=== PATIENT | male | born 1930 | race Caucasian/White ===

== ENCOUNTER → 2018-06-22 | Outpatient (CLI) | payer OTHER ==
--- NOTE | 2018-06-22 08:45 | US ---
EXAMINATION TYPE: US abdomen complete DATE OF EXAM: 06/22/2018 COMPARISON: NONE CLINICAL HISTORY: History of AAA repair I71.4. EXAM MEASUREMENTS: Liver Length: 16.8 cm Gallbladder Wall: 0.3 cm CBD: 0.5 cm Spleen: 13.4 cm Right Kidney: 11.5 x 5.1 x 5.1 cm Left Kidney: 11.6 x 6.1 x 8.2 cm Pancreas: not visualized due to midline bowel gas Liver: wnl Gallbladder: no stones seen, distended at 11.1 cm Evidence for sonographic Riggins's sign: No CBD: wnl Spleen: granulomas noted Right Kidney: No hydronephrosis or masses seen Left Kidney: appears as hydro or parapelvic cyst. Upper IVC: wnl Abd Aorta: distal AAA measures 5.5 x 4.9 cm with history of repair. The repaired portion measures 1. 7 x 1.3 cm with flow. IMPRESSION: 1. Repaired abdominal aortic aneurysm. This comes with be better evaluated with CTA abdomen and pelvi s. 2. Large left renal hydronephrosis. This could be further evaluated with CT abdomen. Differential jacy gnosis could include peripelvic cyst.
== END | disposition home or self-care (01) ==
LOC: RADUSWWP 07:17
DX: I71.4 Abdominal aortic aneurysm, without rupture (principal); N13.30 Unspecified hydronephrosis
CPT/HCPCS: 76700

== ENCOUNTER → 2019-04-22 | Outpatient (CLI) | payer OTHER ==
--- NOTE | 2019-04-22 17:09 | CT ---
EXAMINATION TYPE: CT abdomen wo con DATE OF EXAM: 04/22/2019 COMPARISON: None available at this location. Ultrasound abdomen 06/22/2028 is reviewed. INDICATION: Renal failure, AAA DLP: 626 mGycm, Automated exposure control for dose reduction was used. CONTRAST: 0 mL of Isovue 300. Study performed without Oral Contrast TECHNIQUE: Axial images were obtained from above the diaphragm to the pubic rami in the axial plane a t 5 mm thick sections. Reconstructed images are reviewed on the computer in the coronal plane. FINDINGS: Limited CT sections are obtained the lung bases. Small right pleural effusion is present. Very minim al left pleural effusion may be present.. CT ABDOMEN: Liver/Spleen: There are extensive calcified granuloma within the liver and the spleen. Pancreas: Normal Adrenal glands: The adrenal glands are normal. Gallbladder: Gallbladder wall calcification may be present. No gallstones were noted on the ultrasoun d. Kidneys: No masses are evident. There appears to be a large left hydronephrosis. Differential diagnos is would include a peripelvic cyst. This measures 10.6 x 7.9 cm. No etiology for an obstructed renal pelvis is evident however. The right kidney appears normal. Aorta: Vascular calcification is within the aorta. There is a abdominal aortic aneurysm with repair. Iliac stents are evident coming from the abdominal aortic aneurysm. Study is without contrast and en dovascular leak cannot be evaluated. Inferior vena cava: Normal. Loops of bowel within the abdomen and pelvis are normal. There are loops of bowel which are incom pletely distended or lack oral contrast limiting their evaluation. Appendix: Normal as visualized. IMPRESSIONS: 1. Abdominal aortic aneurysm with prior stent repair. Study is without intravenous contrast and endo vascular leak cannot be evaluated. 2. Large cyst on the left kidney can be related to a peripelvic cyst or hydronephrosis. Peripelvic cy st appears to be favored as there is no suspicious etiology for an obstruction at the renal pelvis. 3 . There may be some gallbladder wall calcification present. 4. Small right pleural effusion with possible minimal left pleural effusion.
== END | disposition home or self-care (01) ==
LOC: RADCTMAIN 11:25
DX: N28.1 Cyst of kidney, acquired (principal); N19 Unspecified kidney failure
CPT/HCPCS: 74150

== ENCOUNTER 2019-11-09 13:43 | Inpatient (IN) | payer OTHER, MEDICARE ==
[2019-11-09] MEDS ORDERED: MORPHINE SULFATE 4 MG/ML SYRINGE IV STA (14:23)
[2019-11-09] MEDS ORDERED: ONDANSETRON 4 MG/2 ML VIAL IVP STA (14:23)
[2019-11-09 14:38] LABS: Potassium 5.5 mmol/L (3.5-5.1); Total Bilirubin 0.7 mg/dL (0.2-1.3); Total Protein 7.8 g/dL (6.3-8.2)
[2019-11-09 14:39] LABS: Basophils # (A) 0.1 k/uL (0-0.2); Basophils % (A) 1 %; Eosinophils # (A) 0.2 k/uL (0-0.7); Eosinophils % (A) 2 %; HCT 32.9 % (39.0-53.0); HGB 10.2 gm/dL (13.0-17.5); Hypochromasia Slight; Lymphocytes # (A) 1.2 k/uL (1.0-4.8); Lymphocytes % (A) 13 %; MCH 30.3 pg (25.0-35.0); MCV 97.8 fL (80.0-100.0); Mean Platelet Volume 9.2; Monocytes # (A) 0.4 k/uL (0-1.0); Monocytes % (A) 4 %; Neutrophils # (A) 6.9 k/uL (1.3-7.7); Neutrophils % (A) 78 %; Platelet Count 114 k/uL (150-450); RBC 3.36 m/uL (4.30-5.90); RDW 15.3 % (11.5-15.5); WBC 8.8 k/uL (3.8-10.6)
[2019-11-09 14:47] LABS: Magnesium 2.6 mg/dL (1.6-2.3)
[2019-11-09 14:48] LABS: Partial Thromboplastin Time 22.4 sec (22.0-30.0); Prothrombin Time 10.4 sec (9.0-12.0)
--- NOTE | 2019-11-09 14:52 | ED ---
General Adult HPI - General Chief complaint: Chest Pain Stated complaint: sob Time Seen by Provider: 11/09/19 14:03 Source: patient Mode of arrival: ambulatory Limitations: no limitations - History of Present Illness Initial comments: Patient is an 89-year-old male, with history of AICD, AAA repair, presenting to emergency Department with complaints of abdominal and chest pain 2 days. Patient states 2 days ago he started noticing mild abdominal discomfort in the mid abdomen region. Patient states he was having issues with constipation and thought it could be that. His pain has been increasing and is now traveling upwards into his chest. Patient describes his pain as sharp and consistent as well as burning. Patient states he has a history of AAA repair a few use ago. Patient also admits to shortness of breath. He denies recent fever or cough. He denies any vomiting or diarrhea. He did have a bowel movement this morning. There are no other complaints. Upon arrival to the ER, blood pressure is 180/79, pulse is 68, respiratory 20, and 100% on room air. - Related Data Home Medications Medication Instructions Recorded Confirmed Albuterol Sulfate [Proair Hfa] 1 - 2 puff INHALATION RT-QID 11/09/19 11/09/19 Allopurinol [Zyloprim] 100 mg PO DAILY 11/09/19 11/09/19 Aspirin EC [Ecotrin Low Dose] 81 mg PO DAILY 11/09/19 11/09/19 Carvedilol [Coreg] 6.25 mg PO BID 11/09/19 11/09/19 Dorzolamide-Timol 2.23%/0.68% 1 drop BOTH EYES BID 11/09/19 11/09/19 [Cosopt] Furosemide [Lasix] 20 mg PO BID 11/09/19 11/09/19 Levothyroxine Sodium [Synthroid] 150 mcg PO DAILY 11/09/19 11/09/19 Lisinopril [Zestril] 5 mg PO DAILY 11/09/19 11/09/19 Multivitamins, Thera [Multivitamin 1 tab PO DAILY 11/09/19 11/09/19 (formulary)] Nitroglycerin Sl Tabs [Nitrostat] 0.4 mg SUBLINGUAL Q5M PRN 11/09/19 11/09/19 Allergies Allergy/AdvReac Type Severity Reaction Status Date / Time No Known Allergies Allergy Verified 11/09/19 15:10 Review of Systems ROS Statement: Those systems with pertinent positive or pertinent negative responses have been documented in the HPI. ROS Other: All systems not noted in ROS Statement are negative. Past Medical History Past Medical History: Coronary Artery Disease (CAD), Chest Pain / Angina, Hyperlipidemia, Hypertension, Myocardial Infarction ([place]) History of Any Multi-Drug Resistant Organisms: None Reported Past Surgical History: AICD, Heart Catheterization With Stent Additional Past Surgical History / Comment(s): aaa repair Past Psychological History: No Psychological Hx Reported Smoking Status: Former smoker Past Alcohol Use History: None Reported Past Drug Use History: None Reported, Unable to Obtain General Exam - General Exam Comments Initial Comments: GENERAL: Patient appears uncomfortable, in no acute distress.. HEAD: Atraumatic, normocephalic. EYES: Pupils equal round and reactive to light, extraocular movements intact, sclera anicteric, conjunctiva are normal. ENT: TMs normal, nares patent, oropharynx clear without exudates. Moist mucous membranes. NECK: Normal range of motion, supple without lymphadenopathy or JVD. LUNGS: Breath sounds clear to auscultation bilaterally and equal. No wheezes rales or rhonchi. HEART: Regular rate and rhythm without murmurs, rubs or gallops. ABDOMEN: Tender to palpation of the epigastric and mid abdominal region. No pain in the lower abdomen. Bowel sounds are normal. No pulsatile mass. : Deferred EXTREMITIES: Normal range of motion, no pitting or edema. No clubbing or cyanosis. NEUROLOGICAL: Cranial nerves II through XII grossly intact. Normal speech, normal gait. PSYCH: Normal mood, normal affect. SKIN: Warm, Dry, normal turgor, no rashes or lesions noted. Limitations: no limitations Course Vital Signs 11/09/19 11/09/19 11/09/19 13:47 14:42 15:06 Temperature 97.4 F L Pulse Rate 68 54 L 67 Respiratory 20 16 18 Rate Blood Pressure 180/79 165/78 161/92 O2 Sat by Pulse 100 98 99 Oximetry 11/09/19 17:07 Temperature Pulse Rate 61 Respiratory 18 Rate Blood Pressure 172/81 O2 Sat by Pulse 99 Oximetry EKG Findings - EKG Comments: EKG Findings:: Ventricular rate 57, QRS duration to 36, QTC 586. Ventricular paced rhythm. Medical Decision Making - Medical Decision Making Patient is an 89-year-old male presenting with chest pain and abdominal pain 2 days. States he has history of AAA, repaired with a stent. Patient's initial vitals blood pressure is 180/79, rest of vitals were normal. On exam patient has tenderness epigastric right and right upper quadrant. No other acute findings. EKG was negative for ischemic activity. Labwork reveals no leukocytosis. Slight hyperkalemia, BUN and creatinine elevated at 38, 2.12. Lactic acid is normal at 1.0. Transaminitis. Troponin was normal. Urine is normal. CTA of the thoracic abdominal region shows a stable stent graft of aorta. No CT evidence for in the week. Lungs reveal small effusions, correlate for possible mild CHF, possible underlying pneumonia. Hydropic gallbladder with cholelithiasis and mild wall thickening, correlate for possible acute cholecystitis. Bladder wall thickening. Chronic severe left-sided hydronephrosis, relatively unchanged 2018. Patient will be admitted for chest pain rule out as well as consult with surgery. Patient is agreeable with this plan and care. Case discussed with Dr. Marquez. Patient was accepted by Dr. Marinelli. - Lab Data Result diagrams: 11/09/19 14:10 11/09/19 14:10 Lab Results 11/09/19 11/09/19 11/09/19 Range/Units 14:10 14:10 14:10 WBC 8.8 (3.8-10.6) k/uL RBC 3.36 L (4.30-5.90) m/uL Hgb 10.2 L (13.0-17.5) gm/dL Hct 32.9 L (39.0-53.0) % MCV 97.8 (80.0-100.0) fL MCH 30.3 (25.0-35.0) pg MCHC 31.0 (31.0-37.0) g/dL RDW 15.3 (11.5-15.5) % Plt Count 114 L (150-450) k/uL Neutrophils % 78 % Lymphocytes % 13 % Monocytes % 4 % Eosinophils % 2 % Basophils % 1 % Neutrophils # 6.9 (1.3-7.7) k/uL Lymphocytes # 1.2 (1.0-4.8) k/uL Monocytes # 0.4 (0-1.0) k/uL Eosinophils # 0.2 (0-0.7) k/uL Basophils # 0.1 (0-0.2) k/uL Hypochromasia Slight PT 10.4 (9.0-12.0) sec INR 1.0 (<1.2) APTT 22.4 (22.0-30.0) sec Sodium 136 L (137-145) mmol/L Potassium 5.5 H (3.5-5.1) mmol/L Chloride 111 H (98-107) mmol/L Carbon Dioxide 17 L (22-30) mmol/L Anion Gap 8 mmol/L BUN 38 H (9-20) mg/dL Creatinine 2.12 H (0.66-1.25) mg/dL Est GFR (CKD-EPI)AfAm 31 (>60 ml/min/1.73 sqM) Est GFR (CKD-EPI)NonAf 27 (>60 ml/min/1.73 sqM) Glucose 149 H (74-99) mg/dL Plasma Lactic Acid Bhaskar (0.7-2.0) mmol/L Calcium 9.0 (8.4-10.2) mg/dL Magnesium (1.6-2.3) mg/dL Total Bilirubin 0.7 (0.2-1.3) mg/dL AST 108 H (17-59) U/L ALT 79 H (4-49) U/L Alkaline Phosphatase 180 H (38-126) U/L Troponin I (0.000-0.034) ng/mL Total Protein 7.8 (6.3-8.2) g/dL Albumin 4.0 (3.5-5.0) g/dL Lipase (23-300) U/L Urine Color Urine Appearance (Clear) Urine pH (5.0-8.0) Ur Specific [place] (1.001-1.035) Urine Protein (Negative) Urine Glucose (UA) (Negative) Urine Ketones (Negative) Urine Blood (Negative) Urine Nitrite (Negative) Urine Bilirubin (Negative) Urine Urobilinogen (<2.0) mg/dL Ur Leukocyte Esterase (Negative) Urine RBC (0-5) /hpf Urine WBC (0-5) /hpf Hyaline Casts (0-2) /lpf 04/11/20 04/11/20 04/11/20 Range/Units 14:10 14:10 15:35 WBC (3.8-10.6) k/uL RBC (4.30-5.90) m/uL Hgb (13.0-17.5) gm/dL Hct (39.0-53.0) % MCV (80.0-100.0) fL MCH (25.0-35.0) pg MCHC (31.0-37.0) g/dL RDW (11.5-15.5) % Plt Count (150-450) k/uL Neutrophils % % Lymphocytes % % Monocytes % % Eosinophils % % Basophils % % Neutrophils # (1.3-7.7) k/uL Lymphocytes # (1.0-4.8) k/uL Monocytes # (0-1.0) k/uL Eosinophils # (0-0.7) k/uL Basophils # (0-0.2) k/uL Hypochromasia PT (9.0-12.0) sec INR (<1.2) APTT (22.0-30.0) sec Sodium (137-145) mmol/L Potassium (3.5-5.1) mmol/L Chloride (98-107) mmol/L Carbon Dioxide (22-30) mmol/L Anion Gap mmol/L BUN (9-20) mg/dL Creatinine (0.66-1.25) mg/dL Est GFR (CKD-EPI)AfAm (>60 ml/min/1.73 sqM) Est GFR (CKD-EPI)NonAf (>60 ml/min/1.73 sqM) Glucose (74-99) mg/dL Plasma Lactic Acid Bhaskar 1.0 (0.7-2.0) mmol/L Calcium (8.4-10.2) mg/dL Magnesium 2.6 H (1.6-2.3) mg/dL Total Bilirubin (0.2-1.3) mg/dL AST (17-59) U/L ALT (4-49) U/L Alkaline Phosphatase (38-126) U/L Troponin I <0.012 (0.000-0.034) ng/mL Total Protein (6.3-8.2) g/dL Albumin (3.5-5.0) g/dL Lipase 234 (23-300) U/L Urine Color Urine Appearance (Clear) Urine pH (5.0-8.0) Ur Specific [place] (1.001-1.035) Urine Protein (Negative) Urine Glucose (UA) (Negative) Urine Ketones (Negative) Urine Blood (Negative) Urine Nitrite (Negative) Urine Bilirubin (Negative) Urine Urobilinogen (<2.0) mg/dL Ur Leukocyte Esterase (Negative) Urine RBC (0-5) /hpf Urine WBC (0-5) /hpf Hyaline Casts (0-2) /lpf 11/09/19 Range/Units 15:42 WBC (3.8-10.6) k/uL RBC (4.30-5.90) m/uL Hgb (13.0-17.5) gm/dL Hct (39.0-53.0) % MCV (80.0-100.0) fL MCH (25.0-35.0) pg MCHC (31.0-37.0) g/dL RDW (11.5-15.5) % Plt Count (150-450) k/uL Neutrophils % % Lymphocytes % % Monocytes % % Eosinophils % % Basophils % % Neutrophils # (1.3-7.7) k/uL Lymphocytes # (1.0-4.8) k/uL Monocytes # (0-1.0) k/uL Eosinophils # (0-0.7) k/uL Basophils # (0-0.2) k/uL Hypochromasia PT (9.0-12.0) sec INR (<1.2) APTT (22.0-30.0) sec Sodium (137-145) mmol/L Potassium (3.5-5.1) mmol/L Chloride (98-107) mmol/L Carbon Dioxide (22-30) mmol/L Anion Gap mmol/L BUN (9-20) mg/dL Creatinine (0.66-1.25) mg/dL Est GFR (CKD-EPI)AfAm (>60 ml/min/1.73 sqM) Est GFR (CKD-EPI)NonAf (>60 ml/min/1.73 sqM) Glucose (74-99) mg/dL Plasma Lactic Acid Bhaskar (0.7-2.0) mmol/L Calcium (8.4-10.2) mg/dL Magnesium (1.6-2.3) mg/dL Total Bilirubin (0.2-1.3) mg/dL AST (17-59) U/L ALT (4-49) U/L Alkaline Phosphatase (38-126) U/L Troponin I (0.000-0.034) ng/mL Total Protein (6.3-8.2) g/dL Albumin (3.5-5.0) g/dL Lipase (23-300) U/L Urine Color Light Yellow Urine Appearance Clear (Clear) Urine pH 6.5 (5.0-8.0) Ur Specific [place] 1.037 H (1.001-1.035) Urine Protein 1+ H (Negative) Urine Glucose (UA) Negative (Negative) Urine Ketones Negative (Negative) Urine Blood Negative (Negative) Urine Nitrite Negative (Negative) Urine Bilirubin Negative (Negative) Urine Urobilinogen <2.0 (<2.0) mg/dL Ur Leukocyte Esterase Negative (Negative) Urine RBC <1 (0-5) /hpf Urine WBC 1 (0-5) /hpf Hyaline Casts 1 (0-2) /lpf Disposition Clinical Impression: Chest pain, Abdominal pain, [id number] kidney injury, Hyperkalemia, Transaminitis Disposition: ADMITTED IP TO THIS [facility] Condition: Good Is patient prescribed a controlled substance at d/c from ED?: No Referrals: Dalton Dos Santos DO [Primary Care Provider] - 1-2 days Decision Date: 11/09/19 Decision Time: 16:42
[2019-11-09] MEDS ORDERED: SODIUM CHLORIDE 0.9% 500 ML 500 ML IV ONE (15:04)
--- NOTE | 2019-11-09 15:35 | CT ---
EXAMINATION TYPE: CT angio thor/abd pel aorta DATE OF EXAM: 11/09/2019 COMPARISON: CT abdomen 04/22/2019 HISTORY: 89-year-old male mid abdominal and back pain. Hx of AAA. TECHNIQUE: Contiguous axial scanning of the chest, abdomen, and pelvis performed without and with IV Contrast, patient injected with 100ml mL of Isovue 370. Coronal/sagittal MIP reconstructions performe d. Delayed images through the stent graft. 3-D reconstructions generated on a dedicated PET workstati on. CT DLP: 4819 mGycm Automated exposure control for dose reduction was used. FINDINGS: CHEST: LEFT anterior chest wall AICD generator with right atrial and right ventricular leads. Heart borderline enlarged without pericardial effusion. Extensive three-vessel coronary artery calcif ications are present. Large caliber to the main right and the pulmonary arteries at 3.0 and 2.7 cm, respectively, suggestin g underlying pulmonary arterial hypertension. Some calcified subcarinal right hilar lymph nodes compatible with prior granulomatous disease. No tho racic lymphadenopathy by CT size criteria. Subpleural reticulations noted bilaterally, especially in the upper and midlungs. There seems to be f luid tracking along the right major fissure along with small bilateral pleural effusions. Mild to mod erate diffuse bronchial wall thickening. Patchy peripheral right basilar opacity along with calcified granulomas at the right base. VASCULATURE: Ectatic aortic root at 3.8 cm. Ascending aorta ectatic and 3.8 cm. Moderate atherosclerotic arch calcifications with bovine configuration to the aortic arch. Upper descending thoracic aorta measures 2.9 cm. Scattered mild Actos carotid calcifications descending thoracic aorta. Lower descending thoracic aorta measures 2.4 cm. No evidence for acute intracranial hematoma or aortic dissection. Aortobiiliac endovascular stent graft is demonstrated. The stent graft begins at the level of the SMA . The aneurysmal infrarenal creek sac expands 10.0 cm to the bifurcation with a caliber up to 5.7 cm a nd shows some scattered calcifications within. No change in appearance of the creek sac after contra st administration or on delayed images to suggest endoleak. The stented left common iliac artery is aneurysmal at 2.2 cm. Stented right common iliac arteries aneurysmal at 2.1 cm. Focal moderate atherosclerotic plaque and narrowing within the proximal left external iliac artery as well as scattered mild atherosclerotic calcifications throughout both iliac arteries. ABDOMEN: Possible cirrhotic morphology of the liver. Multiple calcified granulomas within the liver. Gallbladder hydropic and 4.5 cm with suggestion of wall thickening and tiny dependent gallstones. Bile duct mildly dilated at 1 cm, probably due to patient's age. Portal venous system is patent. Adrenal glands and right kidney show no gross. Pancreas is mildly atrophic. A couple 9 mm cystic lesi ons from the carrier pancreatic neck and body, axial images 23 and 26. Spleen mildly enlarged at 14.3 cm multiple calcified granulomas. There seems to be severe left-sided hydronephrosis but with normal caliber to the ureter, possibly UP J obstruction. Normal appendix. No significant stool burden. Left-sided colonic diverticulosis, greatest in the sigm oid colon which is redundant. Possible pericolonic fat stranding along the proximal sigmoid, axial im age 89. No significant wall thickening here. No dilated small bowel, free fluid, or free air. No mesenteric or retroperitoneal lymphadenopathy. PELVIS: Circumferential bladder wall thickening. Mild perivesicular fat stranding. Prostate gland is enlarged and 5.0 cm wide. Multiple pelvic phleboliths. No abnormal fluid collection in the pelvis or pelvic l ymphadenopathy. BONES: Degenerative changes of the hips. Advanced degenerative disc disease lower lumbar spine and also with in the mid thoracic spine. Hypertrophic facet arthropathy mid to lower lumbar spine no osseous destru ctive process. IMPRESSION: VASCULATURE: 1. AORTOBIILIAC ENDOVASCULAR STENT GRAFT. THE ANEURYSMAL INFRARENAL RENO-SPARKS SAC SPANS 10 CM TO THE BIF URCATION AND IS RELATIVELY SIMILAR IN CALIBER AT 5.7 CM VERSUS 04/22/2019. No CT evidence for endoleak . 2. Similar mildly aneurysmal stented right and left common iliac arteries measuring up to 2.2 cm. 3. Ectatic aortic root and ascending aorta at 3.8 cm. No evidence for aortic dissection. BODY: 1. CAD, pulmonary arterial hypertension, small effusions, interstitial thickening; correlate for poss ible mild CHF and fluid overload state. 2. Additional patchy peripheral right basilar opacity. Clinically correlate to exclude underlying pne umonia. 3. Hydropic gallbladder with cholelithiasis and mild wall thickening. Correlate for any right upper q uadrant pain that would suggest acute cholecystitis. HIDA scan if indicated. 4. Left-sided clonic diverticulosis. There is mild fat stranding along the proximal sigmoid that coul d relate to some edema in the setting of mild anasarca or mild inflammation in the setting of mild ac robinson diverticulitis. Clinically correlate. 5. Bladder wall thickening and mild vesicular fat stranding. Correlate to exclude cystitis. 6. Chronic severe left-sided hydronephrosis (similar to 04/22/2019), possible UPJ obstruction given no rmal caliber to the left ureter. 7. Possible underlying cirrhosis. Prior granulomatous disease.
[2019-11-09 16:17] LABS: Appearance,Urine Clear (Clear); Bilirubin,Urine Negative (Negative); Blood,Urine Negative (Negative); Color,Urine Light Yellow; Glucose,Urine (UA) Negative (Negative); Hyaline Casts,Urine 1 /lpf (0-2); Ketones,Urine Negative (Negative); Leukocyte Esterase,Urine Negative (Negative); Nitrite,Urine Negative (Negative); PH, Urine 6.5 (5.0-8.0); Protein,Urine 1+ (Negative); RBC,Urine <1 /hpf (0-5); Specific Gravity,Urine 1.037 (1.001-1.035); Urobilinogen,Urine <2.0 mg/dL (<2.0); WBC,Urine 1 /hpf (0-5)
[2019-11-09] MEDS ORDERED: NITROGLYCERIN SL TABS 0.4 MG TAB SUBLINGUAL PRN (16:45)
[2019-11-09] MEDS ORDERED: SODIUM CHLORIDE 0.9% 1,000 ML IV STA (16:51)
[2019-11-09] MEDS ORDERED: CARVEDILOL 6.25 MG TAB PO STA (17:20)
[2019-11-09] MEDS ORDERED: ACETAMINOPHEN TAB 500 MG TAB PO PRN (17:22)
[2019-11-09] MEDS ORDERED: ALPRAZolam 0.25 MG TAB PO PRN (17:22)
--- NOTE | 2019-11-09 17:40 | XR ---
EXAMINATION TYPE: XR chest 1V portable DATE OF EXAM: 11/09/2019 COMPARISON: 03/13/2020 HISTORY: Pain TECHNIQUE: Single frontal view of the chest is obtained. FINDINGS: There is a large area of consolidation right upper lobe. Right lower lobe consolidation sm all effusion with cardiomegaly and cardiac device. Underlying COPD suspected. No pneumothorax. IMPRESSION: 1. Right upper and lower lobe consolidation with small effusion correlate for asymmetric pulmonary ed esmer and CHF versus developing pneumonia.
[2019-11-09] MEDS: CARVEDILOL 6.25 MG TAB PO SCH (18:01)
[2019-11-09] MEDS: MORPHINE SULFATE 4 MG/ML SYRINGE IVP PRN (18:18)
--- NOTE | 2019-11-09 20:05 | HP ---
HISTORY AND PHYSICAL DATE OF SERVICE: 11/09/2019 CHIEF COMPLAINT: Abdominal chest pain HISTORY OF PRESENT ILLNESS: This 89-year-old gentleman with a past medical history of multiple medical problems including history of CAD, history of hypertension, hyperlipidemia, myocardial infarction, AICD, history of CAD/stent being followed by Dr. Dos Santos in the outpatient setting was not feeling well over the past several days. Patient had some anorexia, abdominal discomfort in the umbilical area, radiating to the epigastric area and chest also. The patient had some constipation previously. The patient is also feeling weak and because of multiple complaints, the patient came to [facility] and was admitted for further evaluation and treatment. The patient lives by himself doing his own grocery shopping, but apparently the patient is extremely weak at this time. The patient was dehydrated on admission with creatinine 2.12 indicating acute renal failure. Sodium 130, potassium 5.5. Covid testing is being performed at this time. Otherwise, there is no history of fever, rigors. No headache, loss of consciousness, chest pain at this time. Occasional cough is reported. PAST MEDICAL HISTORY: History of CAD, history of stent, history of chest pain, angina, hypertension, hyperlipidemia, history of AICD. MEDICATIONS: Prior to admission home medications are: 1. Nitrostat 0.4 sublingual p.r.n. 2. Multivitamins one p.o. daily. 3. Zestril 5 mg. 4. Synthroid 150 mcg. 5. Lasix 20 mg p.o. daily. 6. Timolol eye drops b.i.d. 7. Coreg 6.25 mg b.i.d. 8. Ecotrin 81 mg daily. 9. Zyloprim 100 mg p.o. daily. 10.Pro-Air HFA 1-2 puffs q.i.d. ALLERGIES: None. FAMILY HISTORY: No history of heart disease or strokes in family. SOCIAL HISTORY: Previous history of smoking. No history of current smoking or alcohol intake. REVIEW OF SYSTEMS: ENT: No diminished vision. No diminished hearing. CARDIOVASCULAR as mentioned earlier. RESPIRATORY: As mentioned earlier. GI: As mentioned earlier. no dysuria. Nervous System: No numbness or weakness. Allergy/Immunology: No asthma or hayfever. Musculoskeletal: As mentioned earlier. HEMATOLOGY/ONCOLOGY: No history of anemia. ENDOCRINE: Hypothyroidism. Constitutional: As mentioned earlier. DERMATOLOGY: Negative. RHEUMATOLOGY negative. PSYCHIATRY as mentioned earlier. PHYSICAL EXAM: Patient is alert, oriented x3. The pulse is 61. Blood pressure 172/81, respiration 18, temperature 97.4, pulse ox 98% on room air. HEENT: Conjunctivae normal. Oral mucosa moist. NECK is no jugular venous distention. No carotid bruit. No lymph node enlargement. CARDIOVASCULAR: S1, S2 muffled. No S3, no S4. RESPIRATORY: Breath sounds diminished in the bases. A few scattered rhonchi and crackles. ABDOMEN: Soft. Obese. Mild diffuse discomfort on palpation. No guarding. No rigidity. No mass palpable. LEGS: No edema. No swelling. NERVOUS SYSTEM: Higher function as mentioned earlier. Moves all four limbs. No focal motor or sensory deficits. SKIN: No ulcer, rash or bleeding. JOINTS: No active deforming arthropathy. LABS: WBC 8.2, hemoglobin 10.2, platelets 114, and sodium 130. Potassium 5.5. Creatinine is 2.12. AST/ALT noted. ASSESSMENT: 1. Abdominal and chest pain for evaluation. 2. Acute renal failure with prerenal acute renal failure, dehydration for evaluation. 3. Hyponatremia. 4. Hyperkalemia. 5. Mild metabolic acidosis. 6. Increased AST/ALT. Rule out hepatitis. 7. Rule out Covid-19. 8. Anemia, normocytic anemia of chronic disease. 9. Thrombocytopenia. 10.Chest pain, rule out unstable angina. 11.History of stent. 12.Hypertension. 13.Hyperlipidemia. 14.History AICD. 15.History of abdominal aortic aneurysm repair. 16.Remote history of nicotine dependence. 17.Obesity with body mass of 31.2. RECOMMENDATIONS AND DISCUSSION: This 89-year-old gentleman who presented with multiple complex medical issues, we will monitor the patient closely. Continue the current medications, management and symptomatic treatment. We will rule out myocardial infarction. We will perform Covid- 19 testing. We will provide symptomatic treatment. Avoid nephrotoxic medications. IV fluids. Cardiology consultation. Monitor labs. Guarded prognosis because of multiple complex medical issues. A copy of this dictation being forwarded to Dr. Dos Santos who is the primary physician. We will also perform an EKG as well. Further recommendations to follow. MMODL / IJN: [id number] / [facility]
[2019-11-09] MEDS: ALBUTEROL NEBULIZED 2.5 MG/3 ML INHALATION SCH (20:12)
[2019-11-09] MEDS: HEPARIN SODIUM,PORCINE 5,000 UNIT/ML 1 ML VIAL SQ SCH (20:56)
[2019-11-09] MEDS: PANTOPRAZOLE 40 MG/10 ML VIAL IVP SCH ×2 (20:56→21:13)
[2019-11-09] MEDS: DORZOLAMIDE-TIMOLOL 2.23%/0.68 10ML BTL BOTH EYES SCH (20:56)
[2019-11-09] MEDS: SODIUM CHLORIDE 0.9% 1,000 ML IV SCH (20:56)
[2019-11-10 02:54] LABS: Basophils % (A) 0 %; Eosinophils % (A) 0 %; HCT 32.3 % (39.0-53.0); HGB 9.7 gm/dL (13.0-17.5); Hypochromasia Marked; Lymphocytes % (A) 7 %; MCHC 30.1 g/dL (31.0-37.0); MCV 99.4 fL (80.0-100.0); Macrocytosis Slight; Mean Platelet Volume 9.2; Monocytes # (A) 0.7 k/uL (0-1.0); Monocytes % (A) 5 %; Neutrophils # (A) 12.9 k/uL (1.3-7.7); Neutrophils % (A) 88 %; Platelet Count 126 k/uL (150-450); RBC 3.24 m/uL (4.30-5.90); RDW 15.5 % (11.5-15.5); WBC 14.7 k/uL (3.8-10.6)
[2019-11-10 02:59] LABS: Albumin 3.6 g/dL (3.5-5.0); Calcium 8.7 mg/dL (8.4-10.2); Potassium 5.3 mmol/L (3.5-5.1); Total Bilirubin 0.6 mg/dL (0.2-1.3)
[2019-11-10] MEDS: HYDROcodone/APAP 5-325MG 1 EACH TAB PO PRN ×3 (03:30→21:41)
[2019-11-10] MEDS: ALBUTEROL NEBULIZED 2.5 MG/3 ML INHALATION SCH ×4 (07:42→19:52)
[2019-11-10] MEDS: LEVOTHYROXINE 75 MCG TAB PO SCH (08:59)
[2019-11-10] MEDS: ALLOPURINOL 100 MG TAB PO SCH (09:00)
[2019-11-10] MEDS: DORZOLAMIDE-TIMOLOL 2.23%/0.68 10ML BTL BOTH EYES SCH ×2 (09:00→21:42)
[2019-11-10] MEDS: HEPARIN SODIUM,PORCINE 5,000 UNIT/ML 1 ML VIAL SQ SCH ×2 (09:00→21:54)
[2019-11-10] MEDS: CARVEDILOL 6.25 MG TAB PO SCH ×2 (09:00→17:47)
[2019-11-10] MEDS: ASPIRIN 81 MG PO SCH (09:00)
[2019-11-10] MEDS: MULTIVITAMINS, THERA 1 EACH TAB PO SCH (09:01)
[2019-11-10] MEDS: PANTOPRAZOLE 40 MG/10 ML VIAL IVP SCH ×2 (09:01→21:54)
[2019-11-10] MEDS: SODIUM CHLORIDE 0.9% 1,000 ML IV SCH ×2 (09:12→21:43)
[2019-11-10 09:18] VITALS: BMI 25.4
[2019-11-10] MEDS: MORPHINE SULFATE 4 MG/ML SYRINGE IVP PRN (09:28)
--- NOTE | 2019-11-10 09:44 | US ---
EXAMINATION TYPE: US abdomen limited DATE OF EXAM: 11/10/2019 COMPARISON: Previous study dated 06/21/2018. CLINICAL HISTORY: Possible cholecystitis. EXAM MEASUREMENTS: Liver Length: 17.3 cm Gallbladder Wall: 0.8 cm CBD: 0.3 cm Right Kidney: 11.2 x 4.1 x 4.8 cm Extensive overlying bowel gas. Technically difficult and somewhat limited study. Pancreas: Obscured by bowel gas Liver: scattered hyperechoic foci, limited visualization, measures upper limits of normal in size Gallbladder: thick edematous wall, ff adjacent to Evidence for sonographic Riggins's sign: patient is tender here CBD: wnl Right Kidney: No hydronephrosis or masses seen, inferior pole obscured The pancreas is poorly visualized. The liver is upper limits of normal in size. There are scattered echogenic foci within the liver whic h May reflect old granulomatous disease. The wall of the gallbladder is thickened measuring 8 mm. There is some pericholecystic fluid. No defi nite calculi are seen. There is a positive sonographic Riggins's sign. The common hepatic duct measure s 3 mm. Limited views of the right kidney are unremarkable. IMPRESSION: 1. FINDINGS SUGGESTIVE OF ACALCULOUS CHOLECYSTITIS. 2. 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
--- NOTE | 2019-11-10 11:09 | P.GSCN ---
History of Present Illness Consult date: 11/10/19 Reason for Consult: Abdominal pain History of present illness: 89-year-old male presents to the ER yesterday complaining of epigastric abdomina l pain. More to the right upper quadrant. Also described having chest pain. Initially thought it may be related to constipation. He did feel impacted. Mild shortness of breath. Mild cough. No nausea or vomiting. No diarrhea. Appetite slightly diminished. Patient had a CT chest performed which revealed gallstones with a distended gallbladder and mild inflammatory changes. Ultrasound then showed no visible stones with a thickened wall and pericholecystic fluid with gallbladder tenderness. Patient's liver enzymes slightly elevated, improved this morning. Coronavirus test was negative thus far. Patient has a DO NOT RESUSCITATE order in place. 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 Last Myocardial Infarction Date:: 2009 History of Any Multi-Drug Resistant Organisms: None Reported Past Surgical History: AICD, Heart Catheterization With Stent Additional Past Surgical History / Comment(s): aaa repair Past Anesthesia/Blood Transfusion Reactions: No Reported Reaction Date of Last Stent Placement:: AROUND 2009 Type of Cardiac Device: AICD Device Placement Date:: AUG 2019 Past Psychological History: No Psychological Hx Reported Smoking Status: Former smoker Past Alcohol Use History: None Reported Past Drug Use History: None Reported, Unable to Obtain - Past Family History Father Family Medical History: Myocardial Infarction ([place]) Medications and Allergies Home Medications Medication Instructions Recorded Confirmed Type Albuterol Sulfate [Proair Hfa] 1 - 2 puff INHALATION RT-QID 11/09/19 11/09/19 History Allopurinol [Zyloprim] 100 mg PO DAILY 11/09/19 11/09/19 History Aspirin EC [Ecotrin Low Dose] 81 mg PO DAILY 11/09/19 11/09/19 History Carvedilol [Coreg] 6.25 mg PO BID 11/09/19 11/09/19 History Dorzolamide-Timol 2.23%/0.68% 1 drop BOTH EYES BID 11/09/19 11/09/19 History [Cosopt] Furosemide [Lasix] 20 mg PO BID 11/09/19 11/09/19 History Levothyroxine Sodium [Synthroid] 150 mcg PO DAILY 11/09/19 11/09/19 History Lisinopril [Zestril] 5 mg PO DAILY 11/09/19 11/09/19 History Multivitamins, Thera [Multivitamin 1 tab PO DAILY 11/09/19 11/09/19 History (formulary)] Nitroglycerin Sl Tabs [Nitrostat] 0.4 mg SUBLINGUAL Q5M PRN 11/09/19 11/09/19 History Allergies Allergy/AdvReac Type Severity Reaction Status Date / Time glipizide AdvReac DROP SUGAR Verified 11/09/19 18:57 TOO LOW Surgical - Exam Vital Signs Temp Pulse Resp BP Pulse Ox 97.4 F L 68 20 180/79 100 11/09/19 13:47 11/09/19 13:47 11/09/19 13:47 11/09/19 13:47 11/09/19 13:47 Physical exam: General: Well-developed, well-nourished elderly male in no distress, appears younger than stated age HEENT: Normocephalic, sclerae nonicteric Abdomen: Mild right upper quadrant tenderness without palpable mass, nondistended Extremities: No edema Neuro: Alert and oriented Results - Labs 11/10/19 02:20 11/10/19 02:20 Abnormal Lab Results - Last 24 Hours (Table) 11/09/19 11/09/19 11/09/19 Range/Units 14:10 14:10 14:10 WBC (3.8-10.6) k/uL RBC 3.36 L (4.30-5.90) m/uL Hgb 10.2 L (13.0-17.5) gm/dL Hct 32.9 L (39.0-53.0) % MCHC (31.0-37.0) g/dL Plt Count 114 L (150-450) k/uL Neutrophils # (1.3-7.7) k/uL Sodium 136 L (137-145) mmol/L Potassium 5.5 H (3.5-5.1) mmol/L Chloride 111 H (98-107) mmol/L Carbon Dioxide 17 L (22-30) mmol/L BUN 38 H (9-20) mg/dL Creatinine 2.12 H (0.66-1.25) mg/dL Glucose 149 H (74-99) mg/dL Magnesium 2.6 H (1.6-2.3) mg/dL AST 108 H (17-59) U/L ALT 79 H (4-49) U/L Alkaline Phosphatase 180 H (38-126) U/L Ur Specific [place] (1.001-1.035) Urine Protein (Negative) 11/09/19 11/10/19 11/10/19 Range/Units 15:42 02:20 02:20 WBC 14.7 H (3.8-10.6) k/uL RBC 3.24 L (4.30-5.90) m/uL Hgb 9.7 L (13.0-17.5) gm/dL Hct 32.3 L (39.0-53.0) % MCHC 30.1 L (31.0-37.0) g/dL Plt Count 126 L (150-450) k/uL Neutrophils # 12.9 H (1.3-7.7) k/uL Sodium (137-145) mmol/L Potassium 5.3 H (3.5-5.1) mmol/L Chloride 112 H (98-107) mmol/L Carbon Dioxide 15 L (22-30) mmol/L BUN 36 H (9-20) mg/dL Creatinine 2.14 H (0.66-1.25) mg/dL Glucose 132 H (74-99) mg/dL Magnesium (1.6-2.3) mg/dL AST 64 H (17-59) U/L ALT 61 H (4-49) U/L Alkaline Phosphatase 139 H (38-126) U/L Ur Specific [place] 1.037 H (1.001-1.035) Urine Protein 1+ H (Negative) Diabetes panel 11/09/19 11/10/19 Range/Units 14:10 02:20 Sodium 136 L 137 (137-145) mmol/L Potassium 5.5 H 5.3 H (3.5-5.1) mmol/L Chloride 111 H 112 H (98-107) mmol/L Carbon Dioxide 17 L 15 L (22-30) mmol/L BUN 38 H 36 H (9-20) mg/dL Creatinine 2.12 H 2.14 H (0.66-1.25) mg/dL Glucose 149 H 132 H (74-99) mg/dL Calcium 9.0 8.7 (8.4-10.2) mg/dL AST 108 H 64 H (17-59) U/L ALT 79 H 61 H (4-49) U/L Alkaline Phosphatase 180 H 139 H (38-126) U/L Total Protein 7.8 7.0 (6.3-8.2) g/dL Albumin 4.0 3.6 (3.5-5.0) g/dL Calcium panel 11/09/19 11/10/19 Range/Units 14:10 02:20 Calcium 9.0 8.7 (8.4-10.2) mg/dL Albumin 4.0 3.6 (3.5-5.0) g/dL Pituitary panel 11/09/19 11/10/19 Range/Units 14:10 02:20 Sodium 136 L 137 (137-145) mmol/L Potassium 5.5 H 5.3 H (3.5-5.1) mmol/L Chloride 111 H 112 H (98-107) mmol/L Carbon Dioxide 17 L 15 L (22-30) mmol/L BUN 38 H 36 H (9-20) mg/dL Creatinine 2.12 H 2.14 H (0.66-1.25) mg/dL Glucose 149 H 132 H (74-99) mg/dL Calcium 9.0 8.7 (8.4-10.2) mg/dL Adrenal panel 11/09/19 11/10/19 Range/Units 14:10 02:20 Sodium 136 L 137 (137-145) mmol/L Potassium 5.5 H 5.3 H (3.5-5.1) mmol/L Chloride 111 H 112 H (98-107) mmol/L Carbon Dioxide 17 L 15 L (22-30) mmol/L BUN 38 H 36 H (9-20) mg/dL Creatinine 2.12 H 2.14 H (0.66-1.25) mg/dL Glucose 149 H 132 H (74-99) mg/dL Calcium 9.0 8.7 (8.4-10.2) mg/dL Total Bilirubin 0.7 0.6 (0.2-1.3) mg/dL AST 108 H 64 H (17-59) U/L ALT 79 H 61 H (4-49) U/L Alkaline Phosphatase 180 H 139 H (38-126) U/L Total Protein 7.8 7.0 (6.3-8.2) g/dL Albumin 4.0 3.6 (3.5-5.0) g/dL Assessment and Plan (1) Acute cholecystitis due to biliary calculus Narrative/Plan: 89-year-old male with acute cholecystitis. Surgical options reviewed with the patient. He states he is not interested in surgery at this time given his advanced age and his DO NOT RESUSCITATE directives. He would like to see if antibiotics and a nonsurgical approach can lead to resolution of his symptoms. Continue broad-spectrum antibiotics at this time. Repeat labs tomorrow. We'll follow closely with you. Current Visit: Yes Status: Acute Code(s): K80.00 - CALCULUS OF GALLBLADDER W ACUTE CHOLECYST W/O OBSTRUCTION SNOMED Code(s): 27416777737523
--- NOTE | 2019-11-10 11:32 | CONS ---
CONSULTATION CHIEF COMPLAINT: Chest pain. HISTORY OF PRESENT ILLNESS: Eduard is an 89-year-old gentleman with history of cardiomyopathy, coronary artery disease status post prior multivessel angioplasty, hypothyroidism, and AICD who presented to the hospital primarily complaining of abdominal discomfort that also radiated to his chest area. He has been treated with intravenous heparin, has evidence of renal insufficiency, and is currently being worked up for possible cholecystitis. At the time of my evaluation, he is chest pain free and hemodynamically stable. His cardiac enzymes have been negative. EKG shows paced rhythm. I told the patient that his chest discomfort does not seem cardiac in origin and that we are not going to perform any invasive procedures at this time. The patient will need a stress test down the road once COVID concerns have resolved unless one has recently been done. He follows with my associate Dr. Argueta in [facility] and has connection with the [place]. PAST MEDICAL HISTORY: Significant for coronary artery disease status post angioplasty, cardiomyopathy, AICD, hypothyroidism, and congestive heart failure. CURRENT MEDICATIONS: Zestril 5 daily, Synthroid, Lasix 20 b.i.d., Cosopt, Coreg, aspirin, Zyloprim, ProAir. ALLERGIES: The patient is allergic to GLIPIZIDE. FAMILY HISTORY: Negative for premature coronary artery disease. SOCIAL HISTORY: Negative for current smoking, EtOH abuse or drug abuse. REVIEW OF SYSTEMS: HEENT: Unremarkable. CARDIAC: As described above. RESPIRATORY: As described above. GI: As described above. GENITOURINARY: Negative. ALLERGY/IMMUNOLOGY: Negative. SKIN: Negative. MUSCULOSKELETAL: Negative. ENDOCRINE: Negative. DERM: Negative. CONSTITUTIONAL: Negative. ONCOLOGICAL: Negative. ROTATING FIELD ASSEMBLER: Negative. PHYSICAL EXAMINATION: On exam, comfortable at rest, afebrile. Heart rate is 68 beats per minute, blood pressure is 138/62, respiratory rate is 18, O2 saturation is 98% on room air. There is no jugular venous distention. Chest exam reveals good air entry bilaterally. I do not hear any crackles or rhonchi. Heart exam reveals first and second heart sounds, an ejection systolic murmur in the aortic area. Abdomen is soft. Exam of the extremities reveals mild edema. Peripheral pulses are palpable. LABORATORY DATA: Labs showed that the white cell count is elevated today, hemoglobin is 9.7, potassium is 5.3, creatinine is up at 2, BUN is 36. ASSESSMENT: 1. Precordial chest pain, sharp, atypical, probably noncardiac. 2. Ischemic cardiomyopathy status post AICD. 3. Abdominal pain. 4. Renal insufficiency. PLAN: I will continue the patient on aspirin and Coreg, subcu heparin, obtain a 2D echo to document his LV function. From a cardiac standpoint, he can be discharged home once the abdominal issues have been addressed. We do not have to keep him here for an echo. If he is discharged home, please arrange follow up with Cardiology over the next two weeks. MMODL / IJN: [id number] /
[2019-11-10] MEDS: PIPERACILLIN-TAZOBACTAM 3.375 GM in SODIUM CHLORIDE 0.9% 100 ML IVPB SCH (15:44)
--- NOTE | 2019-11-10 18:23 | PN ---
PROGRESS NOTE DATE OF SERVICE: 11/10/2019 This 89-year-old gentleman admitted with abdominal and chest pain is being closely monitored at this time. The patient also has acute renal failure. The patient's abdominal ultrasound also showed evidence of possible acalculous cholecystitis and old granulomatous disease in the liver was also noted. Covid-19 was negative at this time. The patient also had multiple other medical issues including hypokalemia, renal failure. Cardiology is also following the patient closely. The Covid-19 is negative. Patient being closely monitored. PAST MEDICAL HISTORY: Reviewed. REVIEW OF SYSTEMS: CARDIOVASCULAR system: As mentioned earlier. RESPIRATORY: As mentioned earlier. GI no nausea or vomiting. no dysuria. NERVOUS SYSTEM: No numbness or weakness. CURRENT MEDICATIONS: Reviewed and include: 1. Tylenol 500 mg q.6h p.r.n. 2. [place] 5 mg q.6h p.r.n. 3. Zyloprim 100 mg p.r.n. 4. Xanax 0.5 t.i.d. 5. Aspirin 81 mg. 6. Coreg 6.25 mg b.i.d. 7. Rocephin 1 g daily. 8. Cosopt. 9. Heparin 5000 subcu b.i.d. 10.Synthroid 150 mcg daily. 11.Morphine sulfate. 12.Multivitamins. 13.Nitrostat. 14.Protonix. PHYSICAL EXAM: Patient is alert, oriented x3. Pulse is 54, blood pressure 130/80, respiration 18, temperature 98.4, pulse ox 94% on room air. HEENT: Conjunctivae normal. NECK: No JVD. No carotid bruit. CARDIOVASCULAR: S1, S2 muffled. RESPIRATIONS: Breath sounds diminished in the bases. A few scattered rhonchi and crackles. ABDOMEN: Soft, obese, mild diffuse tenderness in the right upper quadrant present. No guarding. No rigidity. No mass. Bowel sounds present. LEGS are no edema. No swelling. CENTRAL NERVOUS SYSTEM: No focal deficits. LAB STUDIES: WBC 14.2, hemoglobin 9.7. LFTs are noted. ASSESSMENT: 1. Abdominal pain with possible acute cholecystitis, acalculous. 2. Chest pain, rule out coronary artery disease. 3. Acute renal failure with prerenal acute renal failure, and dehydration. 4. Hyponatremia. 5. Hyperkalemia. 6. Mild metabolic acidosis. 7. Increased AST, ALT, possibly hepatitis. 8. Covid-19 test came back negative. 9. Anemia, normocytic anemia of chronic disease. 10.Thrombocytopenia. 11.Chest pain. 12.History of coronary artery disease/stent. 13.Hypertension. 14.Hyperlipidemia. 15.History of AICD. 16.History of abdominal aortic aneurysm repair. 17.Remote history of nicotine dependence. 18.Obesity with body mass index 31.2. 19.NO CODE, NO CPR, NO VENT. RECOMMENDATIONS AND DISCUSSION: In this 89-year-old gentleman who presented with multiple complex medical issues had features of acute calculous cholecystitis. Dr. Orr is following the patient closely for possible surgery, but considering the patient has multiple comorbidities, broad- spectrum IV antibiotics will be initiated and we will continue to monitor. We will also follow closely with Cardiology and multiple other consultants. Covid-19 negative. Overall prognosis extremely guarded because of the multiple complex medical issues and discussed with the patient who understands and agrees. Further recommendations to follow. MMODL / IJN: [id number] /
[2019-11-11] MEDS: PIPERACILLIN-TAZOBACTAM 3.375 GM in SODIUM CHLORIDE 0.9% 100 ML IVPB SCH ×4 (00:25→23:42)
[2019-11-11] MEDS: LEVOTHYROXINE 75 MCG TAB PO SCH (06:13)
[2019-11-11] MEDS: CARVEDILOL 6.25 MG TAB PO SCH ×2 (06:13→17:06)
[2019-11-11 07:02] LABS: Albumin 2.9 g/dL (3.5-5.0); Calcium 7.9 mg/dL (8.4-10.2); Potassium 5.2 mmol/L (3.5-5.1); Total Bilirubin 0.4 mg/dL (0.2-1.3)
[2019-11-11] MEDS: ALBUTEROL HFA INHALER INHALATION SCH ×4 (07:42→18:45)
[2019-11-11 07:44] LABS: Basophils % (A) 0 %; Eosinophils # (A) 0.1 k/uL (0-0.7); Eosinophils % (A) 1 %; HCT 28.2 % (39.0-53.0); HGB 8.4 gm/dL (13.0-17.5); Hypochromasia Marked; Lymphocytes # (A) 1.3 k/uL (1.0-4.8); Lymphocytes % (A) 13 %; MCHC 29.9 g/dL (31.0-37.0); MCV 100.4 fL (80.0-100.0); Macrocytosis Slight; Mean Platelet Volume 10.7; Monocytes # (A) 0.4 k/uL (0-1.0); Monocytes % (A) 4 %; Neutrophils # (A) 7.4 k/uL (1.3-7.7); Neutrophils % (A) 79 %; RBC 2.81 m/uL (4.30-5.90); RDW 15.7 % (11.5-15.5); WBC 9.4 k/uL (3.8-10.6)
[2019-11-11] MEDS: HYDROcodone/APAP 5-325MG 1 EACH TAB PO PRN ×2 (07:47→20:58)
[2019-11-11 08:44] LABS: Poikilocytosis (M) Present
[2019-11-11 08:46] LABS: Platelet Count 78 k/uL (150-450)
[2019-11-11] MEDS: ALLOPURINOL 100 MG TAB PO SCH (09:19)
[2019-11-11] MEDS: DORZOLAMIDE-TIMOLOL 2.23%/0.68 10ML BTL BOTH EYES SCH (09:20)
[2019-11-11] MEDS: MULTIVITAMINS, THERA 1 EACH TAB PO SCH (09:20)
[2019-11-11] MEDS: PANTOPRAZOLE 40 MG/10 ML VIAL IVP SCH ×2 (09:20→20:59)
[2019-11-11] MEDS: ASPIRIN 81 MG PO SCH (09:20)
[2019-11-11] MEDS: HEPARIN SODIUM,PORCINE 5,000 UNIT/ML 1 ML VIAL SQ SCH ×2 (09:20→21:00)
--- NOTE | 2019-11-11 09:46 | P.PN ---
Subjective Progress Note Date: 11/11/19 Principal diagnosis: Acute cholecystitis Patient feels better today. Received 1 dose of [place] this morning for pain that he noticed was returning. Labs improved. Patient would like to go home today. Objective - Vital Signs Vital signs: Vital Signs Temp 98.0 F 11/11/19 07:58 Pulse 67 11/11/19 07:58 Resp 18 11/11/19 07:58 BP 121/58 11/11/19 07:58 Pulse Ox 99 11/11/19 07:58 Intake & Output 11/10/19 11/11/19 11/11/19 18:59 06:59 18:59 Intake Total 615 550 240 Output Total 150 Balance 615 400 240 Weight 85 kg 74.5 kg Intake: Intake, IV Titration 375 550 Amount Piperacillin-Tazobactam 3 100 .375 gm In Sodium Chloride 0.9% 100 ml @ 25 mls/hr IVPB Q8HR [facility] Rx# :[id number] Sodium Chloride 0.9% 1, 375 450 000 ml @ 75 mls/hr IV . [id number] [facility] Rx#:[id number] Oral 240 240 Output: Urine 150 Other: Voiding Method Urinal # Voids 2 - Exam Abdomen: Soft, nondistended, minimal right upper quadrant tenderness - Labs CBC & Chem 7: 11/11/19 06:30 11/11/19 06:30 Labs: Abnormal Lab Results - Last 24 Hours (Table) 11/11/19 11/11/19 Range/Units 06:30 06:30 RBC 2.81 L (4.30-5.90) m/uL Hgb 8.4 L (13.0-17.5) gm/dL Hct 28.2 L (39.0-53.0) % MCV 100.4 H (80.0-100.0) fL MCHC 29.9 L (31.0-37.0) g/dL RDW 15.7 H (11.5-15.5) % Plt Count 78 L (150-450) k/uL Sodium 134 L (137-145) mmol/L Potassium 5.2 H (3.5-5.1) mmol/L Chloride 112 H (98-107) mmol/L Carbon Dioxide 14 L (22-30) mmol/L BUN 45 H (9-20) mg/dL Creatinine 2.77 H (0.66-1.25) mg/dL Glucose 107 H (74-99) mg/dL Calcium 7.9 L (8.4-10.2) mg/dL Total Protein 6.0 L (6.3-8.2) g/dL Albumin 2.9 L (3.5-5.0) g/dL Assessment and Plan (1) Acute cholecystitis due to biliary calculus Narrative/Plan: Continue antibiotics. Continue low fat diet. Possible discharge per primary service. If pain recurs patient to return to the hospital. Current Visit: Yes Status: Acute Code(s): K80.00 - CALCULUS OF GALLBLADDER W ACUTE CHOLECYST W/O OBSTRUCTION SNOMED Code(s): 00008794092372
--- NOTE | 2019-11-11 13:13 | PN ---
PROGRESS NOTE Mr. García is a gentleman with cardiomyopathy, previous multivessel PCI and ICD, came in with complaining of abdominal discomfort, also had sharp chest pain. His troponins are normal. He is resting comfortably. His clinical presentation does not suggest acute myocardial injury. Troponin levels are normal. He is doing well overall with no chest discomfort. I am recommending that we will continue his current medical regimen. No other intervention is necessary. However, I am concerned that his creatinine has gone up to 2.7. He is not on any aggressive diuretics at this time. I would recommend that we increase oral hydration. Continue normal saline at 75 mL/hour and would not do any other intervention cardiac barrera. Obtain a BMP tomorrow morning. His vitals are stable. There is JVD of 1 cm no carotid bruit. S1, S2 heard normally. There is a short systolic murmur. Lungs reveal diminished air entry. Abdomen and lower extremity exam otherwise is unchanged. MMODL / IJN: [id number] /
--- NOTE | 2019-11-11 16:43 | PN ---
PROGRESS NOTE DATE OF SERVICE: 11/11/2019 This 89-year-old gentleman who was admitted with abdominal pain had features of possible acute cholecystitis. Dr. Orr is following the patient from the surgical point of view. The patient was started on IV antibiotics. Surgery is being tentatively postponed at this time because of the patient's age and preference and multiple underlying comorbidities. COVID-19 test was negative. Ultrasound showed possibly acalculous cholecystitis. 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 No definite calculi were seen. Past medical history reviewed. REVIEW OF SYSTEMS: CARDIOVASCULAR SYSTEM: As mentioned earlier. RESPIRATORY SYSTEM: As mentioned earlier. GI: As mentioned earlier. : No dysuria or retention. NERVOUS SYSTEM: No numbness, weakness. CURRENT MEDICATIONS: 1. Tylenol p.r.n. 2. [place] 5 mg q.6 p.r.n. 3. Ventolin 2 puffs q.i.d. p.r.n. 4. Zyloprim 100 mg p.o. daily. 5. Xanax 0.25 t.i.d. 6. Aspirin 81 mg p.o. daily. 7. Coreg 6.25 mg p.o. b.i.d. 8. Cosopt 1 drop both eyes b.i.d. 9. Heparin 5000 units subcutaneously b.i.d. 10.Synthroid 150 mcg p.o. daily. 11.Morphine sulfate. 12.Multivitamins. 13.Nitrostat. 14.Protonix. 15.Zosyn IV. Doses are reviewed. PHYSICAL EXAMINATION: Patient is alert and oriented x3. Pulse is 59, blood pressure 158/68, respiration 18, temperature 97.9, pulse ox 97% on room air. HEENT: Conjunctivae normal. NECK: No jugular venous distention. CARDIOVASCULAR SYSTEM: S1, S2 muffled. Scattered rhonchi and crackles. Expiratory wheezing also present. ABDOMEN: Soft. Obese. Mild diffuse discomfort on the right side of the abdomen present. LEGS: No edema. No swelling. NERVOUS SYSTEM: No focal deficit. LABS: WBC 9.4, hemoglobin 8.4, sodium 134, potassium 5.2. CO2 was 14. Creatinine is 2.77. Creatinine is slightly worsening at this time. ASSESSMENT: 1. Abdominal pain with possible acute cholecystitis, acalculous. 2. Chest pain; rule out coronary artery disease. 3. Acute renal failure; acute on chronic renal failure with prerenal failure, acute tubular necrosis with dehydration, present on admission. 4. Hyponatremia. 5. Hyperkalemia. 6. Metabolic acidosis, mild. 7. Increased AST, ALT, with possible hepatitis. 8. COVID-19 test came back negative. 9. Anemia, normocytic; anemia of chronic disease. 10.Thrombocytopenia. 11.Chest pain. 12.History of coronary artery disease, stent. 13.Hypertension. 14.Hyperlipidemia. 15.History of automated implantable cardioverter defibrillator. 16.History of abdominal aortic aneurysm repair. 17.Remote history of nicotine dependence. 18.Obesity with body mass index of 31.2. 19.NO CODE, NO CPR, NO VENT. RECOMMENDATIONS AND DISCUSSION: I recommend to continue current medications, continue with the monitoring, symptomatic treatment. Otherwise at this time Dr. Orr is following the patient closely. Continue with broad-spectrum IV antibiotics. Hold off the surgery at this time. Follow closely with Cardiology and multiple consultants. Prognosis guarded because of multiple complex medical issues. Further recommendations to follow. The patient is keen on returning home today. We will continue to monitor. MMODL / IJN: [id number] /
[2019-11-11] MEDS: SODIUM CHLORIDE 0.9% 1,000 ML IV SCH ×2 (23:43→23:47)
[2019-11-12] MEDS: DORZOLAMIDE-TIMOLOL 2.23%/0.68 10ML BTL BOTH EYES SCH ×3 (03:26→20:41)
[2019-11-12] MEDS: CARVEDILOL 6.25 MG TAB PO SCH ×2 (05:57→16:55)
[2019-11-12] MEDS: LEVOTHYROXINE 75 MCG TAB PO SCH (05:57)
[2019-11-12 06:25] LABS: Basophils % (A) 1 %; Eosinophils # (A) 0.2 k/uL (0-0.7); Eosinophils % (A) 3 %; HCT 27.3 % (39.0-53.0); HGB 8.5 gm/dL (13.0-17.5); Hypochromasia Moderate; Lymphocytes # (A) 1.4 k/uL (1.0-4.8); Lymphocytes % (A) 17 %; MCH 30.2 pg (25.0-35.0); MCHC 30.9 g/dL (31.0-37.0); MCV 97.6 fL (80.0-100.0); Mean Platelet Volume 10.1; Monocytes # (A) 0.5 k/uL (0-1.0); Monocytes % (A) 7 %; Neutrophils # (A) 5.6 k/uL (1.3-7.7); Neutrophils % (A) 70 %; RDW 15.6 % (11.5-15.5)
[2019-11-12 06:34] LABS: Platelet Count 83 k/uL (150-450)
[2019-11-12 06:40] LABS: Albumin 2.8 g/dL (3.5-5.0); Calcium 7.6 mg/dL (8.4-10.2); Potassium 5.5 mmol/L (3.5-5.1); Total Bilirubin 0.5 mg/dL (0.2-1.3)
[2019-11-12] MEDS: ALBUTEROL HFA INHALER INHALATION SCH ×4 (07:21→19:51)
--- NOTE | 2019-11-12 08:53 | P.NPCON ---
History of Present Illness - Reason for Consult acute renal failure - History of Present Illness Reason for consultation: Acute kidney injury History of present illness: Patient is a 89-year-old male seen in renal consultation for acute kidney injury. Patient's creatinine on admission was 2.12 and is up to 3.19 today. Patient presented to the hospital with chest pain and abdominal pain. He did undergo CAT scan of the aorta with IV contrast on 11/09/2019. He is noted to have chronic left-sided hydronephrosis. Endovascular aortobiiliac stent was noted in place. There was also concern for acute cholecystitis. He is being followed by surgery. He is currently maintained on antibiotics. No surgical interventions are planned at this time. Patient denies use of nonsteroidals. 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 He denies any personal or family history of kidney disease. No history of diabetes. He admits to good urine output. No hematuria or dysuria. No chest pain or shortness of breath at this time. Blood pressure is currently well controlled. Patient's coronavirus test was negative. Vital signs are stable. General: The patient appeared well nourished and normally developed. HEENT: Head exam is unremarkable. Neck is without jugular venous distension. LUNGS: Lungs are clear to auscultation and percussion. Breath sounds decreased. HEART: Rate and Rhythm are regular. First and second heart sounds normal. ABDOMEN: Non-tender and non-distended. Soft. EXTREMITITES: No clubbing, cyanosis, or edema. 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 Last Myocardial Infarction Date:: 2009 History of Any Multi-Drug Resistant Organisms: None Reported Past Surgical History: AICD, Heart Catheterization With Stent Additional Past Surgical History / Comment(s): aaa repair Past Anesthesia/Blood Transfusion Reactions: No Reported Reaction Date of Last Stent Placement:: AROUND 2009 Type of Cardiac Device: AICD Device Placement Date:: AUG 2019 Past Psychological History: No Psychological Hx Reported Smoking Status: Former smoker Past Alcohol Use History: None Reported Past Drug Use History: None Reported, Unable to Obtain - Past Family History Father Family Medical History: Myocardial Infarction ([place]) Medications and Allergies Home Medications Medication Instructions Recorded Confirmed Type Albuterol Sulfate [Proair Hfa] 1 - 2 puff INHALATION RT-QID 11/09/19 11/09/19 History Allopurinol [Zyloprim] 100 mg PO DAILY 11/09/19 11/09/19 History Aspirin EC [Ecotrin Low Dose] 81 mg PO DAILY 11/09/19 11/09/19 History Carvedilol [Coreg] 6.25 mg PO BID 11/09/19 11/09/19 History Dorzolamide-Timol 2.23%/0.68% 1 drop BOTH EYES BID 11/09/19 11/09/19 History [Cosopt] Furosemide [Lasix] 20 mg PO BID 11/09/19 11/09/19 History Levothyroxine Sodium [Synthroid] 150 mcg PO DAILY 11/09/19 11/09/19 History Lisinopril [Zestril] 5 mg PO DAILY 11/09/19 11/09/19 History Multivitamins, Thera [Multivitamin 1 tab PO DAILY 11/09/19 11/09/19 History (formulary)] Nitroglycerin Sl Tabs [Nitrostat] 0.4 mg SUBLINGUAL Q5M PRN 11/09/19 11/09/19 History Levofloxacin [Levaquin] 500 mg PO DAILY 7 Days #7 tab 11/11/19 Rx Allergies Allergy/AdvReac Type Severity Reaction Status Date / Time glipizide AdvReac DROP SUGAR Verified 11/09/19 18:57 TOO LOW Physical Exam Vitals: Vital Signs Temp Pulse Resp BP Pulse Ox 11/12/19 08:00 97.8 F 60 18 121/56 100 11/12/19 04:02 98.2 F 52 L 18 139/65 97 11/12/19 00:11 98.4 F 61 16 116/78 96 11/11/19 21:10 98.5 F 60 18 126/78 97 11/11/19 16:00 98.3 F 57 L 18 132/61 98 11/11/19 12:00 97.9 F 59 L 18 158/68 97 Intake and Output 11/11/19 11/12/19 11/12/19 22:59 06:59 14:59 Intake Total 240 1500 Output Total 150 600 Balance 90 900 Intake: Intake, IV Titration 1500 Amount Piperacillin-Tazobactam 3 200 .375 gm In Sodium Chloride 0.9% 100 ml @ 25 mls/hr IVPB Q8HR [facility] Rx# :[id number] Sodium Chloride 0.9% 1, 1300 000 ml @ 75 mls/hr IV . [id number] [facility] Rx#:[id number] Oral 240 Output: Urine 150 600 Other: Voiding Method Urinal Urinal Weight 74.9 kg Results - Lab Results Most recent lab results Calcium 7.6 mg/dL (8.4-10.2) L 11/12/19 05:27 Magnesium 2.6 mg/dL (1.6-2.3) H 11/09/19 14:10 11/12/19 05:27 11/12/19 05:27 Assessment and Plan Plan: Assessment: 1. Acute kidney injury secondary to contrast-induced acute kidney injury. Patient received IV contrast on November 08. Creatinine 3.19 today. Unknown baseline renal function. Rule out urinary retention. 2. Chronic left-sided hydronephrosis. 3. Hyperkalemia secondary to acute kidney injury and metabolic acidosis. 4. Metabolic acidosis secondary to acute kidney injury. 5. History of AAA status post aortobiiliac stent graft in place. 6. Acute cholecystitis. Evaluated by surgery. No surgical intervention is planned at this time. 7. History of CHF. Currently compensated. Ejection fraction unknown. Plan: Discontinue normal saline and start bicarb drip at 75 mL an hour. Hold diuretics. Check renal ultrasound. Check bladder scan to rule out urinary retention. Consider urology evaluation for the hydronephrosis. Continue to monitor renal function and urine output. Thank you for the consultation. I will continue to follow this patient with you during his hospital stay.
[2019-11-12] MEDS: PANTOPRAZOLE 40 MG/10 ML VIAL IVP SCH ×2 (09:17→20:46)
[2019-11-12] MEDS: ASPIRIN 81 MG PO SCH (09:18)
[2019-11-12] MEDS: PIPERACILLIN-TAZOBACTAM 3.375 GM in SODIUM CHLORIDE 0.9% 100 ML IVPB SCH ×2 (09:18→20:50)
[2019-11-12] MEDS: HEPARIN SODIUM,PORCINE 5,000 UNIT/ML 1 ML VIAL SQ SCH ×2 (09:18→20:50)
[2019-11-12] MEDS: ALLOPURINOL 100 MG TAB PO SCH (09:18)
[2019-11-12] MEDS ORDERED: ONDANSETRON 4 MG/2 ML VIAL IVP PRN (10:09)
--- NOTE | 2019-11-12 10:38 | P.PN ---
Subjective Progress Note Date: 11/12/19 This is an 89-year-old gentleman who follows with Dr. Argueta in the office. He has a known history of cardiac cardiomyopathy, coronary artery disease with prior multivessel stenting, hypothyroidism, prior AICD implantation, hypothyroidism. Primarily presented to the hospital on this occasion with symptoms of abdominal discomfort with some radiation into his chest area. He was seen initially by Dr. Cruz in consultation and felt that the patient's chest pain was atypical and not cardiac in nature. Patient also was noted to have acute kidney injury, with a creatinine on admission of 2.1, up to 3.1, patient did recently undergo a CAT scan of the aorta with IV contrast on November 08. He is known to have chronic left-sided hydronephrosis. Endovascular aortoiliac stent was noted to be in place. At the time of our examination this morning, he is currently chest pain-free and denying any abdominal discomfort. Blood pressure 120/50 with a heart rate in the 60s. White blood cell count 8.0, hemoglobin 8.5, platelet count 83. Sodium 134, potassium 5.5, BUN 48 and creatinine 3.1. We will request an echocardiogram with Doppler study be performed. Objective - Vital Signs Vital signs: Vital Signs Temp 97.8 F 11/12/19 08:00 Pulse 60 11/12/19 08:00 Resp 18 11/12/19 08:00 BP 121/56 11/12/19 08:00 Pulse Ox 100 11/12/19 08:00 Intake & Output 11/11/19 11/12/19 11/12/19 18:59 06:59 18:59 Intake Total 1420 1500 420 Output Total 750 Balance 1420 750 420 Weight 74.9 kg Intake: Intake, IV Titration 700 1500 Amount Piperacillin-Tazobactam 3 100 200 .375 gm In Sodium Chloride 0.9% 100 ml @ 25 mls/hr IVPB Q8HR [facility] Rx# :[id number] Sodium Chloride 0.9% 1, 600 1300 000 ml @ 75 mls/hr IV . [id number] [facility] Rx#:[id number] Oral 720 420 Output: Urine 750 Other: Voiding Method Urinal - Exam PHYSICAL EXAMINATION: GENERAL: 89-year-old gentleman in no acute distress at the time of my examination HEENT: Head is atraumatic, normocephalic. Pupils equal, round. Sclera anicteric. Conjunctiva are clear. Mucous membranes of the mouth are moist. Neck is supple. There is no elevated jugular venous pressure. No carotid bruit is heard. HEART EXAMINATION: Heart S1 S2 1 systolic ejection murmur is heard CHEST EXAMINATION: Lungs are clear to auscultation and precussion. No chest wall tenderness is noted on palpation or with deep breathing. ABDOMEN: Soft, nontender. Bowel sounds are heard. No organomegaly noted. EXTREMITIES: 2+ peripheral pulses with no evidence of peripheral edema and no calf tenderness noted. NEUROLOGIC patient is awake, alert and oriented 3 . . - Labs CBC & Chem 7: 11/12/19 05:27 11/12/19 05:27 Labs: Abnormal Lab Results - Last 24 Hours (Table) 11/12/19 11/12/19 Range/Units 05:27 05:27 RBC 2.80 L (4.30-5.90) m/uL Hgb 8.5 L (13.0-17.5) gm/dL Hct 27.3 L (39.0-53.0) % MCHC 30.9 L (31.0-37.0) g/dL RDW 15.6 H (11.5-15.5) % Plt Count 83 L (150-450) k/uL Sodium 134 L (137-145) mmol/L Potassium 5.5 H (3.5-5.1) mmol/L Chloride 110 H (98-107) mmol/L Carbon Dioxide 15 L (22-30) mmol/L BUN 48 H (9-20) mg/dL Creatinine 3.19 H (0.66-1.25) mg/dL Calcium 7.6 L (8.4-10.2) mg/dL Total Protein 6.0 L (6.3-8.2) g/dL Albumin 2.8 L (3.5-5.0) g/dL Assessment and Plan Plan: Assessment and plan #1 abdominal discomfort, possible cholecystitis, being followed by surgery. Conservative therapy at this time. #2 atypical chest discomfort, noncardiac in nature. 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 We will review his echocardiogram with Doppler study. DNP note has been reviewed, I agree with a documented findings and plan of care. Patient was seen and examined.
--- NOTE | 2019-11-12 11:08 | US ---
EXAMINATION TYPE: US kidneys/renal and bladder DATE OF EXAM: 11/12/2019 COMPARISON: CT 2019 CLINICAL HISTORY: larry. LARRY, exam done portable. EXAM MEASUREMENTS: Right Kidney: 11.0 x 4.9 x 5.0 cm Left Kidney: 11.7 x 5.9 x 5.8 cm Right Kidney: no hydronephrosis or masses seen Left Kidney: 7.8 x 7.1 x 6.5cm anechoic area medial kidney, hydronephrosis vs. possible cyst Bladder: not fully distended, wall thickened Bilateral Jets seen: no IMPRESSION: 1. Suspect severe left-sided hydronephrosis versus large parapelvic renal cyst similar and appearance to the CT scan 2019.
[2019-11-12] MEDS: DEXTROSE 5% IN WATER 1,000 ML with SODIUM BICARB (1 MEQ/ML) 150 ML IV SCH (11:35)
[2019-11-12] MEDS: MULTIVITAMINS, THERA 1 EACH TAB PO SCH (11:35)
[2019-11-12 11:48] LABS: Glucose,Whole Blood 116 mg/dL (75-99)
--- NOTE | 2019-11-12 11:57 | P.PN ---
<Ashlyn Roman - Last Filed: 11/12/19 11:54> Subjective Progress Note Date: 11/12/19 CHIEF COMPLAINT: Acute cholecystitis HISTORY OF PRESENT ILLNESS: Patient seen and examined at the bedside. Patient denies abdominal pain or discomfort. He is tolerating diet. He denies nausea or vomiting. He reports he is feeling well overall. WBC 8.0. Bilirubin 0.5. AST 24. ALT 26. PHYSICAL EXAM: VITAL SIGNS: Reviewed. GENERAL: Well-developed in no acute distress. HEENT: No sclera icterus. Extraocular movements grossly intact. Moist buccal mucosa. Head is atraumatic, normocephalic. ABDOMEN: Soft. Nondistended. Nontender. NEUROLOGIC: Alert and oriented. Cranial nerves II through XII grossly intact. ASSESSMENT: 1. Acute cholecystitis PLAN: -Continue IV antibiotics -Continue low-fat diet -Patient and Dr. Orr have decided on conservative management at this time. -Continue medical management per Dr. Marinelli Nurse practitioner note has been reviewed by physician. Signing provider agrees with the documented findings, assessment, and plan of care. Objective - Vital Signs Vital signs: Vital Signs Temp 97.5 F L 11/12/19 11:40 Pulse 59 L 11/12/19 11:40 Resp 18 11/12/19 11:40 BP 150/65 11/12/19 11:40 Pulse Ox 100 11/12/19 11:40 Intake & Output 11/11/19 11/12/19 11/12/19 18:59 06:59 18:59 Intake Total 1420 1500 420 Output Total 750 Balance 1420 750 420 Weight 74.9 kg Intake: Intake, IV Titration 700 1500 Amount Piperacillin-Tazobactam 3 100 200 .375 gm In Sodium Chloride 0.9% 100 ml @ 25 mls/hr IVPB Q8HR [facility] Rx# :[id number] Sodium Chloride 0.9% 1, 600 1300 000 ml @ 75 mls/hr IV . [id number] [facility] Rx#:[id number] Oral 720 420 Output: Urine 750 Other: Voiding Method Urinal - Labs CBC & Chem 7: 11/12/19 05:27 11/12/19 05:27 Labs: Abnormal Lab Results - Last 24 Hours (Table) 11/12/19 11/12/19 11/12/19 Range/Units 05:27 05:27 11:45 RBC 2.80 L (4.30-5.90) m/uL Hgb 8.5 L (13.0-17.5) gm/dL Hct 27.3 L (39.0-53.0) % MCHC 30.9 L (31.0-37.0) g/dL RDW 15.6 H (11.5-15.5) % Plt Count 83 L (150-450) k/uL Sodium 134 L (137-145) mmol/L Potassium 5.5 H (3.5-5.1) mmol/L Chloride 110 H (98-107) mmol/L Carbon Dioxide 15 L (22-30) mmol/L BUN 48 H (9-20) mg/dL Creatinine 3.19 H (0.66-1.25) mg/dL POC Glucose (mg/dL) 116 H (75-99) mg/dL Calcium 7.6 L (8.4-10.2) mg/dL Total Protein 6.0 L (6.3-8.2) g/dL Albumin 2.8 L (3.5-5.0) g/dL <Wilder Orr - Last Filed: 11/12/19 12:21> Subjective The patient doing well from a surgical standpoint. Denies abdominal pain. Labs noted. Continue antibiotics. Continue diet. Will follow. Objective - Vital Signs Vital signs: Vital Signs Temp 97.5 F L 11/12/19 11:40 Pulse 59 L 11/12/19 11:40 Resp 18 11/12/19 11:40 BP 150/65 11/12/19 11:40 Pulse Ox 100 11/12/19 11:40 Intake & Output 11/11/19 11/12/19 11/12/19 18:59 06:59 18:59 Intake Total 1420 1500 420 Output Total 750 Balance 1420 750 420 Weight 74.9 kg Intake: Intake, IV Titration 700 1500 Amount Piperacillin-Tazobactam 3 100 200 .375 gm In Sodium Chloride 0.9% 100 ml @ 25 mls/hr IVPB Q8HR [facility] Rx# :[id number] Sodium Chloride 0.9% 1, 600 1300 000 ml @ 75 mls/hr IV . [id number] [facility] Rx#:[id number] Oral 720 420 Output: Urine 750 Other: Voiding Method Urinal - Labs CBC & Chem 7: 11/12/19 05:27 11/12/19 05:27 Labs: Abnormal Lab Results - Last 24 Hours (Table) 11/12/19 11/12/19 11/12/19 Range/Units 05:27 05:27 11:45 RBC 2.80 L (4.30-5.90) m/uL Hgb 8.5 L (13.0-17.5) gm/dL Hct 27.3 L (39.0-53.0) % MCHC 30.9 L (31.0-37.0) g/dL RDW 15.6 H (11.5-15.5) % Plt Count 83 L (150-450) k/uL Sodium 134 L (137-145) mmol/L Potassium 5.5 H (3.5-5.1) mmol/L Chloride 110 H (98-107) mmol/L Carbon Dioxide 15 L (22-30) mmol/L BUN 48 H (9-20) mg/dL Creatinine 3.19 H (0.66-1.25) mg/dL POC Glucose (mg/dL) 116 H (75-99) mg/dL Calcium 7.6 L (8.4-10.2) mg/dL Total Protein 6.0 L (6.3-8.2) g/dL Albumin 2.8 L (3.5-5.0) g/dL Assessment and Plan (1) Acute cholecystitis due to biliary calculus Current Visit: Yes Status: Acute Code(s): K80.00 - CALCULUS OF GALLBLADDER W ACUTE CHOLECYST W/O OBSTRUCTION SNOMED Code(s): 93385955291485
--- NOTE | 2019-11-12 16:31 | P.GSCN ---
History of Present Illness Consult date: 11/12/19 Reason for Consult: Left hydronephrosis Requesting physician: Ernesto Mcnulty History of present illness: The patient is an 89-year-old white male admitted with chest and abdominal pain. He has a history of an AAA, and underwent a CT angiogram on 11/09/2019. His serum creatinine level has risen daily since that time and today was 3.19, 15.12 at the time of admission. He is presumed to have acute cholecystitis, which is being managed medically as he intends to avoid surgery. Ultrasound has showed evidence of marked left hydronephrosis, which was seen on a computed tomography scan in March 2019. 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 He has been aware of this condition for at least 1 year. 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 Last Myocardial Infarction Date:: 2009 History of Any Multi-Drug Resistant Organisms: None Reported Past Surgical History: AICD, Heart Catheterization With Stent Additional Past Surgical History / Comment(s): aaa repair Past Anesthesia/Blood Transfusion Reactions: No Reported Reaction Date of Last Stent Placement:: AROUND 2009 Type of Cardiac Device: AICD Device Placement Date:: AUG 2019 Past Psychological History: No Psychological Hx Reported Smoking Status: Former smoker Past Alcohol Use History: None Reported Past Drug Use History: None Reported, Unable to Obtain - Past Family History Father Family Medical History: Myocardial Infarction ([place]) Medications and Allergies Home Medications Medication Instructions Recorded Confirmed Type Albuterol Sulfate [Proair Hfa] 1 - 2 puff INHALATION RT-QID 11/09/19 11/09/19 History Allopurinol [Zyloprim] 100 mg PO DAILY 11/09/19 11/09/19 History Aspirin EC [Ecotrin Low Dose] 81 mg PO DAILY 11/09/19 11/09/19 History Carvedilol [Coreg] 6.25 mg PO BID 11/09/19 11/09/19 History Dorzolamide-Timol 2.23%/0.68% 1 drop BOTH EYES BID 11/09/19 11/09/19 History [Cosopt] Furosemide [Lasix] 20 mg PO BID 11/09/19 11/09/19 History Levothyroxine Sodium [Synthroid] 150 mcg PO DAILY 11/09/19 11/09/19 History Lisinopril [Zestril] 5 mg PO DAILY 11/09/19 11/09/19 History Multivitamins, Thera [Multivitamin 1 tab PO DAILY 11/09/19 11/09/19 History (formulary)] Nitroglycerin Sl Tabs [Nitrostat] 0.4 mg SUBLINGUAL Q5M PRN 11/09/19 11/09/19 History Levofloxacin [Levaquin] 500 mg PO DAILY 7 Days #7 tab 11/11/19 Rx Allergies Allergy/AdvReac Type Severity Reaction Status Date / Time glipizide AdvReac DROP SUGAR Verified 11/09/19 18:57 TOO LOW Surgical - Exam Vital Signs Temp Pulse Resp BP Pulse Ox 97.4 F L 68 20 180/79 100 11/09/19 13:47 11/09/19 13:47 11/09/19 13:47 11/09/19 13:47 11/09/19 13:47 - General well developed, well nourished, no distress - Respiratory normal respiratory effort - Abdomen Abdomen: soft, tender (Mild right upper quadrant tenderness), no guarding, no rigid, no rebound, no distended - Psychiatric oriented to time, oriented to person, oriented to place, speech is normal, memory intact Results - Labs 11/12/19 05:27 11/12/19 05:27 Abnormal Lab Results - Last 24 Hours (Table) 11/12/19 11/12/19 11/12/19 Range/Units 05:27 05:27 11:45 RBC 2.80 L (4.30-5.90) m/uL Hgb 8.5 L (13.0-17.5) gm/dL Hct 27.3 L (39.0-53.0) % MCHC 30.9 L (31.0-37.0) g/dL RDW 15.6 H (11.5-15.5) % Plt Count 83 L (150-450) k/uL Sodium 134 L (137-145) mmol/L Potassium 5.5 H (3.5-5.1) mmol/L Chloride 110 H (98-107) mmol/L Carbon Dioxide 15 L (22-30) mmol/L BUN 48 H (9-20) mg/dL Creatinine 3.19 H (0.66-1.25) mg/dL POC Glucose (mg/dL) 116 H (75-99) mg/dL Calcium 7.6 L (8.4-10.2) mg/dL Total Protein 6.0 L (6.3-8.2) g/dL Albumin 2.8 L (3.5-5.0) g/dL Diabetes panel 11/12/19 Range/Units 05:27 Sodium 134 L (137-145) mmol/L Potassium 5.5 H (3.5-5.1) mmol/L Chloride 110 H (98-107) mmol/L Carbon Dioxide 15 L (22-30) mmol/L BUN 48 H (9-20) mg/dL Creatinine 3.19 H (0.66-1.25) mg/dL Glucose 84 (74-99) mg/dL Calcium 7.6 L (8.4-10.2) mg/dL AST 24 (17-59) U/L ALT 26 (4-49) U/L Alkaline Phosphatase 96 (38-126) U/L Total Protein 6.0 L (6.3-8.2) g/dL Albumin 2.8 L (3.5-5.0) g/dL Calcium panel 11/12/19 Range/Units 05:27 Calcium 7.6 L (8.4-10.2) mg/dL Albumin 2.8 L (3.5-5.0) g/dL Pituitary panel 11/12/19 Range/Units 05:27 Sodium 134 L (137-145) mmol/L Potassium 5.5 H (3.5-5.1) mmol/L Chloride 110 H (98-107) mmol/L Carbon Dioxide 15 L (22-30) mmol/L BUN 48 H (9-20) mg/dL Creatinine 3.19 H (0.66-1.25) mg/dL Glucose 84 (74-99) mg/dL Calcium 7.6 L (8.4-10.2) mg/dL Adrenal panel 11/12/19 Range/Units 05:27 Sodium 134 L (137-145) mmol/L Potassium 5.5 H (3.5-5.1) mmol/L Chloride 110 H (98-107) mmol/L Carbon Dioxide 15 L (22-30) mmol/L BUN 48 H (9-20) mg/dL Creatinine 3.19 H (0.66-1.25) mg/dL Glucose 84 (74-99) mg/dL Calcium 7.6 L (8.4-10.2) mg/dL Total Bilirubin 0.5 (0.2-1.3) mg/dL AST 24 (17-59) U/L ALT 26 (4-49) U/L Alkaline Phosphatase 96 (38-126) U/L Total Protein 6.0 L (6.3-8.2) g/dL Albumin 2.8 L (3.5-5.0) g/dL - Imaging CT scan - abdomen: report reviewed, image reviewed US - kidney/bladder: report reviewed, image reviewed Assessment and Plan (1) Unspecified hydronephrosis Current Visit: Yes Status: Acute Code(s): N13.30 - UNSPECIFIED HYDRONEPHROSIS SNOMED Code(s): 59172525 Plan: 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 He is asymptomatic. The exacerbation of his chronic kidney disease is likely contrast-induced. I do not believe he would benefit from any further evaluation or treatment for the hydronephrosis, and he is in agreement with this. Please notify me if I can be of any further assistance.
--- NOTE | 2019-11-12 16:32 | PN ---
PROGRESS NOTE DATE OF SERVICE: 11/12/2019 This is an 89-year-old gentleman admitted with multiple complex abdominal pain and possible cholecystitis, acalculous is being closely monitored. Patient also had chest pain also. The patient is started on broad-spectrum IV antibiotics. Surgery is following the patient closely and recommending possible outpatient followup. Otherwise an abdominal ultrasound also showed showed suspect severe left-sided hydronephrosis versus large parapelvic renal cyst. Urology evaluation also recommend Nephrology. The creatinine is still elevated at 3.19 and the patient will be closely monitored. PAST MEDICAL HISTORY: Reviewed. REVIEW OF SYSTEMS: CARDIOVASCULAR: No angina. RESPIRATORY: As mentioned earlier. GI: As mentioned earlier. : No dysuria. NERVOUS SYSTEM: No numbness, weakness. CURRENT MEDICATIONS: Reviewed and include: 1. Tylenol p.r.n. 2. Catharpin 5 mg q.6 p.r.n. 3. Ventolin. 4. Zyloprim 100 mg. 5. Xanax 0.5 t.i.d. 6. Aspirin 81 mg. 7. Coreg 6.5 mg b.i.d. 8. Timolol 1 drop q.h.s. 9. Heparin subcu b.i.d. 10.Synthroid 150 mcg p.o. daily. 11.Multivitamin. 12.Nitrostat. 13.Protonix. 14.Zosyn IV. PHYSICAL EXAMINATION: Patient is alert, oriented x3. Pulse 59, blood pressure 150/60, respiration 18, temperature 97.2, pulse ox 100% on room air. HEENT: Conjunctivae normal. NECK: No jugular venous distension. CARDIOVASCULAR: S1, S2, muffled. RESPIRATORY: Breath sounds diminished at the bases, some scattered rhonchi, no crackles. ABDOMEN: Soft, mild diffuse discomfort. No guarding. No mass palpable. LEGS: No edema, no swelling. LABS: WBC 8.2, hemoglobin is 8.5, sodium 130, potassium 5, creatinine 3.19. ASSESSMENT: 1. Abdominal pain with possible acute cholecystitis, acalculous. 2. Chest pain, rule out coronary artery disease. 3. Acute renal failure, acute on chronic renal failure with prerenal and postrenal factors, possible acute tubular necrosis with dehydration, present on admission. 4. Hydronephrosis, rule out urinary obstruction. 5. Hyponatremia. 6. Hyperkalemia. 7. Metabolic acidosis, mild, present on admission. 8. Increased AST, ALT with possible hepatitis. 9. COVID-19 test came back negative. 10.Anemia, normocytic anemia of chronic disease. 11.Thrombocytopenia. 12.Chest pain. 13.History of coronary artery disease, stent. 14.Hypertension. 15.Hyperlipidemia. 16.History of AICD. 17.History of abdominal aortic aneurysm repair. 18.Remote history of nicotine dependence. 19.Obesity with body mass index of 31.8. 20.NO CODE, NO CPR, NO VENT. RECOMMENDATION: In this 89-year-old gentleman who presented with multiple complex medical issues, will monitor the patient closely. Continue with the current medication and symptomatic treatment. Otherwise, at this time I would recommend continue with broad-spectrum IV antibiotics and I would also recommend IV fluids. Urology consultation closely with Nephrology. Prognosis guarded because of multiple complex medical issues. Further recommendations to follow. MMODL / IJN: [id number] /
--- NOTE | 2019-11-12 17:21 | ECHOF ---
Referral Reason:assess lvf MEASUREMENTS -------- HEIGHT: 182.9 cm WEIGHT: 74.8 kg BP: 121/56 RVIDd: 3.3 cm (< 3.3) IVSd: 1.4 cm (0.6 - 1.1) LVIDd: 4.7 cm (3.9 - 5.3) LVPWd: 1.6 cm (0.6 - 1.1) IVSs: 2.2 cm LVIDs: 3.9 cm LVPWs: 1.7 cm LA Diam: 4.1 cm (2.7 - 3.8) LAESV Index (A-L): 35.77 ml/m Ao Diam: 4.2 cm (2.0 - 3.7) AV Cusp: 1.5 cm (1.5 - 2.6) MV EXCURSION: 15.965 mm (> 18.000) MV EF SLOPE: 22 mm/s (70 - 150) EPSS: 2.1 cm MV E Lito: 1.14 m/s MV DecT: 187 ms MV A Lito: 0.51 m/s MV E/A Ratio: 2.24 AV maxP.00 mmHg AV meanP.27 mmHg RAP: 15.00 mmHg RVSP: 66.12 mmHg FINDINGS -------- Pacerwire seen in RV and RA. This was a technically adequate study. The left ventricular size is normal. There is moderate concentric left ventricular hypertrophy. T here is severe global hypokinesis of LV . Overall left ventricular systolic function is severely im paired with, an EF between 25 - 30 %. The right ventricle is mildly enlarged. LA is moderately dilated 34-39 ml/m2 The right atrial size is normal. Interatrial and interventricular septum intact. There is moderate aortic valve sclerosis. There is mild aortic regurgitation. There is mild aorti c stenosis present. Peak/mean gradient across the Aortic Valve is 16.00mmHg / 9.27mmHg. Moderate mitral annular calcification present. Moderate mitral regurgitation is present. Moderate tricuspid regurgitation present. There is severe pulmonary hypertension. The right ventr icular systolic pressure, as measured by Doppler, is 66.12mmHg. Trace/mild (physiologic) pulmonic regurgitation. 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 The inferior vena cava is dilated with poor inspiratory collapse which is consistent with estimated r ight atrial pressure of 15 mmHg. There is no pericardial effusion. CONCLUSIONS -------- 1. Pacerwire seen in RV and RA. 2. There is moderate concentric left ventricular hypertrophy. 3. There is severe global hypokinesis of LV . 4. Overall left ventricular systolic function is severely impaired with, an EF between 25 - 30 %. 5. The right ventricle is mildly enlarged. 6. LA is moderately dilated 34-39 ml/m2 7. There is moderate aortic valve sclerosis. 8. There is mild aortic regurgitation. 9. There is mild aortic stenosis present. 10. Peak/mean gradient across the Aortic Valve is 16.00mmHg / 9.27mmHg. 11. Moderate mitral annular calcification present. 12. Moderate mitral regurgitation is present. 13. Moderate tricuspid regurgitation present. 14. There is severe pulmonary hypertension. 15. Trace/mild (physiologic) pulmonic regurgitation. 16. 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 17. The inferior vena cava is dilated with poor inspiratory collapse which is consistent with estimat ed right atrial pressure of 15 mmHg. BEAM DYER RECESSED VAT: Vikki Bradford RDCS
[2019-11-12] MEDS: SODIUM CHLORIDE 0.9% 1,000 ML IV SCH (18:44)
[2019-11-13] MEDS: DEXTROSE 5% IN WATER 1,000 ML with SODIUM BICARB (1 MEQ/ML) 150 ML IV SCH (00:34)
[2019-11-13] MEDS: HYDROcodone/APAP 5-325MG 1 EACH TAB PO PRN (04:09)
[2019-11-13 04:23] VITALS: RESP 18
[2019-11-13] MEDS: CARVEDILOL 6.25 MG TAB PO SCH (06:31)
[2019-11-13] MEDS: LEVOTHYROXINE 75 MCG TAB PO SCH (06:31)
[2019-11-13 07:12] LABS: Basophils # (A) 0.1 k/uL (0-0.2); Basophils % (A) 1 %; Eosinophils # (A) 0.2 k/uL (0-0.7); Eosinophils % (A) 4 %; HCT 26.9 % (39.0-53.0); HGB 8.1 gm/dL (13.0-17.5); Hypochromasia Slight; Lymphocytes # (A) 1.1 k/uL (1.0-4.8); Lymphocytes % (A) 19 %; MCH 29.5 pg (25.0-35.0); MCHC 30.2 g/dL (31.0-37.0); MCV 97.9 fL (80.0-100.0); Mean Platelet Volume 9.7; Monocytes # (A) 0.4 k/uL (0-1.0); Monocytes % (A) 7 %; Neutrophils # (A) 3.9 k/uL (1.3-7.7); Neutrophils % (A) 66 %; RBC 2.75 m/uL (4.30-5.90); RDW 15.7 % (11.5-15.5); WBC 5.8 k/uL (3.8-10.6)
[2019-11-13 07:24] LABS: Calcium 7.7 mg/dL (8.4-10.2); Magnesium 2.5 mg/dL (1.6-2.3); Potassium 5.2 mmol/L (3.5-5.1)
[2019-11-13 07:46] LABS: Platelet Count 94 k/uL (150-450)
[2019-11-13 07:59] VITALS: BP 139/63; PULSE 57; TEMP 97.6
[2019-11-13] MEDS: ALBUTEROL HFA INHALER INHALATION SCH ×2 (08:22→11:58)
[2019-11-13] MEDS: HEPARIN SODIUM,PORCINE 5,000 UNIT/ML 1 ML VIAL SQ SCH (09:08)
[2019-11-13] MEDS: ASPIRIN 81 MG PO SCH (09:08)
[2019-11-13] MEDS: ALLOPURINOL 100 MG TAB PO SCH (09:08)
[2019-11-13] MEDS: DORZOLAMIDE-TIMOLOL 2.23%/0.68 10ML BTL BOTH EYES SCH (09:08)
[2019-11-13] MEDS: MULTIVITAMINS, THERA 1 EACH TAB PO SCH (09:08)
[2019-11-13] MEDS: PANTOPRAZOLE 40 MG/10 ML VIAL IVP SCH (09:08)
[2019-11-13] MEDS: PIPERACILLIN-TAZOBACTAM 3.375 GM in SODIUM CHLORIDE 0.9% 100 ML IVPB SCH (09:09)
--- NOTE | 2019-11-13 09:17 | P.PN ---
<Ashlyn Roman - Last Filed: 11/13/19 09:15> Subjective Progress Note Date: 11/13/19 CHIEF COMPLAINT: Acute cholecystitis HISTORY OF PRESENT ILLNESS: Patient seen and examined at the bedside. Patient denies abdominal pain or discomfort. He is tolerating diet. He denies nausea or vomiting. He is anxious to be discharged home. WBC 5.8. Hemoglobin 8.1. LFTs within normal limits. Vital signs are stable. He is afebrile. PHYSICAL EXAM: VITAL SIGNS: Reviewed. GENERAL: Well-developed in no acute distress. HEENT: No sclera icterus. Extraocular movements grossly intact. Moist buccal mucosa. Head is atraumatic, normocephalic. ABDOMEN: Soft. Nondistended. Nontender. NEUROLOGIC: Alert and oriented. Cranial nerves II through XII grossly intact. ASSESSMENT: 1. Acute cholecystitis PLAN: -Continue IV antibiotics -Continue low-fat diet -No plans for surgical intervention. Continue conservative management. -Continue medical management per Dr. Marinelli Nurse practitioner note has been reviewed by physician. Signing provider agrees with the documented findings, assessment, and plan of care. Objective - Vital Signs Vital signs: Vital Signs Temp 97.6 F 11/13/19 07:55 Pulse 57 L 11/13/19 07:55 Resp 18 11/13/19 07:55 BP 139/63 11/13/19 07:55 Pulse Ox 97 11/13/19 07:55 Intake & Output 11/12/19 11/13/19 11/13/19 18:59 06:59 18:59 Intake Total 420 480 Output Total 100 180 Balance 320 -180 480 Weight 106.7 kg Intake: Oral 420 480 Output: Urine 100 180 Other: Voiding Method Urinal # Voids 1 - Labs CBC & Chem 7: 11/13/19 06:18 11/13/19 06:18 Labs: Abnormal Lab Results - Last 24 Hours (Table) 11/12/19 11/13/19 11/13/19 Range/Units 11:45 06:18 06:18 RBC 2.75 L (4.30-5.90) m/uL Hgb 8.1 L (13.0-17.5) gm/dL Hct 26.9 L (39.0-53.0) % MCHC 30.2 L (31.0-37.0) g/dL RDW 15.7 H (11.5-15.5) % Plt Count 94 L (150-450) k/uL Sodium 133 L (137-145) mmol/L Potassium 5.2 H (3.5-5.1) mmol/L Chloride 110 H (98-107) mmol/L Carbon Dioxide 16 L (22-30) mmol/L BUN 49 H (9-20) mg/dL Creatinine 3.12 H (0.66-1.25) mg/dL Glucose 116 H (74-99) mg/dL POC Glucose (mg/dL) 116 H (75-99) mg/dL Calcium 7.7 L (8.4-10.2) mg/dL Magnesium 2.5 H (1.6-2.3) mg/dL <Wilder Orr - Last Filed: 11/13/19 10:37> Subjective As above. Patient denies pain currently. Plan is for the patient be discharged today. Follow-up/return to hospital if pain recurs. Objective - Vital Signs Vital signs: Vital Signs Temp 97.6 F 11/13/19 07:55 Pulse 57 L 11/13/19 07:55 Resp 18 11/13/19 07:55 BP 139/63 11/13/19 07:55 Pulse Ox 97 11/13/19 07:55 Intake & Output 11/12/19 11/13/19 11/13/19 18:59 06:59 18:59 Intake Total 420 480 Output Total 100 180 Balance 320 -180 480 Weight 106.7 kg Intake: Oral 420 480 Output: Urine 100 180 Other: Voiding Method Urinal # Voids 1 - Labs CBC & Chem 7: 11/13/19 06:18 11/13/19 06:18 Labs: Abnormal Lab Results - Last 24 Hours (Table) 11/12/19 11/13/19 11/13/19 Range/Units 11:45 06:18 06:18 RBC 2.75 L (4.30-5.90) m/uL Hgb 8.1 L (13.0-17.5) gm/dL Hct 26.9 L (39.0-53.0) % MCHC 30.2 L (31.0-37.0) g/dL RDW 15.7 H (11.5-15.5) % Plt Count 94 L (150-450) k/uL Sodium 133 L (137-145) mmol/L Potassium 5.2 H (3.5-5.1) mmol/L Chloride 110 H (98-107) mmol/L Carbon Dioxide 16 L (22-30) mmol/L BUN 49 H (9-20) mg/dL Creatinine 3.12 H (0.66-1.25) mg/dL Glucose 116 H (74-99) mg/dL POC Glucose (mg/dL) 116 H (75-99) mg/dL Calcium 7.7 L (8.4-10.2) mg/dL Magnesium 2.5 H (1.6-2.3) mg/dL Assessment and Plan (1) Acute cholecystitis due to biliary calculus Current Visit: Yes Status: Acute Code(s): K80.00 - CALCULUS OF GALLBLADDER W ACUTE CHOLECYST W/O OBSTRUCTION SNOMED Code(s): 15694410556548
--- NOTE | 2019-11-13 11:15 | P.PN ---
Subjective Progress Note Date: 11/13/19 This is an 89-year-old gentleman who follows with Dr. Argueta in the office. He has a known history of cardiac cardiomyopathy, coronary artery disease with prior multivessel stenting, hypothyroidism, prior AICD implantation, hypothyroidism. Primarily presented to the hospital on this occasion with symptoms of abdominal discomfort with some radiation into his chest area. He was seen initially by Dr. Cruz in consultation and felt that the patient's chest pain was atypical and not cardiac in nature. Patient also was noted to have acute kidney injury, with a creatinine on admission of 2.1, up to 3.1, patient did recently undergo a CAT scan of the aorta with IV contrast on November 08. He is known to have chronic left-sided hydronephrosis. Endovascular aortoiliac stent was noted to be in place. At the time of our examination this morning, he is currently chest pain-free and denying any abdominal discomfort. Blood pressure 120/50 with a heart rate in the 60s. White blood cell count 8.0, hemoglobin 8.5, platelet count 83. Sodium 134, potassium 5.5, BUN 48 and creatinine 3.1. We will request an echocardiogram with Doppler study be performed. 11/13/2019 Patient seen and examined this morning, overall doing well. Echocardiogram with Doppler study revealed an ejection fraction of 25-30% with moderate TR and moderate MR. Creatinine remaining the same at 3.1. Objective - Vital Signs Vital signs: Vital Signs Temp 97.6 F 11/13/19 07:55 Pulse 57 L 11/13/19 07:55 Resp 18 11/13/19 07:55 BP 139/63 11/13/19 07:55 Pulse Ox 97 11/13/19 07:55 Intake & Output 11/12/19 11/13/19 11/13/19 18:59 06:59 18:59 Intake Total 420 480 Output Total 100 180 Balance 320 -180 480 Weight 106.7 kg Intake: Oral 420 480 Output: Urine 100 180 Other: Voiding Method Urinal # Voids 1 - Exam PHYSICAL EXAMINATION: GENERAL: 89-year-old gentleman in no acute distress at the time of my examination HEENT: Head is atraumatic, normocephalic. Pupils equal, round. Sclera anicteric. Conjunctiva are clear. Mucous membranes of the mouth are moist. Neck is supple. There is no elevated jugular venous pressure. No carotid bruit is heard. HEART EXAMINATION: Heart S1 S2 1 systolic ejection murmur is heard CHEST EXAMINATION: Lungs are clear to auscultation and precussion. No chest wall tenderness is noted on palpation or with deep breathing. ABDOMEN: Soft, nontender. Bowel sounds are heard. No organomegaly noted. EXTREMITIES: 2+ peripheral pulses with no evidence of peripheral edema and no calf tenderness noted. NEUROLOGIC patient is awake, alert and oriented 3 . . - Labs CBC & Chem 7: 11/13/19 06:18 11/13/19 06:18 Labs: Abnormal Lab Results - Last 24 Hours (Table) 11/12/19 11/13/19 11/13/19 Range/Units 11:45 06:18 06:18 RBC 2.75 L (4.30-5.90) m/uL Hgb 8.1 L (13.0-17.5) gm/dL Hct 26.9 L (39.0-53.0) % MCHC 30.2 L (31.0-37.0) g/dL RDW 15.7 H (11.5-15.5) % Plt Count 94 L (150-450) k/uL Sodium 133 L (137-145) mmol/L Potassium 5.2 H (3.5-5.1) mmol/L Chloride 110 H (98-107) mmol/L Carbon Dioxide 16 L (22-30) mmol/L BUN 49 H (9-20) mg/dL Creatinine 3.12 H (0.66-1.25) mg/dL Glucose 116 H (74-99) mg/dL POC Glucose (mg/dL) 116 H (75-99) mg/dL Calcium 7.7 L (8.4-10.2) mg/dL Magnesium 2.5 H (1.6-2.3) mg/dL Assessment and Plan Plan: Assessment and plan #1 abdominal discomfort, possible cholecystitis, being followed by surgery. Conservative therapy at this time. #2 atypical chest discomfort, noncardiac in nature. 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 We will follow along with you now on an as-needed basis only, please don't hesitate to call with any questions. DNP note has been reviewed, I agree with a documented findings and plan of care. Patient was seen and examined.
--- NOTE | 2019-11-13 11:16 | P.DS ---
Providers Date of admission: 11/11/19 08:38 Attending physician: Elizabeth Marinelli Consults: 11/09/19 16:45 Consult Physician Stat Consulting Provider: Wilder Orr Consult Reason/Comments: Cholecystitis Do you want consulting provider notified?: Yes 11/09/19 17:24 Consult Physician Routine Consulting Provider: Nicole Morgan Consult Reason/Comments: cad Do you want consulting provider notified?: Yes 11/11/19 15:16 Consult Physician Routine Consulting Provider: Shara Shine Consult Reason/Comments: arf Do you want consulting provider notified?: Yes 11/12/19 08:10 Consult Physician Stat Consulting Provider: Piotr Rider Consult Reason/Comments: cr elevated l side nephrosis Do you want consulting provider notified?: Yes Primary care physician: [facility] Hospital Course: patient is 89-year-old male came in with the cholecystitis acalculus cholecystitis patient declined any surgical intervention general surgery is recommending oral antibiotics. Patient had left-sided hydronephrosis because of which nneurology evaluated the patient and this appears to be congenital not it appears not to be contributing to his renal dysfunction. Patient was evaluated by shoe packer patient appears to have contrast nephropathy patient creatinine is still elevated but stable compared to yesterday nephrology cleared him discharged with recommendations of discontinuation of lisinopril and holding of Lasix for couple days and recommended sodium bicarbonate tablets. These patient is being discharged today PHYSICAL EXAMINATION: GENERAL: The patient is alert and oriented x3, not in any acute distress. Well developed, well nourished. HEENT: Pupils are round and equally reacting to light. EOMI. No scleral icterus. No conjunctival pallor. Normocephalic, atraumatic. No pharyngeal erythema. No thyromegaly. CARDIOVASCULAR: S1 and S2 present. No murmurs, rubs, or gallops. PULMONARY: Chest is clear to auscultation, no wheezing or crackles. ABDOMEN: Soft, nontender, nondistended, normoactive bowel sounds. No palpable organomegaly. MUSCULOSKELETAL: No joint swelling or deformity. EXTREMITIES: No cyanosis, clubbing, or pedal edema. NEUROLOGICAL: Gross neurological examination did not reveal any focal deficits. SKIN: No rashes. Note: Because of COVID 19 isolation, some of the history and physical exam findings or indirect and obtained from nursing staff, and other physician examinations to avoid unnecessary contact with the patient. the rest of the chronic medical problems auscultation course please refer to progress note from Dr. Marinelli from yesterday Patient Condition at Discharge: Good Plan - Discharge Summary New Discharge Prescriptions: New Levofloxacin [Levaquin] 500 mg PO DAILY 7 Days #7 tab Sodium Bicarbonate Tab 650 mg PO TID #90 tablet Continue Nitroglycerin Sl Tabs [Nitrostat] 0.4 mg SUBLINGUAL Q5M PRN PRN Reason: Chest Pain Multivitamins, Thera [Multivitamin (formulary)] 1 tab PO DAILY Levothyroxine Sodium [Synthroid] 150 mcg PO DAILY Dorzolamide-Timol 2.23%/0.68% [Cosopt] 1 drop BOTH EYES BID Carvedilol [Coreg] 6.25 mg PO BID Aspirin EC [Ecotrin Low Dose] 81 mg PO DAILY Allopurinol [Zyloprim] 100 mg PO DAILY Albuterol Sulfate [Proair Hfa] 1 - 2 puff INHALATION RT-QID Furosemide [Lasix] 20 mg PO BID #0 Discontinued Lisinopril [Zestril] 5 mg PO DAILY Discharge Medication List Albuterol Sulfate [Proair Hfa] 1 - 2 puff INHALATION RT-QID 11/09/19 [History] Allopurinol [Zyloprim] 100 mg PO DAILY 11/09/19 [History] Aspirin EC [Ecotrin Low Dose] 81 mg PO DAILY 11/09/19 [History] Carvedilol [Coreg] 6.25 mg PO BID 11/09/19 [History] Dorzolamide-Timol 2.23%/0.68% [Cosopt] 1 drop BOTH EYES BID 11/09/19 [History] Levothyroxine Sodium [Synthroid] 150 mcg PO DAILY 11/09/19 [History] Multivitamins, Thera [Multivitamin (formulary)] 1 tab PO DAILY 11/09/19 [History] Nitroglycerin Sl Tabs [Nitrostat] 0.4 mg SUBLINGUAL Q5M PRN 11/09/19 [History] Levofloxacin [Levaquin] 500 mg PO DAILY 7 Days #7 tab 11/11/19 [Rx] Furosemide [Lasix] 20 mg PO BID #0 11/13/19 [Rx] Sodium Bicarbonate Tab 650 mg PO TID #90 tablet 11/13/19 [Rx] Follow up Appointment(s)/Referral(s): Wilder Orr MD [Medical Doctor] - 11/27/19 11:00 am Danielito Argueta MD [STAFF PHYSICIAN] - 2 Weeks Dalton Dos Santos DO [Primary Care Provider] - 1-2 days Ambulatory/Diagnostic Orders: Basic Metabolic Panel [LAB.AMB] Time Frame: 3 Days, Location: None Selected Discharge Disposition: HOME SELF-CARE
[2019-11-13] MEDS ORDERED: SODIUM BICARB 8.4% 50 ML SYR (1 MEQ/ML) IV STA (11:26)
--- NOTE | 2019-11-13 11:28 | P.PN ---
Subjective Patient is seen in follow-up for acute kidney injury. Renal function is stable. He has been voiding. No evidence of urinary retention. No edema. No vomiting or diarrhea. Vital signs are stable. General: The patient appeared well nourished and normally developed. HEENT: Head exam is unremarkable. Neck is without jugular venous distension. LUNGS: Lungs are clear to auscultation and percussion. Breath sounds decreased. HEART: Rate and Rhythm are regular. ABDOMEN: Abdominal exam reveals normal bowel sounds. Non-tender and non- distended. EXTREMITITES: No clubbing, cyanosis, or edema. Objective - Vital Signs Vital signs: Vital Signs Temp 97.6 F 11/13/19 07:55 Pulse 57 L 11/13/19 07:55 Resp 18 11/13/19 07:55 BP 139/63 11/13/19 07:55 Pulse Ox 97 11/13/19 07:55 Intake & Output 11/12/19 11/13/19 11/13/19 18:59 06:59 18:59 Intake Total 420 480 Output Total 100 180 Balance 320 -180 480 Weight 106.7 kg Intake: Oral 420 480 Output: Urine 100 180 Other: Voiding Method Urinal # Voids 1 - Labs CBC & Chem 7: 11/13/19 06:18 11/13/19 06:18 Labs: Abnormal Lab Results - Last 24 Hours (Table) 11/12/19 11/13/19 11/13/19 Range/Units 11:45 06:18 06:18 RBC 2.75 L (4.30-5.90) m/uL Hgb 8.1 L (13.0-17.5) gm/dL Hct 26.9 L (39.0-53.0) % MCHC 30.2 L (31.0-37.0) g/dL RDW 15.7 H (11.5-15.5) % Plt Count 94 L (150-450) k/uL Sodium 133 L (137-145) mmol/L Potassium 5.2 H (3.5-5.1) mmol/L Chloride 110 H (98-107) mmol/L Carbon Dioxide 16 L (22-30) mmol/L BUN 49 H (9-20) mg/dL Creatinine 3.12 H (0.66-1.25) mg/dL Glucose 116 H (74-99) mg/dL POC Glucose (mg/dL) 116 H (75-99) mg/dL Calcium 7.7 L (8.4-10.2) mg/dL Magnesium 2.5 H (1.6-2.3) mg/dL Assessment and Plan Plan: Assessment: 1. Acute kidney injury secondary to contrast-induced acute kidney injury. Patient received IV contrast on November 08. Creatinine peaked at 3.19 on November 11 and is fairly stable at 3.12 today. Unknown baseline renal function. No evidence of urinary retention. 2. Chronic left-sided hydronephrosis. Evaluated by urology. No interventions planned at this time. 3. Hyperkalemia secondary to acute kidney injury and metabolic acidosis. Better. 4. Metabolic acidosis secondary to acute kidney injury. 5. History of AAA status post aortobiiliac stent graft in place. 6. Acute cholecystitis. Evaluated by surgery. No surgical intervention is planned at this time. 7. Chronic systolic CHF with ejection fraction of 25-30% with moderate mitral and tricuspid regurgitation and severe pulmonary hypertension. Plan: Hep-Lock IV fluids. Add oral sodium bicarbonate. Hold lisinopril. Add amlodipine. Potential discharge today. Repeat BMP and magnesium level 2-3 days postdischarge. Follow up outpatient in 1-2 weeks. I advised to monitor his weight and for swelling closely at home. To resume Lasix in 2-3 days.
--- NOTE | 2019-11-13 12:56 | PN ---
PROGRESS NOTE Mr. García has ischemic cardiomyopathy, previous PCI, ejection fraction of about 25%- 30% range. He had an aortogram with contrast, developed acute kidney injury, but the creatinine is more stable now. He is not having any chest pain or shortness of breath. Troponins are negative. Vitals are stable, no JVD. S1, S2 heard normally. Lungs are clear. Abdomen and lower extremity exam unchanged. Cardiac-barrera no intervention. Patient can be discharged whenever it is okay with Nephrology. I will continue to see him as needed. MMODL / IJN: [id number] /
[2019-11-13] MEDS ORDERED: PANTOPRAZOLE 40 MG TABLET PO SCH (17:30)
[2019-11-13] MEDS ORDERED: SODIUM BICARBONATE TAB 650 MG TAB PO SCH (21:00)
[2019-11-14] MEDS ORDERED: amLODIPine 2.5 MG TAB PO SCH (09:00)
--- NOTE | 2019-11-14 14:24 | CDI ---
Documentation Clarification Form Date: 11/14/19 From: Nathalie Gerber Phone: If you have a question about this query, please contact Monie Hsieh, [employer] Supervisor at [phone] between 8am and 5pm. Admit Date: 11/11/19 Discharge Date: 11/13/19 Patient Name: SARTHAK GILBERT Visit Number: [id number] ATTENTION: The Clinical Documentation Specialists (CDI) and [facility] Coding Staff appreciate your assistance in clarifying documentation. Please respond to the clarification below the line at the bottom and electronically sign. The CDI & [facility] Coding staff will review the response and follow-up if needed. Please note: Queries are made part of the Legal Health Record. If you have any questions, please contact the author of this message via ITS. Dear Dr. Piotr Rider, CKD is documented in your consult. 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 The exacerbation of his chronic kidney disease is likely contrast-induced. 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
== END 2019-11-13 13:42 | disposition home or self-care (01) | DRG 444 ==
LOC: EC 13:43 → 3SCARD 16:58 → OBSVTOIN 11-11 08:38
PROVIDERS: ADMIT Hospitalist; ATTEND Hospitalist
DX: K80.00 Calculus of gallbladder with acute cholecystitis without obstruction (principal); N17.0 Acute kidney failure with tubular necrosis; E87.2 Acidosis; I13.0 Hypertensive heart and chronic kidney disease with heart failure and stage 1 through stage 4 chronic kidney disease, or unspecified chronic kidney disease; K82.1 Hydrops of gallbladder; E87.1 Hypo-osmolality and hyponatremia; N13.1 Hydronephrosis with ureteral stricture, not elsewhere classified; I50.22 Chronic systolic (congestive) heart failure; N18.4 Chronic kidney disease, stage 4 (severe); D69.6 Thrombocytopenia, unspecified; I27.20 Pulmonary hypertension, unspecified; D63.1 Anemia in chronic kidney disease; D71 Functional disorders of polymorphonuclear neutrophils; Z20.828 Contact with and (suspected) exposure to other viral communicable diseases; Z66 Do not resuscitate; I08.1 Rheumatic disorders of both mitral and tricuspid valves; I25.5 Ischemic cardiomyopathy; I25.10 Atherosclerotic heart disease of native coronary artery without angina pectoris; E78.5 Hyperlipidemia, unspecified; I25.2 Old myocardial infarction; E87.5 Hyperkalemia; E86.0 Dehydration; E03.9 Hypothyroidism, unspecified; M10.9 Gout, unspecified; N14.1 Nephropathy induced by other drugs, medicaments and biological substances; T50.8X5A Adverse effect of diagnostic agents, initial encounter; K59.00 Constipation, unspecified; E66.9 Obesity, unspecified; Z68.31 Body mass index [BMI] 31.0-31.9, adult; Z79.890 Hormone replacement therapy; Z79.82 Long term (current) use of aspirin; Z79.899 Other long term (current) drug therapy; Z71.3 Dietary counseling and surveillance; Z95.810 Presence of automatic (implantable) cardiac defibrillator; Z86.79 Personal history of other diseases of the circulatory system; Z95.5 Presence of coronary angioplasty implant and graft; Z87.891 Personal history of nicotine dependence; Z95.828 Presence of other vascular implants and grafts; Z98.890 Other specified postprocedural states; Y92.230 Patient room in hospital as the place of occurrence of the external cause; Z82.49 Family history of ischemic heart disease and other diseases of the circulatory system
CPT/HCPCS: 36415; 71045; 71275; 74174; 76705; 76770; 80048; 80053; 81001; 83605; 83690; 83735; 83880; 84484; 85025; 85610; 85730; 87635; 93005; 93306; 94640; 94760; 96361; 96374; 96375; 96376; 99285

== ENCOUNTER 2019-11-24 10:34 | Inpatient (IN) | payer OTHER, MEDICARE ==
[2019-11-24] MEDS ORDERED: SODIUM CHLORIDE 0.9% 500 ML 500 ML IV STA (10:40)
--- NOTE | 2019-11-24 10:55 | ED ---
General Adult HPI - General Chief complaint: Shortness of Breath Stated complaint: SOB Time Seen by Provider: 11/24/19 10:39 Source: patient, EMS, RN notes reviewed, old records reviewed Mode of arrival: EMS Limitations: no limitations - History of Present Illness Initial comments: 89-year-old male presents for reevaluation of right-sided abdominal pain, nausea vomiting and diarrhea. He does report fevers at home. He was seen over the past week in the hospital diagnosed with acalculous cholecystitis he was started on antibiotics and discharged home. He's had persistent symptoms putting generalized weakness, nausea vomiting as well as diarrhea and low-grade fevers. He does report some mild cough and dyspnea. He's been taking his oral antibio tics as prescribed. He denies central radiating chest pain. Denies lower abdominal pain. - Related Data Home Medications Medication Instructions Recorded Confirmed Albuterol Sulfate [Proair Hfa] 1 - 2 puff INHALATION RT-QID 11/09/19 11/09/19 Allopurinol [Zyloprim] 100 mg PO DAILY 11/09/19 11/09/19 Aspirin EC [Ecotrin Low Dose] 81 mg PO DAILY 11/09/19 11/09/19 Carvedilol [Coreg] 6.25 mg PO BID 11/09/19 11/09/19 Dorzolamide-Timol 2.23%/0.68% 1 drop BOTH EYES BID 11/09/19 11/09/19 [Cosopt] Levothyroxine Sodium [Synthroid] 150 mcg PO DAILY 11/09/19 11/09/19 Multivitamins, Thera [Multivitamin 1 tab PO DAILY 11/09/19 11/09/19 (formulary)] Nitroglycerin Sl Tabs [Nitrostat] 0.4 mg SUBLINGUAL Q5M PRN 11/09/19 11/09/19 Previous Rx's Medication Instructions Recorded Levofloxacin [Levaquin] 500 mg PO DAILY 7 Days #7 tab 11/11/19 Furosemide [Lasix] 20 mg PO BID #0 11/13/19 Sodium Bicarbonate Tab 650 mg PO TID #90 tablet 11/13/19 amLODIPine BESYLATE [Norvasc] 2.5 mg PO DAILY 30 Days #30 tab 11/13/19 Allergies Allergy/AdvReac Type Severity Reaction Status Date / Time glipizide AdvReac DROP SUGAR Verified 11/09/19 18:57 TOO LOW Review of Systems ROS Statement: Those systems with pertinent positive or pertinent negative responses have been documented in the HPI. ROS Other: All systems not noted in ROS Statement are negative. 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 Last Myocardial Infarction Date:: 2009 History of Any Multi-Drug Resistant Organisms: None Reported Past Surgical History: AICD, Heart Catheterization With Stent Additional Past Surgical History / Comment(s): aaa repair Past Anesthesia/Blood Transfusion Reactions: No Reported Reaction Date of Last Stent Placement:: AROUND 2009 Type of Cardiac Device: AICD Device Placement Date:: AUG 2019 Past Psychological History: No Psychological Hx Reported Smoking Status: Former smoker Past Alcohol Use History: None Reported Past Drug Use History: None Reported, Unable to Obtain - Past Family History Father Family Medical History: Myocardial Infarction (ME) General Exam Limitations: no limitations General appearance: alert, in no apparent distress Head exam: Present: atraumatic, normocephalic Eye exam: Present: normal appearance, PERRL. Absent: scleral icterus ENT exam: Present: mucous membranes dry Respiratory exam: Present: normal lung sounds bilaterally. Absent: respiratory distress, wheezes Cardiovascular Exam: Present: regular rate, irregular rhythm GI/Abdominal exam: Present: soft, tenderness (Mild right upper quadrant tenderness and right flank tenderness). Absent: distended, guarding, rebound Extremities exam: Present: normal inspection, normal capillary refill Neurological exam: Present: alert, oriented X3, CN II-XII intact. Absent: motor sensory deficit Psychiatric exam: Present: normal affect, normal mood Skin exam: Present: warm, dry, intact. Absent: cyanosis, diaphoretic Course Vital Signs 11/24/19 11/24/19 11/24/19 10:37 12:18 12:31 Temperature 98.9 F Pulse Rate 69 65 Respiratory 16 16 24 Rate Blood Pressure 114/89 112/47 O2 Sat by Pulse 97 100 Oximetry EKG Findings - EKG Comments: EKG Findings:: EKG: Atrial fibrillation, slightly widened QRS at 134, nonspecific intraventricular block, rate of 76, QTC is 479, there is ST segment depression and T-wave inversion in the lateral precordial leads similar to prev ious EKG November 10 Medical Decision Making - Medical Decision Making 89-year-old male presenting with dyspnea, fatigue. Patient was treated for ac alculous cholecystitis with antibiotics. He's failed to improve at home. He does report both melanotic stool and bright red rectal bleeding. He has normal white blood cell count 9.6, hemoglobin is 5.7 with recent of 8.1. Creatinine at baseline 2.9. He is acidotic with a lactic acid 2.5 and a CO2 of 15 this appears chronic for this patient. Chest x-ray showing improved infiltrate. Ultrasound is repeated which shows persistent acalculous cholecystitis. He is given a dose of both protonic's for GI bleed and Zosyn for cholecystitis in the emergency department. He is transfused 2 units of packed RBCs. He will be admitted to internal medicine. Case is discussed with Dr. Deleon who will admit. - Lab Data Result diagrams: 11/24/19 10:48 11/24/19 10:48 Lab Results 11/24/19 11/24/19 11/24/19 Range/Units 10:48 10:48 10:48 WBC 9.6 (3.8-10.6) k/uL RBC 1.89 L (4.30-5.90) m/uL Hgb 5.7 L* D (13.0-17.5) gm/dL Hct 18.4 L* (39.0-53.0) % MCV 97.3 (80.0-100.0) fL MCH 30.3 (25.0-35.0) pg MCHC 31.1 (31.0-37.0) g/dL RDW 16.3 H (11.5-15.5) % Plt Count 129 L (150-450) k/uL Neutrophils % 75 % Lymphocytes % 17 % Monocytes % 5 % Eosinophils % 1 % Basophils % 1 % Neutrophils # 7.3 (1.3-7.7) k/uL Lymphocytes # 1.7 (1.0-4.8) k/uL Monocytes # 0.5 (0-1.0) k/uL Eosinophils # 0.1 (0-0.7) k/uL Basophils # 0.1 (0-0.2) k/uL Hypochromasia Marked Anisocytosis Slight Macrocytosis Slight PT 11.6 (9.0-12.0) sec INR 1.1 (<1.2) APTT 22.0 (22.0-30.0) sec Sodium 140 (137-145) mmol/L Potassium 5.0 (3.5-5.1) mmol/L Chloride 113 H (98-107) mmol/L Carbon Dioxide 15 L (22-30) mmol/L Anion Gap 12 mmol/L BUN 64 H (9-20) mg/dL Creatinine 2.90 H (0.66-1.25) mg/dL Est GFR (CKD-EPI)AfAm 22 (>60 ml/min/1.73 sqM) Est GFR (CKD-EPI)NonAf 19 (>60 ml/min/1.73 sqM) Glucose 137 H (74-99) mg/dL Plasma Lactic Acid Bhaskar (0.7-2.0) mmol/L Calcium 8.6 (8.4-10.2) mg/dL Magnesium 2.6 H (1.6-2.3) mg/dL Total Bilirubin 0.4 (0.2-1.3) mg/dL AST 26 (17-59) U/L ALT 13 (4-49) U/L Alkaline Phosphatase 83 (38-126) U/L Total Protein 6.5 (6.3-8.2) g/dL Albumin 3.4 L (3.5-5.0) g/dL Urine Color Urine Appearance (Clear) Urine pH (5.0-8.0) Ur Specific [place] (1.001-1.035) Urine Protein (Negative) Urine Glucose (UA) (Negative) Urine Ketones (Negative) Urine Blood (Negative) Urine Nitrite (Negative) Urine Bilirubin (Negative) Urine Urobilinogen (<2.0) mg/dL Ur Leukocyte Esterase (Negative) Coronavirus (PCR) (Not Detectd) Blood Type Recheck Bld Type Recheck Status Spec Expiration Date 11/24/19 11/24/19 11/24/19 Range/Units 10:48 10:48 11:55 WBC (3.8-10.6) k/uL RBC (4.30-5.90) m/uL Hgb (13.0-17.5) gm/dL Hct (39.0-53.0) % MCV (80.0-100.0) fL MCH (25.0-35.0) pg MCHC (31.0-37.0) g/dL RDW (11.5-15.5) % Plt Count (150-450) k/uL Neutrophils % % Lymphocytes % % Monocytes % % Eosinophils % % Basophils % % Neutrophils # (1.3-7.7) k/uL Lymphocytes # (1.0-4.8) k/uL Monocytes # (0-1.0) k/uL Eosinophils # (0-0.7) k/uL Basophils # (0-0.2) k/uL Hypochromasia Anisocytosis Macrocytosis PT (9.0-12.0) sec INR (<1.2) APTT (22.0-30.0) sec Sodium (137-145) mmol/L Potassium (3.5-5.1) mmol/L Chloride (98-107) mmol/L Carbon Dioxide (22-30) mmol/L Anion Gap mmol/L BUN (9-20) mg/dL Creatinine (0.66-1.25) mg/dL Est GFR (CKD-EPI)AfAm (>60 ml/min/1.73 sqM) Est GFR (CKD-EPI)NonAf (>60 ml/min/1.73 sqM) Glucose (74-99) mg/dL Plasma Lactic Acid Bhaskar 2.5 H* (0.7-2.0) mmol/L Calcium (8.4-10.2) mg/dL Magnesium (1.6-2.3) mg/dL Total Bilirubin (0.2-1.3) mg/dL AST (17-59) U/L ALT (4-49) U/L Alkaline Phosphatase (38-126) U/L Total Protein (6.3-8.2) g/dL Albumin (3.5-5.0) g/dL Urine Color Urine Appearance (Clear) Urine pH (5.0-8.0) Ur Specific [place] (1.001-1.035) Urine Protein (Negative) Urine Glucose (UA) (Negative) Urine Ketones (Negative) Urine Blood (Negative) Urine Nitrite (Negative) Urine Bilirubin (Negative) Urine Urobilinogen (<2.0) mg/dL Ur Leukocyte Esterase (Negative) Coronavirus (PCR) Not Detected (Not Detectd) Blood Type Recheck No Previous Record Bld Type Recheck Status CABO Indicated Spec Expiration Date 11/27/2019234711/24/19 Range/Units 12:50 WBC (3.8-10.6) k/uL RBC (4.30-5.90) m/uL Hgb (13.0-17.5) gm/dL Hct (39.0-53.0) % MCV (80.0-100.0) fL MCH (25.0-35.0) pg MCHC (31.0-37.0) g/dL RDW (11.5-15.5) % Plt Count (150-450) k/uL Neutrophils % % Lymphocytes % % Monocytes % % Eosinophils % % Basophils % % Neutrophils # (1.3-7.7) k/uL Lymphocytes # (1.0-4.8) k/uL Monocytes # (0-1.0) k/uL Eosinophils # (0-0.7) k/uL Basophils # (0-0.2) k/uL Hypochromasia Anisocytosis Macrocytosis PT (9.0-12.0) sec INR (<1.2) APTT (22.0-30.0) sec Sodium (137-145) mmol/L Potassium (3.5-5.1) mmol/L Chloride (98-107) mmol/L Carbon Dioxide (22-30) mmol/L Anion Gap mmol/L BUN (9-20) mg/dL Creatinine (0.66-1.25) mg/dL Est GFR (CKD-EPI)AfAm (>60 ml/min/1.73 sqM) Est GFR (CKD-EPI)NonAf (>60 ml/min/1.73 sqM) Glucose (74-99) mg/dL Plasma Lactic Acid Bhaskar (0.7-2.0) mmol/L Calcium (8.4-10.2) mg/dL Magnesium (1.6-2.3) mg/dL Total Bilirubin (0.2-1.3) mg/dL AST (17-59) U/L ALT (4-49) U/L Alkaline Phosphatase (38-126) U/L Total Protein (6.3-8.2) g/dL Albumin (3.5-5.0) g/dL Urine Color Light Yellow Urine Appearance Clear (Clear) Urine pH 5.5 (5.0-8.0) Ur Specific [place] 1.011 (1.001-1.035) Urine Protein Negative (Negative) Urine Glucose (UA) Negative (Negative) Urine Ketones Negative (Negative) Urine Blood Negative (Negative) Urine Nitrite Negative (Negative) Urine Bilirubin Negative (Negative) Urine Urobilinogen <2.0 (<2.0) mg/dL Ur Leukocyte Esterase Negative (Negative) Coronavirus (PCR) (Not Detectd) Blood Type Recheck Bld Type Recheck Status Spec Expiration Date Critical Care Time Critical Care Time: Yes Disposition Clinical Impression: Symptomatic anemia, GI bleed, Acalculous cholecystitis Disposition: ADMITTED IP TO THIS [facility] Condition: Stable Is patient prescribed a controlled substance at d/c from ED?: No Referrals: [facility],Clinic [Primary Care Provider] - 1-2 days Decision to Admit Reason: Admit from EC Decision Date: 11/24/19 Decision Time: 13:14
[2019-11-24 11:02] LABS: Anisocytosis Slight; Basophils # (A) 0.1 k/uL (0-0.2); Basophils % (A) 1 %; Eosinophils # (A) 0.1 k/uL (0-0.7); Eosinophils % (A) 1 %; Hypochromasia Marked; Lymphocytes # (A) 1.7 k/uL (1.0-4.8); Lymphocytes % (A) 17 %; MCH 30.3 pg (25.0-35.0); MCHC 31.1 g/dL (31.0-37.0); MCV 97.3 fL (80.0-100.0); Macrocytosis Slight; Mean Platelet Volume 9.2; Monocytes # (A) 0.5 k/uL (0-1.0); Monocytes % (A) 5 %; Neutrophils # (A) 7.3 k/uL (1.3-7.7); Neutrophils % (A) 75 %; Platelet Count 129 k/uL (150-450); RBC 1.89 m/uL (4.30-5.90); RDW 16.3 % (11.5-15.5); WBC 9.6 k/uL (3.8-10.6)
[2019-11-24 11:12] LABS: Albumin 3.4 g/dL (3.5-5.0); Calcium 8.6 mg/dL (8.4-10.2); Magnesium 2.6 mg/dL (1.6-2.3); Total Bilirubin 0.4 mg/dL (0.2-1.3); Total Protein 6.5 g/dL (6.3-8.2)
[2019-11-24 11:26] LABS: HCT 18.4 % (39.0-53.0); HGB 5.7 gm/dL (13.0-17.5)
--- NOTE | 2019-11-24 11:27 | XR ---
EXAMINATION TYPE: XR chest 1V portable DATE OF EXAM: 11/24/2019 HISTORY: fever. REFERENCE: Previous study dated 11/09/2019. FINDINGS: There is a bipolar pacemaker place on the left. The heart is enlarged. There is improved aeration of the right lung with resolving pneumonia. There i s some blunting of the right CP angle and I could not exclude a small right effusion. IMPRESSION: IMPROVING RIGHT-SIDED INFILTRATE.
[2019-11-24 11:29] LABS: INR 1.1 (<1.2); Prothrombin Time 11.6 sec (9.0-12.0)
[2019-11-24] MEDS ORDERED: PIPERACILLIN-TAZOBACTAM 3.375 GM in SODIUM CHLORIDE 0.9% 100 ML IVPB STA (12:02)
[2019-11-24] MEDS ORDERED: PANTOPRAZOLE 40 MG/10 ML VIAL IVP STA (12:02)
--- NOTE | 2019-11-24 12:54 | US ---
EXAMINATION TYPE: US gallbladder DATE OF EXAM: 11/24/2019 COMPARISON: US CLINICAL HISTORY: Cholecystitis. EXAM MEASUREMENTS: Liver Length: 14.8 cm Gallbladder Wall: 0.6 cm CBD: 0.9 cm Right Kidney: 9.6 x 4.8 x 4.5 cm Technically difficult study, extensive overlying bowel contact, limiting exam. Pancreas: Obscured by bowel gas Liver: scattered echogenic foci Gallbladder: wall somewhat thickened, possible sludge, no evidence of pericholecystic fluid on today 's ultrasound Evidence for sonographic Riggins's sign: no CBD: dilated Right Kidney: wnl, limited visualization The pancreas is poorly visualized. The liver is normal in size. There are scattered echogenic foci within the liver which May represent calcifications from old granulomatous disease. The gallbladder is clear of gallstones. Gallbladder wall is thickened measuring 6 mm. The distal comm on hepatic duct is upper limits of normal for age. There is no sonographic Riggins's sign. Limited views of the right kidney are unremarkable. IMPRESSION: 1. LIMITED EXAMINATION. 2. 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
[2019-11-24 13:07] LABS: Appearance,Urine Clear (Clear); Bilirubin,Urine Negative (Negative); Blood,Urine Negative (Negative); Color,Urine Light Yellow; Glucose,Urine (UA) Negative (Negative); Ketones,Urine Negative (Negative); Leukocyte Esterase,Urine Negative (Negative); Nitrite,Urine Negative (Negative); PH, Urine 5.5 (5.0-8.0); Protein,Urine Negative (Negative); Specific Gravity,Urine 1.011 (1.001-1.035); Urobilinogen,Urine <2.0 mg/dL (<2.0)
[2019-11-24] MEDS ORDERED: NALOXONE 0.4 MG/ML 1 ML VIAL IV PRN (13:11)
[2019-11-24] MEDS: SODIUM CHLORIDE 0.9% 1,000 ML IV SCH (13:15)
[2019-11-24] MEDS ORDERED: NITROGLYCERIN SL TABS 0.4 MG TAB SUBLINGUAL PRN (14:58)
[2019-11-24] MEDS: SODIUM BICARBONATE TAB 650 MG TAB PO SCH ×2 (17:00→22:13)
[2019-11-24] MEDS: CARVEDILOL 6.25 MG TAB PO SCH (17:00)
[2019-11-24] MEDS: ALBUTEROL NEBULIZED 2.5 MG/3 ML INHALATION SCH ×2 (17:10→19:41)
[2019-11-24] MEDS ORDERED: HYDROcodone/APAP 5-325MG 1 EACH TAB PO STA (18:19)
[2019-11-24] MEDS: LIDOCAINE 5% PATCH TOPICAL SCH (20:27)
[2019-11-24] MEDS: DORZOLAMIDE-TIMOLOL 2.23%/0.68 10ML BTL BOTH EYES SCH (22:13)
[2019-11-24] MEDS: FUROSEMIDE 20 MG TAB PO SCH (22:13)
[2019-11-24] MEDS: ACETAMINOPHEN TAB 325 MG TAB PO PRN (22:13)
--- NOTE | 2019-11-25 00:41 | P.HPIM ---
History of Present Illness H&P Date: 11/24/19 Chief Complaint: Generalized weakness Patient is a 89-year-old male with a known history of cardiac cardiomyopathy, coronary artery disease with prior multivessel stenting, AAA repair, hypothyroidism, prior AICD implantation 9 years ago with recent replacement in August 2019, hypothyroidism, hypertension and previous history of smoking came to ER with complaints of generalized weakness and lethargic. Patient states that he has been more weak recently and unable to ambulate. Patient is still having right-sided abdominal pain but much improved. Does have nausea and episodes of diarrhea and vomiting. Patient says that she does have bright red blood per rectum due to hemorrhoids and also dark-colored stools. He does report low-grade fever at home. Currently afebrile in the hospital. Mild cough and shortness of breath. Patient was recently admitted to the hospital due to abdominal pain and was found to have a calculus cholecystitis. Patient was seen by general surgery and recommended conservative approach in view of comorbid conditions and advanced years. Patient was discharged home with antibiotic course. Patient was also found have contrast-induced acute kidney injury with creatinine level improved to 3.1 hemorrhoids discharge. Patient was also seen by cardiology due to atypical chest pain. Cardiology thought unlikely cardiac in nature. 2-D echocardiogram for ejection fraction 25-30%. Patient was also found have left-sided hydronephrosis, which seems to be chronic and was seen by urology. On admission patient was found have a hemoglobin level 5.1 and platelet count 126. No leukocytosis. BUN 64 and creatinine 2.9 Bicarb 15, lactic acid 2.5 on admission. Chest x-ray showed improving right sided infiltrate. EKG showed atrial fibrillation. 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 Review of Systems Constitutional: Does have subjective fevers. No chills . Generalized weakness.. Abdomen: Does have nausea vomiting and diarrhea and abdominal pain.. Cardiovascular: Patient denies any chest pain or short of breath no palpit ations. Respiratory: Cough without sputum production. Positive for shortness of breath Neurologic: Patient denied any numbness or tingling headache. Musculoskeletal: Patient denies any complaints of joint swelling or deformity. Skin: Negative Psychiatric: Negative Endocrine: No heat or cold intolerance. No recent weight gain. Genitourinary: No dysuria or hematuria. 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 Last Myocardial Infarction Date:: 2009 History of Any Multi-Drug Resistant Organisms: None Reported Past Surgical History: AICD, Heart Catheterization With Stent Additional Past Surgical History / Comment(s): aaa repair Past Anesthesia/Blood Transfusion Reactions: No Reported Reaction Date of Last Stent Placement:: AROUND 2009 Type of Cardiac Device: AICD Device Placement Date:: AUG 2019 Past Psychological History: No Psychological Hx Reported Smoking Status: Former smoker Past Alcohol Use History: None Reported Past Drug Use History: None Reported, Unable to Obtain - Past Family History Father Family Medical History: Myocardial Infarction (ID) Medications and Allergies Home Medications Medication Instructions Recorded Confirmed Type Albuterol Sulfate [Proair Hfa] 2 puff INHALATION RT-QID 11/09/19 11/24/19 History Allopurinol [Zyloprim] 100 mg PO DAILY 11/09/19 11/24/19 History Aspirin EC [Ecotrin Low Dose] 81 mg PO DAILY 11/09/19 11/24/19 History Carvedilol [Coreg] 6.25 mg PO BID 11/09/19 11/24/19 History Dorzolamide-Timol 2.23%/0.68% 1 drop BOTH EYES BID 11/09/19 11/24/19 History [Cosopt] Levothyroxine Sodium [Synthroid] 150 mcg PO DAILY 11/09/19 11/24/19 History Multivitamins, Thera [Multivitamin 1 tab PO DAILY 11/09/19 11/24/19 History (formulary)] Nitroglycerin Sl Tabs [Nitrostat] 0.4 mg SUBLINGUAL Q5M PRN 11/09/19 11/24/19 History Furosemide [Lasix] 20 mg PO BID #0 11/13/19 11/24/19 Rx Sodium Bicarbonate Tab 650 mg PO TID #90 tablet 11/13/19 11/24/19 Rx amLODIPine BESYLATE [Norvasc] 2.5 mg PO DAILY 30 Days #30 tab 11/13/19 11/24/19 Rx Allergies Allergy/AdvReac Type Severity Reaction Status Date / Time glipizide AdvReac DROP SUGAR Verified 11/24/19 13:32 TOO LOW Physical Exam Vitals: Vital Signs Temp Pulse Pulse Resp BP BP Pulse Ox 11/24/19 17:55 98 F 76 18 118/63 11/24/19 17:25 97.9 F 71 18 127/63 98 11/24/19 17:15 98 F 66 132/70 98 11/24/19 16:00 18 11/24/19 15:45 98.1 F 72 120/66 99 11/24/19 14:33 97.4 F L 88 18 121/57 99 11/24/19 14:22 98 F 68 18 124/76 11/24/19 13:52 98.1 F 69 16 106/58 99 11/24/19 13:42 98.0 F 73 16 115/64 100 11/24/19 13:29 72 16 102/78 99 11/24/19 12:31 24 11/24/19 12:18 65 16 112/47 100 11/24/19 10:37 98.9 F 69 16 114/89 97 Intake and Output 11/24/19 11/24/19 11/24/19 06:59 14:59 22:59 Intake Total 0 1100 Balance 0 1100 Intake: Oral 480 Blood Product 0 620 Rc As-1 Unit 0 310 [id number] Rc As-1 Unit 310 [id number] Other: # Voids 2 # Bowel Movements 2 Weight 101.8 kg PHYSICAL EXAMINATION: Patient is lying in the bed comfortably, mild distress, awake alert and oriented. Lethargic. HEENT: Normocephalic. Neck is supple. Pupils reactive. Nostrils clear. Oral cavity is moist. Ears reveal no drainage. Neck reveals no JVD, carotid bruits, or thyromegaly. CHEST EXAMINATION: Trachea is central. Symmetrical expansion. Bibasilar diminished air entry. No wheezing. Lung bahena clear to auscultation and percussion. CARDIAC: Normal S1, S2 with no gallops. No murmurs ABDOMEN: Soft. Nontender. Bowel sounds normal. No organomegaly. No abdominal bruits. Extremities: reveal no edema. No clubbing or cyanosis Neurologically awake, alert, oriented x3 with well-coordinated movements. No focal deficits noted Skin: No rash or skin lesions. Psychiatric: Coperative. Nonsuicidal Musculoskeletal: No joint swelling or deformity. Normal range of motion. Results CBC & Chem 7: 11/24/19 10:48 11/24/19 10:48 Labs: Abnormal Lab Results - Last 24 Hours (Table) 11/24/19 11/24/19 11/24/19 Range/Units 10:48 10:48 10:48 RBC 1.89 L (4.30-5.90) m/uL Hgb 5.7 L* D (13.0-17.5) gm/dL Hct 18.4 L* (39.0-53.0) % RDW 16.3 H (11.5-15.5) % Plt Count 129 L (150-450) k/uL Chloride 113 H (98-107) mmol/L Carbon Dioxide 15 L (22-30) mmol/L BUN 64 H (9-20) mg/dL Creatinine 2.90 H (0.66-1.25) mg/dL Glucose 137 H (74-99) mg/dL Plasma Lactic Acid Bhaskar 2.5 H* (0.7-2.0) mmol/L Magnesium 2.6 H (1.6-2.3) mg/dL Albumin 3.4 L (3.5-5.0) g/dL Crossmatch 11/24/19 Range/Units 11:55 RBC (4.30-5.90) m/uL Hgb (13.0-17.5) gm/dL Hct (39.0-53.0) % RDW (11.5-15.5) % Plt Count (150-450) k/uL Chloride (98-107) mmol/L Carbon Dioxide (22-30) mmol/L BUN (9-20) mg/dL Creatinine (0.66-1.25) mg/dL Glucose (74-99) mg/dL Plasma Lactic Acid Bhaskar (0.7-2.0) mmol/L Magnesium (1.6-2.3) mg/dL Albumin (3.5-5.0) g/dL Crossmatch See Detail Thrombosis Risk Factor Assmnt - DVT/VTE Prophylaxis DVT/VTE Prophylaxis: Mechanical Prophylaxis ordered - Choose All That Apply Each Risk Factor Represents 3 Points: Age 75 years or older Thrombosis Risk Factor Assessment Total Risk Factor Score: 3 Thrombosis Risk Factor Assessment Level: Moderate Risk Assessment and Plan Assessment: Acute blood loss anemia secondary to GI bleed with melanotic stools as well as bright red blood per rectum. Symptomatic anemia Recent admission with acalculous cholecystitis. Conservative therapy was recommended. Seen by surgery. Chronic left-sided hydronephrosis. Evaluated by urology. No intervention recommended. Acute on chronic kidney disease stage III. Due to IV contrast on November 08. Creatinine peaked at 3.19. Currently at 2.9 Metabolic acidosis secondary to acute kidney injury and lactic acidosis Lactic acidosis, improved now History of AAA status post aortoiliac stent graft in place. Ischemic cardiomyopathy with history of AICD placement Chronic CHF with ejection fraction 20-30% with a moderate mitral and tricuspid regurgitation and severe pulmonary hypertension. Coronary artery disease and history of multiple stent placements Hypertension Hyperlipidemia Hypothyroidism DVT prophylaxis with SCDs. Plan: Patient is being transfused with 2 units of PRBC and monitor H&H closely. No active rectal bleeding at this time. Gastroenterology was consulted. Patient will be continued on IV Protonix. Ultrasound of the abdomen showed chronic acalculous cholecystitis. Patient denied any active symptoms of right upper quadrant pain. Completed antibiotic course recently. Monitor renal function closely. Lactic acidosis improved with hydration. Continue with home blood pressure medications including Coreg and Norvasc and Lasix as needed. Lisinopril is on hold due to acute kidney injury. Continue with cardiac medications. Further recommendations based on the clinical course. Prognosis is guarded with multiple medical problems and comorbid conditions along with advanced age. Time with Patient: Greater than 30
[2019-11-25 06:26] LABS: Anisocytosis Slight; Basophils # (A) 0.1 k/uL (0-0.2); Basophils % (A) 1 %; Eosinophils # (A) 0.2 k/uL (0-0.7); Eosinophils % (A) 2 %; HCT 21.1 % (39.0-53.0); Hypochromasia Marked; Lymphocytes # (A) 1.5 k/uL (1.0-4.8); Lymphocytes % (A) 22 %; MCHC 31.6 g/dL (31.0-37.0); MCV 95.1 fL (80.0-100.0); Mean Platelet Volume 9.3; Monocytes # (A) 0.5 k/uL (0-1.0); Monocytes % (A) 7 %; Neutrophils # (A) 4.5 k/uL (1.3-7.7); Neutrophils % (A) 66 %; Platelet Count 103 k/uL (150-450); Poikilocytosis Slight; RBC 2.22 m/uL (4.30-5.90); RDW 17.1 % (11.5-15.5); WBC 6.8 k/uL (3.8-10.6)
[2019-11-25] MEDS: CARVEDILOL 6.25 MG TAB PO SCH ×2 (06:31→17:48)
[2019-11-25] MEDS: LEVOTHYROXINE 75 MCG TAB PO SCH (06:31)
[2019-11-25 06:34] LABS: HGB 6.7 gm/dL (13.0-17.5)
[2019-11-25 06:38] LABS: Albumin 2.7 g/dL (3.5-5.0); Calcium 8.1 mg/dL (8.4-10.2); Potassium 4.3 mmol/L (3.5-5.1); Total Bilirubin 0.6 mg/dL (0.2-1.3); Total Protein 5.5 g/dL (6.3-8.2)
[2019-11-25] MEDS: ALBUTEROL NEBULIZED 2.5 MG/3 ML INHALATION SCH ×4 (07:01→19:50)
[2019-11-25] MEDS ORDERED: amLODIPine 2.5 MG TAB PO SCH (09:00)
[2019-11-25] MEDS: FUROSEMIDE 20 MG TAB PO SCH ×2 (09:15→22:09)
[2019-11-25] MEDS: ALLOPURINOL 100 MG TAB PO SCH (09:15)
[2019-11-25] MEDS: PANTOPRAZOLE 40 MG/10 ML VIAL IVP SCH (09:15)
[2019-11-25] MEDS: SODIUM BICARBONATE TAB 650 MG TAB PO SCH ×3 (09:15→22:09)
[2019-11-25] MEDS: MULTIVITAMINS, THERA 1 EACH TAB PO SCH (09:15)
[2019-11-25] MEDS: LIDOCAINE 5% PATCH TOPICAL SCH (09:16)
[2019-11-25] MEDS: DORZOLAMIDE-TIMOLOL 2.23%/0.68 10ML BTL BOTH EYES SCH ×2 (09:16→22:08)
[2019-11-25] MEDS: ACETAMINOPHEN TAB 325 MG TAB PO PRN (09:19)
--- NOTE | 2019-11-25 11:24 | P.CRDCN ---
<Saskia Santana - Last Filed: 11/25/19 10:20> History of Present Illness History of present illness: This is Saskia Santana PA-C dictating a consult on this patient The patient was interviewed and examined by Dr. Huerta HPI Patient is an 89-year-old male with a history significant for atrial fibrillation, CAD status post stenting, ischemic cardiomyopathy status post ICD, AAA s/p repair, hypertension, hypothyroidism, and GI bleeding who presented with complaints of weakness. He follows in the office with Dr. Argueta. He was recently discharged on antibiotics after being treated for acalculus cholec ystitis. He states that for the last 3-4 days he has been having black stool and bloody diarrhea. He has also had nausea and vomiting and low-grade fevers. He has progressively felt more weak and dizzy. No syncope. Denies any chest pain or shortness of breath. Denies being on any blood thinners. On arrival to the emergency department, EKG shows rate-controlled atrial fibrillation, left bundle branch block, ST depressions laterally and inferiorly. Labs revealed hemoglobin 5.7. He was transfused 2 units of packed RBCs. repeat abdominal ultrasound again demonstrated acalculous cholecystitis. He was admitted for futher workup and treatment. Hemoglobin today is 6.7. He currently denies any abdominal pain, chest pain, or shortness of breath. States he still feels weak. ROS: positive for fevers. no cough, phlegm or expectoration, Positive for nausea and vomiting and diarrhea no hematuria, dysuria, Positive for low back pain no strokes or seizures, no skin lesions. EXAMINATION: patient is afebrile, pulse in the 60s, respirations 18, blood pressure 112/66, oxygen saturation 99% on room air Patient was examined by Dr. Huerta On exam his heart is irregular, normal S1 and S2, no audible murmurs lungs clear to auscultation bilaterally, no wheezing rhonchi or crackles Abdomen soft and nontender to palpation No elevated JVD No lower extremity edema REVIEW OF LABS, ECG & MEDICAL DATA WBC 6.8, hemoglobin 6.7, platelets 103, potassium 4.3, BUN 66, creatinine 2.85 Recent echocardiogram shows EF 25-30% IMPRESSION / ASSESSMENT: anemia secondary to acute GI bleeding status post transfusion, hemoglobin improved but remains low at 6.7 History of atrial fibrillation, rate controlled, not on anticoagulation secondary to GI bleeding and above Ischemic cardiomyopathy status post ICD Chronic systolic CHF, EF 25-30% A calculus cholecystitis CAD status post stenting AAA status post repair hypertension, controlled CKD PLAN: Continue current cardiac medication regimen including antihypertensive medications and cardiomyopathy medications Treatment of anemia and multiple medical problems per primary care team and GI Past Medical History Past Medical History: Coronary Artery Disease (CAD), Chest Pain / Angina, Heart Failure, Hyperlipidemia, Hypertension, Myocardial Infarction ([place]) Additional Past Medical History / Comment(s): GOUT, 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 Last Myocardial Infarction Date:: 2009 History of Any Multi-Drug Resistant Organisms: None Reported Past Surgical History: AICD, Heart Catheterization With Stent Additional Past Surgical History / Comment(s): aaa repair Past Anesthesia/Blood Transfusion Reactions: No Reported Reaction Date of Last Stent Placement:: AROUND 2009 Type of Cardiac Device: AICD Device Placement Date:: AUG 2019 Past Psychological History: No Psychological Hx Reported Smoking Status: Former smoker Past Alcohol Use History: None Reported Past Drug Use History: None Reported, Unable to Obtain - Past Family History Father Family Medical History: Myocardial Infarction ([place]) Medications and Allergies Home Medications Medication Instructions Recorded Confirmed Type Albuterol Sulfate [Proair Hfa] 2 puff INHALATION RT-QID 11/09/19 11/24/19 History Allopurinol [Zyloprim] 100 mg PO DAILY 11/09/19 11/24/19 History Aspirin EC [Ecotrin Low Dose] 81 mg PO DAILY 11/09/19 11/24/19 History Carvedilol [Coreg] 6.25 mg PO BID 11/09/19 11/24/19 History Dorzolamide-Timol 2.23%/0.68% 1 drop BOTH EYES BID 11/09/19 11/24/19 History [Cosopt] Levothyroxine Sodium [Synthroid] 150 mcg PO DAILY 11/09/19 11/24/19 History Multivitamins, Thera [Multivitamin 1 tab PO DAILY 11/09/19 11/24/19 History (formulary)] Nitroglycerin Sl Tabs [Nitrostat] 0.4 mg SUBLINGUAL Q5M PRN 11/09/19 11/24/19 History Furosemide [Lasix] 20 mg PO BID #0 11/13/19 11/24/19 Rx Sodium Bicarbonate Tab 650 mg PO TID #90 tablet 11/13/19 11/24/19 Rx amLODIPine BESYLATE [Norvasc] 2.5 mg PO DAILY 30 Days #30 tab 11/13/19 11/24/19 Rx Allergies Allergy/AdvReac Type Severity Reaction Status Date / Time glipizide AdvReac DROP SUGAR Verified 11/24/19 13:32 TOO LOW Physical Exam Vitals: Vital Signs Temp Pulse Pulse Resp BP BP Pulse Ox 11/25/19 07:10 68 11/25/19 07:01 68 11/25/19 04:00 97.6 F 67 18 112/66 99 11/25/19 00:00 97.6 F 52 L 18 128/60 96 11/24/19 20:06 97.4 F L 67 18 134/60 11/24/19 20:00 97.4 F L 67 18 134/60 98 11/24/19 17:55 98 F 76 18 118/63 11/24/19 17:25 97.9 F 71 18 127/63 98 11/24/19 17:15 98 F 66 132/70 98 11/24/19 16:00 18 11/24/19 15:45 98.1 F 72 120/66 99 11/24/19 14:33 97.4 F L 88 18 121/57 99 11/24/19 14:22 98 F 68 18 124/76 11/24/19 13:52 98.1 F 69 16 106/58 99 11/24/19 13:42 98.0 F 73 16 115/64 100 11/24/19 13:29 72 16 102/78 99 11/24/19 12:31 24 11/24/19 12:18 65 16 112/47 100 11/24/19 10:37 98.9 F 69 16 114/89 97 Intake and Output 11/24/19 11/25/19 11/25/19 22:59 06:59 14:59 Intake Total 1100 600 Output Total 280 200 Balance 1100 -280 400 Intake: Oral 480 600 Blood Product 620 Rc As-1 Unit 310 [id number] Rc As-1 Unit 310 [id number] Output: Urine 280 200 Other: Voiding Method Toilet # Voids 2 1 1 # Bowel Movements 2 Weight 100.9 kg Results 11/25/19 05:55 11/25/19 05:55 Cardiac Enzymes 11/24/19 11/25/19 Range/Units 10:48 05:55 AST 26 28 (17-59) U/L Coagulation 11/24/19 Range/Units 10:48 PT 11.6 (9.0-12.0) sec APTT 22.0 (22.0-30.0) sec CBC 11/24/19 11/25/19 Range/Units 10:48 05:55 WBC 9.6 6.8 (3.8-10.6) k/uL RBC 1.89 L 2.22 L (4.30-5.90) m/uL Hgb 5.7 L* D 6.7 L* (13.0-17.5) gm/dL Hct 18.4 L* 21.1 L (39.0-53.0) % Plt Count 129 L 103 L (150-450) k/uL Comprehensive Metabolic Panel 11/24/19 11/25/19 Range/Units 10:48 05:55 Sodium 140 138 (137-145) mmol/L Potassium 5.0 4.3 (3.5-5.1) mmol/L Chloride 113 H 114 H (98-107) mmol/L Carbon Dioxide 15 L 16 L (22-30) mmol/L BUN 64 H 66 H (9-20) mg/dL Creatinine 2.90 H 2.85 H (0.66-1.25) mg/dL Glucose 137 H 103 H (74-99) mg/dL Calcium 8.6 8.1 L (8.4-10.2) mg/dL AST 26 28 (17-59) U/L ALT 13 11 (4-49) U/L Alkaline Phosphatase 83 61 (38-126) U/L Total Protein 6.5 5.5 L (6.3-8.2) g/dL Albumin 3.4 L 2.7 L (3.5-5.0) g/dL Current Medications Generic Name Dose Route Start Last Admin Trade Name Freq PRN Reason Stop Dose Admin Acetaminophen 650 mg 11/24/19 13:11 11/25/19 09:19 Tylenol Tab PO 650 mg Q6HR PRN Administration Mild Pain or Fever > 100.5 Albuterol Sulfate 2.5 mg 11/24/19 16:00 04/27/20 07:01 Ventolin Nebulized INHALATION 2.5 mg RT-QID [facility] Administration Allopurinol 100 mg 11/25/19 09:00 11/25/19 09:15 Zyloprim PO 100 mg DAILY [facility]AD Administration Amlodipine Besylate 2.5 mg 11/25/19 09:00 11/25/19 09:15 Norvasc PO 2.5 mg DAILY [facility] Administration Carvedilol 6.25 mg 11/24/19 17:30 11/25/19 06:31 Coreg PO 6.25 mg BID-W/MEALS SOLEDAD Administration Dorzolamide/Timolol 1 drops 11/24/19 21:00 11/25/19 09:16 Cosopt BOTH EYES 1 drops BID SOL[facility]AD Administration Furosemide 20 mg 11/24/19 21:00 11/25/19 09:15 Lasix PO 20 mg BID SOL[facility]AD Administration Sodium Chloride 1,000 mls @ 20 mls/hr 11/24/19 13:15 11/24/19 13:15 Saline 0.9% IV Not Given .[facility]H [facility] Levothyroxine Sodium 150 mcg 11/25/19 06:30 11/25/19 06:31 Synthroid PO 150 mcg DAILY@0630 SOL[facility]AD Administration Lidocaine 1 patch 11/24/19 18:30 11/25/19 09:16 Lidoderm TOPICAL 1 patch DAILY SOL[facility]AD Administration Multivitamins 1 each 11/25/19 09:00 11/25/19 09:15 Theragran PO 1 each DAILY [facility] Administration Naloxone HCl 0.2 mg 11/24/19 13:11 Narcan IV Q2M PRN Opioid Reversal Nitroglycerin 0.4 mg 11/24/19 14:58 Nitrostat SUBLINGUAL Q5M PRN Chest Pain Pantoprazole Sodium 40 mg 11/25/19 09:00 11/25/19 09:15 Protonix IVP 40 mg DAILY SOL[facility]AD Administration Sodium Bicarbonate 650 mg 11/24/19 16:00 11/25/19 09:15 Sodium Bicarbonate Tab PO 650 mg TID SOLEDAD Administration Intake and Output 11/24/19 11/25/19 11/25/19 22:59 06:59 14:59 Intake Total 1100 600 Output Total 280 200 Balance 1100 -280 400 Intake: Oral 480 600 Blood Product 620 Rc As-1 Unit 310 [id number] Rc As-1 Unit 310 [id number] Output: Urine 280 200 Other: Voiding Method Toilet # Voids 2 1 1 # Bowel Movements 2 Weight 100.9 kg 11/25/19 05:55 11/25/19 05:55 <Dallin Huerta - Last Filed: 11/25/19 11:24> Physical Exam Vitals: Vital Signs Temp Pulse Pulse Resp BP BP Pulse Ox 11/25/19 11:12 68 11/25/19 11:03 68 11/25/19 07:10 68 11/25/19 07:01 68 11/25/19 04:00 97.6 F 67 18 112/66 99 11/25/19 00:00 97.6 F 52 L 18 128/60 96 11/24/19 20:06 97.4 F L 67 18 134/60 11/24/19 20:00 97.4 F L 67 18 134/60 98 11/24/19 17:55 98 F 76 18 118/63 11/24/19 17:25 97.9 F 71 18 127/63 98 11/24/19 17:15 98 F 66 132/70 98 11/24/19 16:00 18 11/24/19 15:45 98.1 F 72 120/66 99 11/24/19 14:33 97.4 F L 88 18 121/57 99 11/24/19 14:22 98 F 68 18 124/76 11/24/19 13:52 98.1 F 69 16 106/58 99 11/24/19 13:42 98.0 F 73 16 115/64 100 11/24/19 13:29 72 16 102/78 99 11/24/19 12:31 24 11/24/19 12:18 65 16 112/47 100 Intake and Output 11/24/19 11/25/19 11/25/19 22:59 06:59 14:59 Intake Total 1100 600 Output Total 280 200 Balance 1100 -280 400 Intake: Oral 480 600 Blood Product 620 Rc As-1 Unit 310 [id number] Rc As-1 Unit 310 [id number] Output: Urine 280 200 Other: Voiding Method Toilet # Voids 2 1 1 # Bowel Movements 2 Weight 100.9 kg Results 11/25/19 05:55 11/25/19 05:55 Cardiac Enzymes 11/25/19 Range/Units 05:55 AST 28 (17-59) U/L Coagulation 04/26/20 Range/Units 10:48 PT 11.6 (9.0-12.0) sec APTT 22.0 (22.0-30.0) sec CBC 11/24/19 11/25/19 Range/Units 10:48 05:55 WBC 9.6 6.8 (3.8-10.6) k/uL RBC 1.89 L 2.22 L (4.30-5.90) m/uL Hgb 5.7 L* D 6.7 L* (13.0-17.5) gm/dL Hct 18.4 L* 21.1 L (39.0-53.0) % Plt Count 129 L 103 L (150-450) k/uL Comprehensive Metabolic Panel 11/25/19 Range/Units 05:55 Sodium 138 (137-145) mmol/L Potassium 4.3 (3.5-5.1) mmol/L Chloride 114 H (98-107) mmol/L Carbon Dioxide 16 L (22-30) mmol/L BUN 66 H (9-20) mg/dL Creatinine 2.85 H (0.66-1.25) mg/dL Glucose 103 H (74-99) mg/dL Calcium 8.1 L (8.4-10.2) mg/dL AST 28 (17-59) U/L ALT 11 (4-49) U/L Alkaline Phosphatase 61 (38-126) U/L Total Protein 5.5 L (6.3-8.2) g/dL Albumin 2.7 L (3.5-5.0) g/dL Current Medications Generic Name Dose Route Start Last Admin Trade Name Freq PRN Reason Stop Dose Admin Acetaminophen 650 mg 11/24/19 13:11 11/25/19 09:19 Tylenol Tab PO 650 mg Q6HR PRN Administration Mild Pain or Fever > 100.5 Acetaminophen/Codeine Phosphate 1 each 11/25/19 11:20 Tylenol #3 PO Q8HR PRN Pain Albuterol Sulfate 2.5 mg 11/24/19 16:00 11/25/19 11:03 Ventolin Nebulized INHALATION 2.5 mg RT-QID SOLEDAD Administration Allopurinol 100 mg 11/25/19 09:00 11/25/19 09:15 Zyloprim PO 100 mg DAILY [facility] Administration Carvedilol 6.25 mg 11/24/19 17:30 11/25/19 06:31 Coreg PO 6.25 mg BID-W/MEALS SOLEDAD Administration Dorzolamide/Timolol 1 drops 11/24/19 21:00 11/25/19 09:16 Cosopt BOTH EYES 1 drops BID SOLEDAD Administration Furosemide 20 mg 11/24/19 21:00 11/25/19 09:15 Lasix PO 20 mg BID SOLEDAD Administration Sodium Chloride 1,000 mls @ 20 mls/hr 11/24/19 13:15 11/24/19 13:15 Saline 0.9% IV Not Given .Q24H [facility] Levothyroxine Sodium 150 mcg 11/25/19 06:30 11/25/19 06:31 Synthroid PO 150 mcg DAILY@0630 [facility] Administration Lidocaine 1 patch 11/24/19 18:30 11/25/19 09:16 Lidoderm TOPICAL 1 patch DAILY SOL[facility]AD Administration Multivitamins 1 each 11/25/19 09:00 11/25/19 09:15 Theragran PO 1 each DAILY [facility] Administration Naloxone HCl 0.2 mg 11/24/19 13:11 Narcan IV Q2M PRN Opioid Reversal Nitroglycerin 0.4 mg 11/24/19 14:58 Nitrostat SUBLINGUAL Q5M PRN Chest Pain Pantoprazole Sodium 40 mg 11/25/19 09:00 11/25/19 09:15 Protonix IVP 40 mg DAILY SOLEDAD Administration Sodium Bicarbonate 650 mg 11/24/19 16:00 11/25/19 09:15 Sodium Bicarbonate Tab PO 650 mg TID SOLEDAD Administration Intake and Output 11/24/19 11/25/19 11/25/19 22:59 06:59 14:59 Intake Total 1100 600 Output Total 280 200 Balance 1100 -280 400 Intake: Oral 480 600 Blood Product 620 Rc As-1 Unit 310 [id number] Rc As-1 Unit 310 [id number] Output: Urine 280 200 Other: Voiding Method Toilet # Voids 2 1 1 # Bowel Movements 2 Weight 100.9 kg 11/25/19 05:55 11/25/19 05:55
[2019-11-25] MEDS ORDERED: LACTATED RINGERS 1,000 ML IV SCH (11:40)
[2019-11-25] MEDS ORDERED: LIDOCAINE 1% (10MG/ML) FOR IV START INTRADERMA PRN (11:40)
[2019-11-25] MEDS ORDERED: POLYETHYLENE GLYCOL 3350 17 GM POWD.PACK PO PRN (11:40)
[2019-11-25] MEDS: Acetaminophen-Codeine 300-30mg TAB PO PRN (12:18)
[2019-11-25] MEDS: SODIUM CHLORIDE 0.9% 1,000 ML IV SCH (12:18)
--- NOTE | 2019-11-25 16:03 | P.PN ---
Subjective Progress Note Date: 11/25/19 Principal diagnosis: Patient is a 89-year-old male with a known history of cardiac cardiomyopathy, coronary artery disease with prior multivessel stenting, AAA repair, hypothyroidism, prior AICD implantation 9 years ago with recent replacement in August 2019, hypothyroidism, hypertension and previous history of smoking came to ER with complaints of generalized weakness and lethargic. Patient states that he has been more weak recently and unable to ambulate. Patient is still having right-sided abdominal pain but much improved. Does have nausea and episodes of diarrhea and vomiting. Patient says that she does have bright red blood per rectum due to hemorrhoids and also dark-colored stools. He does report low-grade fever at home. Currently afebrile in the hospital. Mild cough and shortness of breath. Patient was recently admitted to the hospital due to abdominal pain and was found to have a calculus cholecystitis. Patient was seen by general surgery and recommended conservative approach in view of comorbid conditions and advanced years. Patient was discharged home with antibiotic course. Patient was also found have contrast-induced acute kidney injury with creatinine level improved to 3.1 hemorrhoids discharge. Patient was also seen by cardiology due to atypical chest pain. Cardiology thought unlikely cardiac in nature. 2-D echocardiogram for ejection fraction 25-30%. Patient was also found have left-sided hydronephrosis, which seems to be chronic and was seen by urology. On admission patient was found have a hemoglobin level 5.1 and platelet count 126. No leukocytosis. BUN 64 and creatinine 2.9 Bicarb 15, lactic acid 2.5 on admission. Chest x-ray showed improving right sided infiltrate. EKG showed atrial fibrillation. 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 11/25/2019 Patient is seen and evaluated in follow-up today sitting up in the chair and continues to have some lower right back pain and shortness of breath with increased generalized weakness. Repeat hemoglobin today is 6.7 and awaiting to receive another unit of PRBCs. Patient received 2 units yesterday. Patient states his weakness has slightly improved after receiving units yesterday although continues to be very lethargic and dyspneic at times. Patient is currently on 2-3 L via nasal cannula. Patient scheduled to undergo upper endoscopy with GI tomorrow for evaluation. Currently no reports of chest pain or palpitations. Patient is afebrile. No reports of nausea or vomiting and patient is tolerating clear liquid diet. Patient will be nothing by mouth tonight. Objective - Vital Signs Vital signs: Vital Signs Temp 97.3 F L 11/25/19 12:54 Pulse 56 L 11/25/19 15:53 Resp 18 11/25/19 04:00 BP 140/60 11/25/19 12:54 Pulse Ox 99 11/25/19 12:54 Intake & Output 11/24/19 11/25/19 11/25/19 18:59 06:59 18:59 Intake Total 790 310 880 Output Total 280 400 Balance 790 30 480 Weight 101.8 kg 100.9 kg Intake: Intake, IV Titration 100 Amount Sodium Chloride 0.9% 1, 100 000 ml @ 20 mls/hr IV . Q24H [facility] Rx#:[id number] Oral 480 780 Blood Product 310 310 0 Rc As-1 Unit 0 [id number] Rc As-1 Unit 310 [id number] Rc As-1 Unit 0 310 [id number] Output: Urine 280 400 Other: Voiding Method Toilet # Voids 2 1 1 # Bowel Movements 2 - Exam Patient is sitting up in the chair , mild distress, awake alert and oriented. Lethargic. HEENT: Normocephalic. Neck is supple. Pupils reactive. Nostrils clear. Oral cavity is moist. Ears reveal no drainage. Neck reveals no JVD, carotid bruits, or thyromegaly. CHEST EXAMINATION: Trachea is central. Symmetrical expansion. Bibasilar diminished air entry. No wheezing. Lung bahena clear to auscultation and percussion. CARDIAC: Normal S1, S2 with no gallops. No murmurs ABDOMEN: Soft. Nontender. Bowel sounds normal. No organomegaly. No abdominal bruits. Extremities: reveal no edema. No clubbing or cyanosis Neurologically awake, alert, oriented x3 with well-coordinated movements. No focal deficits noted Skin: No rash or skin lesions. Psychiatric: Cooperative. Non-suicidal Musculoskeletal: No joint swelling or deformity. Normal range of motion. - Labs CBC & Chem 7: 11/25/19 05:55 11/25/19 05:55 Labs: Abnormal Lab Results - Last 24 Hours (Table) 11/24/19 11/25/19 11/25/19 Range/Units 11:55 05:55 05:55 RBC 2.22 L (4.30-5.90) m/uL Hgb 6.7 L* (13.0-17.5) gm/dL Hct 21.1 L (39.0-53.0) % RDW 17.1 H (11.5-15.5) % Plt Count 103 L (150-450) k/uL Chloride 114 H (98-107) mmol/L Carbon Dioxide 16 L (22-30) mmol/L BUN 66 H (9-20) mg/dL Creatinine 2.85 H (0.66-1.25) mg/dL Glucose 103 H (74-99) mg/dL Calcium 8.1 L (8.4-10.2) mg/dL Total Protein 5.5 L (6.3-8.2) g/dL Albumin 2.7 L (3.5-5.0) g/dL Crossmatch See Detail Microbiology - Last 24 Hours (Table) 11/24/19 10:54 Blood Culture - Preliminary Blood No Growth after 24 hours Assessment and Plan Assessment: Acute blood loss anemia secondary to GI bleed with melanotic stools as well as bright red blood per rectum. No active bleeding noted at this time as patient states he has not had a bowel movement in a day but current hemoglobin is 6.7 and awaiting another unit of PRBCs at this time. Scheduled to undergo upper endoscopy with GI in the morning for evaluation Symptomatic anemia Recent admission with acalculous cholecystitis. Conservative therapy was r ecommended. Seen by surgery. Chronic left-sided hydronephrosis. Evaluated by urology. No intervention recommended. Acute on chronic kidney disease stage III. Due to IV contrast on November 08. Creatinine peaked at 3.19. Currently at 2.85. Continue with gentle IV fluids Metabolic acidosis secondary to acute kidney injury and lactic acidosis Lactic acidosis, improved now History of AAA status post aortoiliac stent graft in place. Ischemic cardiomyopathy with history of AICD placement Chronic CHF with ejection fraction 20-30% with a moderate mitral and tricuspid regurgitation and severe pulmonary hypertension. Coronary artery disease and history of multiple stent placements Hypertension Hyperlipidemia Hypothyroidism DVT prophylaxis with SCDs. Plan: Patient awaiting another unit of PRBCs for hemoglobin of 6.7 today. Patient will be undergoing upper endoscopy and possible colonoscopy in the near future to assess for any bleeding with GI. Patient continues to be quite weak although states has had slight improvement from yesterday. Talked to the patient about CODE STATUS as he states he does not want any intervention and does have paperwork for DO NOT RESUSCITATE but did not bring with him. Patient is alert and oriented 3 and CODE STATUS will be changed to no code as per patient wishes. We'll continue to monitor closely. We'll repeat a.m. labs. Further recommendations to follow.
--- NOTE | 2019-11-25 16:20 | CONS ---
CONSULTATION DATE OF SERVICE: 11/25/2019. REASON FOR CONSULTATION: Acute GI bleed. HISTORY OF PRESENT ILLNESS: The patient is an 89-year-old pleasant white male with history of coronary artery disease, tripe aortic aneurysm repair, and hypothyroidism. He came into the emergency room two days ago complaining of generalized weakness, fatigue, and black tarry stools that started about 4 days ago. He has been having about 3-4 black tarry stools. When he came to the emergency room, he was found to a hemoglobin os 6.7 g/dL and received total of 2 units of PRBC transfusion. Repeat hemoglobin this morning was once again 6.7 g/dL and he is receiving his third unit of blood transfusion. In the meantime, patient denies any abdominal pain. He reports no nausea, vomiting. He was admitted to the hospital 2 weeks ago with epigastric and right upper quadrant abdominal pain of a few days duration, was treated with chronic cholecystitis with antibiotics and was discharged home. He denies any prior history of peptic ulcer disease or recent NSAID use. No prior history of endoscopy. PAST MEDICAL HISTORY: Significant for coronary artery disease, status post stenting of multiple vessels, history of cardiomyopathy, congestive heart failure, hypertension, hyperlipidemia, [place] in the past. PAST SURGICAL HISTORY: AAA repair, AICD implantation. MEDICATIONS: At home include ProAir, Zyloprim, Ecotrin, Coreg, Synthroid, multivitamin, Lasix, amlodipine, sodium bicarb, glipizide. SOCIAL HISTORY: No smoking. No alcohol use. FAMILY HISTORY: Father had coronary artery disease, status post IN. REVIEW OF SYSTEMS: CARDIOPULMONARY: He denies any chest pain or shortness of breath. GENITOURINARY: No dysuria or hematuria. MUSCULOSKELETAL: Unremarkable. SKIN: Unremarkable. ENDOCRINE: Unremarkable. PSYCHIATRIC: Unremarkable. NEUROLOGY: Unremarkable. ENT/VISION: Unremarkable. CONSTITUTIONAL: He denies any weight loss. No fever, chills, night sweats. He complains of fatigue and weakness. PHYSICAL EXAMINATION: He appears comfortable, in no apparent distress. Vital signs are stable. Blood pressure 140/60, pulse rate 82, temperature 97. HEENT: Examination unremarkable, conjunctivae are pink, sclerae nonicteric, oral cavity no lesions. NECK: No JVD or lymph node enlargement. CHEST: Clear to auscultation. HEART: Regular rate and rhythm. ABDOMEN: Soft. There was very minimal tenderness in the epigastric area, the rest of the abdomen was benign. Bowel sounds are positive. No organomegaly. EXTREMITIES: No pedal edema. SKIN: No rashes. NEUROLOGIC: Alert and oriented x3. No focal deficits. LABS: At the time of admission to the hospital: WBC 9.6, hemoglobin 5.7, platelets 129, BUN is 64, creatinine 2.90. Basic metabolic panel is within normal limits. AST, ALT, T- bilirubin and alkaline phosphatase are within normal limits: COVID-19 is negative. He received 2 units of blood transfusion and hemoglobin this morning is 6.7, currently receiving a third unit of blood transfusion. IMPRESSION: 1. Acute gastrointestinal bleed, most likely upper in etiology. Patient having black tarry stools for the last 3-4 days duration. Hemoglobin was 5.7, received 2 units of blood transfusion and repeat hemoglobin 6.7 g/dL today. During his recent hospitalization 3 weeks ago, last hemoglobin was 8.5 g/dL. Most likely we are dealing with upper GI source of bleeding, probably related to peptic ulcer disease. 2. History of triple abdominal aortic aneurysm repair several years ago. 3. History of coronary artery disease, status post stent placement in the past. 4. History of congestive heart failure. 5. Recent episode of chronic cholecystitis treated with antibiotics 2 weeks ago. RECOMMENDATION: 1. Start him on Protonix 40 mg twice daily. 2. Clear liquid diet. 3. Proceed with an EGD tomorrow. I discussed with the patient risks, benefits, and complications of the procedure and he was agreeable to it. 4. Repeat CBC in the morning. 5. Will follow with you closely. Thank you for this consultation. MMODL / IJN: [id number] /
[2019-11-26 06:10] LABS: Calcium 7.8 mg/dL (8.4-10.2); Potassium 4.1 mmol/L (3.5-5.1)
[2019-11-26 06:29] LABS: Anisocytosis Slight; Basophils # (A) 0.1 k/uL (0-0.2); Basophils % (A) 1 %; Eosinophils # (A) 0.1 k/uL (0-0.7); Eosinophils % (A) 2 %; HCT 23.7 % (39.0-53.0); HGB 7.7 gm/dL (13.0-17.5); Hypochromasia Moderate; Lymphocytes # (A) 1.4 k/uL (1.0-4.8); Lymphocytes % (A) 22 %; MCH 30.6 pg (25.0-35.0); MCHC 32.5 g/dL (31.0-37.0); MCV 94.1 fL (80.0-100.0); Mean Platelet Volume 9.2; Monocytes # (A) 0.5 k/uL (0-1.0); Monocytes % (A) 8 %; Neutrophils % (A) 66 %; Poikilocytosis Slight; RBC 2.52 m/uL (4.30-5.90); RDW 16.7 % (11.5-15.5); WBC 6.1 k/uL (3.8-10.6)
[2019-11-26] MEDS: ALBUTEROL HFA INHALER INHALATION SCH ×4 (07:41→19:41)
[2019-11-26] MEDS ORDERED: PROPOFOL 10 MG/ML 20 ML VIAL IV ONE (08:48)
[2019-11-26 08:52] LABS: Platelet Count 87 k/uL (150-450)
[2019-11-26] MEDS ORDERED: LACTATED RINGERS 1,000 ML IV ONE (08:52)
[2019-11-26] MEDS ORDERED: EPINEPHrine 10 ML SYRINGE (0.1 MG/ML) MISCELLANE ONE ×3 (09:02)
--- NOTE | 2019-11-26 09:37 | P.PCN ---
Date of Procedure: 11/26/19 Procedure(s) Performed: BRIEF HISTORY: Patient is a 89-year-old, pleasant, white male admitted hospital with acute GI bleed. Had multiple episodes of black tarry stools for the last 3 days' duration. Had a hemoglobin of 5.7 requiring 2 units of blood transmission. Today hemoglobin is 7.7 g/dL. His and scheduled for an upper endoscopy to evaluate further. PROCEDURE PERFORMED: Esophagogastroduodenoscopy with cautery, injection epinephrine, Endo Clip placement. PREOPERATIVE DIAGNOSIS: Acute upper GI bleed. IV sedation per anesthesia. PROCEDURE: After informed consent was obtained, the patient was brought into the endoscopy unit. IV sedation was administered by Anesthesia under continuous monitoring. Initially the Olympus GIF-140 video endoscope was inserted into the mouth. Esophagus intubated without any difficulty. It was gradually advanced into the stomach and duodenum and carefully examined. The bulb and the second part of the duodenum appeared normal. The scope at this time was withdrawn to the stomach, adequately insufflated with air, and upon careful examination, mucosa of the antrum, body, cardia appeared normal. In the fundus of the stomach with no lesions noted with an appearance of an arteriovenous malformation with a small small central white spot noted. This represented a Dieulafoy's lesion. I proceeded with coagulation with the Gold probe and as a starting the cautery there was brisk oozing identified. Despite continued coagulation and could not control the bleeding. At this time I injected 1 in 10,000 epinephrine with a total of 10 mL with some hemostasis. Once the area of active bleeding was localized at least 2 endoclips and the bleeding transiently stopped.. A few seconds later once again there was brisk bleeding identified. At this time another 6 mL of 1 in 10,000 epinephrine was injected at the site of bleeding. Following this an adequate irrigation was performed at the site of bleeding once again was identified. 2 more endoclips were placed adjacent to the other endoclips at the site of bleeding and finally hemostasis was achieved. During this time there was approximately 200 mL of bleeding noted. Suction was performed. The scope was then withdrawn into the esophagus. The GE junction was located at 39 cm from the incisors. The esophagus appeared normal. There were no erosions or ulcerations seen and the patient tolerated the procedure well. IMPRESSION: 1. 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 2. Peptic ulcer disease. RECOMMENDATIONS: The findings of this examination were discussed with the patient .. At this time he will have an NG tube for continuous suction. Continue Protonix 40 mg every 12 hours IV. Monitor CBC every 6 hours. Transfuse 1 unit of blood now and monitor him closely. We will obtain surgical consultation as a standby if he has recurrent bleeding. .
[2019-11-26] MEDS ORDERED: ONDANSETRON 4 MG/2 ML VIAL IVP PRN (10:27)
[2019-11-26] MEDS ORDERED: MORPHINE SULFATE 2 MG/ML SYRINGE ONE ×2 (10:37→11:04)
[2019-11-26] MEDS: MORPHINE SULFATE 2 MG/ML SYRINGE IVP PRN ×4 (10:41→22:30)
[2019-11-26] MEDS: ALLOPURINOL 100 MG TAB PO SCH (11:11)
[2019-11-26] MEDS: LEVOTHYROXINE 75 MCG TAB PO SCH (11:11)
[2019-11-26] MEDS: SODIUM BICARBONATE TAB 650 MG TAB PO SCH ×3 (11:12→21:30)
[2019-11-26] MEDS: MULTIVITAMINS, THERA 1 EACH TAB PO SCH (11:12)
[2019-11-26] MEDS: CARVEDILOL 6.25 MG TAB PO SCH ×2 (12:14→19:16)
[2019-11-26 13:04] LABS: Anisocytosis Slight; HCT 28.6 % (39.0-53.0); Hypochromasia Moderate; MCH 30.1 pg (25.0-35.0); MCHC 31.3 g/dL (31.0-37.0); Mean Platelet Volume 9.7; Platelet Count 102 k/uL (150-450); Poikilocytosis Slight; RBC 2.98 m/uL (4.30-5.90); RDW 16.3 % (11.5-15.5); WBC 9.1 k/uL (3.8-10.6)
--- NOTE | 2019-11-26 13:12 | XR ---
EXAMINATION TYPE: XR chest 1V portable DATE OF EXAM: 11/26/2019 COMPARISON: 11/24/2019 INDICATION: Nasogastric tube placement TECHNIQUE: Single frontal view of the chest is obtained. FINDINGS: The heart size is mildly prominent. The pulmonary vasculature is normal. Right lower lobe infiltrate or consolidation is present. This is worsening over the interval. There is placement of the nasogastric tube, tip is curled within the left upper quadrant of the abdom en. Pacemaker overlies left chest. IMPRESSION: 1. Worsening opacity through the right lower lobe. Effusion atelectasis and pneumonia should be consi dered. 2. Placement of a nasogastric tube with tip in the left upper quadrant of the abdomen.
--- NOTE | 2019-11-26 15:05 | P.PN ---
Subjective Progress Note Date: 11/26/19 Principal diagnosis: Patient is a 89-year-old male with a known history of cardiac cardiomyopathy, coronary artery disease with prior multivessel stenting, AAA repair, hypothyroidism, prior AICD implantation 9 years ago with recent replacement in August 2019, hypothyroidism, hypertension and previous history of smoking came to ER with complaints of generalized weakness and lethargic. Patient states that he has been more weak recently and unable to ambulate. Patient is still having right-sided abdominal pain but much improved. Does have nausea and episodes of diarrhea and vomiting. Patient says that she does have bright red blood per rectum due to hemorrhoids and also dark-colored stools. He does report low-grade fever at home. Currently afebrile in the hospital. Mild cough and shortness of breath. Patient was recently admitted to the hospital due to abdominal pain and was found to have a calculus cholecystitis. Patient was seen by general surgery and recommended conservative approach in view of comorbid conditions and advanced years. Patient was discharged home with antibiotic course. Patient was also found have contrast-induced acute kidney injury with creatinine level improved to 3.1 hemorrhoids discharge. Patient was also seen by cardiology due to atypical chest pain. Cardiology thought unlikely cardiac in nature. 2-D echocardiogram for ejection fraction 25-30%. Patient was also found have left-sided hydronephrosis, which seems to be chronic and was seen by urology. On admission patient was found have a hemoglobin level 5.1 and platelet count 126. No leukocytosis. BUN 64 and creatinine 2.9 Bicarb 15, lactic acid 2.5 on admission. Chest x-ray showed improving right sided infiltrate. EKG showed atrial fibrillation. 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 11/25/2019 Patient is seen and evaluated in follow-up today sitting up in the chair and continues to have some lower right back pain and shortness of breath with increased generalized weakness. Repeat hemoglobin today is 6.7 and awaiting to receive another unit of PRBCs. Patient received 2 units yesterday. Patient states his weakness has slightly improved after receiving units yesterday although continues to be very lethargic and dyspneic at times. Patient is currently on 2-3 L via nasal cannula. Patient scheduled to undergo upper endoscopy with GI tomorrow for evaluation. Currently no reports of chest pain or palpitations. Patient is afebrile. No reports of nausea or vomiting and patient is tolerating clear liquid diet. Patient will be nothing by mouth tonight. 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 An NG tube was placed and patient will continue with Protonix twice daily at this time. Patient to receive another unit of PRBCs for an estimated blood loss of 2-300 mL. This morning's hemoglobin was 7.7 prior to the seizure and creatinine showed slight improvement of 2.73. Patient was in immense pain upon return from the procedure and was being closely monitored. Patient had a chest x-ray done showing worsening up a CD through the right lower lobe with possible effusion and atelectasis and pneumonia along with placement of the NG tube with the tip in the left upper quadrant of the abdomen. Repeat hemoglobin this afternoon was 9.0 and will continue with serial H&H's. Patient may continue with nothing by mouth except for ice chips and NG tube at this time. Objective - Vital Signs Vital signs: Vital Signs Temp 97.2 F L 11/26/19 13:15 Pulse 54 L 11/26/19 13:15 Resp 16 11/26/19 13:15 BP 141/65 11/26/19 13:15 Pulse Ox 100 11/26/19 13:15 Intake & Output 11/25/19 11/26/19 11/26/19 18:59 06:59 18:59 Intake Total 1190 810 Output Total 800 900 400 Balance 390 -900 410 Weight 99.8 kg Intake: IV 500 Intake, IV Titration 100 Amount Sodium Chloride 0.9% 1, 100 000 ml @ 20 mls/hr IV . Q24H [facility] Rx#:[id number] Oral 780 Blood Product 310 310 Rc As-1 Unit 310 [id number] Rc As-1 Unit 310 [id number] Output: Urine 800 900 400 Other: Voiding Method Toilet Toilet # Voids 1 - Exam Patient is sitting up in bed, acute distress due to pain, awake alert and oriented. Lethargic. HEENT: Normocephalic. Neck is supple. Pupils reactive. Nostrils clear. Oral cavity is moist. Ears reveal no drainage. Neck reveals no JVD, carotid bruits, or thyromegaly. CHEST EXAMINATION: Trachea is central. Symmetrical expansion. Bibasilar diminished air entry. No wheezing. Lung bahena clear to auscultation and percussion. CARDIAC: Normal S1, S2 with no gallops. No murmurs ABDOMEN: Soft. Nontender. Bowel sounds normal. No organomegaly. No abdominal bruits. Extremities: reveal no edema. No clubbing or cyanosis Neurologically awake, alert, oriented x3 with well-coordinated movements. No focal deficits noted Skin: No rash or skin lesions. Psychiatric: Cooperative. Non-suicidal Musculoskeletal: No joint swelling or deformity. Normal range of motion. - Labs CBC & Chem 7: 11/26/19 12:52 11/26/19 05:32 Labs: Abnormal Lab Results - Last 24 Hours (Table) 11/24/19 11/26/19 11/26/19 Range/Units 11:55 05:32 05:32 RBC 2.52 L (4.30-5.90) m/uL Hgb 7.7 L (13.0-17.5) gm/dL Hct 23.7 L (39.0-53.0) % RDW 16.7 H (11.5-15.5) % Plt Count 87 L (150-450) k/uL Chloride 110 H (98-107) mmol/L Carbon Dioxide 18 L (22-30) mmol/L BUN 59 H (9-20) mg/dL Creatinine 2.73 H (0.66-1.25) mg/dL Calcium 7.8 L (8.4-10.2) mg/dL Crossmatch See Detail 11/26/19 Range/Units 12:52 RBC 2.98 L (4.30-5.90) m/uL Hgb 9.0 L (13.0-17.5) gm/dL Hct 28.6 L (39.0-53.0) % RDW 16.3 H (11.5-15.5) % Plt Count 102 L (150-450) k/uL Chloride (98-107) mmol/L Carbon Dioxide (22-30) mmol/L BUN (9-20) mg/dL Creatinine (0.66-1.25) mg/dL Calcium (8.4-10.2) mg/dL Crossmatch Microbiology - Last 24 Hours (Table) 11/24/19 10:54 Blood Culture - Preliminary Blood No Growth after 48 hours Assessment and Plan Assessment: Acute blood loss anemia secondary to GI bleed with melanotic stools as well as bright red blood per rectum. 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 Conservative therapy was recom mended. Seen by surgery. Chronic left-sided hydronephrosis. Evaluated by urology. No intervention recommended. Acute on chronic kidney disease stage III. Due to IV contrast on November 08. Creatinine peaked at 3.19. Currently at 2.73. Continue with gentle IV fluids Metabolic acidosis secondary to acute kidney injury and lactic acidosis Lactic acidosis, improved now History of AAA status post aortoiliac stent graft in place. Ischemic cardiomyopathy with history of AICD placement Chronic CHF with ejection fraction 20-30% with a moderate mitral and tricuspid regurgitation and severe pulmonary hypertension. Coronary artery disease and history of multiple stent placements Hypertension Hyperlipidemia Hypothyroidism DVT prophylaxis with SCDs. Plan: Patient early receiving another unit of PRBCs status post EGD. NG tube in place and to continue with nothing by mouth except ice chips. GI following closely. Will continue with every 6 hour H&H's and monitor closely for any active bleedin g noted. Continue with pain management and monitor vital signs and labs closely. Will continue to monitor closely. Prognosis is guarded. Further recommendations to follow.
[2019-11-26] MEDS: DORZOLAMIDE-TIMOLOL 2.23%/0.68 10ML BTL BOTH EYES SCH ×2 (16:00→21:30)
[2019-11-26] MEDS: FUROSEMIDE 20 MG TAB PO SCH ×2 (16:33→21:30)
[2019-11-26 18:26] LABS: Anisocytosis Slight; HCT 30.5 % (39.0-53.0); HGB 9.4 gm/dL (13.0-17.5); Hypochromasia Marked; MCH 29.9 pg (25.0-35.0); MCHC 30.7 g/dL (31.0-37.0); MCV 97.3 fL (80.0-100.0); Macrocytosis Slight; Mean Platelet Volume 9.1; Poikilocytosis Slight; RBC 3.14 m/uL (4.30-5.90); RDW 16.2 % (11.5-15.5); WBC 10.6 k/uL (3.8-10.6)
[2019-11-26 18:40] LABS: Platelet Count 88 k/uL (150-450)
[2019-11-26] MEDS: PANTOPRAZOLE 40 MG/10 ML VIAL IVP SCH (22:29)
[2019-11-27 00:20] LABS: Anisocytosis Slight; HCT 26.7 % (39.0-53.0); HGB 8.6 gm/dL (13.0-17.5); Hypochromasia Moderate; MCH 30.6 pg (25.0-35.0); MCHC 32.3 g/dL (31.0-37.0); MCV 94.6 fL (80.0-100.0); Mean Platelet Volume 9.6; Platelet Count 83 k/uL (150-450); Poikilocytosis Slight; RBC 2.82 m/uL (4.30-5.90); RDW 16.5 % (11.5-15.5); WBC 8.6 k/uL (3.8-10.6)
[2019-11-27 06:51] LABS: Anisocytosis Slight; Basophils # (A) 0.1 k/uL (0-0.2); Basophils % (A) 1 %; Eosinophils # (A) 0.1 k/uL (0-0.7); Eosinophils % (A) 1 %; HCT 28.1 % (39.0-53.0); Hypochromasia Marked; Lymphocytes # (A) 1.5 k/uL (1.0-4.8); Lymphocytes % (A) 19 %; MCH 31.3 pg (25.0-35.0); MCHC 32.2 g/dL (31.0-37.0); MCV 97.4 fL (80.0-100.0); Macrocytosis Slight; Mean Platelet Volume 9.2; Monocytes # (A) 0.5 k/uL (0-1.0); Monocytes % (A) 7 %; Neutrophils # (A) 5.5 k/uL (1.3-7.7); Neutrophils % (A) 71 %; Poikilocytosis Slight; RBC 2.88 m/uL (4.30-5.90); RDW 16.2 % (11.5-15.5); WBC 7.7 k/uL (3.8-10.6)
[2019-11-27 07:14] LABS: Calcium 7.8 mg/dL (8.4-10.2); Potassium 4.2 mmol/L (3.5-5.1)
[2019-11-27] MEDS: LIDOCAINE 5% PATCH TOPICAL SCH ×2 (07:35→09:07)
[2019-11-27] MEDS: ALBUTEROL HFA INHALER INHALATION SCH ×4 (07:56→20:54)
[2019-11-27] MEDS: LEVOTHYROXINE 75 MCG TAB PO SCH (08:11)
[2019-11-27] MEDS: CARVEDILOL 6.25 MG TAB PO SCH ×2 (08:11→17:38)
[2019-11-27 08:31] LABS: Platelet Count 89 k/uL (150-450)
[2019-11-27] MEDS: MULTIVITAMINS, THERA 1 EACH TAB PO SCH (09:02)
[2019-11-27] MEDS: DORZOLAMIDE-TIMOLOL 2.23%/0.68 10ML BTL BOTH EYES SCH ×2 (09:02→22:51)
[2019-11-27] MEDS: FUROSEMIDE 20 MG TAB PO SCH ×2 (09:02→22:51)
[2019-11-27] MEDS: SODIUM BICARBONATE TAB 650 MG TAB PO SCH ×3 (09:02→22:51)
[2019-11-27] MEDS: ALLOPURINOL 100 MG TAB PO SCH (09:02)
[2019-11-27] MEDS: PANTOPRAZOLE 40 MG/10 ML VIAL IVP SCH ×2 (09:03→22:51)
[2019-11-27] MEDS ORDERED: LEVOTHYROXINE 75 MCG TAB PO ONE (11:00)
--- NOTE | 2019-11-27 11:55 | P.GSCN ---
History of Present Illness Consult date: 11/27/19 Reason for Consult: GI bleed Requesting physician: Keyshawn Parsons History of present illness: CHIEF COMPLAINT: GI bleed HISTORY OF PRESENT ILLNESS: 89-year-old male who was admitted to the hospital secondary to GI bleed. Patient underwent EGD yesterday with Dr. Magallon revealing Dieulafoys lesion in the fundus of the stomach with active bleeding. Patient received epinephrine injection and Endo Clip placement. Hemoglobin today 9.0. General surgery was consulted for further evaluation. PAST MEDICAL HISTORY: See list. PAST SURGICAL HISTORY: See list. SOCIAL HISTORY: No illicit drug use. REVIEW OF SYSTEMS: CONSTITUTIONAL: Denies fever or chills. HEENT: Denies blurred vision, vision changes, or eye pain. Denies hemoptysis CARDIOVASCULAR: Denies chest pain or pressure. RESPIRATORY: No shortness of breath. GASTROINTESTINAL: Denies abdominal pain. Denies nausea or vomiting HEMATOLOGIC: Denies bleeding disorders. GENITOURINARY: Denies any blood in urine. SKIN: Denies pruitis. Denies rash. PHYSICAL EXAM: VITAL SIGNS: Reviewed. GENERAL: Well-developed in no acute distress. HEENT: No sclera icterus. Extraocular movements grossly intact. Moist buccal mucosa. Head is atraumatic, normocephalic. ABDOMEN: Soft. Nondistended. Nontender. NEUROLOGIC: Alert and oriented. Cranial nerves II through XII grossly intact. LABORATORY DATA: WBC 7.7. Hemoglobin 9.0. Platelet count 89. ASSESSMENT: 1. 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 Will remain on standby in the event that patient begins bleeding again Nurse practitioner note has been reviewed by physician. Signing provider agrees with the documented findings, assessment, and plan of care. Past Medical History Past Medical History: Coronary Artery Disease (CAD), Chest Pain / Angina, Heart Failure, Hyperlipidemia, Hypertension, Myocardial Infarction (RI) Additional Past Medical History / Comment(s): GOUT, 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 Last Myocardial Infarction Date:: 2009 History of Any Multi-Drug Resistant Organisms: None Reported Past Surgical History: AICD, Heart Catheterization With Stent Additional Past Surgical History / Comment(s): aaa repair Past Anesthesia/Blood Transfusion Reactions: No Reported Reaction Date of Last Stent Placement:: AROUND 2009 Type of Cardiac Device: AICD Device Placement Date:: AUG 2019 Past Psychological History: No Psychological Hx Reported Smoking Status: Former smoker Past Alcohol Use History: None Reported Past Drug Use History: None Reported, Unable to Obtain - Past Family History Father Family Medical History: Myocardial Infarction (RI) Medications and Allergies Home Medications Medication Instructions Recorded Confirmed Type Albuterol Sulfate [Proair Hfa] 2 puff INHALATION RT-QID 11/09/19 11/24/19 History Allopurinol [Zyloprim] 100 mg PO DAILY 11/09/19 11/24/19 History Aspirin EC [Ecotrin Low Dose] 81 mg PO DAILY 11/09/19 11/24/19 History Carvedilol [Coreg] 6.25 mg PO BID 11/09/19 11/24/19 History Dorzolamide-Timol 2.23%/0.68% 1 drop BOTH EYES BID 11/09/19 11/24/19 History [Cosopt] Levothyroxine Sodium [Synthroid] 150 mcg PO DAILY 11/09/19 11/24/19 History Multivitamins, Thera [Multivitamin 1 tab PO DAILY 11/09/19 11/24/19 History (formulary)] Nitroglycerin Sl Tabs [Nitrostat] 0.4 mg SUBLINGUAL Q5M PRN 11/09/19 11/24/19 History Furosemide [Lasix] 20 mg PO BID #0 11/13/19 11/24/19 Rx Sodium Bicarbonate Tab 650 mg PO TID #90 tablet 11/13/19 11/24/19 Rx amLODIPine BESYLATE [Norvasc] 2.5 mg PO DAILY 30 Days #30 tab 11/13/19 11/24/19 Rx Allergies Allergy/AdvReac Type Severity Reaction Status Date / Time glipizide AdvReac DROP SUGAR Verified 11/24/19 13:32 TOO LOW Surgical - Exam Vital Signs Temp Pulse Resp BP Pulse Ox 98.9 F 69 16 114/89 97 11/24/19 10:37 11/24/19 10:37 11/24/19 10:37 11/24/19 10:37 11/24/19 10:37 Results - Labs 11/27/19 05:33 11/27/19 05:33 Abnormal Lab Results - Last 24 Hours (Table) 11/24/19 11/26/19 11/26/19 Range/Units 11:55 12:52 18:12 RBC 2.98 L 3.14 L (4.30-5.90) m/uL Hgb 9.0 L 9.4 L (13.0-17.5) gm/dL Hct 28.6 L 30.5 L (39.0-53.0) % MCHC 30.7 L (31.0-37.0) g/dL RDW 16.3 H 16.2 H (11.5-15.5) % Plt Count 102 L 88 L (150-450) k/uL Chloride (98-107) mmol/L Carbon Dioxide (22-30) mmol/L BUN (9-20) mg/dL Creatinine (0.66-1.25) mg/dL Calcium (8.4-10.2) mg/dL Crossmatch See Detail 11/26/19 11/27/19 11/27/19 Range/Units 23:55 05:33 05:33 RBC 2.82 L 2.88 L (4.30-5.90) m/uL Hgb 8.6 L 9.0 L (13.0-17.5) gm/dL Hct 26.7 L 28.1 L (39.0-53.0) % MCHC (31.0-37.0) g/dL RDW 16.5 H 16.2 H (11.5-15.5) % Plt Count 83 L 89 L (150-450) k/uL Chloride 113 H (98-107) mmol/L Carbon Dioxide 16 L (22-30) mmol/L BUN 50 H (9-20) mg/dL Creatinine 2.37 H (0.66-1.25) mg/dL Calcium 7.8 L (8.4-10.2) mg/dL Crossmatch Microbiology - Last 24 Hours (Table) 11/24/19 10:54 Blood Culture - Preliminary Blood No Growth after 48 hours Diabetes panel 11/27/19 Range/Units 05:33 Sodium 139 (137-145) mmol/L Potassium 4.2 (3.5-5.1) mmol/L Chloride 113 H (98-107) mmol/L Carbon Dioxide 16 L (22-30) mmol/L BUN 50 H (9-20) mg/dL Creatinine 2.37 H (0.66-1.25) mg/dL Glucose 83 (74-99) mg/dL Calcium 7.8 L (8.4-10.2) mg/dL Calcium panel 11/27/19 Range/Units 05:33 Calcium 7.8 L (8.4-10.2) mg/dL Pituitary panel 11/27/19 Range/Units 05:33 Sodium 139 (137-145) mmol/L Potassium 4.2 (3.5-5.1) mmol/L Chloride 113 H (98-107) mmol/L Carbon Dioxide 16 L (22-30) mmol/L BUN 50 H (9-20) mg/dL Creatinine 2.37 H (0.66-1.25) mg/dL Glucose 83 (74-99) mg/dL Calcium 7.8 L (8.4-10.2) mg/dL Adrenal panel 11/27/19 Range/Units 05:33 Sodium 139 (137-145) mmol/L Potassium 4.2 (3.5-5.1) mmol/L Chloride 113 H (98-107) mmol/L Carbon Dioxide 16 L (22-30) mmol/L BUN 50 H (9-20) mg/dL Creatinine 2.37 H (0.66-1.25) mg/dL Glucose 83 (74-99) mg/dL Calcium 7.8 L (8.4-10.2) mg/dL
--- NOTE | 2019-11-27 14:24 | P.PN ---
Subjective Progress Note Date: 11/27/19 Principal diagnosis: Patient is a 89-year-old male with a known history of cardiac cardiomyopathy, coronary artery disease with prior multivessel stenting, AAA repair, hypothyroidism, prior AICD implantation 9 years ago with recent replacement in August 2019, hypothyroidism, hypertension and previous history of smoking came to ER with complaints of generalized weakness and lethargic. Patient states that he has been more weak recently and unable to ambulate. Patient is still having right-sided abdominal pain but much improved. Does have nausea and episodes of diarrhea and vomiting. Patient says that she does have bright red blood per rectum due to hemorrhoids and also dark-colored stools. He does report low-grade fever at home. Currently afebrile in the hospital. Mild cough and shortness of breath. Patient was recently admitted to the hospital due to abdominal pain and was found to have a calculus cholecystitis. Patient was seen by general surgery and recommended conservative approach in view of comorbid conditions and advanced years. Patient was discharged home with antibiotic course. Patient was also found have contrast-induced acute kidney injury with creatinine level improved to 3.1 hemorrhoids discharge. Patient was also seen by cardiology due to atypical chest pain. Cardiology thought unlikely cardiac in nature. 2-D echocardiogram for ejection fraction 25-30%. Patient was also found have left-sided hydronephrosis, which seems to be chronic and was seen by urology. On admission patient was found have a hemoglobin level 5.1 and platelet count 126. No leukocytosis. BUN 64 and creatinine 2.9 Bicarb 15, lactic acid 2.5 on admission. Chest x-ray showed improving right sided infiltrate. EKG showed atrial fibrillation. 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 11/25/2019 Patient is seen and evaluated in follow-up today sitting up in the chair and continues to have some lower right back pain and shortness of breath with increased generalized weakness. Repeat hemoglobin today is 6.7 and awaiting to receive another unit of PRBCs. Patient received 2 units yesterday. Patient states his weakness has slightly improved after receiving units yesterday although continues to be very lethargic and dyspneic at times. Patient is currently on 2-3 L via nasal cannula. Patient scheduled to undergo upper endoscopy with GI tomorrow for evaluation. Currently no reports of chest pain or palpitations. Patient is afebrile. No reports of nausea or vomiting and patient is tolerating clear liquid diet. Patient will be nothing by mouth tonight. 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 An NG tube was placed and patient will continue with Protonix twice daily at this time. Patient to receive another unit of PRBCs for an estimated blood loss of 2-300 mL. This morning's hemoglobin was 7.7 prior to the seizure and creatinine showed slight improvement of 2.73. Patient was in immense pain upon return from the procedure and was being closely monitored. Patient had a chest x-ray done showing worsening up a CD through the right lower lobe with possible effusion and atelectasis and pneumonia along with placement of the NG tube with the tip in the left upper quadrant of the abdomen. Repeat hemoglobin this afternoon was 9.0 and will continue with serial H&H's. Patient may continue with nothing by mouth except for ice chips and NG tube at this time. 11/27/2019 Patient is seen in follow-up today sitting up in the chair and NG tube has been removed. No further bleeding noted. Patient is currently on clear liquids and tolerating. Hemoglobin today is 9.0. Patient states he is passing gas but has not had another bowel movement for the last 2 days. Discussed with the patient about making the nursing staff aware once he does have a bowel movement to monitor for any bleeding. Current creatinine is slowly trending down and is 2.37. Currently no reports of chest pain, shortness of breath, or palpitations. And is afebrile. No reports of nausea or vomiting and patient is tolerating diet. Patient asking for an advance in his diet. Will repeat a.m. labs. Objective - Vital Signs Vital signs: Vital Signs Temp 97.5 F L 11/27/19 12:00 Pulse 52 L 11/27/19 12:00 Resp 16 11/27/19 12:00 BP 142/63 11/27/19 12:00 Pulse Ox 99 11/27/19 12:00 Intake & Output 11/26/19 11/27/19 11/27/19 18:59 06:59 18:59 Intake Total 1180 Output Total 900 550 625 Balance 280 -550 -625 Weight 100.1 kg Intake: IV 500 Intake, IV Titration 60 Amount Sodium Chloride 0.9% 1, 60 000 ml @ 20 mls/hr IV . Q24H [facility] Rx#:[id number] Blood Product 620 Rc As-1 Unit 310 [id number] Output: Urine 900 550 625 Other: Voiding Method Toilet Toilet Toilet # Voids 1 1 - Exam Patient is sitting up in the chair, awake alert and oriented. HEENT: Normocephalic. Neck is supple. Pupils reactive. Nostrils clear. Oral cavity is moist. Ears reveal no drainage. Neck reveals no JVD, carotid bruits, or thyromegaly. CHEST EXAMINATION: Trachea is central. Symmetrical expansion. Bibasilar diminished air entry. No wheezing. Lung bahena clear to auscultation and percussion. CARDIAC: Normal S1, S2 with no gallops. No murmurs ABDOMEN: Soft. Nontender. Bowel sounds normal. No organomegaly. No abdominal bruits. Extremities: reveal no edema. No clubbing or cyanosis Neurologically awake, alert, oriented x3 with well-coordinated movements. No focal deficits noted Skin: No rash or skin lesions. Psychiatric: Cooperative. Non-suicidal Musculoskeletal: No joint swelling or deformity. Normal range of motion. - Labs CBC & Chem 7: 11/27/19 05:33 11/27/19 05:33 Labs: Abnormal Lab Results - Last 24 Hours (Table) 11/24/19 11/26/19 11/26/19 Range/Units 11:55 18:12 23:55 RBC 3.14 L 2.82 L (4.30-5.90) m/uL Hgb 9.4 L 8.6 L (13.0-17.5) gm/dL Hct 30.5 L 26.7 L (39.0-53.0) % MCHC 30.7 L (31.0-37.0) g/dL RDW 16.2 H 16.5 H (11.5-15.5) % Plt Count 88 L 83 L (150-450) k/uL Chloride (98-107) mmol/L Carbon Dioxide (22-30) mmol/L BUN (9-20) mg/dL Creatinine (0.66-1.25) mg/dL Calcium (8.4-10.2) mg/dL Crossmatch See Detail 11/27/19 11/27/19 Range/Units 05:33 05:33 RBC 2.88 L (4.30-5.90) m/uL Hgb 9.0 L (13.0-17.5) gm/dL Hct 28.1 L (39.0-53.0) % MCHC (31.0-37.0) g/dL RDW 16.2 H (11.5-15.5) % Plt Count 89 L (150-450) k/uL Chloride 113 H (98-107) mmol/L Carbon Dioxide 16 L (22-30) mmol/L BUN 50 H (9-20) mg/dL Creatinine 2.37 H (0.66-1.25) mg/dL Calcium 7.8 L (8.4-10.2) mg/dL Crossmatch Microbiology - Last 24 Hours (Table) 11/24/19 10:54 Blood Culture - Preliminary Blood No Growth after 72 hours Assessment and Plan Assessment: Acute blood loss anemia secondary to GI bleed with melanotic stools as well as b right red blood per rectum. No active bleeding noted at this time. Current hemoglobin is 9.0. 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 Conservative therapy was recommended. Seen by surgery. Chronic left-sided hydronephrosis. Evaluated by urology. No intervention recommended. Acute on chronic kidney disease stage III. Due to IV contrast on November 08. Creatinine peaked at 3.19. Currently at 2.37. Continue with gentle IV fluids Metabolic acidosis secondary to acute kidney injury and lactic acidosis Lactic acidosis, improved now History of AAA status post aortoiliac stent graft in place. Ischemic cardiomyopathy with history of AICD placement Chronic CHF with ejection fraction 20-30% with a moderate mitral and tricuspid regurgitation and severe pulmonary hypertension. Coronary artery disease and history of multiple stent placements Hypertension Hyperlipidemia Hypothyroidism DVT prophylaxis with SCDs. Plan: Continue current medications and symptomatic treatment. NG tube was removed and tolerating clear liquids with possible advancement of diet later. GI following closely. Current hemoglobin 9.0 with no active bleeding noted. Will continue to monitor closely. Prognosis is guarded. Further recommendations to follow. Possible discharge in 24-48 hours.
--- NOTE | 2019-11-27 17:11 | PN ---
PROGRESS NOTE DATE OF DICTATION: 11/27/2019 This patient is an 89-year-old pleasant white male admitted to the hospital with acute GI bleed. 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 He underwent Endoclip placement and an NG tube was placed following the procedure because of significant bleeding. He is doing better. He denies any symptoms. Abdominal pain has resolved. No significant output from the NG tube. He has no melena. PHYSICAL EXAMINATION: He appears comfortable. No apparent distress. Vital signs are stable. Blood pressure 142/63, pulse rate 52, temperature 97.9. HEENT examination unremarkable. Conjunctivae pink. Sclerae anicteric. Oral cavity no lesions. NECK: No JVD or lymph node enlargement. CHEST: Clear to auscultation. HEART: Regular rate and rhythm. ABDOMEN: Soft. Bowel sounds are positive. No organomegaly. EXTREMITIES: No pedal edema. SKIN: No rashes. NEUROLOGIC: Alert and oriented x3. No focal deficits. LABS: Labs from today show WBC 7.7, hemoglobin 9, platelets 89,000. BUN is down to 50, creatinine 2.37. IMPRESSION: 1. 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 Presently has an NG tube with minimal amount of drainage from yesterday. Hemoglobin is stable at 9 g/dL. Status post 4 units of blood transfusion during this hospitalization. 2. Mild thrombocytopenia. 3. History of coronary artery disease, status post multiple stent placements in the past. 4. Hypertension. 5. Hyperlipidemia. RECOMMENDATIONS: 1. Will remove the NG tube today. 2. Start him on a clear liquid diet. 3. CBC on a daily basis. 4. Continue Protonix 40 mg q.12 hours. 5. If he remains stable, diet will be advanced tomorrow. Thank you for this consultation. MMODL / IJN: [id number] /
[2019-11-28] MEDS: SODIUM CHLORIDE 0.9% 1,000 ML IV SCH ×3 (04:40→10:44)
[2019-11-28] MEDS: LEVOTHYROXINE 75 MCG TAB PO SCH (06:25)
[2019-11-28 06:51] LABS: Anisocytosis Slight; Basophils # (A) 0.1 k/uL (0-0.2); Basophils % (A) 1 %; Eosinophils # (A) 0.1 k/uL (0-0.7); Eosinophils % (A) 2 %; HCT 25.7 % (39.0-53.0); HGB 8.4 gm/dL (13.0-17.5); Hypochromasia Moderate; Lymphocytes # (A) 1.4 k/uL (1.0-4.8); Lymphocytes % (A) 24 %; MCH 30.7 pg (25.0-35.0); MCHC 32.6 g/dL (31.0-37.0); MCV 94.2 fL (80.0-100.0); Mean Platelet Volume 9.4; Monocytes # (A) 0.5 k/uL (0-1.0); Monocytes % (A) 9 %; Neutrophils # (A) 3.7 k/uL (1.3-7.7); Neutrophils % (A) 62 %; Poikilocytosis Slight; RBC 2.73 m/uL (4.30-5.90); RDW 16.4 % (11.5-15.5)
[2019-11-28 06:54] LABS: Platelet Count 83 k/uL (150-450)
[2019-11-28 07:01] LABS: Calcium 7.5 mg/dL (8.4-10.2); Potassium 3.8 mmol/L (3.5-5.1)
[2019-11-28] MEDS: ALBUTEROL HFA INHALER INHALATION SCH ×4 (07:36→20:32)
[2019-11-28] MEDS: CARVEDILOL 6.25 MG TAB PO SCH ×2 (07:37→16:55)
[2019-11-28] MEDS: ALLOPURINOL 100 MG TAB PO SCH (08:16)
[2019-11-28] MEDS: SODIUM BICARBONATE TAB 650 MG TAB PO SCH ×3 (08:16→22:37)
[2019-11-28] MEDS: PANTOPRAZOLE 40 MG/10 ML VIAL IVP SCH ×3 (08:16→22:37)
[2019-11-28] MEDS: FUROSEMIDE 20 MG TAB PO SCH ×2 (08:16→22:37)
[2019-11-28] MEDS: LIDOCAINE 5% PATCH TOPICAL SCH (08:17)
[2019-11-28] MEDS: MULTIVITAMINS, THERA 1 EACH TAB PO SCH (08:17)
[2019-11-28] MEDS: DORZOLAMIDE-TIMOLOL 2.23%/0.68 10ML BTL BOTH EYES SCH ×2 (08:17→22:36)
--- NOTE | 2019-11-28 14:36 | P.PN ---
Subjective Progress Note Date: 11/28/19 Principal diagnosis: Patient is a 89-year-old male with a known history of cardiac cardiomyopathy, coronary artery disease with prior multivessel stenting, AAA repair, hypothyroidism, prior AICD implantation 9 years ago with recent replacement in August 2019, hypothyroidism, hypertension and previous history of smoking came to ER with complaints of generalized weakness and lethargic. Patient states that he has been more weak recently and unable to ambulate. Patient is still having right-sided abdominal pain but much improved. Does have nausea and episodes of diarrhea and vomiting. Patient says that she does have bright red blood per rectum due to hemorrhoids and also dark-colored stools. He does report low-grade fever at home. Currently afebrile in the hospital. Mild cough and shortness of breath. Patient was recently admitted to the hospital due to abdominal pain and was found to have a calculus cholecystitis. Patient was seen by general surgery and recommended conservative approach in view of comorbid conditions and advanced years. Patient was discharged home with antibiotic course. Patient was also found have contrast-induced acute kidney injury with creatinine level improved to 3.1 hemorrhoids discharge. Patient was also seen by cardiology due to atypical chest pain. Cardiology thought unlikely cardiac in nature. 2-D echocardiogram for ejection fraction 25-30%. Patient was also found have left-sided hydronephrosis, which seems to be chronic and was seen by urology. On admission patient was found have a hemoglobin level 5.1 and platelet count 126. No leukocytosis. BUN 64 and creatinine 2.9 Bicarb 15, lactic acid 2.5 on admission. Chest x-ray showed improving right sided infiltrate. EKG showed atrial fibrillation. 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 11/25/2019 Patient is seen and evaluated in follow-up today sitting up in the chair and continues to have some lower right back pain and shortness of breath with increased generalized weakness. Repeat hemoglobin today is 6.7 and awaiting to receive another unit of PRBCs. Patient received 2 units yesterday. Patient states his weakness has slightly improved after receiving units yesterday although continues to be very lethargic and dyspneic at times. Patient is currently on 2-3 L via nasal cannula. Patient scheduled to undergo upper endoscopy with GI tomorrow for evaluation. Currently no reports of chest pain or palpitations. Patient is afebrile. No reports of nausea or vomiting and patient is tolerating clear liquid diet. Patient will be nothing by mouth tonight. 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 An NG tube was placed and patient will continue with Protonix twice daily at this time. Patient to receive another unit of PRBCs for an estimated blood loss of 2-300 mL. This morning's hemoglobin was 7.7 prior to the seizure and creatinine showed slight improvement of 2.73. Patient was in immense pain upon return from the procedure and was being closely monitored. Patient had a chest x-ray done showing worsening up a CD through the right lower lobe with possible effusion and atelectasis and pneumonia along with placement of the NG tube with the tip in the left upper quadrant of the abdomen. Repeat hemoglobin this afternoon was 9.0 and will continue with serial H&H's. Patient may continue with nothing by mouth except for ice chips and NG tube at this time. 11/27/2019 Patient is seen in follow-up today sitting up in the chair and NG tube has been removed. No further bleeding noted. Patient is currently on clear liquids and tolerating. Hemoglobin today is 9.0. Patient states he is passing gas but has not had another bowel movement for the last 2 days. Discussed with the patient about making the nursing staff aware once he does have a bowel movement to monitor for any bleeding. Current creatinine is slowly trending down and is 2.37. Currently no reports of chest pain, shortness of breath, or palpitations. And is afebrile. No reports of nausea or vomiting and patient is tolerating diet. Patient asking for an advance in his diet. Will repeat a.m. labs. 11/28/2019 Patient is seen and evaluated in follow-up today tolerating clear liquids and diet is being advanced. No reports of any active bleeding noted. Patient denies any nausea or vomiting. Hemoglobin is 8.4 today. Creatinine slowly trending down at 2.31. She remains on low-dose oral Lasix. Patient states he is passing gas although no bowel movements at this time. Patient has been up and working with physical therapy and is weak although slowly improving. GI is following. Objective - Vital Signs Vital signs: Vital Signs Temp 97.9 F 11/28/19 10:58 Pulse 54 L 11/28/19 10:58 Resp 16 11/28/19 10:58 BP 172/68 11/28/19 10:58 Pulse Ox 98 11/28/19 08:00 Intake & Output 11/27/19 11/28/19 11/28/19 18:59 06:59 18:59 Intake Total 1020 520 Output Total 825 875 300 Balance 195 -875 220 Weight 100.5 kg Intake: IV 160 Sodium Chloride 0.9% 1, 160 000 ml @ 20 mls/hr IV . Q24H [facility] Rx#:[id number] Oral 1020 360 Output: Urine 825 875 300 Other: Voiding Method Toilet Toilet Toilet Urinal Urinal # Voids 1 - Exam Patient is sitting up in the chair, awake alert and oriented. HEENT: Normocephalic. Neck is supple. Pupils reactive. Nostrils clear. Oral cavity is moist. Ears reveal no drainage. Neck reveals no JVD, carotid bruits, or thyromegaly. CHEST EXAMINATION: Trachea is central. Symmetrical expansion. Bibasilar diminished air entry. No wheezing. Lung bahena clear to auscultation and percussion. CARDIAC: Normal S1, S2 with no gallops. No murmurs ABDOMEN: Soft. Nontender. Bowel sounds normal. No organomegaly. No abdominal bruits. Extremities: reveal no edema. No clubbing or cyanosis Neurologically awake, alert, oriented x3 with well-coordinated movements. No focal deficits noted Skin: No rash or skin lesions. Psychiatric: Cooperative. Non-suicidal Musculoskeletal: No joint swelling or deformity. Normal range of motion. - Labs CBC & Chem 7: 11/28/19 06:15 11/28/19 06:15 Labs: Abnormal Lab Results - Last 24 Hours (Table) 11/28/19 11/28/19 Range/Units 06:15 06:15 RBC 2.73 L (4.30-5.90) m/uL Hgb 8.4 L (13.0-17.5) gm/dL Hct 25.7 L (39.0-53.0) % RDW 16.4 H (11.5-15.5) % Plt Count 83 L (150-450) k/uL Sodium 136 L (137-145) mmol/L Chloride 109 H (98-107) mmol/L Carbon Dioxide 19 L (22-30) mmol/L BUN 43 H (9-20) mg/dL Creatinine 2.31 H (0.66-1.25) mg/dL Calcium 7.5 L (8.4-10.2) mg/dL Microbiology - Last 24 Hours (Table) 11/24/19 10:54 Blood Culture - Preliminary Blood No Growth after 72 hours Assessment and Plan Assessment: Acute blood loss anemia secondary to GI bleed with melanotic stools as well as bright red blood per rectum. No active bleeding noted at this time. Current hemoglobin is 8.4. 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 Conservative therapy was recommended. Seen by surgery. Chronic left-sided hydronephrosis. Evaluated by urology. No intervention recommended. Acute on chronic kidney disease stage III. Due to IV contrast on November 08. Creatinine peaked at 3.19. Currently at 2.31. Metabolic acidosis secondary to acute kidney injury and lactic acidosis, improved Lactic acidosis, improved now History of AAA status post aortoiliac stent graft in place. Ischemic cardiomyopathy with history of AICD placement Chronic CHF with ejection fraction 20-30% with a moderate mitral and tricuspid regurgitation and severe pulmonary hypertension. Coronary artery disease and history of multiple stent placements Hypertension Hyperlipidemia Hypothyroidism DVT prophylaxis with SCDs. Plan: Continue current medications and symptomatic treatment. Tolerating clear liquids and will advance diet and monitor closely. GI following closely. Current hemoglobin 8.4 with no active bleeding noted. Will continue to monitor closely. Prognosis is guarded. Further recommendations to follow. Possible discharge in 24-48 hours.
--- NOTE | 2019-11-28 14:37 | P.PN ---
Subjective Progress Note Date: 11/28/19 CHIEF COMPLAINT: GI bleed HISTORY OF PRESENT ILLNESS: Patient examined at the bedside. Denies abdominal pain. Tolerating diet. No signs of hemoglobin. Hemoglobin stable. PHYSICAL EXAM: VITAL SIGNS: Reviewed. GENERAL: Well-developed in no acute distress. HEENT: No sclera icterus. Extraocular movements grossly intact. Moist buccal mucosa. Head is atraumatic, normocephalic. ABDOMEN: Soft. Nondistended. Nontender. NEUROLOGIC: Alert and oriented. Cranial nerves II through XII grossly intact. ASSESSMENT: 1. 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 Will remain on standby in the event that patient begins bleeding again Nurse practitioner note has been reviewed by physician. Signing provider agrees with the documented findings, assessment, and plan of care. Objective - Vital Signs Vital signs: Vital Signs Temp 97.9 F 11/28/19 10:58 Pulse 54 L 11/28/19 10:58 Resp 16 11/28/19 10:58 BP 172/68 11/28/19 10:58 Pulse Ox 98 11/28/19 08:00 Intake & Output 11/27/19 11/28/19 11/28/19 18:59 06:59 18:59 Intake Total 1020 760 Output Total 825 875 300 Balance 195 -875 460 Weight 100.5 kg Intake: IV 160 Sodium Chloride 0.9% 1, 160 000 ml @ 20 mls/hr IV . Q24H [facility] Rx#:[id number] Oral 1020 600 Output: Urine 825 875 300 Other: Voiding Method Toilet Toilet Toilet Urinal Urinal # Voids 1 - Labs CBC & Chem 7: 11/28/19 06:15 11/28/19 06:15 Labs: Abnormal Lab Results - Last 24 Hours (Table) 11/28/19 11/28/19 Range/Units 06:15 06:15 RBC 2.73 L (4.30-5.90) m/uL Hgb 8.4 L (13.0-17.5) gm/dL Hct 25.7 L (39.0-53.0) % RDW 16.4 H (11.5-15.5) % Plt Count 83 L (150-450) k/uL Sodium 136 L (137-145) mmol/L Chloride 109 H (98-107) mmol/L Carbon Dioxide 19 L (22-30) mmol/L BUN 43 H (9-20) mg/dL Creatinine 2.31 H (0.66-1.25) mg/dL Calcium 7.5 L (8.4-10.2) mg/dL Microbiology - Last 24 Hours (Table) 11/24/19 10:54 Blood Culture - Preliminary Blood No Growth after 96 hours
--- NOTE | 2019-11-28 16:09 | PN ---
PROGRESS NOTE DATE OF DICTATION: 11/28/2019 The patient is an 89-year-old pleasant white male admitted to the hospital with acute upper GI bleed. 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 It was cauterized. Endoclip was placed. He is doing well. He is on a clear liquid diet, tolerating well. No nausea, vomiting. No rectal bleeding or melena. Hemoglobin today is 8.7 g/dL. He is feeling much better. Abdominal pain has completely resolved. PHYSICAL EXAMINATION: He appears comfortable. No apparent distress. Vital signs are stable. Blood pressure is 133/86, pulse rate 54, temperature 97.9. HEENT examination unremarkable. Conjunctivae pink. Sclerae anicteric. Oral cavity no lesions. NECK: No JVD or lymph node enlargement. CHEST: Clear to auscultation. HEART: Regular rate and rhythm. ABDOMEN: Soft. Bowel sounds are positive. No organomegaly. EXTREMITIES: No pedal edema. SKIN: No rashes. NEUROLOGIC: Alert and oriented x3. No focal deficits. LABS: WBC 6.0, hemoglobin 8.4. Platelets are 84,000. 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 No further episodes of bleeding. Hemoglobin remains stable at 8.4 g/dL. Remains on Protonix 40 mg twice daily. RECOMMENDATIONS: 1. Advance to a regular diet. 2. Repeat CBC in the morning. 3. If he is doing well, he can be discharged home later today or tomorrow with an outpatient followup in 2 weeks. Thank you for this consultation. MMODL / IJN: [id number] /
[2019-11-29] MEDS: CARVEDILOL 6.25 MG TAB PO SCH (06:28)
[2019-11-29] MEDS: LEVOTHYROXINE 75 MCG TAB PO SCH (06:28)
[2019-11-29] MEDS: ALBUTEROL HFA INHALER INHALATION SCH ×2 (08:02→11:23)
[2019-11-29 09:01] LABS: Anisocytosis Slight; Basophils % (A) 1 %; Eosinophils # (A) 0.2 k/uL (0-0.7); Eosinophils % (A) 3 %; HCT 30.1 % (39.0-53.0); HGB 9.4 gm/dL (13.0-17.5); Hypochromasia Marked; Lymphocytes # (A) 0.9 k/uL (1.0-4.8); Lymphocytes % (A) 14 %; MCH 30.3 pg (25.0-35.0); MCHC 31.3 g/dL (31.0-37.0); MCV 96.9 fL (80.0-100.0); Macrocytosis Slight; Mean Platelet Volume 10.8; Monocytes # (A) 0.4 k/uL (0-1.0); Monocytes % (A) 6 %; Neutrophils # (A) 4.9 k/uL (1.3-7.7); Neutrophils % (A) 76 %; RBC 3.11 m/uL (4.30-5.90); RDW 16.4 % (11.5-15.5); WBC 6.5 k/uL (3.8-10.6)
[2019-11-29 09:05] LABS: Platelet Count 90 k/uL (150-450)
[2019-11-29] MEDS: MULTIVITAMINS, THERA 1 EACH TAB PO SCH (09:16)
[2019-11-29] MEDS: FUROSEMIDE 20 MG TAB PO SCH (09:16)
[2019-11-29] MEDS: PANTOPRAZOLE 40 MG/10 ML VIAL IVP SCH (09:16)
[2019-11-29] MEDS: LIDOCAINE 5% PATCH TOPICAL SCH (09:16)
[2019-11-29] MEDS: ALLOPURINOL 100 MG TAB PO SCH (09:16)
[2019-11-29] MEDS: SODIUM BICARBONATE TAB 650 MG TAB PO SCH (09:16)
[2019-11-29] MEDS: DORZOLAMIDE-TIMOLOL 2.23%/0.68 10ML BTL BOTH EYES SCH (09:17)
[2019-11-29 09:37] VITALS: TEMP 98.2
[2019-11-29 09:45] LABS: Calcium 7.8 mg/dL (8.4-10.2); Potassium 3.6 mmol/L (3.5-5.1)
[2019-11-29 11:42] VITALS: BP 156/62; PULSE 57; RESP 16
--- NOTE | 2019-11-29 12:32 | P.PN ---
Subjective Progress Note Date: 11/29/19 CHIEF COMPLAINT: GI bleed HISTORY OF PRESENT ILLNESS: Patient examined at the bedside. Denies abdominal pain. Tolerating diet. No signs of bleeding. Hemoglobin stable. PHYSICAL EXAM: VITAL SIGNS: Reviewed. GENERAL: Well-developed in no acute distress. HEENT: No sclera icterus. Extraocular movements grossly intact. Moist buccal mucosa. Head is atraumatic, normocephalic. ABDOMEN: Soft. Nondistended. Nontender. NEUROLOGIC: Alert and oriented. Cranial nerves II through XII grossly intact. ASSESSMENT: 1. 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 We will sign off. Please reconsult if needed. Nurse practitioner note has been reviewed by physician. Signing provider agrees with the documented findings, assessment, and plan of care. Objective - Vital Signs Vital signs: Vital Signs Temp 98.2 F 11/29/19 09:10 Pulse 57 L 11/29/19 11:30 Resp 16 11/29/19 11:30 BP 156/62 11/29/19 11:30 Pulse Ox 98 11/29/19 11:30 Intake & Output 11/28/19 11/29/19 11/29/19 18:59 06:59 18:59 Intake Total 1000 240 100 Output Total 700 800 250 Balance 300 -560 -150 Weight 100.1 kg Intake: IV 160 Sodium Chloride 0.9% 1, 160 000 ml @ 20 mls/hr IV . Q24H [facility] Rx#:[id number] Oral 840 240 100 Output: Urine 700 800 250 Other: Voiding Method Toilet Toilet Toilet Urinal Urinal Urinal # Voids 1 1 - Labs CBC & Chem 7: 11/29/19 08:38 11/29/19 08:38 Labs: Abnormal Lab Results - Last 24 Hours (Table) 11/29/19 11/29/19 Range/Units 08:38 08:38 RBC 3.11 L (4.30-5.90) m/uL Hgb 9.4 L (13.0-17.5) gm/dL Hct 30.1 L (39.0-53.0) % RDW 16.4 H (11.5-15.5) % Plt Count 90 L (150-450) k/uL Lymphocytes # 0.9 L (1.0-4.8) k/uL Sodium 136 L (137-145) mmol/L Carbon Dioxide 20 L (22-30) mmol/L BUN 39 H (9-20) mg/dL Creatinine 2.36 H (0.66-1.25) mg/dL Glucose 145 H (74-99) mg/dL Calcium 7.8 L (8.4-10.2) mg/dL Microbiology - Last 24 Hours (Table) 11/24/19 10:54 Blood Culture - Preliminary Blood No Growth after 96 hours
[2019-11-29 12:54] VITALS: BMI 29.9
--- NOTE | 2019-11-29 12:55 | P.DS ---
Providers Date of admission: 11/24/19 13:11 Expected date of discharge: 11/29/19 Attending physician: Thompson Deleon MD Consults: 11/24/19 13:11 Consult Physician Routine Consulting Provider: Jorje Brown Consult Reason/Comments: GI bleed Do you want consulting provider notified?: Yes 11/24/19 15:00 Consult Physician Routine Consulting Provider: Dallin Huerta Consult Reason/Comments: n/o a.fib Do you want consulting provider notified?: Yes 11/26/19 12:06 Consult Physician Routine Consulting Provider: Carlos Browning Consult Reason/Comments: gi bleed Do you want consulting provider notified?: Yes Primary care physician: [facility] Hospital Course: Final diagnosis Acute blood loss anemia secondary to GI bleed with melanotic stools as well as bright red blood per rectum peptic ulcer disease along with 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 Ischemic cardiomyopathy with history of AICD placement Chronic CHF with ejection fraction 20-30% with a moderate mitral and tricuspid regurgitation and severe pulmonary hypertension. Coronary artery disease and history of multiple stent placements Hypertension Hyperlipidemia Hypothyroidism DVT prophylaxis Discharge disposition Patient is being discharged in a stable condition with guarded prognosis to home. Patient will follow-up with the [place] in the outpatient setting upon discharge. Patient also instructed to follow-up with GI Dr. Magallon in the outpatient setting in 1-2 weeks as scheduled. Patient will continue on Protonix in the outpatient setting. Total time taken is 35 minutes. History of present illness This is a 89-year-old male who came in and was admitted with right-sided abdominal pain and bright red blood per rectum with dark colored stools and was being closely monitored. GI following. 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 Surgery was also following as patient had recent admission showing chronic acalculous cholecystitis although no surgical intervention recommended at this time. During hospitalization patient's hemoglobin drops significantly and required a total of 4 units of PRBCs. Hemoglobin is 9.4 with no active bleeding noted. Patient's diet has been tolerated and advanced and patient is passing gas although no bowel movements at this time. Patient instructed to follow-up with primary care provider along with GI in the outpatient setting and recommended repeat labs in 2-3 days to monitor hemoglobin as well as creatinine. Current creatinine is 2.36. Patient will continue on Protonix twice daily in the outpatient setting until follow-up. Currently patient denies any chest pain, shortness of breath, or palpitations. Patient is afebrile. No reports of nausea or vomiting and patient is tolerating diet. Patient will be discharged today. On exam vital signs are stable. Temp is 98.2 F, pulse is 59, respirations are 18, blood pressure is 128/57 and oxygen saturation is 100% on room air. Cardio S1, S2 are present. Respiratory system shows diminished breath sounds at the bases no wheezing or rhonchi noted. Abdomen is soft and nontender. Nervous system shows no focal deficits. Please refer to medication reconciliation sheet for a list of medications. Patient Condition at Discharge: Stable Plan - Discharge Summary New Discharge Prescriptions: New Lidocaine 5% Patch [Lidoderm 5% Patch] 1 patch TOPICAL DAILY PRN #20 patch PRN Reason: Pain Polyethylene Glycol 3350 [Miralax] 17 gm PO DAILY PRN #10 powd.pack PRN Reason: Constipation Pantoprazole Sodium [Protonix] 40 mg PO BID #50 tablet. Acetaminophen Tab [Tylenol] 650 mg PO Q6HR PRN tab PRN Reason: Mild Pain Or Fever > 100.5 Continue Nitroglycerin Sl Tabs [Nitrostat] 0.4 mg SUBLINGUAL Q5M PRN PRN Reason: Chest Pain Multivitamins, Thera [Multivitamin (formulary)] 1 tab PO DAILY Levothyroxine Sodium [Synthroid] 150 mcg PO DAILY Dorzolamide-Timol 2.23%/0.68% [Cosopt] 1 drop BOTH EYES BID Carvedilol [Coreg] 6.25 mg PO BID Aspirin EC [Ecotrin Low Dose] 81 mg PO DAILY Allopurinol [Zyloprim] 100 mg PO DAILY Albuterol Sulfate [Proair Hfa] 2 puff INHALATION RT-QID Furosemide [Lasix] 20 mg PO BID #0 Sodium Bicarbonate Tab 650 mg PO TID #90 tablet amLODIPine BESYLATE [Norvasc] 2.5 mg PO DAILY 30 Days #30 tab Discharge Medication List Albuterol Sulfate [Proair Hfa] 2 puff INHALATION RT-QID 11/09/19 [History] Allopurinol [Zyloprim] 100 mg PO DAILY 11/09/19 [History] Aspirin EC [Ecotrin Low Dose] 81 mg PO DAILY 11/09/19 [History] Carvedilol [Coreg] 6.25 mg PO BID 11/09/19 [History] Dorzolamide-Timol 2.23%/0.68% [Cosopt] 1 drop BOTH EYES BID 11/09/19 [History] Levothyroxine Sodium [Synthroid] 150 mcg PO DAILY 11/09/19 [History] Multivitamins, Thera [Multivitamin (formulary)] 1 tab PO DAILY 11/09/19 [His tory] Nitroglycerin Sl Tabs [Nitrostat] 0.4 mg SUBLINGUAL Q5M PRN 11/09/19 [History] Furosemide [Lasix] 20 mg PO BID #0 11/13/19 [Rx] Sodium Bicarbonate Tab 650 mg PO TID #90 tablet 11/13/19 [Rx] amLODIPine BESYLATE [Norvasc] 2.5 mg PO DAILY 30 Days #30 tab 11/13/19 [Rx] Acetaminophen Tab [Tylenol] 650 mg PO Q6HR PRN tab 11/29/19 [Rx] Lidocaine 5% Patch [Lidoderm 5% Patch] 1 patch TOPICAL DAILY PRN #20 patch 11/29/19 [Rx] Pantoprazole Sodium [Protonix] 40 mg PO BID #50 tablet.dr 11/29/19 [Rx] Polyethylene Glycol 3350 [Miralax] 17 gm PO DAILY PRN #10 powd.pack 11/29/19 [Rx] Follow up Appointment(s)/Referral(s): Danielito Argueta MD [STAFF PHYSICIAN] - 12/11/19 2:45 pm Nat Magallon MD [STAFF PHYSICIAN] - 2 Weeks ([employer] - please call Monday to schedule a follow up appointment from your procedure. ) [facility],Clinic [Primary Care Provider] - 12/06/19 1:30 pm (With [facility] Telephone appointment or virtual appointment with a family members computer or tablet.) Ambulatory/Diagnostic Orders: Complete Blood Count w/diff [LAB.AMB] Time Frame: 3 Days, Location: None Selected Patient Instructions/Handouts: Gastrointestinal Bleeding (DC), Diet for Stomach Ulcers and Gastritis (ED), Anemia (DC) Activity/Diet/Wound Care/Special Instructions: Activity Limited until follow-up Follow-up with primary care provider upon discharge Continue current diet and advance slowly as tolerated Follow-up with GI in 2 weeks Continue with Protonix 40 mg twice daily for an additional 2 weeks and then start taking daily Repeat labs in 2-3 days to monitor hemoglobin. GI BLEED 1. Take all new medication as directed. 2. Avoid foods that can be irritating to your intestines (See dietary teaching). 3. Avoid motrin (ibuprofen) and aleve (naproxen). These medications can increase your risk of internal bleeding. Tylenol (acetaminophen) is safe to take as long as you do not have any liver disease. 4. Avoid drinking alcohol and smoking, these can also irritate your intestines and increase risk of internal bleeding. 5. Increase activity gradually, do not overexert yourself. Your blood count is lower and your body will need time to recover. Discharge Disposition: HOME SELF-CARE
[2019-11-29] MEDS: Acetaminophen-Codeine 300-30mg TAB PO PRN (14:00)
--- NOTE | 2019-11-29 15:45 | PN ---
PROGRESS NOTE DATE OF SERVICE: 11/29/2019 Patient is an 89-year-old pleasant white male admitted to hospital with acute upper GI bleed. He is doing better. No further bleeding. He is complaining of constipation. No abdominal pain. No nausea, vomiting. PHYSICAL EXAMINATION: Appears comfortable, in no apparent distress. Vital signs are stable. Blood pressure 156/62, pulse rate 57, temperature 98.2. HEENT: Examination unremarkable. Conjunctivae are pink. Sclerae nonicteric. Oral cavity no lesions. NECK: No JVD or lymph node enlargement. CHEST Clear to auscultation. HEART: Regular rate and rhythm. ABDOMEN: Soft. Bowel sounds are positive. No organomegaly. EXTREMITIES: No pedal edema. SKIN: No rashes. NEUROLOGIC: Alert and oriented x3. No focal deficits. LABS: From today, hemoglobin is 9.4, WBC 6.5, platelets 90,000. IMPRESSION: 1. Acute upper gastrointestinal bleed, status post EGD 3 days ago that showed a lesion in the fundus of the stomach, status post Endoclip placement. Patient doing well. Hemoglobin stable. No further episodes of bleeding. 2. Chronic kidney disease. 3. Anemia with stable hemoglobin. 4. Mild thrombocytopenia. RECOMMENDATION: 1. Continue with Protonix 40 mg twice daily. 2. Advance diet as tolerated. 3. He can be discharged home today or tomorrow with outpatient followup in 2 weeks. Thank you for this consultation. BRANDY / KATIE: [phone] /
== END 2019-11-29 15:21 | disposition home health service (06) | DRG 378 ==
LOC: EC 10:34 → 3SCARD 13:11
PROVIDERS: ADMIT Internal Medicine; ATTEND Internal Medicine
PROC: 3E0G8GC Introduction of Other Therapeutic Substance into Upper GI, Via Natural or Artificial Opening Endoscopic (ICD-10-PCS; principal; 2019-11-26 08:45)
PROC: 0W3P8ZZ Control Bleeding in Gastrointestinal Tract, Via Natural or Artificial Opening Endoscopic (ICD-10-PCS; principal; 2019-11-26 08:45)
DX: K31.82 Dieulafoy lesion (hemorrhagic) of stomach and duodenum (principal); D62 Acute posthemorrhagic anemia; E87.2 Acidosis; I13.0 Hypertensive heart and chronic kidney disease with heart failure and stage 1 through stage 4 chronic kidney disease, or unspecified chronic kidney disease; I50.22 Chronic systolic (congestive) heart failure; N13.30 Unspecified hydronephrosis; N17.9 Acute kidney failure, unspecified; K25.9 Gastric ulcer, unspecified as acute or chronic, without hemorrhage or perforation; D69.6 Thrombocytopenia, unspecified; I27.20 Pulmonary hypertension, unspecified; K81.1 Chronic cholecystitis; N18.3 Chronic kidney disease, stage 3 (moderate); Z20.828 Contact with and (suspected) exposure to other viral communicable diseases; Z66 Do not resuscitate; E03.9 Hypothyroidism, unspecified; E78.5 Hyperlipidemia, unspecified; I08.1 Rheumatic disorders of both mitral and tricuspid valves; I25.10 Atherosclerotic heart disease of native coronary artery without angina pectoris; I25.2 Old myocardial infarction; I25.5 Ischemic cardiomyopathy; I44.7 Left bundle-branch block, unspecified; I48.91 Unspecified atrial fibrillation; K59.00 Constipation, unspecified; K64.9 Unspecified hemorrhoids; T50.8X5A Adverse effect of diagnostic agents, initial encounter; M10.9 Gout, unspecified; R07.9 Chest pain, unspecified; Z79.82 Long term (current) use of aspirin; Z79.890 Hormone replacement therapy; Z79.899 Other long term (current) drug therapy; Z95.810 Presence of automatic (implantable) cardiac defibrillator; Z95.5 Presence of coronary angioplasty implant and graft; Z87.891 Personal history of nicotine dependence; Z86.79 Personal history of other diseases of the circulatory system; Z88.8 Allergy status to other drugs, medicaments and biological substances; Z82.49 Family history of ischemic heart disease and other diseases of the circulatory system
CPT/HCPCS: 36415; 36430; 43243; 43255; 43270; 71045; 76705; 80048; 80053; 81003; 83605; 83735; 85025; 85027; 85610; 85730; 86850; 86900; 86901; 86920; 87040; 87635; 94640; 94760; 96361; 96365; 96366; 96375; 99285

== ENCOUNTER 2020-12-09 11:36 | Emergency (ER) | payer OTHER ==
--- NOTE | 2020-12-09 13:05 | ED ---
Extremity Problem HPI - General Chief complaint: Extremity Problem,Nontraumatic Stated complaint: Feet pain/sent by PCP Time Seen by Provider: 12/09/20 12:47 Source: patient, family, RN notes reviewed Mode of arrival: wheelchair Limitations: no limitations - History of Present Illness Initial comments: 89-year-old male presents emergency Department with chief complaint of possible blood clot. Patient sent from outpatient rule out DVT. Patient has chronic peripheral vascular disease in which she's had discoloration of his feet for years. States occasionally comes and goes states that he noticed some increase in redness and was sent road DVT. No chest pain or shortness breath no fevers or chills. Patient states that he was on allopurinol states he stopped because he developed a rash. Patient denies any upper leg pain no other complaints. - Related Data Home Medications Medication Instructions Recorded Confirmed Albuterol Sulfate [Proair Hfa] 2 puff INHALATION RT-QID 11/09/19 11/24/19 Aspirin EC [Ecotrin Low Dose] 81 mg PO DAILY 11/09/19 11/24/19 Dorzolamide-Timol 2.23%/0.68% 1 drop BOTH EYES BID 11/09/19 11/24/19 [Cosopt] Levothyroxine Sodium [Synthroid] 150 mcg PO DAILY 11/09/19 11/24/19 Multivitamins, Thera [Multivitamin 1 tab PO DAILY 11/09/19 11/24/19 (formulary)] Nitroglycerin Sl Tabs [Nitrostat] 0.4 mg SUBLINGUAL Q5M PRN 11/09/19 11/24/19 allopurinoL [Zyloprim] 100 mg PO DAILY 11/09/19 11/24/19 carvediloL [Coreg] 6.25 mg PO BID 11/09/19 11/24/19 Previous Rx's Medication Instructions Recorded Furosemide [Lasix] 20 mg PO BID #0 11/13/19 Sodium Bicarbonate Tab 650 mg PO TID #90 tablet 11/13/19 amLODIPine BESYLATE [Norvasc] 2.5 mg PO DAILY 30 Days #30 tab 11/13/19 Acetaminophen Tab [Tylenol] 650 mg PO Q6HR PRN tab 11/29/19 Lidocaine 5% Patch [Lidoderm 5% 1 patch TOPICAL DAILY PRN #20 patch 11/29/19 Patch] Pantoprazole Sodium [Protonix] 40 mg PO BID #50 tablet.dr 11/29/19 polyethylene glycoL 3350 [Miralax] 17 gm PO DAILY PRN #10 powd.pack 11/29/19 Cephalexin [Keflex] 500 mg PO Q6HR #40 cap 12/09/20 Allergies Allergy/AdvReac Type Severity Reaction Status Date / Time glipizide AdvReac DROP SUGAR Verified 12/09/20 12:11 TOO LOW Review of Systems ROS Statement: Those systems with pertinent positive or pertinent negative responses have been documented in the HPI. ROS Other: All systems not noted in ROS Statement are negative. 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 Last Myocardial Infarction Date:: 2009 History of Any Multi-Drug Resistant Organisms: None Reported Past Surgical History: AICD, Heart Catheterization With Stent, Pacemaker Additional Past Surgical History / Comment(s): aaa repair Past Anesthesia/Blood Transfusion Reactions: No Reported Reaction Date of Last Stent Placement:: AROUND 2009 Type of Cardiac Device: AICD Device Placement Date:: AUG 2019 Past Psychological History: No Psychological Hx Reported Smoking Status: Former smoker Past Alcohol Use History: None Reported Past Drug Use History: None Reported - Past Family History Father Family Medical History: Myocardial Infarction ([place]) General Exam Limitations: no limitations General appearance: alert, in no apparent distress Head exam: Present: atraumatic, normocephalic, normal inspection Neck exam: Present: normal inspection. Absent: tenderness, meningismus, lymphadenopathy Respiratory exam: Present: normal lung sounds bilaterally. Absent: respiratory distress, wheezes, rales, rhonchi, stridor Cardiovascular Exam: Present: normal rhythm, bradycardia, normal heart sounds. Absent: systolic murmur, diastolic murmur, rubs, gallop, clicks GI/Abdominal exam: Present: soft, normal bowel sounds. Absent: distended, tenderness, guarding, rebound, rigid Extremities exam: Present: other (Bilateral lower extremity chronic changes noted vascular changes, pulses are palpable equal 1+ they are faint oh palpable, moderate erythema right foot with mild tenderness) Skin exam: Present: warm, dry, intact, rash. Absent: normal color Course Vital Signs 12/09/20 12:06 Temperature 98.4 F Pulse Rate 51 L Respiratory 20 Rate Blood Pressure 127/51 O2 Sat by Pulse 100 Oximetry Medical Decision Making - Medical Decision Making Patient has chronic peripheral arterial, vascular disease. Patient will follow- up with vascular surgery. Patient will be given antibiotics for his right leg cellulitis return parameters discussed recheck in within 48 hours. Disposition Clinical Impression: Peripheral vascular disease, Cellulitis of right leg Disposition: HOME SELF-CARE Condition: Stable Instructions (If sedation given, give patient instructions): Cellulitis (ED) Additional Instructions: Please return to the Emergency Department if symptoms worsen or any other concerns. Prescriptions: Cephalexin [Keflex] 500 mg PO Q6HR #40 cap Is patient prescribed a controlled substance at d/c from ED?: No Referrals: [facility],Clinic [Primary Care Provider] - 1-2 days Gabby Holman DO [STAFF PHYSICIAN] - 1-2 days Time of Disposition: 13:58
--- NOTE | 2020-12-09 13:54 | US ---
EXAMINATION TYPE: US venous doppler duplex LE RT DATE OF EXAM: 12/09/2020 1:41 PM COMPARISON: NONE CLINICAL HISTORY: pain. h/o gout but pt states treatment is not working, no ho dvt SIDE PERFORMED: Right TECHNIQUE: The lower extremity deep venous system is examined utilizing real time linear array sonog greta with graded compression, doppler sonography and color-flow sonography. VESSELS IMAGED: Common Femoral Vein Deep Femoral Vein Greater Saphenous Vein * Femoral Vein Popliteal Vein Small Saphenous Vein * Proximal Calf Veins (* superficial vessels) Right Leg: Negative for DVT IMPRESSION: 1. Right lower extremity ultrasound negative for deep venous thrombosis.
[2020-12-09 14:16] VITALS: BP 162/71; PULSE 58; RESP 18; TEMP 97.8
== END 2020-12-09 14:10 | disposition home or self-care (01) ==
LOC: EC 11:36
DX: I73.9 Peripheral vascular disease, unspecified (principal); L03.115 Cellulitis of right lower limb; I25.10 Atherosclerotic heart disease of native coronary artery without angina pectoris; I11.0 Hypertensive heart disease with heart failure; I50.9 Heart failure, unspecified; E78.5 Hyperlipidemia, unspecified; I25.2 Old myocardial infarction; M10.9 Gout, unspecified; Z87.891 Personal history of nicotine dependence; Z79.82 Long term (current) use of aspirin; Z95.810 Presence of automatic (implantable) cardiac defibrillator
CPT/HCPCS: 99284

== ENCOUNTER 2021-07-13 12:02 | Inpatient (IN) | payer OTHER, MEDICARE ==
--- NOTE | 2021-07-13 13:38 | ED ---
General Adult HPI - General Chief complaint: Weakness Stated complaint: abn labs Time Seen by Provider: 07/13/21 13:05 Source: patient, family, RN notes reviewed Mode of arrival: wheelchair Limitations: no limitations - History of Present Illness Initial comments: Patient is a 89-year-old male presented to the emergency room today with a chief complaint of abnormal labs. Patient does admit that for the last year he's been feeling more rundown and fatigued. He does admit that he went for routine blood draw yesterday through the [facility]. He states he was called this morning and notify that his thyroid levels were abnormal and also that he had an abnormal potassium. He states he was told his potassium was high to come here to the emergency room. Patient does admit to some generalized fatigue over the last year. He states he just feels that he's been steadily declining. He does admit that he lives at home. States he does have help with his ex- and his son that help him. Patient states that at times she's felt a little unsteady. He does admit that he's had a few falls here in there. He denies any specific. He states is not on blood thinners. He denies any other complaints at this time. Patient denies any recent fever, chills, shortness of breath, chest pain, back pain, abdominal pain, nausea or vomiting, headaches or visual changes, or any other complaints. - Related Data Home Medications Medication Instructions Recorded Confirmed Albuterol Sulfate [Proair Hfa] 2 puff INHALATION RT-QID 11/09/19 07/13/21 Dorzolamide-Timol 2.23%/0.68% 1 drop BOTH EYES BID 11/09/19 07/13/21 [Cosopt] Levothyroxine Sodium [Synthroid] 150 mcg PO DAILY 11/09/19 07/13/21 Nitroglycerin Sl Tabs [Nitrostat] 0.4 mg SUBLINGUAL Q5M PRN 11/09/19 07/13/21 allopurinoL [Zyloprim] 100 mg PO DAILY 11/09/19 07/13/21 carvediloL [Coreg] 6.25 mg PO BID 11/09/19 07/13/21 Aspirin EC [Ecotrin] 325 mg PO DAILY 07/13/21 07/13/21 Furosemide [Lasix] 20 mg PO AC-BID 07/13/21 07/13/21 Ipratropium-Albuterol Nebulize 3 ml INHALATION RT-TID PRN 07/13/21 07/13/21 [Duoneb 0.5 mg-3 mg/3 ml Soln] Lactose-Reduced Food [Ensure Plus] 1 can PO BID 07/13/21 07/13/21 Multivit-Min/FA/Lycopen/Lutein 1 tab PO DAILY 07/13/21 07/13/21 [Centrum Silver Men Tablet] Previous Rx's Medication Instructions Recorded Lidocaine 5% Patch [Lidoderm 5% 1 patch TOPICAL DAILY PRN #20 patch 11/29/19 Patch] Pantoprazole Sodium [Protonix] 40 mg PO BID #50 tablet. 11/29/19 Allergies Allergy/AdvReac Type Severity Reaction Status Date / Time glipizide AdvReac DROP SUGAR Verified 07/13/21 14:21 TOO LOW Review of Systems ROS Statement: Those systems with pertinent positive or pertinent negative responses have been documented in the HPI. ROS Other: All systems not noted in ROS Statement are negative. 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 Last Myocardial Infarction Date:: 2009 History of Any Multi-Drug Resistant Organisms: None Reported Past Surgical History: AICD, Heart Catheterization With Stent, Pacemaker Additional Past Surgical History / Comment(s): aaa repair Past Anesthesia/Blood Transfusion Reactions: No Reported Reaction Date of Last Stent Placement:: AROUND 2009 Type of Cardiac Device: AICD Device Placement Date:: AUG 2019 Past Psychological History: No Psychological Hx Reported Smoking Status: Former smoker Past Alcohol Use History: None Reported Past Drug Use History: None Reported - Past Family History Father Family Medical History: Myocardial Infarction ([place]) General Exam - General Exam Comments Initial Comments: General: The patient is awake and alert, in no distress, and does not appear acutely ill. Eye: Pupils are equal, round and reactive to light, extra-ocular movements are intact. No nystagmus. There is normal conjunctiva bilaterally. No signs of icterus. Ears, nose, mouth and throat: There are moist mucous membranes and no oral lesions. Neck: The neck is supple, there is no tenderness or JVD. Cardiovascular: There is a regular rate and rhythm. No murmur, rub or gallop is appreciated. Respiratory: Lungs are clear to auscultation, respirations are non-labored, breath sounds are equal. No wheezes, stridor, rales, or rhonchi. Gastrointestinal: Abdomen is soft nontender. Musculoskeletal: Normal ROM, no tenderness. Strength 5/5. Sensation intact. Neurological: A&O x 3. CN II-XII intact, There are no obvious motor or sensory deficits. Coordination appears grossly intact. Speech is normal. Skin: Skin is warm and dry and no rashes or lesions are noted. Psychiatric: Cooperative, appropriate mood & affect, normal judgment. Limitations: no limitations Course Vital Signs 07/13/21 12:51 Temperature 97.9 F Pulse Rate 60 Respiratory 18 Rate Blood Pressure 124/62 O2 Sat by Pulse 100 Oximetry Medical Decision Making - Medical Decision Making Patient reexamined at this times resting covered. Patient's vitals up in stable. Patient's labs been reviewed. His potassium was 5.2. He was told it was abnormal yesterday. Patient's thyroid studies currently pending at this time. His chest x-ray was reviewed and does show evidence of pneumonia. Covered was negative. Patient will be started on antibiotics of Rocephin, azithromycin. Patient will be admitted to the hospital. Case was discussed with any physician Dr. Marinelli. - Lab Data Result diagrams: 07/13/21 13:34 07/13/21 14:37 Lab Results 07/13/21 07/13/21 07/13/21 Range/Units 13:34 13:34 14:37 WBC 6.7 (3.8-10.6) k/uL RBC 2.70 L (4.30-5.90) m/uL Hgb 10.0 L (13.0-17.5) gm/dL Hct 30.7 L (39.0-53.0) % MCV 113.9 H (80.0-100.0) fL MCH 37.2 H (25.0-35.0) pg MCHC 32.7 (31.0-37.0) g/dL RDW 15.9 H (11.5-15.5) % Plt Count 67 L (150-450) k/uL MPV 9.8 Neutrophils % 72 % Lymphocytes % 17 % Monocytes % 6 % Eosinophils % 4 % Basophils % 1 % Neutrophils # 4.8 (1.3-7.7) k/uL Lymphocytes # 1.1 (1.0-4.8) k/uL Monocytes # 0.4 (0-1.0) k/uL Eosinophils # 0.2 (0-0.7) k/uL Basophils # 0.1 (0-0.2) k/uL Manual Slide Review Performed Hypochromasia Slight Macrocytosis Marked A Sodium 137 (137-145) mmol/L Potassium 5.2 H (3.5-5.1) mmol/L Chloride 114 H (98-107) mmol/L Carbon Dioxide 14 L (22-30) mmol/L Anion Gap 9 mmol/L BUN 56 H (9-20) mg/dL Creatinine 2.90 H (0.66-1.25) mg/dL Est GFR (CKD-EPI)AfAm 21 (>60 ml/min/1.73 sqM) Est GFR (CKD-EPI)NonAf 18 (>60 ml/min/1.73 sqM) Glucose 111 H (74-99) mg/dL Calcium 7.9 L (8.4-10.2) mg/dL Total Bilirubin 2.1 H (0.2-1.3) mg/dL AST 99 H (17-59) U/L ALT 55 H (4-49) U/L Alkaline Phosphatase 199 H (38-126) U/L Troponin I (0.000-0.034) ng/mL Total Protein 6.2 L (6.3-8.2) g/dL Albumin 2.9 L (3.5-5.0) g/dL TSH >100.000 H (0.465-4.680) mIU/L Free T4 0.46 L (0.78-2.19) ng/dL Coronavirus (PCR) Not Detected (Not Detectd) 07/13/21 Range/Units 14:37 WBC (3.8-10.6) k/uL RBC (4.30-5.90) m/uL Hgb (13.0-17.5) gm/dL Hct (39.0-53.0) % MCV (80.0-100.0) fL MCH (25.0-35.0) pg MCHC (31.0-37.0) g/dL RDW (11.5-15.5) % Plt Count (150-450) k/uL MPV Neutrophils % % Lymphocytes % % Monocytes % % Eosinophils % % Basophils % % Neutrophils # (1.3-7.7) k/uL Lymphocytes # (1.0-4.8) k/uL Monocytes # (0-1.0) k/uL Eosinophils # (0-0.7) k/uL Basophils # (0-0.2) k/uL Manual Slide Review Hypochromasia Macrocytosis Sodium (137-145) mmol/L Potassium (3.5-5.1) mmol/L Chloride (98-107) mmol/L Carbon Dioxide (22-30) mmol/L Anion Gap mmol/L BUN (9-20) mg/dL Creatinine (0.66-1.25) mg/dL Est GFR (CKD-EPI)AfAm (>60 ml/min/1.73 sqM) Est GFR (CKD-EPI)NonAf (>60 ml/min/1.73 sqM) Glucose (74-99) mg/dL Calcium (8.4-10.2) mg/dL Total Bilirubin (0.2-1.3) mg/dL AST (17-59) U/L ALT (4-49) U/L Alkaline Phosphatase (38-126) U/L Troponin I 0.019 (0.000-0.034) ng/mL Total Protein (6.3-8.2) g/dL Albumin (3.5-5.0) g/dL TSH (0.465-4.680) mIU/L Free T4 (0.78-2.19) ng/dL Coronavirus (PCR) (Not Detectd) Disposition Clinical Impression: CAP (community acquired pneumonia), LARRY (acute kidney injury) Disposition: ADMITTED IP TO THIS HOSP Condition: Stable Is patient prescribed a controlled substance at d/c from ED?: No Referrals: [facility],Clinic [Primary Care Provider] - 1-2 days Time of Disposition: 15:39
[2021-07-13 13:54] LABS: Basophils # (A) 0.1 k/uL (0-0.2); Basophils % (A) 1 %; Eosinophils # (A) 0.2 k/uL (0-0.7); Eosinophils % (A) 4 %; HCT 30.7 % (39.0-53.0); Hypochromasia Slight; Lymphocytes # (A) 1.1 k/uL (1.0-4.8); Lymphocytes % (A) 17 %; MCH 37.2 pg (25.0-35.0); MCHC 32.7 g/dL (31.0-37.0); MCV 113.9 fL (80.0-100.0); Macrocytosis Marked; Mean Platelet Volume 9.8; Monocytes # (A) 0.4 k/uL (0-1.0); Monocytes % (A) 6 %; Neutrophils # (A) 4.8 k/uL (1.3-7.7); Neutrophils % (A) 72 %; RDW 15.9 % (11.5-15.5); WBC 6.7 k/uL (3.8-10.6)
--- NOTE | 2021-07-13 14:14 | XR ---
EXAMINATION TYPE: XR chest 1V portable DATE OF EXAM: 07/13/2021 COMPARISON: 11/26/2019 HISTORY: Cough TECHNIQUE: Single frontal view of the chest is obtained. FINDINGS: Heart is enlarged and there is bilateral infiltrate and pleural effusion. Cardiac device s een with no pneumothorax. Diffuse osteopenia. Arthropathy of the shoulders. NG tube has been removed. IMPRESSION: 1. Bilateral infiltrate and pleural effusion correlate for CHF versus diffuse pneumonia.
[2021-07-13 14:43] LABS: Platelet Count 67 k/uL (150-450)
[2021-07-13 14:53] LABS: ALT 55 U/L (4-49); AST 99 U/L (17-59); African American GFR (CKD) 21 (>60 ml/min/1.73 sqM); Albumin 2.9 g/dL (3.5-5.0); Alkaline Phosphatase 199 U/L (38-126); Anion Gap 9 mmol/L; Blood Urea Nitrogen 56 mg/dL (9-20); Calcium 7.9 mg/dL (8.4-10.2); Carbon Dioxide 14 mmol/L (22-30); Chloride 114 mmol/L (98-107); Glucose 111 mg/dL (74-99); Non-African American GFR(CKD) 18 (>60 ml/min/1.73 sqM); Potassium 5.2 mmol/L (3.5-5.1); Sodium 137 mmol/L (137-145); Total Bilirubin 2.1 mg/dL (0.2-1.3); Total Protein 6.2 g/dL (6.3-8.2)
[2021-07-13 15:08] LABS: T4, Free (Free Thyroxine) 0.46 ng/dL (0.78-2.19)
[2021-07-13] MEDS ORDERED: AZITHROMYCIN 500 MG in SODIUM CHLORIDE 0.9% 250 ML IVPB STA (15:10)
[2021-07-13] MEDS ORDERED: SODIUM CHLORIDE 0.9% 1,000 ML IV ONE (15:39)
[2021-07-13] MEDS ORDERED: LEVOTHYROXINE IVP 100 MCG/5 ML VIAL IV SCH (17:15)
[2021-07-13] MEDS ORDERED: NITROGLYCERIN SL TABS 0.4 MG TAB SUBLINGUAL PRN (17:44)
[2021-07-13] MEDS ORDERED: IPRATROPIUM-ALBUTEROL 3 ML NEB INHALATION PRN (17:44)
[2021-07-13] MEDS ORDERED: IOPAMIDOL CONTRAST (ORAL USE) VIAL PO PRN (17:46)
--- NOTE | 2021-07-13 18:52 | HP ---
HISTORY AND PHYSICAL DATE OF SERVICE: 07/13/2021 CHIEF COMPLAINT: Weakness and abnormal labs. HISTORY OF PRESENT ILLNESS: This 89-year-old gentleman with a past medical history of multiple medical problems, including CAD, history of chest pain, CHF, hypertension, hyperlipidemia, history of myocardial infarction, gout, being followed by the [facility] and Dr. Dos Santos in the outpatient setting, was complaining of some weakness. The patient apparently had outpatient labs which showed renal failure and hyperkalemia. The patient was feeling more rundown. Patient apparently lost several pounds recently. The creatinine was found to be 2.9; previous baseline was 2.2. Patient was admitted for further evaluation and treatment. The lab work in the ER showed anemia with hemoglobin of 10, thrombocytopenia. Creatinine was 2.9, as mentioned earlier. Bilirubin was 2.1 and AST and ALT were also elevated. TSH was found to be more than 100,000. The patient admits that he is depressed, and the possibility of noncompliance is also being considered. The chest x-ray done which I personally reviewed showed bilateral pneumonia, right more than left. The patient is admitted for further evaluation and treatment. The patient is started on broad-spectrum IV antibiotics. There is no history of any fever, rigor or chills at this time. PAST MEDICAL HISTORY: History of CAD, chest pain, CHF, hypertension, hyperlipidemia, history of myocardial infarction, history of gout. HOME MEDICATIONS: Ensure, Lasix 20 mg b.i.d., Protonix, Nitrostat, multivitamins, zyloprim, Synthroid, DuoNeb, Cosopt, ProAir, Coreg and Ecotrin. Doses are reviewed. ALLERGIES: GLIPIZIDE. FAMILY HISTORY: History of myocardial infarction in the family. SOCIAL HISTORY: Previous history of smoking. No current smoking or alcohol intake. REVIEW OF SYSTEMS: ENT: Diminished hearing. Diminished vision. CARDIOVASCULAR SYSTEM: As mentioned earlier. RESPIRATORY SYSTEM: As mentioned earlier. GI: As mentioned earlier. : As mentioned earlier. NERVOUS SYSTEM: No numbness, weakness. ALLERGY/IMMUNOLOGY: No asthma or hay fever. MUSCULOSKELETAL: As mentioned earlier. HEMATOLOGY/ONCOLOGY: History of anemia. ENDOCRINE: As mentioned earlier. CONSTITUTIONAL: As mentioned earlier. DERMATOLOGY: Negative. RHEUMATOLOGY: Negative. PSYCHIATRY: As mentioned earlier. PHYSICAL EXAMINATION: Patient alert and oriented x3. The pulse is 60, blood pressure 124/62, respiration 18, temperature 97.9, pulse ox 100% on room air. HEENT: Conjunctivae pale. Oral mucosa is moist. NECK: No jugular venous distention. CARDIOVASCULAR: S1, S2 muffled. RESPIRATION: Breath sounds diminished at the bases. A few scattered rhonchi and crackles. ABDOMEN: Soft, obese, non-tender. No mass palpable. LEGS: No edema. No swelling. NERVOUS SYSTEM: Higher functions as mentioned earlier. Moves all 4 limbs. No focal motor or sensory deficit. LYMPHATICS: No lymph node palpable in neck, axillae or groin. SKIN: No ulcer, rash, bleeding. JOINTS: No active deforming arthropathy. LABS: WBC 6.3, hemoglobin is 10, sodium potassium 5.2. Other labs are reviewed. Creatinine is 2.9. Chest x-ray reviewed personally. ASSESSMENT: 1. Possible acute bilateral lower lobe pneumonia, right more than the left, with possibly Gram-negative pneumonia. Rule out aspiration pneumonia of COVID-19 pneumonia. 2. Severe dehydration and acute on chronic renal failure with acute tubular necrosis and prerenal renal failure. 3. Chronic kidney disease, stage 3 baseline, possibly. 4. Metabolic acidosis. 5. Hyperkalemia. 6. Anemia, macrocytic. 7. Thrombocytopenia. 8. Elevated bilirubin and AST, ALT, possibly hepatitis of undetermined etiology. 9. Elevated random glucose. 10.Severe hypothyroidism. 11.Hypoalbuminemia with mild protein-calorie malnutrition. 12.Rule out chronic liver disease and cirrhosis of the liver. 13.History of coronary artery disease, stent. 14.History of AICD. 15.History of congestive heart failure. 16.Hypertension. 17.Hyperlipidemia. 18.History of myocardial infarction. 19.History of gout. 20.Gait dysfunction. 21.Depression. 22.Remote history of nicotine dependence. 23.FULL CODE. RECOMMENDATIONS AND DISCUSSION: In this 89-year-old gentleman who presented with multiple complex medical issues, we will monitor the patient closely. We will initiate broad-spectrum IV antibiotics. I would recommend a CT chest, abdomen and pelvis for evaluation. Other than that, I would also recommend cardiology and pulmonary consultations. The patient has multiple complex medical issues, as mentioned earlier. Nephrology also will be consulted. Patient definitely has acute on chronic renal failure. Cautious IV hydration will be recommended, but the patient has bilateral lesions. NT proBNP is 6110. We will continue to monitor. Guarded prognosis because of multiple complex medical conditions. Further recommendations to follow. See orders for further details. I would also initiate a small dose of Lexapro. A copy of this dictation is being forwarded to Dr. Dos Santos at [facility]. BRANDY / ZARIAN: [id number] / MTDD
[2021-07-13] MEDS: IPRATROPIUM-ALBUTEROL 3 ML NEB INHALATION SCH (20:17)
[2021-07-13] MEDS: DORZOLAMIDE-TIMOLOL 2.23%/0.68 10ML BTL BOTH EYES SCH (22:27)
[2021-07-13] MEDS: SODIUM CHLORIDE 0.9% 1,000 ML IV SCH (22:27)
[2021-07-13] MEDS: carvediloL 6.25 MG TAB PO SCH (22:27)
[2021-07-13] MEDS: PANTOPRAZOLE 40 MG TABLET PO SCH (22:28)
[2021-07-13] MEDS: HEPARIN SODIUM,PORCINE/PF 5,000 UNIT/0.5 ML SYRINGE SQ SCH (22:28)
[2021-07-14 04:06] LABS: Anisocytosis Slight; HCT 28.4 % (39.0-53.0); HGB 9.3 gm/dL (13.0-17.5); Hypochromasia Moderate; MCH 37.2 pg (25.0-35.0); MCHC 32.6 g/dL (31.0-37.0); MCV 114.1 fL (80.0-100.0); Macrocytosis Marked; Mean Platelet Volume 10.3; RBC 2.49 m/uL (4.30-5.90); RDW 16.2 % (11.5-15.5); WBC 5.2 k/uL (3.8-10.6)
[2021-07-14 04:10] LABS: Platelet Count 50 k/uL (150-450)
[2021-07-14 04:36] LABS: Chloride 116 mmol/L (98-107)
[2021-07-14 04:39] LABS: African American GFR (CKD) 20 (>60 ml/min/1.73 sqM); Anion Gap 8 mmol/L; Blood Urea Nitrogen 57 mg/dL (9-20); Calcium 7.6 mg/dL (8.4-10.2); Carbon Dioxide 11 mmol/L (22-30); Glucose 96 mg/dL (74-99); Non-African American GFR(CKD) 17 (>60 ml/min/1.73 sqM); Sodium 135 mmol/L (137-145)
[2021-07-14 04:41] LABS: Potassium 6.2 mmol/L (3.5-5.1)
[2021-07-14 04:49] LABS: Appearance,Urine Clear (Clear); Bilirubin,Urine Negative (Negative); Blood,Urine Negative (Negative); Color,Urine Yellow; Glucose,Urine (UA) Negative (Negative); Ketones,Urine Negative (Negative); Leukocyte Esterase,Urine Negative (Negative); Nitrite,Urine Negative (Negative); Protein,Urine Trace (Negative); Specific Gravity,Urine 1.013 (1.001-1.035)
[2021-07-14 04:58] LABS: Band Neutrophils % 7 %; Eosinophils # (M) 0.16 k/uL (0-0.7); Lymphocytes # (M) 1.04 k/uL (1.0-4.8); Monocytes # (M) 0.47 k/uL (0-1.0); Neutrophils % (M) 61 %; Nucleated Red Blood Cells 0 /100 WBC (0-0); Total Cells Counted 100
[2021-07-14 04:59] LABS: Anisocytosis (M) Present; Ovalocytes Present; Poikilocytosis (M) Present
[2021-07-14] MEDS ORDERED: SODIUM POLYSTYRENE SULFONATE 15 GM/60 ML BOTTLE PO STA (05:04)
[2021-07-14] MEDS ORDERED: DEXTROSE 50% SYRINGE 50 ML IVP STA (05:05)
[2021-07-14] MEDS ORDERED: INSULIN REGULAR 100 UNIT/ML VIAL (IV) IV ONE (05:05)
[2021-07-14] MEDS ORDERED: SODIUM BICARB 8.4% 50 ML SYR (1 MEQ/ML) IV STA (05:07)
[2021-07-14] MEDS ORDERED: CALCIUM GLUCONATE 1 GM in SODIUM CHLORIDE 0.9% 100 ML IVPB ONE (05:16)
[2021-07-14] MEDS: LEVOTHYROXINE 75 MCG TAB PO SCH (06:10)
[2021-07-14] MEDS: SODIUM CHLORIDE 0.9% 1,000 ML IV SCH (06:18)
--- NOTE | 2021-07-14 07:08 | XR ---
EXAMINATION TYPE: XR chest 1V portable DATE OF EXAM: 07/14/2021 CLINICAL HISTORY: Difficulty breathing and CHF progress study. TECHNIQUE: Single AP portable upright view of the chest is obtained. COMPARISON: Chest x-ray from one day earlier and older studies. FINDINGS: Persistent cardiomegaly with dual lead pacemaker/AICD and central vascular congestion. Sli ghtly elevated left hemidiaphragm. There is worsening right midlung opacity. Persistent bibasilar opa cities. High riding humeral heads consistent with chronic rotator cuff tears. IMPRESSION: Cardiomegaly with central vascular congestion redemonstrated. Persistent and stable bibas ilar acute infiltrate and/or atelectasis. Worsening right midlung acute infiltrate and/or edema noted .
[2021-07-14] MEDS: IPRATROPIUM-ALBUTEROL 3 ML NEB INHALATION SCH ×3 (07:48→21:19)
[2021-07-14 08:51] LABS: African American GFR (CKD) 20 (>60 ml/min/1.73 sqM); Anion Gap 8 mmol/L; Blood Urea Nitrogen 55 mg/dL (9-20); Calcium 7.7 mg/dL (8.4-10.2); Carbon Dioxide 16 mmol/L (22-30); Chloride 112 mmol/L (98-107); Glucose 88 mg/dL (74-99); Non-African American GFR(CKD) 17 (>60 ml/min/1.73 sqM); Potassium 4.4 mmol/L (3.5-5.1); Sodium 136 mmol/L (137-145)
--- NOTE | 2021-07-14 09:34 | CT ---
EXAMINATION TYPE: CT ChestAbdPelvis wo con DATE OF EXAM: 07/14/2021 COMPARISON: Most recent CT November 09, 2019. HISTORY: Pneumonia, Cirrhosis, Wt. Loss, Weakness CT DLP: 1106.8 mGycm. Automated Exposure Control for Dose Reduction was Utilized. TECHNIQUE: CT scan of the thorax, abdomen and pelvis is performed with oral but without IV contrast. FINDINGS: LUNGS: More prominent small left greater than right pleural effusions including fluid within the righ t-sided fissure redemonstrated. Mild to moderate bilateral lower lung linear scarring. Stable calcifi ed right lower lung nodules are benign granulomas posteriorly. No new suspicious consolidation. MEDIASTINUM: There are no no greater than 1 cm noncalcified mediastinal lymph nodes. Prominent but ca lcified right hilar lymph nodes again seen. No pericardial effusion is seen. Stable mild cardiomega ly. Persistent dual-lead pacemaker/defibrillator. Persistent calcification in the left ventricular wa ll axial image 44. Severe three-vessel coronary artery calcification redemonstrated. Enlarged main pu lmonary artery suggesting underlying pulmonary artery hypertension again seen. Adjacent ascending aor ta measures up to 3.8 cm stable from prior. OTHER: Asymmetric right-sided subareolar nodular gynecomastia redemonstrated. LIVER/GB: Scattered calcifications throughout the liver. Somewhat small size with irregular periphera l contour and adjacent ascites. Gallbladder has distended margins. There is dependent small stones an d/or gallbladder sludge. Some adjacent ascites. More prominent [id number] intrahepatic and extr ahepatic biliary dilatation similar to prior study PANCREAS: No significant abnormality is seen. SPLEEN: Scattered calcifications throughout the spleen. Stable mild splenomegaly at 13.7 cm long axis coronal image 73. ADRENALS: No significant abnormality is seen. KIDNEYS: Cortical thinning both kidneys. Large thin-walled cyst centrally in the left kidney again se en. There is likely underlying left-sided hydronephrosis as there is marked cortical thinning. Findin gs appear similar to prior. BOWEL: Oral contrast reaches level proximal transverse colon making evaluation of distal bowel subopt imal. No suspicious small or large bowel dilatation. Redundant sigmoid colon is present. Diverticula in the left and sigmoid colon are seen. No CT evidence for acute diverticulitis. GENITAL ORGANS: Enlarged prostate consistent with BPH. Scattered bilateral pelvic phleboliths. LYMPH NODES: No greater than 1cm abdominal or pelvic lymph nodes are appreciated. OSSEOUS STRUCTURES: Moderate to severe axial joint space loss in both hips. Moderate multilevel spurr ing. Vacuum disc phenomenon with moderate to severe disc space narrowing L5-S1 level. Moderate disc s pace narrowing with vacuum disc phenomenon right L4-L5 level. OTHER: There is persistent aorto biiliac stent graft through infrarenal AAA. [place] AAA measures up t o 6.3 cm transversely axial image 81 increase in size from prior study. Small amount of lower abdomin al and pelvic ascites. IMPRESSION: 1. Enlarging [place] AAA up to 6.7 cm from prior study raising concern for new endoleak. 2. Evidence of underlying old granulomatous disease redemonstrated. Cirrhotic morphology to liver red emonstrated. New small amount of intra-abdominal and pelvic intraperitoneal ascites. New Mild/modera te intrahepatic and extra hepatic biliary dilatation. Consider further investigation with ERCP. Promi nent small right greater than left bilateral pleural effusions. Stable mild splenomegaly. Stable mild cardiomegaly.
--- NOTE | 2021-07-14 11:02 | NM ---
EXAMINATION TYPE: NM pul vent and perfuse DATE OF EXAM: 07/14/2021 COMPARISON: Chest x-ray and CT from earlier today HISTORY: Elevated d-dimer. Shortness of breath. History of CHF and cirrhosis. TECHNIQUE: Utilizing inhalation of 63.2 mCi Tc 99m DTPA aerosol and intravenous injection of 5.1 mCi of Tc 99m MAA, ventilation and perfusion images are acquired post injection in multiple projections. FINDINGS: Matching defects left upper lung corresponds to overlying pacemaker. Matching defects in th e right mid to lower lung corresponds to area of pleural effusion extending into fissures. Matching d efect posterior left lung base likely corresponds to small left pleural effusion. Additional area of small matching defect posterior left lower lung seen best on oblique imaging. No mismatch defects are present. IMPRESSION: Low probability for acute pulmonary embolism.
[2021-07-14] MEDS: allopurinoL 100 MG TAB PO SCH (11:10)
[2021-07-14] MEDS: FUROSEMIDE 20 MG TAB PO SCH ×2 (11:10→16:13)
[2021-07-14] MEDS: MULTIVITAMINS, THERA 1 EACH TAB PO SCH (11:10)
[2021-07-14] MEDS: carvediloL 6.25 MG TAB PO SCH ×2 (11:10→16:13)
[2021-07-14] MEDS: PANTOPRAZOLE 40 MG TABLET PO SCH ×2 (11:11→20:29)
[2021-07-14] MEDS: ASPIRIN 325 MG TAB PO SCH (11:11)
[2021-07-14] MEDS: DORZOLAMIDE-TIMOLOL 2.23%/0.68 10ML BTL BOTH EYES SCH ×2 (11:14→20:29)
[2021-07-14] MEDS: DEXTROSE 5% IN WATER 1,000 ML with SODIUM BICARB (1 MEQ/ML) 150 ML IV SCH ×2 (11:14→23:14)
[2021-07-14] MEDS: HEPARIN SODIUM,PORCINE/PF 5,000 UNIT/0.5 ML SYRINGE SQ SCH ×2 (11:14→20:29)
--- NOTE | 2021-07-14 11:27 | ECHOF ---
Referral Reason:CHF MEASUREMENTS -------- HEIGHT: 182.9 cm WEIGHT: 83.9 kg BP: 128/61 RVIDd: 2.8 cm (< 3.3) IVSd: 1.9 cm (0.6 - 1.1) LVIDd: 4.3 cm (3.9 - 5.3) LVPWd: 1.6 cm (0.6 - 1.1) IVSs: 2.3 cm LVIDs: 3.8 cm LVPWs: 1.8 cm LA Diam: 3.9 cm (2.7 - 3.8) LAESV Index (A-L): 33.88 ml/m Ao Diam: 4.3 cm (2.0 - 3.7) AV Cusp: 1.1 cm (1.5 - 2.6) MV EXCURSION: 22.126 mm (> 18.000) MV EF SLOPE: 33 mm/s (70 - 150) EPSS: 1.9 cm AV maxP.40 mmHg AV meanP.67 mmHg RAP: 5.00 mmHg RVSP: 65.61 mmHg FINDINGS -------- Paced rhythm. This was a technically adequate study. The left ventricular size is normal. There is severe concentric left ventricular hypertrophy. Ove rall left ventricular systolic function is severely impaired with, an EF between 20 - 25 %. The right ventricle is normal in size. LA is moderately dilated 34-39 ml/m2 The right atrium is normal in size. Interatrial and interventricular septum intact. There is moderate to severe aortic valve sclerosis. Trace to mild aortic regurgitation. There is moderate aortic stenosis present. Peak/mean gradient across the Aortic Valve is 22.40mmHg / 11.67mm Hg. Mild mitral annular calcification present. There is trace to mild mitral regurgitation. Moderate tricuspid regurgitation present. There is severe pulmonary hypertension. The right ventr icular systolic pressure, as measured by Doppler, is 65.61mmHg. Trace/mild (physiologic) pulmonic regurgitation. The aortic root is dilated measuring 4.3cm. Normal inferior vena cava with normal inspiratory collapse consistent with estimated right atrial pre ssure of 5 mmHg. The inferior vena cava is mildly dilated. There is no pericardial effusion. CONCLUSIONS -------- 1. Paced rhythm. 2. The left ventricular size is normal. 3. There is severe concentric left ventricular hypertrophy. 4. Overall left ventricular systolic function is severely impaired with, an EF between 20 - 25 %. 5. LA is moderately dilated 34-39 ml/m2 6. There is moderate to severe aortic valve sclerosis. 7. Trace to mild aortic regurgitation. 8. There is moderate aortic stenosis present. 9. Peak/mean gradient across the Aortic Valve is 22.40mmHg / 11.67mmHg. 10. Mild mitral annular calcification present. 11. There is trace to mild mitral regurgitation. 12. Moderate tricuspid regurgitation present. 13. There is severe pulmonary hypertension. 14. The right ventricular systolic pressure, as measured by Doppler, is 65.61mmHg. 15. Trace/mild (physiologic) pulmonic regurgitation. 16. The aortic root is dilated measuring 4.3cm. 17. Normal inferior vena cava with normal inspiratory collapse consistent with estimated right atrial pressure of 5 mmHg. 18. The inferior vena cava is mildly dilated. 19. There is no pericardial effusion. TILE ROOFER: Vikki Bradford RDCS
--- NOTE | 2021-07-14 11:50 | CONS ---
CONSULTATION This patient is an 89-year-old gentleman with history of cardiomyopathy, status post AICD, coronary artery disease, status post prior angioplasty, who presented to hospital because of hyperkalemia and multiple other lab abnormalities. He apparently underwent outpatient labs and was told that his labs are abnormal and was asked to go to the emergency room. His predominant symptom is in the form of fatigue, tiredness, not feeling well and shortness of breath, and he lost nearly 50 pounds over the last several months. At the time of my evaluation, he does not seem to be in distress but has a sickly look to him. He is hemodynamically stable. Heart rate is 50 beats per minute, blood pressure is 127/50, O2 saturation is 100% on room air. His hemoglobin is low. Platelet count is low. He has renal insufficiency. D-dimer is elevated. Potassium is high at 6.2 and is currently being treated for the same. He does not have any chest pain, does not have significant leg swelling. He has had one set of troponin that is within normal limits. His TSH is more than 100, suggestive of severe and profound hypothyroidism. BNP is elevated at 6110. An EKG shows paced rhythm. Chest x- ray shows small bilateral effusions. He underwent a CT of the chest, abdomen and pelvis; results are pending at this time. PAST MEDICAL HISTORY: Significant for coronary artery disease, status post prior angioplasty, chronic systolic heart failure, cardiomyopathy, status post AICD, hypertension, dyslipidemia and history of gout. MEDICATIONS: Medications at home included Synthroid, DuoNeb, aspirin, Coreg, Lasix, Protonix, zyloprim. ALLERGIES: GLIPIZIDE. FAMILY HISTORY: Significant for myocardial infarction. SOCIAL HISTORY: Significant for smoking in the past. REVIEW OF SYSTEMS: HEENT is significant for diminished hearing and vision. CARDIOVASCULAR: As described above. RESPIRATORY: As described above. GI: Significant for abdominal distention. ALLERGY/IMMUNOLOGY: Negative. 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 HEM/ONC: Significant for anemia. ENDOCRINE: Significant for hypothyroidism. CONSTITUTIONAL: As described above. DERMATOLOGY: Negative. RHEUMATOLOGICAL: Negative. PSYCH: Patient feels somewhat depressed. PHYSICAL EXAMINATION: Patient is comfortable at rest. Vital signs are stable. There is no jugular venous distention. Chest exam reveals diminished air entry at the bases. Heart exam reveals first and second heart sounds. No gallop. Has an ejection systolic murmur in the aortic area. Abdomen is soft. Examination of extremities reveals mild edema bilaterally. ASSESSMENT: 1. Acute exacerbation of chronic systolic heart failure. 2. Coronary artery disease, status post multivessel angioplasty. 3. Status post AICD. 4. Severe hypothyroidism. 5. Hyperkalemia. 6. History of weight loss. 7. Anemia. 8. Renal failure. PLAN: I will continue the patient on Lasix that he is on, obtain a 2D echo. I believe most of his problems are related to the multiple metabolic problems that he has, and they are currently being addressed by the hospitalist. We will follow the patient with interest. MMODL / IJN: [id number] /
[2021-07-14] MEDS: AZITHROMYCIN 250 MG TAB PO SCH (12:15)
[2021-07-14] MEDS ORDERED: MELATONIN 3 MG TABLET PO PRN (15:50)
--- NOTE | 2021-07-14 15:57 | P.GSCN ---
History of Present Illness Consult date: 07/14/21 History of present illness: CHIEF COMPLAINT: Weakness HISTORY OF PRESENT ILLNESS: This is a 89-year-old male who presented to the hospital with complaints of weakness and has had about a 70 pound weight loss over the last 6 months. Patient does report a decrease in his appetite. He does have a prior history of smoking and colon polyps. Patient reports his polyps have been benign. Does have a prior history of [place] lesion requiring cauterization and clipping on previous EGD in October 2019. Patient denies any vomiting. His stools fluctuate between constipation and diarrhea. He denies any blood in his stools. Denies any abdominal pain. 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 Basilar surgery has been consult at. There is also evidence of gallbladder was distended margin and small stones and/or sludge present. As well as new mild to moderate in trahepatic and extrahepatic biliary dilatation. Patient did have mildly elevated LFTs. Surgical service consult in 4 weight loss and possible EGD and colonoscopy. Patient seen by cardiology service and diagnosed with an acute CHF exacerbation and maintained on oral Lasix. EF of 20-25%. Patient denies any abdominal pain after eating. Patient is currently being treated for community acquired pneumonia. PAST MEDICAL HISTORY: History of coronary disease with cardiac stents, AICD, CHF, hypertension, hyperlipidemia PAST SURGICAL HISTORY: See list. MEDICATIONS: See list. ALLERGIES: See list. SOCIAL HISTORY: No illicit drug use. REVIEW OF SYSTEMS: CONSTITUTIONAL: Denies fever or chills. HEENT: Denies blurred vision, vision changes, or eye pain. Denies hemoptysis CARDIOVASCULAR: Denies chest pain or pressure. RESPIRATORY: No shortness of breath. GASTROINTESTINAL: See HPI for pertinent findings HEMATOLOGIC: Denies bleeding disorders. GENITOURINARY: Denies any blood in urine or increased urinary frequency. SKIN: Denies pruitis. Denies rash. PHYSICAL EXAM: VITAL SIGNS: Reviewed GENERAL: Well-developed in no acute distress. HEENT: No sclera icterus. Extraocular movements grossly intact. Moist buccal mucosa. Head is atraumatic, normocephalic. No nasal drainage. Scalp lesion ABDOMEN: Soft. Nondistended. Nontender NEUROLOGIC: Alert and oriented. Cranial nerves II through XII grossly intact. LABORATORY DATA: WBC is 5.2 hemoglobin 9.3 platelets 50 D-dimer 8.15 Sodium 136 potassium 4.4 creatinine 3.11 Lactic acid 1.1 AST 99 ALT 55 alk phos 199 total bili 2.1 BNP 6110 TSH greater than 100 free T4 0.46 Urinalysis negative COVID-19 not detected IMAGING: Computed tomography scan abdomen and pelvis enlarging [place] AAA up to 6.7 cm from prior study raising concern for new endoleak. Evidence of underlying old craniotome was disease redemonstrated. 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 New small amount of intra-abdominal and pelvic intraperitoneal ascites. New mild to moderate intrahepatic and extrahepatic biliary dilatation. Consider further investigation with ERCP. Prominent small right greater than left bilateral pleural effusions. Stable mild splenic megaly. Stable mild cardiomegaly. ASSESSMENT: 1. Unintentional weight loss 2. Asymptomatic Cholelithiasis with distended gallbladder. New mild to moderate intrahepatic and extrahepatic biliary dilatation. 3. Scalp lesion 4. Hypothyroidism with significant elevated TSH level. To be managed by medicine service 5. Acute on chronic renal failure 6. Pneumonia 7. Elevated LFTs PLAN: -Recommend EGD for further evaluation of unintentional weight loss. Patient refuses EGD at this time -No surgical intervention recommended at this time for the distended gallbladder and asymptomatic cholelithiasis. Patient has no right upper quadrant abdominal pain. Denies any nausea or vomiting. -Recommend vascular surgery consult for AAA measuring 6.7 cm with concern of new endoleak -Repeat labs in a.m. -Continue heart healthy diet thank you for this consultation Physician Tree Inspector note has been reviewed by physician. Signing provider agrees with the documented findings, assessment, and plan of care. Past Medical History Past Medical History: Coronary Artery Disease (CAD), Chest Pain / Angina, Heart Failure, Hyperlipidemia, Hypertension, Myocardial Infarction ([place]) Additional Past Medical History / Comment(s): GOUT, 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 Last Myocardial Infarction Date:: 2009 History of Any Multi-Drug Resistant Organisms: None Reported Past Surgical History: AICD, Heart Catheterization With Stent, Pacemaker Additional Past Surgical History / Comment(s): aaa repair Past Anesthesia/Blood Transfusion Reactions: No Reported Reaction Date of Last Stent Placement:: AROUND 2009 Type of Cardiac Device: AICD Device Placement Date:: AUG 2019 Past Psychological History: No Psychological Hx Reported Smoking Status: Former smoker Past Alcohol Use History: None Reported Past Drug Use History: None Reported - Past Family History Father Family Medical History: Myocardial Infarction ([place]) Medications and Allergies Home Medications Medication Instructions Recorded Confirmed Type Albuterol Sulfate [Proair Hfa] 2 puff INHALATION RT-QID 11/09/19 07/13/21 History Dorzolamide-Timol 2.23%/0.68% 1 drop BOTH EYES BID 11/09/19 07/13/21 History [Cosopt] Levothyroxine Sodium [Synthroid] 150 mcg PO DAILY 11/09/19 07/13/21 History Nitroglycerin Sl Tabs [Nitrostat] 0.4 mg SUBLINGUAL Q5M PRN 11/09/19 07/13/21 History allopurinoL [Zyloprim] 100 mg PO DAILY 11/09/19 07/13/21 History carvediloL [Coreg] 6.25 mg PO BID 11/09/19 07/13/21 History Lidocaine 5% Patch [Lidoderm 5% 1 patch TOPICAL DAILY PRN #20 patch 11/29/19 07/13/21 Rx Patch] Pantoprazole Sodium [Protonix] 40 mg PO BID #50 tablet. 11/29/19 07/13/21 Rx Aspirin EC [Ecotrin] 325 mg PO DAILY 07/13/21 07/13/21 History Furosemide [Lasix] 20 mg PO AC-BID 07/13/21 07/13/21 History Ipratropium-Albuterol Nebulize 3 ml INHALATION RT-TID PRN 07/13/21 07/13/21 History [Duoneb 0.5 mg-3 mg/3 ml Soln] Lactose-Reduced Food [Ensure Plus] 1 can PO BID 07/13/21 07/13/21 History Multivit-Min/FA/Lycopen/Lutein 1 tab PO DAILY 07/13/21 07/13/21 History [Centrum Silver Men Tablet] Allergies Allergy/AdvReac Type Severity Reaction Status Date / Time glipizide AdvReac DROP SUGAR Verified 07/13/21 14:21 TOO LOW Surgical - Exam Vital Signs Temp Pulse Resp BP Pulse Ox 97.9 F 60 18 124/62 100 07/13/21 12:51 07/13/21 12:51 07/13/21 12:51 07/13/21 12:51 07/13/21 12:51 Results - Labs 07/14/21 02:56 07/14/21 08:02 Abnormal Lab Results - Last 24 Hours (Table) 07/13/21 07/13/21 07/13/21 Range/Units 19:20 19:20 19:20 RBC (4.30-5.90) m/uL Hgb (13.0-17.5) gm/dL Hct (39.0-53.0) % MCV (80.0-100.0) fL MCH (25.0-35.0) pg RDW (11.5-15.5) % Plt Count (150-450) k/uL Macrocytosis ESR 20 H (0-15) mm/hr D-Dimer 8.15 H (<0.60) mg/L FEU Sodium (137-145) mmol/L Potassium (3.5-5.1) mmol/L Chloride (98-107) mmol/L Carbon Dioxide (22-30) mmol/L BUN (9-20) mg/dL Creatinine (0.66-1.25) mg/dL Calcium (8.4-10.2) mg/dL C-Reactive Protein 4.9 H (<1.0) mg/dL Urine Protein (Negative) 07/14/21 07/14/21 07/14/21 Range/Units 02:56 04:00 04:00 RBC 2.49 L (4.30-5.90) m/uL Hgb 9.3 L (13.0-17.5) gm/dL Hct 28.4 L (39.0-53.0) % MCV 114.1 H (80.0-100.0) fL MCH 37.2 H (25.0-35.0) pg RDW 16.2 H (11.5-15.5) % Plt Count 50 L (150-450) k/uL Macrocytosis Marked A ESR (0-15) mm/hr D-Dimer (<0.60) mg/L FEU Sodium 135 L (137-145) mmol/L Potassium 6.2 H* (3.5-5.1) mmol/L Chloride 116 H (98-107) mmol/L Carbon Dioxide 11 L (22-30) mmol/L BUN 57 H (9-20) mg/dL Creatinine 3.04 H (0.66-1.25) mg/dL Calcium 7.6 L (8.4-10.2) mg/dL C-Reactive Protein (<1.0) mg/dL Urine Protein Trace H (Negative) 07/14/21 Range/Units 08:02 RBC (4.30-5.90) m/uL Hgb (13.0-17.5) gm/dL Hct (39.0-53.0) % MCV (80.0-100.0) fL MCH (25.0-35.0) pg RDW (11.5-15.5) % Plt Count (150-450) k/uL Macrocytosis ESR (0-15) mm/hr D-Dimer (<0.60) mg/L FEU Sodium 136 L (137-145) mmol/L Potassium (3.5-5.1) mmol/L Chloride 112 H (98-107) mmol/L Carbon Dioxide 16 L (22-30) mmol/L BUN 55 H (9-20) mg/dL Creatinine 3.11 H (0.66-1.25) mg/dL Calcium 7.7 L (8.4-10.2) mg/dL C-Reactive Protein (<1.0) mg/dL Urine Protein (Negative) Diabetes panel 07/14/21 07/14/21 Range/Units 04:00 08:02 Sodium 135 L 136 L (137-145) mmol/L Potassium 6.2 H* 4.4 (3.5-5.1) mmol/L Chloride 116 H 112 H (98-107) mmol/L Carbon Dioxide 11 L 16 L (22-30) mmol/L BUN 57 H 55 H (9-20) mg/dL Creatinine 3.04 H 3.11 H (0.66-1.25) mg/dL Glucose 96 88 (74-99) mg/dL Calcium 7.6 L 7.7 L (8.4-10.2) mg/dL Calcium panel 07/14/21 07/14/21 Range/Units 04:00 08:02 Calcium 7.6 L 7.7 L (8.4-10.2) mg/dL Pituitary panel 07/14/21 07/14/21 Range/Units 04:00 08:02 Sodium 135 L 136 L (137-145) mmol/L Potassium 6.2 H* 4.4 (3.5-5.1) mmol/L Chloride 116 H 112 H (98-107) mmol/L Carbon Dioxide 11 L 16 L (22-30) mmol/L BUN 57 H 55 H (9-20) mg/dL Creatinine 3.04 H 3.11 H (0.66-1.25) mg/dL Glucose 96 88 (74-99) mg/dL Calcium 7.6 L 7.7 L (8.4-10.2) mg/dL Adrenal panel 07/14/21 07/14/21 Range/Units 04:00 08:02 Sodium 135 L 136 L (137-145) mmol/L Potassium 6.2 H* 4.4 (3.5-5.1) mmol/L Chloride 116 H 112 H (98-107) mmol/L Carbon Dioxide 11 L 16 L (22-30) mmol/L BUN 57 H 55 H (9-20) mg/dL Creatinine 3.04 H 3.11 H (0.66-1.25) mg/dL Glucose 96 88 (74-99) mg/dL Calcium 7.6 L 7.7 L (8.4-10.2) mg/dL
[2021-07-14] MEDS: ESCITALOPRAM 5 MG TAB PO SCH (16:01)
--- NOTE | 2021-07-14 16:09 | P.GSCN ---
History of Present Illness Consult date: 07/14/21 History of present illness: Pt is an 89 year old male withPast medical history of coronary artery disease, congestive heart failure, hypertension, hyperlipidemia history of MA, gout and previous abdominal aortic aneurysm repair. He was sent in to the hospital with abnormal labs. Otherwise overall he is admittedly depressed and weak and tired. He states that he had his aneurysm repaired many years ago at the [facility] [place]. He has been seen at the [facility] here and at some point he did a test showing there was no evidence of leaking therefore they were continuing to monitor it. Other details he was not sure of. He states that if he were to be told he needed surgery he likely would not undergo an unless it was emergent and a sure thing to fix all the problems he had Past Medical History Past Medical History: Coronary Artery Disease (CAD), Chest Pain / Angina, Heart Failure, Hyperlipidemia, Hypertension, Myocardial Infarction ([place]) Additional Past Medical History / Comment(s): GOUT, 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 Last Myocardial Infarction Date:: 2009 History of Any Multi-Drug Resistant Organisms: None Reported Past Surgical History: AICD, Heart Catheterization With Stent, Pacemaker Additional Past Surgical History / Comment(s): aaa repair Past Anesthesia/Blood Transfusion Reactions: No Reported Reaction Date of Last Stent Placement:: AROUND 2009 Type of Cardiac Device: AICD Device Placement Date:: AUG 2019 Past Psychological History: No Psychological Hx Reported Smoking Status: Former smoker Past Alcohol Use History: None Reported Past Drug Use History: None Reported - Past Family History Father Family Medical History: Myocardial Infarction ([place]) Medications and Allergies Home Medications Medication Instructions Recorded Confirmed Type Albuterol Sulfate [Proair Hfa] 2 puff INHALATION RT-QID 11/09/19 07/13/21 History Dorzolamide-Timol 2.23%/0.68% 1 drop BOTH EYES BID 11/09/19 07/13/21 History [Cosopt] Levothyroxine Sodium [Synthroid] 150 mcg PO DAILY 11/09/19 07/13/21 History Nitroglycerin Sl Tabs [Nitrostat] 0.4 mg SUBLINGUAL Q5M PRN 11/09/19 07/13/21 History allopurinoL [Zyloprim] 100 mg PO DAILY 11/09/19 07/13/21 History carvediloL [Coreg] 6.25 mg PO BID 11/09/19 07/13/21 History Lidocaine 5% Patch [Lidoderm 5% 1 patch TOPICAL DAILY PRN #20 patch 11/29/19 07/13/21 Rx Patch] Pantoprazole Sodium [Protonix] 40 mg PO BID #50 tablet.dr 11/29/19 07/13/21 Rx Aspirin EC [Ecotrin] 325 mg PO DAILY 07/13/21 07/13/21 History Furosemide [Lasix] 20 mg PO AC-BID 07/13/21 07/13/21 History Ipratropium-Albuterol Nebulize 3 ml INHALATION RT-TID PRN 07/13/21 07/13/21 History [Duoneb 0.5 mg-3 mg/3 ml Soln] Lactose-Reduced Food [Ensure Plus] 1 can PO BID 07/13/21 07/13/21 History Multivit-Min/FA/Lycopen/Lutein 1 tab PO DAILY 07/13/21 07/13/21 History [Centrum Silver Men Tablet] Allergies Allergy/AdvReac Type Severity Reaction Status Date / Time glipizide AdvReac DROP SUGAR Verified 07/13/21 14:21 TOO LOW Surgical - Exam Vital Signs Temp Pulse Resp BP Pulse Ox 97.9 F 60 18 124/62 100 07/13/21 12:51 07/13/21 12:51 07/13/21 12:51 07/13/21 12:51 07/13/21 12:51 - General no distress, no pain - Eyes PERRL - ENT normal pinna, normal nares - Neck no masses - Respiratory normal expansion - Cardiovascular Rhythm: regular - Abdomen Abdomen: soft, non tender, masses (Pulsatile) - Integumentary no rash - Psychiatric oriented to time, oriented to person, oriented to place Results Noncontrasted computed tomography scan is reviewed. Slight enlargement of the abdominal aortic aneurysm from previous imaging - Labs 07/14/21 02:56 07/14/21 08:02 Abnormal Lab Results - Last 24 Hours (Table) 07/13/21 07/13/21 07/13/21 Range/Units 14:37 19:20 19:20 RBC (4.30-5.90) m/uL Hgb (13.0-17.5) gm/dL Hct (39.0-53.0) % MCV (80.0-100.0) fL MCH (25.0-35.0) pg RDW (11.5-15.5) % Plt Count (150-450) k/uL Macrocytosis ESR 20 H (0-15) mm/hr D-Dimer 8.15 H (<0.60) mg/L FEU Sodium (137-145) mmol/L Potassium 5.2 H (3.5-5.1) mmol/L Chloride 114 H (98-107) mmol/L Carbon Dioxide 14 L (22-30) mmol/L BUN 56 H (9-20) mg/dL Creatinine 2.90 H (0.66-1.25) mg/dL Glucose 111 H (74-99) mg/dL Calcium 7.9 L (8.4-10.2) mg/dL Total Bilirubin 2.1 H (0.2-1.3) mg/dL AST 99 H (17-59) U/L ALT 55 H (4-49) U/L Alkaline Phosphatase 199 H (38-126) U/L C-Reactive Protein (<1.0) mg/dL Total Protein 6.2 L (6.3-8.2) g/dL Albumin 2.9 L (3.5-5.0) g/dL TSH >100.000 H (0.465-4.680) mIU/L Free T4 0.46 L (0.78-2.19) ng/dL Urine Protein (Negative) 07/13/21 07/14/21 07/14/21 Range/Units 19:20 02:56 04:00 RBC 2.49 L (4.30-5.90) m/uL Hgb 9.3 L (13.0-17.5) gm/dL Hct 28.4 L (39.0-53.0) % MCV 114.1 H (80.0-100.0) fL MCH 37.2 H (25.0-35.0) pg RDW 16.2 H (11.5-15.5) % Plt Count 50 L (150-450) k/uL Macrocytosis Marked A ESR (0-15) mm/hr D-Dimer (<0.60) mg/L FEU Sodium (137-145) mmol/L Potassium (3.5-5.1) mmol/L Chloride (98-107) mmol/L Carbon Dioxide (22-30) mmol/L BUN (9-20) mg/dL Creatinine (0.66-1.25) mg/dL Glucose (74-99) mg/dL Calcium (8.4-10.2) mg/dL Total Bilirubin (0.2-1.3) mg/dL AST (17-59) U/L ALT (4-49) U/L Alkaline Phosphatase (38-126) U/L C-Reactive Protein 4.9 H (<1.0) mg/dL Total Protein (6.3-8.2) g/dL Albumin (3.5-5.0) g/dL TSH (0.465-4.680) mIU/L Free T4 (0.78-2.19) ng/dL Urine Protein Trace H (Negative) 07/14/21 07/14/21 Range/Units 04:00 08:02 RBC (4.30-5.90) m/uL Hgb (13.0-17.5) gm/dL Hct (39.0-53.0) % MCV (80.0-100.0) fL MCH (25.0-35.0) pg RDW (11.5-15.5) % Plt Count (150-450) k/uL Macrocytosis ESR (0-15) mm/hr D-Dimer (<0.60) mg/L FEU Sodium 135 L 136 L (137-145) mmol/L Potassium 6.2 H* (3.5-5.1) mmol/L Chloride 116 H 112 H (98-107) mmol/L Carbon Dioxide 11 L 16 L (22-30) mmol/L BUN 57 H 55 H (9-20) mg/dL Creatinine 3.04 H 3.11 H (0.66-1.25) mg/dL Glucose (74-99) mg/dL Calcium 7.6 L 7.7 L (8.4-10.2) mg/dL Total Bilirubin (0.2-1.3) mg/dL AST (17-59) U/L ALT (4-49) U/L Alkaline Phosphatase (38-126) U/L C-Reactive Protein (<1.0) mg/dL Total Protein (6.3-8.2) g/dL Albumin (3.5-5.0) g/dL TSH (0.465-4.680) mIU/L Free T4 (0.78-2.19) ng/dL Urine Protein (Negative) Diabetes panel 07/13/21 07/14/21 07/14/21 Range/Units 14:37 04:00 08:02 Sodium 137 135 L 136 L (137-145) mmol/L Potassium 5.2 H 6.2 H* 4.4 (3.5-5.1) mmol/L Chloride 114 H 116 H 112 H (98-107) mmol/L Carbon Dioxide 14 L 11 L 16 L (22-30) mmol/L BUN 56 H 57 H 55 H (9-20) mg/dL Creatinine 2.90 H 3.04 H 3.11 H (0.66-1.25) mg/dL Glucose 111 H 96 88 (74-99) mg/dL Calcium 7.9 L 7.6 L 7.7 L (8.4-10.2) mg/dL AST 99 H (17-59) U/L ALT 55 H (4-49) U/L Alkaline Phosphatase 199 H (38-126) U/L Total Protein 6.2 L (6.3-8.2) g/dL Albumin 2.9 L (3.5-5.0) g/dL Thyroid panel 07/13/21 Range/Units 14:37 TSH >100.000 H (0.465-4.680) mIU/L Calcium panel 07/13/21 07/14/21 07/14/21 Range/Units 14:37 04:00 08:02 Calcium 7.9 L 7.6 L 7.7 L (8.4-10.2) mg/dL Albumin 2.9 L (3.5-5.0) g/dL Pituitary panel 07/13/21 07/14/21 07/14/21 Range/Units 14:37 04:00 08:02 Sodium 137 135 L 136 L (137-145) mmol/L Potassium 5.2 H 6.2 H* 4.4 (3.5-5.1) mmol/L Chloride 114 H 116 H 112 H (98-107) mmol/L Carbon Dioxide 14 L 11 L 16 L (22-30) mmol/L BUN 56 H 57 H 55 H (9-20) mg/dL Creatinine 2.90 H 3.04 H 3.11 H (0.66-1.25) mg/dL Glucose 111 H 96 88 (74-99) mg/dL Calcium 7.9 L 7.6 L 7.7 L (8.4-10.2) mg/dL TSH >100.000 H (0.465-4.680) mIU/L Adrenal panel 07/13/21 07/14/21 07/14/21 Range/Units 14:37 04:00 08:02 Sodium 137 135 L 136 L (137-145) mmol/L Potassium 5.2 H 6.2 H* 4.4 (3.5-5.1) mmol/L Chloride 114 H 116 H 112 H (98-107) mmol/L Carbon Dioxide 14 L 11 L 16 L (22-30) mmol/L BUN 56 H 57 H 55 H (9-20) mg/dL Creatinine 2.90 H 3.04 H 3.11 H (0.66-1.25) mg/dL Glucose 111 H 96 88 (74-99) mg/dL Calcium 7.9 L 7.6 L 7.7 L (8.4-10.2) mg/dL Total Bilirubin 2.1 H (0.2-1.3) mg/dL AST 99 H (17-59) U/L ALT 55 H (4-49) U/L Alkaline Phosphatase 199 H (38-126) U/L Total Protein 6.2 L (6.3-8.2) g/dL Albumin 2.9 L (3.5-5.0) g/dL Assessment and Plan Assessment: Abdominal aortic aneurysm status post endovascular repair with enlargement on imaging Plan: [facility] to fully evaluate for an endoleak the patient would need a CT angiogram. At this time his renal function remains elevated, await further improvement versus no intervention and no fu rther evaluation and investigation if the patient decides he does not want anything else done at this time
--- NOTE | 2021-07-14 16:22 | P.CNPUL ---
History of Present Illness Consult date: 07/14/21 Requesting physician: Elizabeth Marinelli Reason for consult: dyspnea Chief complaint: Generalized weakness, fatigue, shortness of breath History of present illness: This a 89-year-old gentleman who follows with the [facility] for his primary care needs. He has a history of hypothyroidism, hypertension, coronary artery disease with previous stent placement, ischemic cardiomyopathy status post AICD placement, hyperlipidemia. He presented to the emergency room yesterday with complaints of generalized weakness, fatigue. He was notified by the [facility] that his thyroid and potassium levels were abnormal and he presented for the same. Chest x-ray did reveal cardial megaly with small bilateral i nfiltrates and effusion. Computed tomography scan of the chest abdomen and pelvis revealed an enlarging AAA up to 6.7 cm raising concern for new endo-leak. Evidence of underlying old granulomatous disease. 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 Small amount of intraperitoneal ascites. Mild to moderate intrahepatic and extrahepatic biliary dilatation. Small bilateral effusions right greater than left. We are consulted for the same. He is seen in consultation on the observation unit. He is resting flat in bed. Awake and alert in no acute distress. No shortness of breath, cough or congestion. Maintaining O2 saturations in the 90s on room air. VQ scan revealed low probability for acute pulmonary embolism. White count 5.2. Hemoglobin 9.6. Platelet count 50,000. D-dimer 8.15. Sodium 136. Potassium corrected to 4.4. Chloride 112. Bicarb 16. Creatinine 3.11. He's been initiated on ceftriaxone and azithromycin along with DuoNeb inhalations, bicarb drip at 75 ML's per hour. Oral diuretics. Heparin for DVT prophylaxis. Review of Systems REVIEW OF SYSTEMS: CONSTITUTIONAL: Generalized weakness, fatigue. Denies any recent significant weight loss or weight gain. EYES: Denies change in vision. EARS, NOSE, MOUTH, THROAT: Denies headaches, denies sore throat. CARDIOVASCULAR: Denies chest pain, palpitations or syncopal episodes. RESPIRATORY: Positive for shortness of breath, no cough, congestion or hemoptysis. GASTROINTESTINAL: Denies change in appetite, denies abdominal pain GENITOURINARY: Denies hematuria, denies infections. MUSKULOSKELETAL: Denies pain, denies swelling. INTEGUMENTARY: Psoriasis of the scalp. NEUROLOGICAL: Denies recent memory loss, no recent seizure activity. PSYCHIATRIC: Denies anxiety, denies depression. HEMATOLOGIC/LYMPHATIC: Denies anemia, denies enlarged lymph nodes. Past Medical History Past Medical History: Coronary Artery Disease (CAD), Chest Pain / Angina, Heart Failure, Hyperlipidemia, Hypertension, Myocardial Infarction (SC) Additional Past Medical History / Comment(s): GOUT, 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 Last Myocardial Infarction Date:: 2009 History of Any Multi-Drug Resistant Organisms: None Reported Past Surgical History: AICD, Heart Catheterization With Stent, Pacemaker Additional Past Surgical History / Comment(s): aaa repair Past Anesthesia/Blood Transfusion Reactions: No Reported Reaction Date of Last Stent Placement:: AROUND 2009 Type of Cardiac Device: AICD Device Placement Date:: AUG 2019 Past Psychological History: No Psychological Hx Reported Smoking Status: Former smoker Past Alcohol Use History: None Reported Past Drug Use History: None Reported - Past Family History Father Family Medical History: Myocardial Infarction (SC) Medications and Allergies Home Medications Medication Instructions Recorded Confirmed Type Albuterol Sulfate [Proair Hfa] 2 puff INHALATION RT-QID 11/09/19 07/13/21 History Dorzolamide-Timol 2.23%/0.68% 1 drop BOTH EYES BID 11/09/19 07/13/21 History [Cosopt] Levothyroxine Sodium [Synthroid] 150 mcg PO DAILY 11/09/19 07/13/21 History Nitroglycerin Sl Tabs [Nitrostat] 0.4 mg SUBLINGUAL Q5M PRN 11/09/19 07/13/21 History allopurinoL [Zyloprim] 100 mg PO DAILY 11/09/19 07/13/21 History carvediloL [Coreg] 6.25 mg PO BID 11/09/19 07/13/21 History Lidocaine 5% Patch [Lidoderm 5% 1 patch TOPICAL DAILY PRN #20 patch 11/29/19 07/13/21 Rx Patch] Pantoprazole Sodium [Protonix] 40 mg PO BID #50 tablet.dr 11/29/19 07/13/21 Rx Aspirin EC [Ecotrin] 325 mg PO DAILY 07/13/21 07/13/21 History Furosemide [Lasix] 20 mg PO AC-BID 07/13/21 07/13/21 History Ipratropium-Albuterol Nebulize 3 ml INHALATION RT-TID PRN 07/13/21 07/13/21 History [Duoneb 0.5 mg-3 mg/3 ml Soln] Lactose-Reduced Food [Ensure Plus] 1 can PO BID 07/13/21 07/13/21 History Multivit-Min/FA/Lycopen/Lutein 1 tab PO DAILY 07/13/21 07/13/21 History [Centrum Silver Men Tablet] Allergies Allergy/AdvReac Type Severity Reaction Status Date / Time glipizide AdvReac DROP SUGAR Verified 07/13/21 14:21 TOO LOW Physical Exam Vitals: Vital Signs Temp Pulse Pulse Resp BP BP Pulse Ox 07/14/21 12:01 55 L 07/14/21 11:48 57 L 07/14/21 08:01 50 L 07/14/21 08:00 53 L 16 127/54 100 07/14/21 07:48 51 L 07/14/21 02:04 98.2 F 51 L 16 128/61 100 07/13/21 22:24 98 F 64 17 123/67 99 07/13/21 20:20 16 07/13/21 17:57 56 L 18 136/74 97 Intake and Output 07/14/21 07/14/21 07/14/21 06:59 14:59 22:59 Intake Total 600 Balance 600 Intake: Intake, IV Titration 600 Amount Sodium Chloride 0.9% 1, 600 000 ml @ 50 mls/hr IV . Q20H [facility] Rx#:[id number] Other: Weight 83.915 kg GENERAL EXAM: Alert, very pleasant 89-year-old gentleman, on room air, comfortable in no apparent distress. HEAD: Normocephalic. Evidence of possible psoriasis of the scalp EYES: Normal reaction of pupils, equal size. NOSE: Clear with pink turbinates. THROAT: No erythema or exudates. NECK: No masses, no JVD. CHEST: No chest wall deformity. LUNGS: Equal air entry with faint crackles in the posterior bases. CVS: S1 and S2 normal with no audible murmur, regular rhythm. ABDOMEN: No hepatosplenomegaly, normal bowel sounds, no guarding or rigidity. SPINE: No scoliosis or deformity SKIN: No rashes CENTRAL NERVOUS SYSTEM: No focal deficits, tone is normal in all 4 extremities. EXTREMITIES: There is no peripheral edema. No clubbing, no cyanosis. Peripheral pulses are intact. Results - Laboratory Findings CBC and BMP: 07/14/21 02:56 07/14/21 08:02 PT/INR, D-dimer D-Dimer 8.15 mg/L FEU (<0.60) H 07/13/21 19:20 Abnormal lab findings: Abnormal Labs 07/13/21 07/13/21 07/13/21 13:34 14:37 19:20 RBC 2.70 L Hgb 10.0 L Hct 30.7 L MCV 113.9 H MCH 37.2 H RDW 15.9 H Plt Count 67 L Macrocytosis Marked A ESR 20 H D-Dimer Sodium Potassium 5.2 H Chloride 114 H Carbon Dioxide 14 L BUN 56 H Creatinine 2.90 H Glucose 111 H Calcium 7.9 L Total Bilirubin 2.1 H AST 99 H ALT 55 H Alkaline Phosphatase 199 H C-Reactive Protein Total Protein 6.2 L Albumin 2.9 L TSH >100.000 H Free T4 0.46 L Urine Protein 07/13/21 07/13/21 07/14/21 19:20 19:20 02:56 RBC 2.49 L Hgb 9.3 L Hct 28.4 L MCV 114.1 H MCH 37.2 H RDW 16.2 H Plt Count 50 L Macrocytosis Marked A ESR D-Dimer 8.15 H Sodium Potassium Chloride Carbon Dioxide BUN Creatinine Glucose Calcium Total Bilirubin AST ALT Alkaline Phosphatase C-Reactive Protein 4.9 H Total Protein Albumin TSH Free T4 Urine Protein 07/14/21 07/14/21 07/14/21 04:00 04:00 08:02 RBC Hgb Hct MCV MCH RDW Plt Count Macrocytosis ESR D-Dimer Sodium 135 L 136 L Potassium 6.2 H* Chloride 116 H 112 H Carbon Dioxide 11 L 16 L BUN 57 H 55 H Creatinine 3.04 H 3.11 H Glucose Calcium 7.6 L 7.7 L Total Bilirubin AST ALT Alkaline Phosphatase C-Reactive Protein Total Protein Albumin TSH Free T4 Urine Protein Trace H - Diagnostic Findings Chest x-ray: image reviewed Assessment and Plan Assessment: 1 Generalized weakness and fatigue possibly related to abnormal lab findings including hyperkalemia and hypothyroidism with a TSH greater than 100 2 History of hypothyroidism had been on Synthroid 150 g daily 3 History of abdominal aortic aneurysm repair, in the health system in [place], abdominal CAT scan today revealed a 6.7 cm with possible endoleak 4 Coronary artery disease with previous stent placement 5 Ischemic cardiomyopathy status post AICD placement 6 History of hypertension. 7 Hyperlipidemia 8 Former smoker with chronic obstructive pulmonary disease maintained on DuoNeb inhalations and pro-air when necessary 9 History of gout 10 Anemia 11 Hyperkalemia, corrected 12 Acute renal failure current creatinine 3.11 Plan: The patient was seen and evaluated Chest x-ray, VQ scan, CAT scans and labs reviewed Stable from the pulmonary standpoint, on room air Continue gentle diuresis for pleural effusions Continue antibiotics for now Check a pro-calcitonin We will continue to follow and make further recommendations based on his clinical status I, the cosigning physician, performed a history & physical examination of the patient. Lungs sounds with faint crackles in the bilateral bases. Maintaining good O2 saturations in the 90s on room air. I discussed the assessment and plan of care with my nurse practitioner, Terri Bauer. I attest to the above consultation as dictated by her. Time with Patient: Greater than 30
--- NOTE | 2021-07-14 18:05 | CONS ---
CONSULTATION REASON FOR CONSULTATION: Renal failure. HISTORY OF PRESENT ILLNESS: Patient is an 89-year-old male who was admitted to the hospital yesterday with complaints of weakness. He also had labs done as outpatient which showed hyperkalemia, and therefore patient was advised admission. Patient states that he has been informed by the [facility] that his renal function has been deteriorating over the last year or so. He has not seen a white goods appliance tech. Serum creatinine on review of previous labs shows that it has been mostly about 2.3 mg/dL. On admission it was 2.9 and today it is 3.1. Patient is also significantly acidotic with CO2 of 11. Potassium was 6.2, now down to 4.4. Patient states he has been voiding. He had a CT of the abdomen which shows no evidence of hydronephrosis. He has a large abdominal aortic aneurysm. Review of his home medications does not show any nonsteroidal anti-inflammatory agents or ROMA inhibitors. Blood pressure has been borderline with systolic in the 120s. PAST MEDICAL HISTORY: Significant for coronary artery disease, history of CHF, hypertension, hyperlipidemia, history of NV, gout. MEDICATIONS: Medications prior to admission: Protonix, Nitrostat, multivitamins, Zyloprim, Synthroid, Lasix, Ensure, Ecotrin, Coreg, ProAir, Cosopt. ALLERGIES: GLIPIZIDE. SOCIAL HISTORY: Positive for previous history of smoking. No history of drug abuse or alcohol abuse. REVIEW OF SYSTEMS: As per HPI. Other systems negative. PHYSICAL EXAMINATION: On examination today, blood pressure 127/54, heart rate 50 per minute. Patient is afebrile. EXAMINATION OF THE HEART: S1 and S2. EXAMINATION OF LUNGS: Bilateral breath sounds are heard. Abdomen is soft, non-tender. Examination of lower extremities shows no significant edema. CABLE HOOKER EXAM: Grossly intact. LABS: Sodium 136, potassium 4.4, chloride 112, CO2 is 16, BUN 55, creatinine 3.1. ASSESSMENT: 1. Chronic kidney disease, stage 4, secondary to nephrosclerosis. Previous creatinine 2.2 to 2.3 mg/dL. UA is quite benign. 2. Acute kidney injury, most likely prerenal. Will add IV fluids. No evidence of obstruction noted on CT scan and UA is quite benign. We will still check the post- void residual. 3. Severe metabolic acidosis associated with renal failure. No evidence of diarrhea. Will start IV bicarb. 4. Hyperkalemia associated with acute kidney injury, severe metabolic acidosis, currently improved. 5. Large aortic aneurysm. 6. Congestive heart failure, ejection fraction 20% to 25%, with moderately dilated left atrium. 7. Severe pulmonary hypertension. PLAN: Add IV bicarb. Encourage increased oral intake. Repeat labs in a.m. Check postvoid residual. Thank you for this consultation. Will continue to follow the patient with you during his hospitalization. He will need outpatient followup for CKD. MMODL / IJN: [id number] /
--- NOTE | 2021-07-15 02:08 | P.PN ---
Subjective Progress Note Date: 07/14/21 This is a 89-year-old male who was recently admitted with acute renal failure, hyperkalemia, and overall weakness and is being closely monitored. Multiple medical consultations following including nephrology and pulmonary. General surgery and vascular surgery consulted as well. Patient is continued on zi thromax and ceftriaxone and appropriate home medications have been ordered. Will have PT/OT evaluate the patient. Patient denies any shortness of breath, chest pain, or palpitations. Potassium was elevated at 6.2 today and being corrected. Will monitor closely and repeat BMP ordered. Patient continues on sodium bicarb drip. Labs: WBC is 5.2, hemoglobin is 9.3, platelets are 50, sodium is 135, potassium 6.2, BUN 57, creatinine 3.04, calcium 7.6 Review of systems: Constitutional: reports of fatigue, no reports of fever, or chills Cardiovascular: No reports of chest pain or palpitations Respiratory: No reports of shortness of breath, reports cough GI: No reports of nausea, vomiting, or diarrhea : No reports of dysuria or retention Neurovascular: reports of weakness All medications have been reviewed Active Medications Albuterol/Ipratropium (Ipratropium-Albuterol 3 Ml Neb) 3 ml INHALATION RT-TID PRN PRN Reason: Shortness Of Breath Albuterol/Ipratropium (Ipratropium-Albuterol 3 Ml Neb) 3 ml INHALATION RT-TID [facility] Last Admin: 07/14/21 11:47 Dose: 3 ml Documented by: Allopurinol (Allopurinol 100 Mg Tab) 100 mg PO DAILY [facility] Last Admin: 07/14/21 11:10 Dose: 100 mg Documented by: Aspirin (Aspirin 325 Mg Tab) 325 mg PO DAILY [facility] Last Admin: 07/14/21 11:11 Dose: 325 mg Documented by: Azithromycin (Azithromycin 250 Mg Tab) 250 mg PO DAILY [facility] Last Admin: 07/14/21 12:15 Dose: 250 mg Documented by: Carvedilol (Carvedilol 6.25 Mg Tab) 6.25 mg PO BID-W/MEALS [facility] Last Admin: 07/14/21 11:10 Dose: 6.25 mg Documented by: Dorzolamide/Timolol (Dorzolamide-Timolol 2.23%/0.68 10ml Btl) 1 drops BOTH EYES BID [facility] Last Admin: 07/14/21 11:14 Dose: Not Given Documented by: Escitalopram Oxalate (Escitalopram 5 Mg Tab) 5 mg PO DAILY [facility] Furosemide (Furosemide 20 Mg Tab) 20 mg PO AC-BID [facility] Last Admin: 07/14/21 11:10 Dose: 20 mg Documented by: Heparin Sodium (Porcine) (Heparin Sodium,Porcine/Pf 5,000 Unit/0.5 Ml Syringe) 5,000 unit SQ Q12HR [facility] Last Admin: 07/14/21 11:14 Dose: 5,000 unit Documented by: Ceftriaxone Sodium 1 gm/ (Sodium Chloride) 50 mls @ 100 mls/hr IVPB Q24HR [facility] Last Admin: 07/14/21 11:13 Dose: 100 mls/hr Documented by: Sodium Bicarbonate 150 ml/ (Dextrose/Water) 1,150 mls @ 75 mls/hr IV .[id number] [facility] Last Admin: 07/14/21 11:14 Dose: Not Given Documented by: Iopamidol (Iopamidol Contrast (Oral Use) Vial) 30 ml PO Q60M PRN PRN Reason: CT Scan Stop: 07/14/21 17:47 Levothyroxine Sodium (Levothyroxine 75 Mcg Tab) 150 mcg PO 0630 [facility] Last Admin: 07/14/21 06:10 Dose: 150 mcg Documented by: Multivitamins (Multivitamins, Thera 1 Each Tab) 1 each PO DAILY [facility] Last Admin: 07/14/21 11:10 Dose: 1 each Documented by: Nitroglycerin (Nitroglycerin Sl Tabs 0.4 Mg Tab) 0.4 mg SUBLINGUAL Q5M PRN PRN Reason: Chest Pain Pantoprazole Sodium (Pantoprazole 40 Mg Tablet) 40 mg PO BID [facility] Last Admin: 07/14/21 11:11 Dose: 40 mg Documented by: Physical Exam: Gen: This is a 89-year-old male who is awake, alert and oriented 3, well- developed, well-nourished. Temp is 98.2 F, pulse is 51, respirations are 16, blood pressure is 127/54, oxygen saturation is 100% on room air HEENT: Head is atraumatic, normocephalic. Pupils equal, round. Sclerae is anicteric. NECK: Supple. No JVD. No lymphadenopathy. No thyromegaly. LUNGS: Diminished breath sounds bilaterally with some scattered rhonchi and crackles noted. No intercostal retractions. HEART: S1, S2 are muffled ABDOMEN: Soft. Bowel sounds are present. No masses. No tenderness. EXTREMITIES: No pedal edema. No calf tenderness. NEUROLOGICAL: Patient is awake, alert and oriented x3. Cranial nerves 2 through 12 are grossly intact. Assessment: Possible acute Bilateral lower lobe pneumonia, right more than left, with possible gram-negative pneumonia. Rule out aspiration pneumonia or COVID-19 pneumonia Severe dehydration and acute on chronic renal failure with acute tubular necrosis and prerenal renal failure Chronic kidney disease, stage three baseline, possibly Hyperkalemia Anemia, macrocytic Metabolic acidosis Severe hypothyroidism Thrombocytopenia Elevated bilirubin and AST, ALT, possibly hepatitis of undetermined ideology History of coronary artery disease,stents Hypoalbuminemia with mild protein calorie malnutrition History of coronary artery disease History of myocardial infarction History of gout History of AICD History of congestive heart failure Hypertension Hyperlipidemia Gait dysfunction Depression Remote history of nicotine dependence Full code Plan: Recommend to continue with current medications and management. Nephrology and pulmonary following. Consult placed to surgery and vascular surgery for findings of AAA with possible endoleak. Patient continued on zithromax and ceftriaxone along with breathing treatments and will continue. Repeat am labs. Nephrology following closely and patient continues on sodium bicarb drip. Encourages oral intake and increased activity as tolerated. PT/OT to evaluate the patient. Due to multiple complex medical issues, prognosis is guarded. Further recommendations to follow based on the clinical course of the patient. Objective - Vital Signs Vital signs: Vital Signs Temp 98.2 F 07/14/21 02:04 Pulse 55 L 07/14/21 12:01 Resp 16 07/14/21 08:00 BP 127/54 07/14/21 08:00 Pulse Ox 100 07/14/21 08:00 Intake & Output 07/13/21 07/14/21 07/14/21 18:59 06:59 18:59 Intake Total 600 Balance 600 Weight 83.915 kg 83.915 kg Intake: Intake, IV Titration 600 Amount Sodium Chloride 0.9% 1, 600 000 ml @ 50 mls/hr IV . Q20H [facility] Rx#:[id number] Other: Voiding Method Urinal - Labs CBC & Chem 7: 07/14/21 02:56 07/14/21 08:02 Labs: Abnormal Lab Results - Last 24 Hours (Table) 07/13/21 07/13/21 07/13/21 Range/Units 13:34 14:37 19:20 RBC (4.30-5.90) m/uL Hgb (13.0-17.5) gm/dL Hct (39.0-53.0) % MCV (80.0-100.0) fL MCH (25.0-35.0) pg RDW (11.5-15.5) % Plt Count 67 L (150-450) k/uL Macrocytosis ESR 20 H (0-15) mm/hr D-Dimer (<0.60) mg/L FEU Sodium (137-145) mmol/L Potassium 5.2 H (3.5-5.1) mmol/L Chloride 114 H (98-107) mmol/L Carbon Dioxide 14 L (22-30) mmol/L BUN 56 H (9-20) mg/dL Creatinine 2.90 H (0.66-1.25) mg/dL Glucose 111 H (74-99) mg/dL Calcium 7.9 L (8.4-10.2) mg/dL Total Bilirubin 2.1 H (0.2-1.3) mg/dL AST 99 H (17-59) U/L ALT 55 H (4-49) U/L Alkaline Phosphatase 199 H (38-126) U/L C-Reactive Protein (<1.0) mg/dL Total Protein 6.2 L (6.3-8.2) g/dL Albumin 2.9 L (3.5-5.0) g/dL TSH >100.000 H (0.465-4.680) mIU/L Free T4 0.46 L (0.78-2.19) ng/dL Urine Protein (Negative) 07/13/21 07/13/21 07/14/21 Range/Units 19:20 19:20 02:56 RBC 2.49 L (4.30-5.90) m/uL Hgb 9.3 L (13.0-17.5) gm/dL Hct 28.4 L (39.0-53.0) % MCV 114.1 H (80.0-100.0) fL MCH 37.2 H (25.0-35.0) pg RDW 16.2 H (11.5-15.5) % Plt Count 50 L (150-450) k/uL Macrocytosis Marked A ESR (0-15) mm/hr D-Dimer 8.15 H (<0.60) mg/L FEU Sodium (137-145) mmol/L Potassium (3.5-5.1) mmol/L Chloride (98-107) mmol/L Carbon Dioxide (22-30) mmol/L BUN (9-20) mg/dL Creatinine (0.66-1.25) mg/dL Glucose (74-99) mg/dL Calcium (8.4-10.2) mg/dL Total Bilirubin (0.2-1.3) mg/dL AST (17-59) U/L ALT (4-49) U/L Alkaline Phosphatase (38-126) U/L C-Reactive Protein 4.9 H (<1.0) mg/dL Total Protein (6.3-8.2) g/dL Albumin (3.5-5.0) g/dL TSH (0.465-4.680) mIU/L Free T4 (0.78-2.19) ng/dL Urine Protein (Negative) 07/14/21 07/14/21 07/14/21 Range/Units 04:00 04:00 08:02 RBC (4.30-5.90) m/uL Hgb (13.0-17.5) gm/dL Hct (39.0-53.0) % MCV (80.0-100.0) fL MCH (25.0-35.0) pg RDW (11.5-15.5) % Plt Count (150-450) k/uL Macrocytosis ESR (0-15) mm/hr D-Dimer (<0.60) mg/L FEU Sodium 135 L 136 L (137-145) mmol/L Potassium 6.2 H* (3.5-5.1) mmol/L Chloride 116 H 112 H (98-107) mmol/L Carbon Dioxide 11 L 16 L (22-30) mmol/L BUN 57 H 55 H (9-20) mg/dL Creatinine 3.04 H 3.11 H (0.66-1.25) mg/dL Glucose (74-99) mg/dL Calcium 7.6 L 7.7 L (8.4-10.2) mg/dL Total Bilirubin (0.2-1.3) mg/dL AST (17-59) U/L ALT (4-49) U/L Alkaline Phosphatase (38-126) U/L C-Reactive Protein (<1.0) mg/dL Total Protein (6.3-8.2) g/dL Albumin (3.5-5.0) g/dL TSH (0.465-4.680) mIU/L Free T4 (0.78-2.19) ng/dL Urine Protein Trace H (Negative)
[2021-07-15 05:35] LABS: Anisocytosis Slight; Basophils # (A) 0.1 k/uL (0-0.2); Basophils % (A) 1 %; Eosinophils # (A) 0.2 k/uL (0-0.7); Eosinophils % (A) 6 %; HCT 28.2 % (39.0-53.0); HGB 9.2 gm/dL (13.0-17.5); Hypochromasia Slight; Lymphocytes # (A) 0.8 k/uL (1.0-4.8); Lymphocytes % (A) 22 %; MCH 37.4 pg (25.0-35.0); MCHC 32.8 g/dL (31.0-37.0); MCV 114.1 fL (80.0-100.0); Macrocytosis Marked; Mean Platelet Volume 10.2; Monocytes # (A) 0.2 k/uL (0-1.0); Monocytes % (A) 5 %; Neutrophils # (A) 2.4 k/uL (1.3-7.7); Neutrophils % (A) 64 %; Platelet Count 60 k/uL (150-450); RBC 2.47 m/uL (4.30-5.90); RDW 16.1 % (11.5-15.5); WBC 3.8 k/uL (3.8-10.6)
[2021-07-15 05:42] LABS: Albumin 2.7 g/dL (3.5-5.0); Calcium 7.7 mg/dL (8.4-10.2); Potassium 4.8 mmol/L (3.5-5.1); Total Bilirubin 1.5 mg/dL (0.2-1.3); Total Protein 5.8 g/dL (6.3-8.2)
[2021-07-15] MEDS: LEVOTHYROXINE 75 MCG TAB PO SCH (05:52)
[2021-07-15] MEDS: FUROSEMIDE 20 MG TAB PO SCH (08:44)
[2021-07-15] MEDS: PANTOPRAZOLE 40 MG TABLET PO SCH ×2 (08:44→20:38)
[2021-07-15] MEDS: AZITHROMYCIN 250 MG TAB PO SCH (08:44)
[2021-07-15] MEDS: allopurinoL 100 MG TAB PO SCH (08:44)
[2021-07-15] MEDS: carvediloL 6.25 MG TAB PO SCH ×2 (08:44→17:31)
[2021-07-15] MEDS: MULTIVITAMINS, THERA 1 EACH TAB PO SCH (08:44)
[2021-07-15] MEDS: ASPIRIN 325 MG TAB PO SCH (08:44)
[2021-07-15] MEDS: ESCITALOPRAM 5 MG TAB PO SCH (08:45)
[2021-07-15] MEDS: HEPARIN SODIUM,PORCINE/PF 5,000 UNIT/0.5 ML SYRINGE SQ SCH ×2 (08:45→20:37)
[2021-07-15] MEDS: DORZOLAMIDE-TIMOLOL 2.23%/0.68 10ML BTL BOTH EYES SCH ×2 (08:45→20:37)
[2021-07-15] MEDS: IPRATROPIUM-ALBUTEROL 3 ML NEB INHALATION SCH ×3 (09:21→20:12)
--- NOTE | 2021-07-15 11:52 | P.PN ---
Subjective Progress Note Date: 07/15/21 HISTORY OF PRESENT ILLNESS: Patient examined this morning at the bedside. He denies chest pain or pressure. Denies SOB. Echocardiogram completed reveals ejection fraction 20-25%, mild aortic regurgitation, moderate aortic stenosis, trace to mild mitral regurgitation, moderate tricuspid regurgitation, and severe pulmonary hypertension. VQ scan reveals low probability for PE. Potassium 4.8. Creatinine stable at 3.04. PHYSICAL EXAM: VITAL SIGNS: Reviewed. GENERAL: Well-developed in no acute distress. NECK: Supple. No JVD or thyromegaly LUNGS: Respirations even and unlabored. Lungs diminished with scattered rhonchi. HEART: Regular rate and rhythm. S1 and S2 heard. Systolic murmur. EXTREMITIES: Normal range of motion. No clubbing or cyanosis. Peripheral pulses intact. Trace bilateral lower extremity edema ASSESSMENT: Generalized weakness and fatigue Hypothyroidism with TSH greater than 100 Acute on chronic systolic and address of heart failure Coronary artery disease with previous PCI Ischemic cardiomyopathy with previous AICD implantation Hyperkalemia Anemia Chronic kidney disease History of abdominal aortic aneurysm repair COPD Former nicotine dependence PLAN: Continue current cardiac medications Continue telemetry monitoring Further recommendations pending patient course Nurse practitioner note has been reviewed by physician. Signing provider agrees with the documented findings, assessment, and plan of care. Objective - Vital Signs Vital signs: Vital Signs Temp 97.8 F 07/15/21 09:10 Pulse 54 L 07/15/21 09:30 Resp 16 07/15/21 09:10 BP 133/71 07/15/21 09:10 Pulse Ox 98 07/15/21 09:10 Intake & Output 07/14/21 07/15/21 07/15/21 18:59 06:59 18:59 Intake Total 900 Output Total 700 Balance 200 Weight 83.915 kg Intake: Intake, IV Titration 900 Amount Dextrose 5% in Water 1, 900 000 ml @ 75 mls/hr IV . [id number] [facility] with Sodium Bicarb (1 Meq/ml) 150 ml Rx#:[id number] Output: Urine 700 Other: Voiding Method Urinal Urinal - Labs CBC & Chem 7: 07/15/21 04:59 07/15/21 04:59 Labs: Abnormal Lab Results - Last 24 Hours (Table) 07/15/21 07/15/21 Range/Units 04:59 04:59 RBC 2.47 L (4.30-5.90) m/uL Hgb 9.2 L (13.0-17.5) gm/dL Hct 28.2 L (39.0-53.0) % MCV 114.1 H (80.0-100.0) fL MCH 37.4 H (25.0-35.0) pg RDW 16.1 H (11.5-15.5) % Plt Count 60 L (150-450) k/uL Lymphocytes # 0.8 L (1.0-4.8) k/uL Macrocytosis Marked A Sodium 135 L (137-145) mmol/L Chloride 110 H (98-107) mmol/L Carbon Dioxide 17 L (22-30) mmol/L BUN 52 H (9-20) mg/dL Creatinine 3.04 H (0.66-1.25) mg/dL Glucose 117 H (74-99) mg/dL Calcium 7.7 L (8.4-10.2) mg/dL Total Bilirubin 1.5 H (0.2-1.3) mg/dL AST 68 H (17-59) U/L Alkaline Phosphatase 187 H (38-126) U/L Total Protein 5.8 L (6.3-8.2) g/dL Albumin 2.7 L (3.5-5.0) g/dL Microbiology - Last 24 Hours (Table) 07/13/21 15:50 Blood Culture - Preliminary Blood No Growth after 24 hours
--- NOTE | 2021-07-15 14:29 | P.PN ---
Subjective Progress Note Date: 07/15/21 Principal diagnosis: Shortness of breath. This a 89-year-old gentleman who follows with the [facility] for his primary care needs. He has a history of hypothyroidism, hypertension, coronary artery disease with previous stent placement, ischemic cardiomyopathy status post AICD placement, hyperlipidemia. He presented to the emergency room yesterday with complaints of generalized weakness, fatigue. He was notified by the [facility] that his thyroid and potassium levels were abnormal and he presented for the same. Chest x-ray did reveal cardial megaly with small bilateral i nfiltrates and effusion. Computed tomography scan of the chest abdomen and pelvis revealed an enlarging AAA up to 6.7 cm raising concern for new endo-leak. Evidence of underlying old granulomatous disease. 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 Small amount of intraperitoneal ascites. Mild to moderate intrahepatic and extrahepatic biliary dilatation. Small bilateral effusions right greater than left. We are consulted for the same. He is seen in consultation on the observation unit. He is resting flat in bed. Awake and alert in no acute distress. No shortness of breath, cough or congestion. Maintaining O2 saturations in the 90s on room air. VQ scan revealed low probability for acute pulmonary embolism. White count 5.2. Hemoglobin 9.6. Platelet count 50,000. D-dimer 8.15. Sodium 136. Potassium corrected to 4.4. Chloride 112. Bicarb 16. Creatinine 3.11. He's been initiated on ceftriaxone and azithromycin along with DuoNeb inhalations, bicarb drip at 75 ML's per hour. Oral diuretics. Heparin for DVT prophylaxis. Progress note dated 07/15/2021. 89-year-old male, who presented to the emergency department, with complaints of generalized weakness. He has a history of hypothyroidism, hypertension, coronary artery disease, previous stent placement, ischemic cardiomyopathy, status post AICD, and hyperlipidemia. Currently, the patient is not receiving any supplemental oxygen. His saturations are 98%. He's on IV of D5W, with 3 ampules of sodium bicarbonate at 75 mL an hour. His white count is 3.8, hemoglobin 9.2, hematocrit 28.2, and platelet count 60,000. Sodium 135, potassium 4.8, chlorides 110, CO2 17, BUN 52, and creatinine 3.04. He had a ventilation perfusion lung scan was low probability. He is resting comfortably without complaints, and would like to be discharged home. Objective - Vital Signs Vital signs: Vital Signs Temp 97.7 F 07/15/21 13:45 Pulse 50 L 07/15/21 13:45 Resp 16 07/15/21 13:45 BP 129/74 07/15/21 13:45 Pulse Ox 98 07/15/21 13:45 Intake & Output 07/14/21 07/15/21 07/15/21 18:59 06:59 18:59 Intake Total 900 Output Total 700 Balance 200 Weight 83.915 kg Intake: Intake, IV Titration 900 Amount Dextrose 5% in Water 1, 900 000 ml @ 75 mls/hr IV . [id number] SOLEDAD with Sodium Bicarb (1 Meq/ml) 150 ml Rx#:[id number] Output: Urine 700 Other: Voiding Method Urinal Urinal - Exam No acute distress, oriented 3. Currently on room air. Saturations are 98%. HEENT examination is grossly unremarkable. Neck supple. Full range of motion. No adenopathy thyromegaly or neck vein distention. Cardiovascular examination reveals regular rhythm rate. S1-S2 normal. No S3 or S4. A soft systolic murmur is noted. Heart rate 50 bpm. Lungs reveal mostly clear breath sounds. Scattered mild rhonchi and some bibasilar crackles noted. Abdomen soft bowel sounds are heard. No masses or tenderness. Extremities are intact. No cyanosis clubbing or edema. Skin is without rash or lesion. Neurologic examination is brief but nonfocal. - Labs CBC & Chem 7: 07/15/21 04:59 07/15/21 04:59 Labs: Abnormal Lab Results - Last 24 Hours (Table) 07/15/21 07/15/21 Range/Units 04:59 04:59 RBC 2.47 L (4.30-5.90) m/uL Hgb 9.2 L (13.0-17.5) gm/dL Hct 28.2 L (39.0-53.0) % MCV 114.1 H (80.0-100.0) fL MCH 37.4 H (25.0-35.0) pg RDW 16.1 H (11.5-15.5) % Plt Count 60 L (150-450) k/uL Lymphocytes # 0.8 L (1.0-4.8) k/uL Macrocytosis Marked A Sodium 135 L (137-145) mmol/L Chloride 110 H (98-107) mmol/L Carbon Dioxide 17 L (22-30) mmol/L BUN 52 H (9-20) mg/dL Creatinine 3.04 H (0.66-1.25) mg/dL Glucose 117 H (74-99) mg/dL Calcium 7.7 L (8.4-10.2) mg/dL Total Bilirubin 1.5 H (0.2-1.3) mg/dL AST 68 H (17-59) U/L Alkaline Phosphatase 187 H (38-126) U/L Total Protein 5.8 L (6.3-8.2) g/dL Albumin 2.7 L (3.5-5.0) g/dL Microbiology - Last 24 Hours (Table) 07/13/21 15:50 Blood Culture - Preliminary Blood No Growth after 24 hours Assessment and Plan Assessment: 1 Generalized weakness and fatigue possibly related to abnormal lab findings including hyperkalemia and hypothyroidism with a TSH greater than 100. 2 History of hypothyroidism had been on Synthroid 150 g daily. 3 History of abdominal aortic aneurysm repair, in the health system in [place], abdominal CAT scan today revealed a 6.7 cm with possible endoleak. 4 Coronary artery disease with previous stent placement. 5 Ischemic cardiomyopathy status post AICD placement. 6 History of hypertension. 7 Hyperlipidemia. 8 Former smoker with chronic obstructive pulmonary disease maintained on DuoNeb inhalations and pro-air when necessary. 9 History of gout . 10 Anemia. 11 Hyperkalemia, corrected. 12 Acute renal failure current creatinine 3.11. Plan: Plan dated 07/15/2021. The patient is doing much better. He stable for the pulmonary standpoint. He's on room air. Saturations are 98%. The patient would like to be discharged home. I told that was up to the primary service. The perfusion lung scan was l ow probability for pulmonary embolism. The patient remains on an IV dextrose, with 3 ampules of sodium bicarbonate, at 75 mL an hour. Time with Patient: Less than 30
--- NOTE | 2021-07-15 14:54 | PN ---
PROGRESS NOTE Patient is seen for followup for acute kidney injury on top of chronic kidney disease. Patient is currently maintained on IV fluids. His creatinine has not improved much. It is staying around 3 mg/dL. Patient was severely acidotic on admission. Previous creatinine has been 2.2 to 2.3 mg/dL. Patient is voiding. His CT scan of the abdomen did show some degree of left hydronephrosis, and this is apparently chronic. It has not changed as compared to his previous imaging study. I will order an ultrasound of the kidneys as well. O/E Patient is comfortable. Awake aler and oriented x3 Lungs are clear CVS S1 and S2 Abdomen is soft, non tender Extremities show trace edema. [employer] exam is grossly intact. Labs are reviewed. Cr 3.0 mg/dL ASSESSMENT 1. Chronic kidney disease secondary to nephrosclerosis, stage 4. Previous creatinine 2.2 to 2.3 mg/dL. UA is benign. 2. Severe metabolic acidosis associated with renal failure. No evidence of diarrhea, maintained on IV bicarb, currently improving. 3. Hyperkalemia associated with acute kidney injury, severe metabolic acidosis, now improved. 4. Large aortic aneurysm with possible leak, being followed by Vascular Surgery. 5. Congestive heart failure, ejection fraction 20% to 25%, with moderately dilated left atrium and severe pulmonary hypertension. PLAN: Check ultrasound of the kidneys. Check postvoid residual. Continue with the bicarb drip for now. Patient is also on a small dose of p.o. Lasix. I will decrease that to once a day and repeat labs in a.m. MMODL / IJN: [id number] / [facility]
--- NOTE | 2021-07-15 15:08 | P.PN ---
Subjective Progress Note Date: 07/15/21 The patient was seen and examined sitting up in bed. He is without any acute changes. He denies any abdominal pain, pain radiating to his back, chest pain, shortness of breath nausea or vomiting. [facility] [place] [facility] were received at completed in 2013. Again, the patient is stating that he does not want any intervention done. Kidney function is still impaired with a creatinine of 3.04. Objective - Vital Signs Vital signs: Vital Signs Temp 97.8 F 07/15/21 09:10 Pulse 54 L 07/15/21 09:30 Resp 16 07/15/21 09:10 BP 133/71 07/15/21 09:10 Pulse Ox 98 07/15/21 09:10 Intake & Output 07/14/21 07/15/21 07/15/21 18:59 06:59 18:59 Intake Total 900 Output Total 700 Balance 200 Weight 83.915 kg Intake: Intake, IV Titration 900 Amount Dextrose 5% in Water 1, 900 000 ml @ 75 mls/hr IV . [id number] SOLEDAD with Sodium Bicarb (1 Meq/ml) 150 ml Rx#:[id number] Output: Urine 700 Other: Voiding Method Urinal - Exam General appearance: The patient is alert, oriented, in no acute distress. HET: Head is normocephalic and atraumatic. Neck: Supple without lymphadenopathy. Trachea midline. Heart: S1 S2. Regular rate and rhythm. Lungs: Clear to auscultation. Abdomen: Soft, nontender, nondistended. Extremities: Normal skin color and turgor. No cyanosis, rash, ulceration, clubbing, or edema. Neurological: No focal deficits. - Labs CBC & Chem 7: 07/15/21 04:59 07/15/21 04:59 Labs: Abnormal Lab Results - Last 24 Hours (Table) 07/15/21 07/15/21 Range/Units 04:59 04:59 RBC 2.47 L (4.30-5.90) m/uL Hgb 9.2 L (13.0-17.5) gm/dL Hct 28.2 L (39.0-53.0) % MCV 114.1 H (80.0-100.0) fL MCH 37.4 H (25.0-35.0) pg RDW 16.1 H (11.5-15.5) % Plt Count 60 L (150-450) k/uL Lymphocytes # 0.8 L (1.0-4.8) k/uL Macrocytosis Marked A Sodium 135 L (137-145) mmol/L Chloride 110 H (98-107) mmol/L Carbon Dioxide 17 L (22-30) mmol/L BUN 52 H (9-20) mg/dL Creatinine 3.04 H (0.66-1.25) mg/dL Glucose 117 H (74-99) mg/dL Calcium 7.7 L (8.4-10.2) mg/dL Total Bilirubin 1.5 H (0.2-1.3) mg/dL AST 68 H (17-59) U/L Alkaline Phosphatase 187 H (38-126) U/L Total Protein 5.8 L (6.3-8.2) g/dL Albumin 2.7 L (3.5-5.0) g/dL Microbiology - Last 24 Hours (Table) 07/13/21 15:50 Blood Culture - Preliminary Blood No Growth after 24 hours Assessment and Plan Assessment: Abdominal aortic aneurysm status post endovascular repair with enlargement on imaging Plan: [facility] 2014. There is no other imaging that was sent over. However the patient still states that he does not want any further intervention. Moving forward recommendation would be to consider a CT angiogram of the abdomen to further evaluate abdominal aortic aneurysm as well as endoleak. Again patient states he does not want any further surgical intervention even if there were enlarging abdominal aortic aneurysm with endoleak. We did discuss patient may follow-up with us in the office or with the [facility]. Thank you for this consultation, we will sign off at this time. The impression and plan of care has been dictated as directed. I performed a history and examination of this patient, discussed the same with the dictator. I agree with the dictator's note ,documented as a scribe. Any additional findings or plans will be noted.
--- NOTE | 2021-07-15 15:37 | P.PN ---
Subjective Progress Note Date: 07/15/21 CHIEF COMPLAINT: Weakness HISTORY OF PRESENT ILLNESS: Patient is lying in bed comfortably. Denies any ab dominal pain. Reports that he was able to eat some of his food. Denies any abdominal pain after eating. He reports that he is feeling better since admission. Afebrile. WBC 3.8 hemoglobin 9.2 platelets 60 total bilirubin down from 2.1-1.5 LFTs trending downwards. Patient seen by vascular surgical service regarding his abdominal aortic aneurysm PHYSICAL EXAM: VITAL SIGNS: Reviewed. GENERAL: Well-developed in no acute distress. HEENT: No sclera icterus. Extraocular movements grossly intact. Moist buccal mucosa. Head is atraumatic, normocephalic. Large scalp lesion ABDOMEN: Soft. Nondistended. Nontender. NEUROLOGIC: Alert and oriented. Cranial nerves II through XII grossly intact. ASSESSMENT: 1 Unintentional weight loss 2. Chronic cholecystitis 3. Elevated LFTs. 4. Scalp lesion PLAN: -Recommend EGD for further evaluation of unintentional weight loss. Patient refuses EGD at this time -No surgical intervention planned -Continue heart healthy diet -Patient has further [facility] -Continue to observe [employer] note has been reviewed by physician. Signing provider agrees with the documented findings, assessment, and plan of care. Objective - Vital Signs Vital signs: Vital Signs Temp 97.5 F L 07/15/21 14:35 Pulse 60 07/15/21 14:35 Resp 16 07/15/21 14:35 BP 146/79 07/15/21 14:35 Pulse Ox 98 07/15/21 14:35 Intake & Output 07/14/21 07/15/21 07/15/21 18:59 06:59 18:59 Intake Total 900 Output Total 700 Balance 200 Weight 83.915 kg Intake: Intake, IV Titration 900 Amount Dextrose 5% in Water 1, 900 000 ml @ 75 mls/hr IV . [id number] SOLEDAD with Sodium Bicarb (1 Meq/ml) 150 ml Rx#:[id number] Output: Urine 700 Other: Voiding Method Urinal Urinal - Labs CBC & Chem 7: 07/15/21 04:59 07/15/21 04:59 Labs: Abnormal Lab Results - Last 24 Hours (Table) 12/16/21 12/16/21 Range/Units 04:59 04:59 RBC 2.47 L (4.30-5.90) m/uL Hgb 9.2 L (13.0-17.5) gm/dL Hct 28.2 L (39.0-53.0) % MCV 114.1 H (80.0-100.0) fL MCH 37.4 H (25.0-35.0) pg RDW 16.1 H (11.5-15.5) % Plt Count 60 L (150-450) k/uL Lymphocytes # 0.8 L (1.0-4.8) k/uL Macrocytosis Marked A Sodium 135 L (137-145) mmol/L Chloride 110 H (98-107) mmol/L Carbon Dioxide 17 L (22-30) mmol/L BUN 52 H (9-20) mg/dL Creatinine 3.04 H (0.66-1.25) mg/dL Glucose 117 H (74-99) mg/dL Calcium 7.7 L (8.4-10.2) mg/dL Total Bilirubin 1.5 H (0.2-1.3) mg/dL AST 68 H (17-59) U/L Alkaline Phosphatase 187 H (38-126) U/L Total Protein 5.8 L (6.3-8.2) g/dL Albumin 2.7 L (3.5-5.0) g/dL Microbiology - Last 24 Hours (Table) 07/13/21 15:50 Blood Culture - Preliminary Blood No Growth after 24 hours
[2021-07-15] MEDS: DEXTROSE 5% IN WATER 1,000 ML with SODIUM BICARB (1 MEQ/ML) 150 ML IV SCH (15:46)
--- NOTE | 2021-07-15 16:59 | P.PN ---
Subjective Progress Note Date: 07/15/21 This is a 89-year-old male who was recently admitted with acute renal failure, hyperkalemia, and overall weakness and is being closely monitored. Multiple medical consultations following including nephrology and pulmonary. General surgery and vascular surgery consulted as well. Patient is continued on zi thromax and ceftriaxone and appropriate home medications have been ordered. Will have PT/OT evaluate the patient. Patient denies any shortness of breath, chest pain, or palpitations. Potassium was elevated at 6.2 today and being corrected. Will monitor closely and repeat BMP ordered. Patient continues on sodium bicarb drip. 07/15/2021 Patient is seen and evaluated in follow-up more awake and alert today with multiple medical consultations following. Nephrology, cardiology, pulmonary, surgery all following closely. Patient's kidney function slowly improving and patient continues on sodium bicarb drip and will continue at this time. Patient was also maintained on 20 mg of Lasix twice daily and will hold today and resume in 1-2 days. Patient also continues on ceftriaxone along with Zithromax and will continue with breathing inhalational treatments. Patient states he feels improved today and eating more and continues to be weak. Discussed discharge planning with possible rehab and patient is refusing and adamant about returning home with family. Labs: WBC is 3.8, hemoglobin is 9.2, platelets are 60, sodium is 135, potassium 4.8, BUN 52, creatinine 3.04, calcium 7.7, total bilirubin is 1.5 Review of systems: Constitutional: reports of fatigue, no reports of fever, or chills Cardiovascular: No reports of chest pain or palpitations Respiratory: No reports of shortness of breath, reports cough GI: No reports of nausea, vomiting, or diarrhea : No reports of dysuria or retention Neurovascular: reports of weakness All medications have been reviewed Active Medications Albuterol/Ipratropium (Ipratropium-Albuterol 3 Ml Neb) 3 ml INHALATION RT-TID PRN PRN Reason: Shortness Of Breath Albuterol/Ipratropium (Ipratropium-Albuterol 3 Ml Neb) 3 ml INHALATION RT-TID [facility] [place] Last Admin: 07/15/21 12:43 Dose: 3 ml Documented by: Allopurinol (Allopurinol 100 Mg Tab) 100 mg PO DAILY [facility] [place] Last Admin: 07/15/21 08:44 Dose: 100 mg Documented by: Aspirin (Aspirin 325 Mg Tab) 325 mg PO DAILY [facility] [place] Last Admin: 07/15/21 08:44 Dose: 325 mg Documented by: Azithromycin (Azithromycin 250 Mg Tab) 250 mg PO DAILY [facility] [place] [place] Last Admin: 07/15/21 08:44 Dose: 250 mg Documented by: Carvedilol (Carvedilol 6.25 Mg Tab) 6.25 mg PO BID-W/MEALS [facility] [place] Last Admin: 07/15/21 08:44 Dose: 6.25 mg Documented by: Dorzolamide/Timolol (Dorzolamide-Timolol 2.23%/0.68 10ml Btl) 1 drops BOTH EYES BID [facility] [place] [place] Last Admin: 07/15/21 08:45 Dose: 1 drops Documented by: Escitalopram Oxalate (Escitalopram 5 Mg Tab) 5 mg PO DAILY [facility] [place] [place] Last Admin: 07/15/21 08:45 Dose: 5 mg Documented by: Furosemide (Furosemide 20 Mg Tab) 20 mg PO DAILY [facility] [place] Heparin Sodium (Porcine) (Heparin Sodium,Porcine/Pf 5,000 Unit/0.5 Ml Syringe) 5,000 unit SQ Q12HR [facility] [place] Last Admin: 07/15/21 08:45 Dose: 5,000 unit Documented by: Ceftriaxone Sodium 1 gm/ (Sodium Chloride) 50 mls @ 100 mls/hr IVPB Q24HR [facility] [place] Last Admin: 07/15/21 08:43 Dose: 100 mls/hr Documented by: Sodium Bicarbonate 150 ml/ (Dextrose/Water) 1,150 mls @ 75 mls/hr IV .[id number] [facility] [place] Last Admin: 07/15/21 15:46 Dose: 75 mls/hr Documented by: Levothyroxine Sodium (Levothyroxine 75 Mcg Tab) 150 mcg PO 0630 [facility] [place] Last Admin: 07/15/21 05:52 Dose: 150 mcg Documented by: Melatonin (Melatonin 3 Mg Tablet) 6 mg PO HS PRN PRN Reason: Insomnia Multivitamins (Multivitamins, Thera 1 Each Tab) 1 each PO DAILY [facility] [place] Last Admin: 07/15/21 08:44 Dose: 1 each Documented by: Nitroglycerin (Nitroglycerin Sl Tabs 0.4 Mg Tab) 0.4 mg SUBLINGUAL Q5M PRN PRN Reason: Chest Pain Pantoprazole Sodium (Pantoprazole 40 Mg Tablet) 40 mg PO BID [facility] [place] Last Admin: 07/15/21 08:44 Dose: 40 mg Documented by: Physical Exam: Gen: This is a 89-year-old male who is awake, alert and oriented 3, well- developed, well-nourished. Temp is 97.8 F, pulse is 49, respirations are 16, blood pressure is 133/71, oxygen saturation is 98% on room air HEENT: Head is atraumatic, normocephalic. Pupils equal, round. Sclerae is anicteric. NECK: Supple. No JVD. No lymphadenopathy. No thyromegaly. LUNGS: Diminished breath sounds bilaterally with some scattered rhonchi and crackles noted. No intercostal retractions. HEART: S1, S2 are muffled ABDOMEN: Soft. Bowel sounds are present. No masses. No tenderness. EXTREMITIES: No pedal edema. No calf tenderness. NEUROLOGICAL: Patient is awake, alert and oriented x3. Cranial nerves 2 through 12 are grossly intact. Assessment: Possible acute Bilateral lower lobe pneumonia, right more than left, with possible gram-negative pneumonia. Rule out aspiration pneumonia or COVID-19 p neumonia Severe dehydration and acute on chronic renal failure with acute tubular necrosis and prerenal renal failure Chronic kidney disease, stage three baseline, possibly Hyperkalemia Anemia, macrocytic Metabolic acidosis Severe hypothyroidism Thrombocytopenia Elevated bilirubin and AST, ALT, possibly hepatitis of undetermined ideology History of coronary artery disease,stents Hypoalbuminemia with mild protein calorie malnutrition History of coronary artery disease History of myocardial infarction History of gout History of AICD History of congestive heart failure Hypertension Hyperlipidemia Gait dysfunction Depression Remote history of nicotine dependence Full code Plan: Recommend to continue with current medications and management. Nephrology and pulmonary following. Consult placed to surgery and vascular surgery for findings of AAA with possible endoleak. No plans for any surgical intervention at this time. Patient continued on zithromax and ceftriaxone along with breathing t reatments and will continue. Repeat am labs. Nephrology following closely and patient continues on sodium bicarb drip. Kidney function slowly improving. Encourages oral intake and increased activity as tolerated. Recommend aspiration precautions with head of the bed elevated 45 at all times and supervision with meals. PT/OT to evaluate the patient. Patient is weak although is refusing rehab and is adamant about returning home with family. Due to multiple complex medical issues, prognosis is guarded. Further recommendations to follow based on the clinical course of the patient. Objective - Vital Signs Vital signs: Vital Signs Temp 97.6 F 07/15/21 05:00 Pulse 53 L 07/15/21 05:00 Resp 16 07/15/21 05:00 BP 117/58 07/15/21 05:00 Pulse Ox 99 07/15/21 05:00 Intake & Output 07/14/21 07/15/21 07/15/21 18:59 06:59 18:59 Intake Total 900 Output Total 700 Balance 200 Weight 83.915 kg Intake: Intake, IV Titration 900 Amount Dextrose 5% in Water 1, 900 000 ml @ 75 mls/hr IV . [id number] SOLEDAD with Sodium Bicarb (1 Meq/ml) 150 ml Rx#:[id number] Output: Urine 700 Other: Voiding Method Urinal - Labs CBC & Chem 7: 07/15/21 04:59 07/15/21 04:59 Labs: Abnormal Lab Results - Last 24 Hours (Table) 07/14/21 07/15/21 07/15/21 Range/Units 08:02 04:59 04:59 RBC 2.47 L (4.30-5.90) m/uL Hgb 9.2 L (13.0-17.5) gm/dL Hct 28.2 L (39.0-53.0) % MCV 114.1 H (80.0-100.0) fL MCH 37.4 H (25.0-35.0) pg RDW 16.1 H (11.5-15.5) % Plt Count 60 L (150-450) k/uL Lymphocytes # 0.8 L (1.0-4.8) k/uL Macrocytosis Marked A Sodium 136 L 135 L (137-145) mmol/L Chloride 112 H 110 H (98-107) mmol/L Carbon Dioxide 16 L 17 L (22-30) mmol/L BUN 55 H 52 H (9-20) mg/dL Creatinine 3.11 H 3.04 H (0.66-1.25) mg/dL Glucose 117 H (74-99) mg/dL Calcium 7.7 L 7.7 L (8.4-10.2) mg/dL Total Bilirubin 1.5 H (0.2-1.3) mg/dL AST 68 H (17-59) U/L Alkaline Phosphatase 187 H (38-126) U/L Total Protein 5.8 L (6.3-8.2) g/dL Albumin 2.7 L (3.5-5.0) g/dL Microbiology - Last 24 Hours (Table) 07/13/21 15:50 Blood Culture - Preliminary Blood No Growth after 24 hours
--- NOTE | 2021-07-15 21:58 | US ---
EXAMINATION TYPE: US kidneys/renal and bladder DATE OF EXAM: 07/15/2021 COMPARISON: CT 07/14/2021 CLINICAL HISTORY: RF. EXAM MEASUREMENTS: Right Kidney: 10.8 x 6.2 x 5.2 cm Left Kidney: 10.6 x 5.7 x 5.7 cm EXAM FINDINGS: Right Kidney: No hydronephrosis or focal findings. Left Kidney: Multiple anechoic areas seen, largest seen medially and measures 9.2 x 10.0 x 6.9 cm. Th juan findings are long-standing, going back to the time of the 04/22/2019 CT. Bladder: Appears anechoic. Bilateral Jets seen: Not seen during the examination. IMPRESSION: No acute process.
[2021-07-16] MEDS: LEVOTHYROXINE 75 MCG TAB PO SCH (06:17)
[2021-07-16] MEDS: IPRATROPIUM-ALBUTEROL 3 ML NEB INHALATION SCH ×2 (08:38→11:22)
[2021-07-16] MEDS ORDERED: FUROSEMIDE 20 MG TAB PO SCH (09:00)
[2021-07-16 10:10] LABS: African American GFR (CKD) 20 (>60 ml/min/1.73 sqM); Anion Gap 6 mmol/L; Blood Urea Nitrogen 53 mg/dL (9-20); Calcium 7.8 mg/dL (8.4-10.2); Carbon Dioxide 22 mmol/L (22-30); Chloride 106 mmol/L (98-107); Glucose 138 mg/dL (74-99); Non-African American GFR(CKD) 17 (>60 ml/min/1.73 sqM); Potassium 4.7 mmol/L (3.5-5.1); Sodium 134 mmol/L (137-145)
[2021-07-16] MEDS: HEPARIN SODIUM,PORCINE/PF 5,000 UNIT/0.5 ML SYRINGE SQ SCH (10:15)
[2021-07-16] MEDS: AZITHROMYCIN 250 MG TAB PO SCH (10:15)
[2021-07-16] MEDS: ASPIRIN 325 MG TAB PO SCH (10:15)
[2021-07-16] MEDS: DEXTROSE 5% IN WATER 1,000 ML with SODIUM BICARB (1 MEQ/ML) 150 ML IV SCH (10:15)
[2021-07-16] MEDS: carvediloL 6.25 MG TAB PO SCH (10:15)
[2021-07-16] MEDS: allopurinoL 100 MG TAB PO SCH (10:15)
[2021-07-16] MEDS: PANTOPRAZOLE 40 MG TABLET PO SCH (10:15)
[2021-07-16] MEDS: MULTIVITAMINS, THERA 1 EACH TAB PO SCH (10:16)
[2021-07-16] MEDS: ESCITALOPRAM 5 MG TAB PO SCH (10:16)
[2021-07-16] MEDS: DORZOLAMIDE-TIMOLOL 2.23%/0.68 10ML BTL BOTH EYES SCH (10:16)
--- NOTE | 2021-07-16 10:19 | P.PN ---
Subjective Progress Note Date: 07/16/21 HISTORY OF PRESENT ILLNESS: Patient examined this morning at the bedside. He denies chest pain or pressure. Denies SOB. Echocardiogram completed reveals ejection fraction 20-25%, mild aortic regurgitation, moderate aortic stenosis, trace to mild mitral regurgitation, moderate tricuspid regurgitation, and severe pulmonary hypertension. VQ scan reveals low probability for PE. Potassium 4.8. Creatinine stable at 3.04. 07/16/2021 Patient examined this morning at the bedside. Patient denies chest pain or pressure. He denies shortness of breath. He is hoping to be discharged home today. Labs remained stable. PHYSICAL EXAM: VITAL SIGNS: Reviewed. GENERAL: Well-developed in no acute distress. NECK: Supple. No JVD or thyromegaly LUNGS: Respirations even and unlabored. Lungs diminished with scattered rhonchi. HEART: Regular rate and rhythm. S1 and S2 heard. Systolic murmur. EXTREMITIES: Normal range of motion. No clubbing or cyanosis. Peripheral pulses intact. Trace bilateral lower extremity edema ASSESSMENT: Generalized weakness and fatigue Hypothyroidism with TSH greater than 100 Acute on chronic systolic congestive heart failure Coronary artery disease with previous PCI Ischemic cardiomyopathy with previous AICD implantation Hyperkalemia Anemia Chronic kidney disease History of abdominal aortic aneurysm repair COPD Former nicotine dependence PLAN: Continue current cardiac medications Continue telemetry monitoring The patient is stable for discharge home today from a cardiac standpoint. He is to follow up on an outpatient basis. Nurse practitioner note has been reviewed by physician. Signing provider agrees with the documented findings, assessment, and plan of care. Objective - Vital Signs Vital signs: Vital Signs Temp 97.4 F L 07/16/21 04:24 Pulse 76 07/16/21 10:14 Resp 20 07/16/21 04:24 BP 150/56 07/16/21 10:14 Pulse Ox 95 07/16/21 04:24 Intake & Output 07/15/21 07/16/21 07/16/21 18:59 06:59 18:59 Intake Total 950 Output Total 1088 Balance 950 -1088 Intake: Intake, IV Titration 950 Amount Dextrose 5% in Water 1, 900 000 ml @ 75 mls/hr IV . [id number] [facility] with Sodium Bicarb (1 Meq/ml) 150 ml Rx#:[id number] cefTRIAXone 1 gm In 50 Sodium Chloride 0.9% 50 ml @ 100 mls/hr IVPB Q24HR [facility] Rx#:[id number] Output: Urine 600 Post Void Residual 488 Other: Voiding Method Urinal Urinal # Voids 1 - Labs CBC & Chem 7: 07/15/21 04:59 07/16/21 09:18 Labs: Abnormal Lab Results - Last 24 Hours (Table) 07/16/21 Range/Units 09:18 Sodium 134 L (137-145) mmol/L BUN 53 H (9-20) mg/dL Creatinine 3.05 H (0.66-1.25) mg/dL Glucose 138 H (74-99) mg/dL Calcium 7.8 L (8.4-10.2) mg/dL Microbiology - Last 24 Hours (Table) 07/13/21 15:50 Blood Culture - Preliminary Blood No Growth after 48 hours
[2021-07-16 12:06] VITALS: BP 135/57; PULSE 54; RESP 18; TEMP 97.8
--- NOTE | 2021-07-16 12:10 | P.PN ---
Subjective Progress Note Date: 07/16/21 This a 89-year-old gentleman who follows with the [place] [facility] for his primary care needs. He has a history of hypothyroidism, hypertension, coronary artery disease with previous stent placement, ischemic cardiomyopathy status post AICD placement, hyperlipidemia. He presented to the emergency room yesterday with complaints of generalized weakness, fatigue. He was notified by the [place] that his thyroid and potassium levels were abnormal and he presented for the same. Chest x-ray did reveal cardial megaly with small bilateral infiltrates and effusion. Computed tomography scan of the chest abdomen and pelvis revealed an enlarging AAA up to 6.7 cm raising concern for new endo-leak. Evidence of underlying old granulomatous disease. 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 Small amount of intraperitoneal ascites. Mild to moderate intrahepatic and extrahepatic biliary dilatation. Small bilateral effusions right greater than left. We are consulted for the same. He is seen in consultation on the observation unit. He is resting flat in bed. Awake and alert in no acute distress. No shortness of breath, cough or congestion. Maintaining O2 saturations in the 90s on room air. VQ scan revealed low probability for acute pulmonary embolism. White count 5.2. Hemoglobin 9.6. Platelet count 50,000. D-dimer 8.15. Sodium 136. Potassium corrected to 4.4. Chloride 112. Bicarb 16. Creatinine 3.11. He's been initiated on ceftriaxone and azithromycin along with DuoNeb inhalations, bicarb drip at 75 ML's per hour. Oral diuretics. Heparin for DVT prophylaxis. Progress note dated 07/15/2021. 89-year-old male, who presented to the emergency department, with complaints of generalized weakness. He has a history of hypothyroidism, hypertension, coronary artery disease, previous stent placement, ischemic cardiomyopathy, status post AICD, and hyperlipidemia. Currently, the patient is not receiving any supplemental oxygen. His saturations are 98%. He's on IV of D5W, with 3 ampules of sodium bicarbonate at 75 mL an hour. His white count is 3.8, hemoglobin 9.2, hematocrit 28.2, and platelet count 60,000. Sodium 135, potassium 4.8, chlorides 110, CO2 17, BUN 52, and creatinine 3.04. He had a ventilation perfusion lung scan was low probability. He is resting comfortably without complaints, and would like to be discharged home. The patient is seen today 07/16/2021 in follow-up on the regular medical floor. He is currently resting quite comfortably in bed. Laying flat. Maintaining O2 saturation in the 90s on room air. No worsening shortness of breath, cough or c ongestion. He is afebrile. Hemodynamically stable. Chest and the kidneys/renal and bladder revealed no acute process. Blood cultures reveal no growth. Sodium 134. Potassium 4.7. Creatinine 3.05. He remains on antibiotics in the form of ceftriaxone and azithromycin. D5W with 3 A of bicarb at 75 ML's per hour. Oral diuretics. Heparin for DVT prophylaxis. Objective - Vital Signs Vital signs: Vital Signs Temp 97.4 F L 07/16/21 04:24 Pulse 76 07/16/21 10:14 Resp 20 07/16/21 04:24 BP 150/56 07/16/21 10:14 Pulse Ox 95 07/16/21 04:24 Intake & Output 07/15/21 07/16/21 07/16/21 18:59 06:59 18:59 Intake Total 950 Output Total 1088 Balance 950 -1088 Intake: Intake, IV Titration 950 Amount Dextrose 5% in Water 1, 900 000 ml @ 75 mls/hr IV . [id number] [facility] with Sodium Bicarb (1 Meq/ml) 150 ml Rx#:[id number] cefTRIAXone 1 gm In 50 Sodium Chloride 0.9% 50 ml @ 100 mls/hr IVPB Q24HR [facility] Rx#:[id number] Output: Urine 600 Post Void Residual 488 Other: Voiding Method Urinal Urinal # Voids 1 - Exam GENERAL EXAM: Alert, very pleasant 89-year-old gentleman, on room air, comfortable in no apparent distress. HEAD: Normocephalic. Evidence of possible psoriasis of the scalp EYES: Normal reaction of pupils, equal size. NOSE: Clear with pink turbinates. THROAT: No erythema or exudates. NECK: No masses, no JVD. CHEST: No chest wall deformity. LUNGS: Equal air entry with faint crackles in the posterior bases. CVS: S1 and S2 normal with no audible murmur, regular rhythm. ABDOMEN: No hepatosplenomegaly, normal bowel sounds, no guarding or rigidity. SPINE: No scoliosis or deformity SKIN: No rashes CENTRAL NERVOUS SYSTEM: No focal deficits, tone is normal in all 4 extremities. EXTREMITIES: There is no peripheral edema. No clubbing, no cyanosis. Peripheral pulses are intact. - Labs CBC & Chem 7: 07/15/21 04:59 07/16/21 09:18 Labs: Abnormal Lab Results - Last 24 Hours (Table) 07/16/21 Range/Units 09:18 Sodium 134 L (137-145) mmol/L BUN 53 H (9-20) mg/dL Creatinine 3.05 H (0.66-1.25) mg/dL Glucose 138 H (74-99) mg/dL Calcium 7.8 L (8.4-10.2) mg/dL Microbiology - Last 24 Hours (Table) 07/13/21 15:50 Blood Culture - Preliminary Blood No Growth after 48 hours Assessment and Plan Assessment: 1 Generalized weakness and fatigue possibly related to abnormal lab findings including hyperkalemia and hypothyroidism with a TSH greater than 100 2 History of hypothyroidism had been on Synthroid 150 g daily 3 History of abdominal aortic aneurysm repair, in the health system in [place], abdominal CAT scan today revealed a 6.7 cm with possible endoleak 4 Coronary artery disease with previous stent placement 5 Ischemic cardiomyopathy status post AICD placement 6 History of hypertension. 7 Hyperlipidemia 8 Former smoker with chronic obstructive pulmonary disease maintained on DuoNeb inhalations and pro-air when necessary 9 History of gout 10 Anemia 11 Hyperkalemia, corrected 12 Acute renal failure current creatinine 3.11 Plan: The patient was seen and evaluated He has a nebulizer and DuoNeb inhalations for home Follows through the [place] [facility] for discharge from the pulmonary standpoint, on room air I, the cosigning physician, performed a history & physical examination of the patient. Lungs sounds with faint crackles in the bilateral bases. Maintaining good O2 saturations in the 90s on room air. I discussed the assessment and plan of care with my nurse practitioner, Terri Bauer. I attest to the above note as dictated by her.
--- NOTE | 2021-07-16 14:03 | P.PN ---
Subjective Progress Note Date: 07/16/21 CHIEF COMPLAINT: Weakness HISTORY OF PRESENT ILLNESS: Patient is lying in bed comfortably. He wants to be discharged home. Denies any abdominal pain. He reports that his appetite is improving. Denies any nausea or vomiting. Denies any abdominal pain after eating. He reports that he is feeling better since admission. Afebrile. Creatinine 3.05. Patient called in nephrology regarding the acute kidney injury. They've adjusted Lasix. Patient seen by vascular surgical service regarding his abdominal aortic aneurysm PHYSICAL EXAM: VITAL SIGNS: Reviewed. GENERAL: Well-developed in no acute distress. HEENT: No sclera icterus. Extraocular movements grossly intact. Moist buccal mucosa. Head is atraumatic, normocephalic. Large scalp lesion ABDOMEN: Soft. Nondistended. Nontender. NEUROLOGIC: Alert and oriented. Cranial nerves II through XII grossly intact. ASSESSMENT: 1 Unintentional weight loss 2. Chronic cholecystitis 3. Elevated LFTs improving 4. Scalp lesion PLAN: -Recommend EGD for further evaluation of unintentional weight loss. Patient refuses EGD at this time -No surgical intervention planned -Continue heart healthy diet -Patient has follow-up with the [place] on Monday regarding the scalp lesion -Patient can be discharge from surgical standpoint Physician Genetic Engineer note has been reviewed by physician. Signing provider agrees with the documented findings, assessment, and plan of care. Objective - Vital Signs Vital signs: Vital Signs Temp 97.4 F L 07/16/21 04:24 Pulse 76 07/16/21 10:14 Resp 20 07/16/21 04:24 BP 150/56 07/16/21 10:14 Pulse Ox 95 07/16/21 04:24 Intake & Output 07/15/21 07/16/21 07/16/21 18:59 06:59 18:59 Intake Total 950 Output Total 1088 Balance 950 -1088 Intake: Intake, IV Titration 950 Amount Dextrose 5% in Water 1, 900 000 ml @ 75 mls/hr IV . [id number] [facility] with Sodium Bicarb (1 Meq/ml) 150 ml Rx#:[id number] cefTRIAXone 1 gm In 50 Sodium Chloride 0.9% 50 ml @ 100 mls/hr IVPB Q24HR [facility] Rx#:[id number] Output: Urine 600 Post Void Residual 488 Other: Voiding Method Urinal Urinal # Voids 1 - Labs CBC & Chem 7: 07/15/21 04:59 07/16/21 09:18 Labs: Abnormal Lab Results - Last 24 Hours (Table) 07/16/21 Range/Units 09:18 Sodium 134 L (137-145) mmol/L BUN 53 H (9-20) mg/dL Creatinine 3.05 H (0.66-1.25) mg/dL Glucose 138 H (74-99) mg/dL Calcium 7.8 L (8.4-10.2) mg/dL Microbiology - Last 24 Hours (Table) 07/13/21 15:50 Blood Culture - Preliminary Blood No Growth after 48 hours
--- NOTE | 2021-07-16 17:13 | PN ---
PROGRESS NOTE Patient is seen for followup for chronic kidney disease and acute kidney injury. Patient's renal function has been stable with serum creatinine staying at 3.0 during this admission. He had been maintained on IV fluids. No significant complaints today. PHYSICAL EXAMINATION: Blood pressure is 135/57, heart rate 54 per minute, he is afebrile. Examination of the lower extremities shows trace edema. Abdomen is soft, nontender. OCULAR CARE AIDE exam grossly intact. LAB: Show sodium 134, potassium 4.7, chloride 106, BUN 53, creatinine 3.0, hemoglobin 9.2 g/dL. ASSESSMENT: 1. 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 UA is completely benign. There is a component of acute kidney injury, however, renal function is now stable. The patient can be discharged. He will need to follow up as outpatient for CKD. No evidence of obstruction. Patient has been maintained on IV fluids. 2. Severe metabolic acidosis associated with renal failure on initial admission, status post IV bicarb. 3. Large aortic aneurysm, being followed by vascular surgery. 4. History of congestive heart failure, EF 20-25% with moderately dilated left atrium and severe pulmonary hypertension. PLAN: Okay for discharge. Patient will need followup as outpatient for CKD. MMODL / IJN: [id number] /
--- NOTE | 2021-07-18 10:10 | P.DS ---
Providers Date of admission: 07/13/21 16:16 Expected date of discharge: 07/16/21 Attending physician: Elizabeth Marinelli Consults: 07/13/21 17:11 Consult Physician Urgent Consulting Provider: Carlos Browning Consult Reason/Comments: weight loss, possible egd/colonoscopy Do you want consulting provider notified?: Yes 07/13/21 17:47 Consult Physician Routine Consulting Provider: Raad Sidhu Consult Reason/Comments: pneumonia Do you want consulting provider notified?: Yes Consult Physician Routine Consulting Provider: Shara Shine Consult Reason/Comments: arf Do you want consulting provider notified?: Yes Primary care physician: [facility] Hospital Course: Renal diagnosis Possible acute Bilateral lower lobe pneumonia, right more than left, with possible gram-negative pneumonia. Rule out aspiration pneumonia or COVID-19 pneumonia Severe dehydration and acute on chronic renal failure with acute tubular necrosis and prerenal renal failure Chronic kidney disease, stage three baseline, possibly Hyperkalemia Anemia, macrocytic Metabolic acidosis Severe hypothyroidism Thrombocytopenia Elevated bilirubin and AST, ALT, possibly hepatitis of undetermined ideology History of coronary artery disease,stents Hypoalbuminemia with mild protein calorie malnutrition History of coronary artery disease History of myocardial infarction History of gout History of AICD History of congestive heart failure Hypertension Hyperlipidemia Gait dysfunction Depression Remote history of nicotine dependence Full code Discharge disposition Patient is being discharged in a stable condition with guarded prognosis to home. Patient will follow-up with [facility] in the outpatient setting upon discharge. Patient is to follow-up with cardiology in the outpatient setting sc heduled. Patient to continue on Ceftin and Zithromax upon discharge. Total time taken is greater than 35 minutes. Hospital course This is a 89-year-old male who was recently admitted with renal failure, hyperkalemia and overall weakness and was being closely monitored. Medical consultations following including nephrology and pulmonary along with cardiology and patient will follow-up with cardiology in the outpatient setting. Patient will continue on oral Ceftin along with Zithromax to complete the course. Recommend repeat labs and close follow-up with nephrology and close monitoring of kidney functions. Patient states he is feeling much better and continues to be weak although requesting to go home and is refusing rehab. Patient also reports to eating better. Encouraged continued oral intake. Currently no reports of chest pain, shortness of breath, or palpitations. Patient is afebrile. No reports of nausea or vomiting and patient is tolerating diet. Patient will be discharged home today. Guarded prognosis. On exam vital signs are stable. Cardio S1, S2 are muffled. Respiratory system shows diminished breath sounds at the bases with no wheezing mild rhonchi noted. Abdomen is soft and nontender. Nervous system shows no focal deficits. Please refer to medication reconciliation sheet for a list of medications. Patient Condition at Discharge: Stable Plan - Discharge Summary Discharge Rx Participant: No New Discharge Prescriptions: New Azithromycin [Zithromax] 250 mg PO DAILY 4 Days #4 tab Cefuroxime Axetil [Ceftin] 500 mg PO BID 4 Days #8 tab Escitalopram [Lexapro] 5 mg PO DAILY 30 Days #30 tab Continue Nitroglycerin Sl Tabs [Nitrostat] 0.4 mg SUBLINGUAL Q5M PRN PRN Reason: Chest Pain Levothyroxine Sodium [Synthroid] 150 mcg PO DAILY Dorzolamide-Timol 2.23%/0.68% [Cosopt] 1 drop BOTH EYES BID carvediloL [Coreg] 6.25 mg PO BID allopurinoL [Zyloprim] 100 mg PO DAILY Albuterol Sulfate [Proair Hfa] 2 puff INHALATION RT-QID Lidocaine 5% Patch [Lidoderm 5% Patch] 1 patch TOPICAL DAILY PRN #20 patch PRN Reason: Pain Pantoprazole Sodium [Protonix] 40 mg PO BID #50 tablet. Multivit-Min/FA/Lycopen/Lutein [Centrum Silver Men Tablet] 1 tab PO DAILY Aspirin EC [Ecotrin] 325 mg PO DAILY Lactose-Reduced Food [Ensure Plus] 1 can PO BID Ipratropium-Albuterol Nebulize [Duoneb 0.5 mg-3 mg/3 ml Soln] 3 ml INHALATION RT-TID PRN PRN Reason: Shortness Of Breath Changed Furosemide [Lasix] 20 mg PO DAILY #0 Discharge Medication List Albuterol Sulfate [Proair Hfa] 2 puff INHALATION RT-QID 11/09/19 [History] Dorzolamide-Timol 2.23%/0.68% [Cosopt] 1 drop BOTH EYES BID 11/09/19 [History] Levothyroxine Sodium [Synthroid] 150 mcg PO DAILY 11/09/19 [History] Nitroglycerin Sl Tabs [Nitrostat] 0.4 mg SUBLINGUAL Q5M PRN 11/09/19 [History] allopurinoL [Zyloprim] 100 mg PO DAILY 11/09/19 [History] carvediloL [Coreg] 6.25 mg PO BID 11/09/19 [History] Lidocaine 5% Patch [Lidoderm 5% Patch] 1 patch TOPICAL DAILY PRN #20 patch 11/29/19 [Rx] Pantoprazole Sodium [Protonix] 40 mg PO BID #50 tablet. 11/29/19 [Rx] Aspirin EC [Ecotrin] 325 mg PO DAILY 07/13/21 [History] Ipratropium-Albuterol Nebulize [Duoneb 0.5 mg-3 mg/3 ml Soln] 3 ml INHALATION RT-TID PRN 07/13/21 [History] Lactose-Reduced Food [Ensure Plus] 1 can PO BID 07/13/21 [History] Multivit-Min/FA/Lycopen/Lutein [Centrum Silver Men Tablet] 1 tab PO DAILY 07/13/21 [History] Azithromycin [Zithromax] 250 mg PO DAILY 4 Days #4 tab 07/16/21 [Rx] Cefuroxime Axetil [Ceftin] 500 mg PO BID 4 Days #8 tab 07/16/21 [Rx] Escitalopram [Lexapro] 5 mg PO DAILY 30 Days #30 tab 07/16/21 [Rx] Furosemide [Lasix] 20 mg PO DAILY #0 07/16/21 [Rx] Follow up Appointment(s)/Referral(s): [facility] [Provider Group] - 07/21/21 11:00 am [facility]idential [facility] [NON-STAFF] - 1 Week [facility] [Primary Care Provider] - 1-2 days Patient Instructions/Handouts: Cefuroxime (By mouth), Azithromycin (By mouth), Escitalopram (By mouth), Acute Kidney Injury (DC), Heart Healthy Diet (DC), Community Acquired Pneumonia (DC) Activity/Diet/Wound Care/Special Instructions: Home Care agency will be selected by the [place]. They will contact you to schedule the first visit. If any questions please contact your [place] provider. Activity Limited until follow-up Continue current medications until finished Follow-up with primary care provider along with pulmonary and cardiology outpatient Finish antibiotics Continue with breathing inhalational treatments Continue heart healthy diet Discharge/Stand Alone Forms: Personal Commercial Real Estate Manager Discharge Disposition: HOME WITH HOME HEALTH SERVICES
== END 2021-07-16 16:08 | disposition home health service (06) | DRG 177 ==
LOC: EC 12:02 → 4SSUR 16:16 → 3NCARDOBS 07-14 07:36 → 5NMEDONC 07-15 14:32
PROVIDERS: ADMIT Hospitalist; ATTEND Hospitalist
DX: J15.6 Pneumonia due to other Gram-negative bacteria (principal); I50.23 Acute on chronic systolic (congestive) heart failure; N17.0 Acute kidney failure with tubular necrosis; E44.1 Mild protein-calorie malnutrition; I13.0 Hypertensive heart and chronic kidney disease with heart failure and stage 1 through stage 4 chronic kidney disease, or unspecified chronic kidney disease; J44.0 Chronic obstructive pulmonary disease with (acute) lower respiratory infection; E87.2 Acidosis; K80.10 Calculus of gallbladder with chronic cholecystitis without obstruction; N18.4 Chronic kidney disease, stage 4 (severe); N13.30 Unspecified hydronephrosis; R18.8 Other ascites; I25.10 Atherosclerotic heart disease of native coronary artery without angina pectoris; I25.2 Old myocardial infarction; Z20.822 Contact with and (suspected) exposure to COVID-19; I25.5 Ischemic cardiomyopathy; E87.5 Hyperkalemia; E86.0 Dehydration; M10.9 Gout, unspecified; I71.4 Abdominal aortic aneurysm, without rupture; Z68.25 Body mass index [BMI] 25.0-25.9, adult; Z87.891 Personal history of nicotine dependence; K74.60 Unspecified cirrhosis of liver; Y95 Nosocomial condition; L98.8 Other specified disorders of the skin and subcutaneous tissue; R01.1 Cardiac murmur, unspecified; E88.09 Other disorders of plasma-protein metabolism, not elsewhere classified; D53.9 Nutritional anemia, unspecified; D69.6 Thrombocytopenia, unspecified; E03.9 Hypothyroidism, unspecified; E78.5 Hyperlipidemia, unspecified; F32.A Depression, unspecified; I27.20 Pulmonary hypertension, unspecified; K59.00 Constipation, unspecified; R29.6 Repeated falls; Z79.82 Long term (current) use of aspirin; Z79.890 Hormone replacement therapy; Z79.899 Other long term (current) drug therapy; Z86.79 Personal history of other diseases of the circulatory system; Z87.19 Personal history of other diseases of the digestive system; Z95.5 Presence of coronary angioplasty implant and graft; Z95.810 Presence of automatic (implantable) cardiac defibrillator; Z88.8 Allergy status to other drugs, medicaments and biological substances
CPT/HCPCS: 36415; 71045; 71250; 74176; 76770; 78582; 80048; 80053; 81003; 83605; 83880; 84439; 84443; 84484; 85025; 85379; 85652; 86140; 87040; 87635; 93005; 93306; 94640; 99285

== ENCOUNTER 2021-08-28 08:56 | Inpatient (IN) | payer OTHER, MEDICARE ==
--- NOTE | 2021-08-28 09:42 | ED ---
General Adult HPI - General Chief complaint: Weakness Stated complaint: Weakness Time Seen by Provider: 08/28/21 08:58 Source: EMS Mode of arrival: EMS Limitations: no limitations - History of Present Illness Initial comments: Dictation was produced using [employer] dictation software. please excuse any grammatical, word or spelling errors. Chief Complaint: 89-year-old male presents to the emergency department for weakness History of Present Illness: Patient is a 11-year-old male who presents emergency department for weakness. Is accompanied by his son. Patient has been feeling progressively weak for the last 3 weeks. States that he was so weak today that he wanted to come to the emergency department. He lives at home by himself. He does have a visiting home nurse. Patient suffered a fall recently. He has wounds to the bilateral upper extremities. He has some pain in his back and his arms from that accident. Patient states he also has some shortness of breath. Sign of the bedside reports that patient is too weak to be on his own. Patient denies any fever or constitutional symptoms. Patient has no new pain since after the fall. The ROS documented in this emergency department record has been reviewed and confirmed by me. Those systems with pertinent positive or negative responses have been documented in the HPI. All other systems are other negative and/or noncontributory. PHYSICAL EXAM: General Impression: Alert and oriented x3, not in acute distress HEENT: Normocephalic atraumatic, extra-ocular movements intact, pupils equal and reactive to light bilaterally, mucous membranes moist. Cardiovascular: Heart regular rate and rhythm Chest: Able to complete full sentences, no retractions, no tachypnea Abdomen: abdomen soft, non-tender, non-distended, no organomegaly Musculoskeletal: Pulses present and equal in all extremities, no peripheral edema Motor: no focal deficits noted Neurological: CN II-XII grossly intact, no focal motor or sensory deficits noted Skin: Intact with no visualized rashes Psych: Normal affect and mood ED course: 89-year-old male presents to the emergency department for weakness. Vital signs upon arrival are within acceptable limits. Chart review was performed. Patient is recently admitted to the hospital last month. At that time he was diagnosed with likely bilateral lower lobe pneumonia, severe dehydration Laboratory evaluation obtained. CBC within acceptable limits. Patient has baseline anemia and baseline thrombocytopenia that was evident from last month. Coag panel is unremarkable. Metabolic panel shows acidosis, Q kidney injury. Troponin is elevated 0.041. Natruretic peptide of 13,000. Patient reevaluated bedside 12:30 PM found to be in stable medical condition. Is not showing any signs of respiratory distress. He is not having ACS symptoms. Patient will be admitted to the hospital for further monitoring. Patient be admitted to [facility]. He does not have a good social situation at home. EKG interpretation: Ventricular rate 57, paced rhythm, WV interval 176, QRS 172, QTC 584. No WV prolongation, no QTC prolongation, no ST or T-wave changes noted. EKG compared to 07/13/2021 showing no changes. Overall, this EKG is unremarkable - Related Data Home Medications Medication Instructions Recorded Confirmed Albuterol Sulfate [Proair Hfa] 2 puff INHALATION RT-QID PRN 11/09/19 08/28/21 Dorzolamide-Timol 2.23%/0.68% 1 drop BOTH EYES BID 11/09/19 08/28/21 [Cosopt] Levothyroxine Sodium [Synthroid] 150 mcg PO DAILY 11/09/19 08/28/21 Nitroglycerin Sl Tabs [Nitrostat] 0.4 mg SUBLINGUAL Q5M PRN 11/09/19 08/28/21 allopurinoL [Zyloprim] 100 mg PO DAILY 11/09/19 08/28/21 carvediloL [Coreg] 6.25 mg PO BID 11/09/19 08/28/21 Ipratropium-Albuterol Nebulize 3 ml INHALATION RT-TID PRN 07/13/21 08/28/21 [Duoneb 0.5 mg-3 mg/3 ml Soln] Lactose-Reduced Food [Ensure Plus] 1 can PO BID 07/13/21 08/28/21 Multivit-Min/FA/Lycopen/Lutein 1 tab PO DAILY 07/13/21 08/28/21 [Centrum Silver Men Tablet] Acetaminophen Tab [Tylenol Tab] 500 mg PO Q6HR PRN 08/28/21 08/28/21 Aspirin EC [Ecotrin Low Dose] 81 mg PO DAILY 08/28/21 08/28/21 Ferrous Sulfate [Feosol] 325 mg PO DAILY 08/28/21 08/28/21 Furosemide [Lasix] 20 mg PO AC-BID 08/28/21 08/28/21 Previous Rx's Medication Instructions Recorded Lidocaine 5% Patch [Lidoderm 5% 1 patch TOPICAL DAILY PRN #20 patch 11/29/19 Patch] Escitalopram [Lexapro] 5 mg PO DAILY 30 Days #30 tab 07/16/21 Allergies Allergy/AdvReac Type Severity Reaction Status Date / Time glipizide AdvReac DROP SUGAR Verified 08/28/21 10:07 TOO LOW Review of Systems ROS Statement: Those systems with pertinent positive or pertinent negative responses have been documented in the HPI. ROS Other: All systems not noted in ROS Statement are negative. 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 Last Myocardial Infarction Date:: 2009 History of Any Multi-Drug Resistant Organisms: None Reported Past Surgical History: AICD, Heart Catheterization With Stent, Pacemaker Additional Past Surgical History / Comment(s): aaa repair Past Anesthesia/Blood Transfusion Reactions: No Reported Reaction Date of Last Stent Placement:: AROUND 2009 Type of Cardiac Device: AICD Device Placement Date:: AUG 2019 Past Psychological History: No Psychological Hx Reported Smoking Status: Former smoker Past Alcohol Use History: None Reported Past Drug Use History: None Reported - Past Family History Father Family Medical History: Myocardial Infarction (OR) General Exam Limitations: no limitations Course Vital Signs 08/28/21 08/28/21 09:05 11:06 Temperature 97.3 F L Pulse Rate 53 L 51 L Respiratory 16 18 Rate Blood Pressure 157/71 111/58 O2 Sat by Pulse 100 99 Oximetry Medical Decision Making - Lab Data Result diagrams: 08/28/21 10:19 08/28/21 09:47 Lab Results 08/28/21 08/28/21 08/28/21 Range/Units 09:47 09:47 09:47 WBC (3.8-10.6) k/uL RBC (4.30-5.90) m/uL Hgb (13.0-17.5) gm/dL Hct (39.0-53.0) % MCV (80.0-100.0) fL MCH (25.0-35.0) pg MCHC (31.0-37.0) g/dL RDW (11.5-15.5) % Plt Count (150-450) k/uL MPV Neutrophils % % Lymphocytes % % Monocytes % % Eosinophils % % Basophils % % Neutrophils # (1.3-7.7) k/uL Lymphocytes # (1.0-4.8) k/uL Monocytes # (0-1.0) k/uL Eosinophils # (0-0.7) k/uL Basophils # (0-0.2) k/uL Manual Slide Review Hypochromasia Poikilocytosis Anisocytosis Macrocytosis PT 12.2 H (9.0-12.0) sec INR 1.1 (<1.2) APTT 29.3 (22.0-30.0) sec Sodium 133 L (137-145) mmol/L Potassium 5.2 H (3.5-5.1) mmol/L Chloride 112 H (98-107) mmol/L Carbon Dioxide 13 L (22-30) mmol/L Anion Gap 8 mmol/L BUN 64 H (9-20) mg/dL Creatinine 3.68 H (0.66-1.25) mg/dL Est GFR (CKD-EPI)AfAm 16 (>60 ml/min/1.73 sqM) Est GFR (CKD-EPI)NonAf 14 (>60 ml/min/1.73 sqM) Glucose 99 (74-99) mg/dL Plasma Lactic Acid Bhaskar 1.6 (0.7-2.0) mmol/L Calcium 7.6 L (8.4-10.2) mg/dL Magnesium 3.2 H (1.6-2.3) mg/dL Total Bilirubin 1.4 H (0.2-1.3) mg/dL AST 38 (17-59) U/L ALT 27 (4-49) U/L Alkaline Phosphatase 224 H (38-126) U/L Troponin I (0.000-0.034) ng/mL NT-Pro-B Natriuret Pep pg/mL Total Protein 5.9 L (6.3-8.2) g/dL Albumin 2.7 L (3.5-5.0) g/dL 08/28/21 08/28/21 08/28/21 Range/Units 09:47 09:47 10:19 WBC 7.9 (3.8-10.6) k/uL RBC 2.35 L (4.30-5.90) m/uL Hgb 8.9 L (13.0-17.5) gm/dL Hct 27.9 L (39.0-53.0) % MCV 118.6 H (80.0-100.0) fL MCH 37.7 H (25.0-35.0) pg MCHC 31.8 (31.0-37.0) g/dL RDW 18.4 H (11.5-15.5) % Plt Count 76 L (150-450) k/uL MPV 10.8 Neutrophils % 83 % Lymphocytes % 11 % Monocytes % 4 % Eosinophils % 1 % Basophils % 0 % Neutrophils # 6.5 (1.3-7.7) k/uL Lymphocytes # 0.9 L (1.0-4.8) k/uL Monocytes # 0.3 (0-1.0) k/uL Eosinophils # 0.0 (0-0.7) k/uL Basophils # 0.0 (0-0.2) k/uL Manual Slide Review Performed Hypochromasia Moderate Poikilocytosis Slight Anisocytosis Slight Macrocytosis Marked A PT (9.0-12.0) sec INR (<1.2) APTT (22.0-30.0) sec Sodium (137-145) mmol/L Potassium (3.5-5.1) mmol/L Chloride (98-107) mmol/L Carbon Dioxide (22-30) mmol/L Anion Gap mmol/L BUN (9-20) mg/dL Creatinine (0.66-1.25) mg/dL Est GFR (CKD-EPI)AfAm (>60 ml/min/1.73 sqM) Est GFR (CKD-EPI)NonAf (>60 ml/min/1.73 sqM) Glucose (74-99) mg/dL Plasma Lactic Acid Bhaskar (0.7-2.0) mmol/L Calcium (8.4-10.2) mg/dL Magnesium (1.6-2.3) mg/dL Total Bilirubin (0.2-1.3) mg/dL AST (17-59) U/L ALT (4-49) U/L Alkaline Phosphatase (38-126) U/L Troponin I 0.041 H* (0.000-0.034) ng/mL NT-Pro-B Natriuret Pep 51904 pg/mL Total Protein (6.3-8.2) g/dL Albumin (3.5-5.0) g/dL Disposition Clinical Impression: Debility, Weakness Disposition: ADMITTED IP TO THIS HOSP Condition: Fair Referrals: [facility],Clinic [Primary Care Provider] - 1-2 days
[2021-08-28 10:10] LABS: Albumin 2.7 g/dL (3.5-5.0); Calcium 7.6 mg/dL (8.4-10.2); Magnesium 3.2 mg/dL (1.6-2.3); Potassium 5.2 mmol/L (3.5-5.1); Total Bilirubin 1.4 mg/dL (0.2-1.3); Total Protein 5.9 g/dL (6.3-8.2)
--- NOTE | 2021-08-28 10:15 | XR ---
EXAMINATION TYPE: XR chest 1V portable DATE OF EXAM: 08/28/2021 COMPARISON: 07/14/2021 HISTORY: Dyspnea TECHNIQUE: Single frontal view of the chest is obtained. FINDINGS: There has been interval decrease in the airspace opacity in the lower lung zone although f ocal opacity persists. There is better delineation of the left hemidiaphragm likely reflecting resolu tion of the small left pleural effusion. The heart is moderately enlarged and the pulmonary vasculature appears mildly congested. There is cardiac pacemaker. The osseous structures are grossly intact. IMPRESSION: Acute cardiopulmonary disease with interval changes compared to the prior study of 07/14 as described above.
[2021-08-28 10:26] LABS: INR 1.1 (<1.2); Partial Thromboplastin Time 29.3 sec (22.0-30.0); Prothrombin Time 12.2 sec (9.0-12.0)
[2021-08-28 10:43] LABS: Anisocytosis Slight; Basophils % (A) 0 %; Eosinophils % (A) 1 %; HCT 27.9 % (39.0-53.0); HGB 8.9 gm/dL (13.0-17.5); Hypochromasia Moderate; Lymphocytes # (A) 0.9 k/uL (1.0-4.8); Lymphocytes % (A) 11 %; MCH 37.7 pg (25.0-35.0); MCHC 31.8 g/dL (31.0-37.0); MCV 118.6 fL (80.0-100.0); Macrocytosis Marked; Mean Platelet Volume 10.8; Monocytes # (A) 0.3 k/uL (0-1.0); Monocytes % (A) 4 %; Neutrophils # (A) 6.5 k/uL (1.3-7.7); Neutrophils % (A) 83 %; Poikilocytosis Slight; RBC 2.35 m/uL (4.30-5.90); RDW 18.4 % (11.5-15.5); WBC 7.9 k/uL (3.8-10.6)
[2021-08-28 11:21] LABS: Platelet Count 76 k/uL (150-450)
[2021-08-28] MEDS ORDERED: NALOXONE 0.4 MG/ML 1 ML VIAL IV PRN (12:30)
--- NOTE | 2021-08-28 12:35 | P.HPIM ---
History of Present Illness This is a pleasant 89 years old male with past medical history hypothyroidism, abdominal aortic aneurysm status post repair, coronary artery disease status post stent placement, ischemic cardiomyopathy status post AICD, hypertension, hyperlipidemia, COPD, gout, anemia, and kidney failure Patient states he came to the hospital because he was feeling very weak lately, he could not lift up from chair and he is inclined her yesterday so he is asked for his son to help him on his going to the restroom he has to lay down on the floor by the help of the son because of his weakness so he decided to come to the emergency room. Also patient has been complaining from worsening dyspnea over the last 3 days. Last week he fell on the floor and cut himself on his arm and today his left arm is swollen and red with no limitation of weakness, he has decent left hand hemmer chainstitch. Also there is a small wound on the dorsum of his left hand. He denies chest pain or abdominal pain. No nausea vomiting. No fever. Vitas looks stable, slightly bradycardic at 51. CBC looks stable with slightly WBC above average of 3-5, currently WBC 7.9K, hemoglobin is stable at 8.9 and he has chronic thrombocytopenia and currently at 76. INR is 1.1 BMP showing creatinine slightly worse than baseline of 3.0 currently 3.6 and potassium 5.2, sodium 133. Calcium 7.6. Bilirubin is 1.4, AST and ALT not elevated. Troponin is slightly elevated at 0.04, [place] [address] Chest x-ray showing acute decrease in the airspace opacity in the lower lung zone although focal opacity persistent. EKG showing AV dual paced rhythm with occasional PVC, QTC is 584 Review of Systems CONSTITUTIONAL: No fever, no malaise, no fatigue. HEENT: No recent visual problems or hearing problems. Denied any sore throat. CARDIOVASCULAR: No orthopnea, PND, no palpitations, no syncope. PULMONARY: No shortness of breath, no cough, no hemoptysis. GASTROINTESTINAL: No diarrhea, no nausea, no vomiting, no abdominal pain. Normoactive bowel sounds. NEUROLOGICAL: No headaches, no weakness, no numbness. HEMATOLOGICAL: Denies any bleeding or petechiae. GENITOURINARY: Denies any burning micturition, frequency, or urgency. MUSCULOSKELETAL/RHEUMATOLOGICAL: Denies any joint pain, swelling, or any muscle pain. ENDOCRINE: Denies any polyuria or polydipsia. 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 Last Myocardial Infarction Date:: 2009 History of Any Multi-Drug Resistant Organisms: None Reported Past Surgical History: AICD, Heart Catheterization With Stent, Pacemaker Additional Past Surgical History / Comment(s): aaa repair Past Anesthesia/Blood Transfusion Reactions: No Reported Reaction Date of Last Stent Placement:: AROUND 2009 Type of Cardiac Device: AICD Device Placement Date:: AUG 2019 Past Psychological History: No Psychological Hx Reported Smoking Status: Former smoker Past Alcohol Use History: None Reported Past Drug Use History: None Reported - Past Family History Father Family Medical History: Myocardial Infarction (MD) Medications and Allergies Home Medications Medication Instructions Recorded Confirmed Type Albuterol Sulfate [Proair Hfa] 2 puff INHALATION RT-QID PRN 11/09/19 08/28/21 History Dorzolamide-Timol 2.23%/0.68% 1 drop BOTH EYES BID 11/09/19 08/28/21 History [Cosopt] Levothyroxine Sodium [Synthroid] 150 mcg PO DAILY 11/09/19 08/28/21 History Nitroglycerin Sl Tabs [Nitrostat] 0.4 mg SUBLINGUAL Q5M PRN 11/09/19 08/28/21 History allopurinoL [Zyloprim] 100 mg PO DAILY 11/09/19 08/28/21 History carvediloL [Coreg] 6.25 mg PO BID 11/09/19 08/28/21 History Lidocaine 5% Patch [Lidoderm 5% 1 patch TOPICAL DAILY PRN #20 patch 11/29/19 08/28/21 Rx Patch] Ipratropium-Albuterol Nebulize 3 ml INHALATION RT-TID PRN 07/13/21 08/28/21 History [Duoneb 0.5 mg-3 mg/3 ml Soln] Lactose-Reduced Food [Ensure Plus] 1 can PO BID 07/13/21 08/28/21 History Multivit-Min/FA/Lycopen/Lutein 1 tab PO DAILY 07/13/21 08/28/21 History [Centrum Silver Men Tablet] Escitalopram [Lexapro] 5 mg PO DAILY 30 Days #30 tab 07/16/21 08/28/21 Rx Acetaminophen Tab [Tylenol Tab] 500 mg PO Q6HR PRN 08/28/21 08/28/21 History Aspirin EC [Ecotrin Low Dose] 81 mg PO DAILY 08/28/21 08/28/21 History Ferrous Sulfate [Feosol] 325 mg PO DAILY 08/28/21 08/28/21 History Furosemide [Lasix] 20 mg PO AC-BID 08/28/21 08/28/21 History Allergies Allergy/AdvReac Type Severity Reaction Status Date / Time glipizide AdvReac DROP SUGAR Verified 08/28/21 10:07 TOO LOW Physical Exam Vitals: Vital Signs Temp Pulse Resp BP Pulse Ox 08/28/21 11:06 51 L 18 111/58 99 08/28/21 09:05 97.3 F L 53 L 16 157/71 100 Intake and Output 08/27/21 08/28/21 08/28/21 22:59 06:59 14:59 Other: Weight 90.718 kg -GENERAL: The patient is alert and oriented x3, not in any acute distress. Well developed, well nourished. Generally weak HEENT: Pupils are round and equally reacting to light. EOMI. No scleral icterus. No conjunctival pallor. Normocephalic, atraumatic. No pharyngeal erythema. No thyromegaly. CARDIOVASCULAR: S1 and S2 present. No murmurs, rubs, or gallops. PULMONARY: Chest is clear to auscultation, no wheezing or crackles. ABDOMEN: Soft, nontender, nondistended, normoactive bowel sounds. No palpable organomegaly. MUSCULOSKELETAL: No joint swelling or deformity. -EXTREMITIES: No cyanosis, clubbing, or pedal edema. Left hand, forearm and a total of the distal arm is red, with 1 inch wound on the dorsum of the left side, no purulent discharge and some dryness of the base NEUROLOGICAL: Gross neurological examination did not reveal any focal deficits. SKIN: No rashes. No petechiae Results CBC & Chem 7: 08/28/21 10:19 08/28/21 09:47 Labs: Abnormal Lab Results - Last 24 Hours (Table) 08/28/21 08/28/21 08/28/21 Range/Units 09:47 09:47 09:47 RBC (4.30-5.90) m/uL Hgb (13.0-17.5) gm/dL Hct (39.0-53.0) % MCV (80.0-100.0) fL MCH (25.0-35.0) pg RDW (11.5-15.5) % Plt Count (150-450) k/uL Lymphocytes # (1.0-4.8) k/uL Macrocytosis PT 12.2 H (9.0-12.0) sec Sodium 133 L (137-145) mmol/L Potassium 5.2 H (3.5-5.1) mmol/L Chloride 112 H (98-107) mmol/L Carbon Dioxide 13 L (22-30) mmol/L BUN 64 H (9-20) mg/dL Creatinine 3.68 H (0.66-1.25) mg/dL Calcium 7.6 L (8.4-10.2) mg/dL Magnesium 3.2 H (1.6-2.3) mg/dL Total Bilirubin 1.4 H (0.2-1.3) mg/dL Alkaline Phosphatase 224 H (38-126) U/L Troponin I 0.041 H* (0.000-0.034) ng/mL Total Protein 5.9 L (6.3-8.2) g/dL Albumin 2.7 L (3.5-5.0) g/dL 08/28/21 Range/Units 10:19 RBC 2.35 L (4.30-5.90) m/uL Hgb 8.9 L (13.0-17.5) gm/dL Hct 27.9 L (39.0-53.0) % MCV 118.6 H (80.0-100.0) fL MCH 37.7 H (25.0-35.0) pg RDW 18.4 H (11.5-15.5) % Plt Count 76 L (150-450) k/uL Lymphocytes # 0.9 L (1.0-4.8) k/uL Macrocytosis Marked A PT (9.0-12.0) sec Sodium (137-145) mmol/L Potassium (3.5-5.1) mmol/L Chloride (98-107) mmol/L Carbon Dioxide (22-30) mmol/L BUN (9-20) mg/dL Creatinine (0.66-1.25) mg/dL Calcium (8.4-10.2) mg/dL Magnesium (1.6-2.3) mg/dL Total Bilirubin (0.2-1.3) mg/dL Alkaline Phosphatase (38-126) U/L Troponin I (0.000-0.034) ng/mL Total Protein (6.3-8.2) g/dL Albumin (3.5-5.0) g/dL Assessment and Plan Assessment: Left upper extremity cellulitis with small wound on the dorsum of the left hand Generalized weakness and recurrent falls Chronic kidney disease, stage IV. With some elements of acute kidney injury but mild Mildly elevated troponin Hypothyroidism Thrombocytopenia, anemia History of abdominal aortic aneurysm status post repair History of coronary artery disease status post stent Ischemic cardiomyopathy status post AICD Hypertension Hyperlipidemia COPD, no acute exacerbation Gout Anemia Plan: This is a pleasant 89 is old male who presents with falls, weakness and left upp er extremity cellulitis Start cefazolin, sent with culture if possible from the left hand wound We'll check ultrasound of the left upper extremity as well as x-rays Consults nephrology team Cardiology consult for mildly elevated troponin Labs and medication were reviewed.. Continue same treatment. Continue with symptomatic treatment. Resume home medication. Monitor lytes and vitals. DVT and GI prophylaxis. Further recommendations depends on the clinical course of the patient DVT prophylaxis: Subcutaneous heparin GI Prophylaxis: Pepcid PT/OT: Pending Prognosis is guarded
--- NOTE | 2021-08-28 13:24 | US ---
EXAMINATION TYPE: US venous doppler duplex UE LT DATE OF EXAM: 08/28/2021 COMPARISON: NONE CLINICAL HISTORY: swelling . EC patient who fell 5 days ago resulting in swelling left arm, skin redn ess with bleeding; patient has T shirt on, has left arm pain and is unable to bend elbow to remove sh irt for complete Venous Duplex Left arm; Very thin and bleeding skin is noted left arm. SIDE PERFORMED: Left arm, limited US Pacemaker and defibrillator is in left upper chest and wires/ internal are seen in medial left subcla vian vein. Left Arm: Negative for DVT as technologist was able to assess left arm veins due to friable and bleed ing skin. From left medial wrist to left upper medial arm edema channels are seen by US. Full vein co mpression is noted left arm at IJV, Subclavian Vein, limited left Axillary Vein views; Left Brachial Veins, Left wrist Radial and Ulnar Veins. IMPRESSION: Limited study but no definite evidence of left upper extremity DVT.
[2021-08-28 14:04] LABS: Appearance,Urine Clear (Clear); Bilirubin,Urine Negative (Negative); Blood,Urine Negative (Negative); Color,Urine Yellow; Glucose,Urine (UA) Negative (Negative); Ketones,Urine Negative (Negative); Leukocyte Esterase,Urine Negative (Negative); Nitrite,Urine Negative (Negative); Protein,Urine Trace (Negative); Specific Gravity,Urine 1.016 (1.001-1.035); Urobilinogen,Urine <2.0 mg/dL (<2.0)
[2021-08-28] MEDS: SODIUM CHLORIDE 0.9% 1,000 ML IV SCH (14:05)
--- NOTE | 2021-08-28 14:10 | XR ---
Right forearm HISTORY: Swelling COMPARISON: None Right forearm were obtained. FINDINGS: In the mid right radial diaphysis there is a 6 mild bulge in the cortex suggesting prior fracture/hea led fracture there is no cortical disruption or periosteal reaction. There is mild diffuse osteopenia . There is no radiopaque foreign body, abnormal soft tissue calcification or soft tissue gas. IMPRESSION: No evidence of acute injury. There is suggestion of a remote healed fracture of the mid right radial diaphysis.
[2021-08-28] MEDS: FAMOTIDINE 20 MG/2 ML VIAL IV SCH (14:50)
[2021-08-28] MEDS ORDERED: LIDOCAINE 5% PATCH TOPICAL PRN (16:14)
[2021-08-28] MEDS ORDERED: ALBUTEROL NEBULIZED 2.5 MG/3 ML INHALATION PRN (16:14)
[2021-08-28] MEDS ORDERED: SODIUM BICARB 8.4% 50 ML SYR (1 MEQ/ML) IV STA (17:39)
[2021-08-28] MEDS: FUROSEMIDE 20 MG TAB PO SCH (19:03)
[2021-08-28] MEDS ORDERED: SODIUM BICARB 8.4% 50 ML SYR (1 MEQ/ML) ONE (19:28)
[2021-08-28] MEDS ORDERED: FAMOTIDINE 20 MG/2 ML VIAL IV SCH (21:00)
[2021-08-28] MEDS ORDERED: carvediloL 6.25 MG TAB PO SCH (21:00)
[2021-08-28] MEDS: HEPARIN SODIUM,PORCINE/PF 5,000 UNIT/0.5 ML SYRINGE SQ SCH (21:01)
[2021-08-28] MEDS: SODIUM BICARBONATE TAB 650 MG TAB PO SCH (21:01)
[2021-08-28] MEDS: ACETAMINOPHEN TAB 325 MG TAB PO PRN (21:17)
[2021-08-29] MEDS: FUROSEMIDE 20 MG TAB PO SCH ×2 (06:26→16:48)
[2021-08-29 08:21] LABS: Anisocytosis Slight; Basophils % (A) 1 %; Eosinophils # (A) 0.1 k/uL (0-0.7); Eosinophils % (A) 1 %; HCT 27.1 % (39.0-53.0); HGB 8.5 gm/dL (13.0-17.5); Hypochromasia Moderate; Lymphocytes % (A) 14 %; MCH 37.6 pg (25.0-35.0); MCHC 31.5 g/dL (31.0-37.0); MCV 119.4 fL (80.0-100.0); Macrocytosis Marked; Mean Platelet Volume 10.1; Monocytes # (A) 0.4 k/uL (0-1.0); Monocytes % (A) 6 %; Neutrophils # (A) 5.6 k/uL (1.3-7.7); Neutrophils % (A) 77 %; Poikilocytosis Slight; RBC 2.27 m/uL (4.30-5.90); RDW 17.9 % (11.5-15.5); WBC 7.2 k/uL (3.8-10.6)
[2021-08-29 08:33] LABS: Platelet Count 82 k/uL (150-450)
[2021-08-29 08:41] LABS: ALT 20 U/L (4-49); AST 23 U/L (17-59); African American GFR (CKD) >90 (>60 ml/min/1.73 sqM); Albumin 3.5 g/dL (3.5-5.0); Alkaline Phosphatase 70 U/L (38-126); Anion Gap 4 mmol/L; Bilirubin,Unconjugated 0.7 mg/dL (0.0-1.1); Blood Urea Nitrogen 14 mg/dL (9-20); Calcium 9.2 mg/dL (8.4-10.2); Carbon Dioxide 24 mmol/L (22-30); Chloride 113 mmol/L (98-107); Glucose 101 mg/dL (74-99); Magnesium 2.1 mg/dL (1.6-2.3); Non-African American GFR(CKD) 83 (>60 ml/min/1.73 sqM); Potassium 4.5 mmol/L (3.5-5.1); Sodium 141 mmol/L (137-145); Total Bilirubin 0.7 mg/dL (0.2-1.3); Total Protein 6.2 g/dL (6.3-8.2)
[2021-08-29] MEDS: LEVOTHYROXINE 50 MCG TAB PO SCH (09:00)
[2021-08-29] MEDS: allopurinoL 100 MG TAB PO SCH (09:00)
[2021-08-29] MEDS: SODIUM BICARBONATE TAB 650 MG TAB PO SCH ×2 (09:00→20:54)
[2021-08-29] MEDS: ASPIRIN 81 MG PO SCH (09:00)
[2021-08-29] MEDS: ESCITALOPRAM 5 MG TAB PO SCH (09:00)
[2021-08-29] MEDS: HEPARIN SODIUM,PORCINE/PF 5,000 UNIT/0.5 ML SYRINGE SQ SCH ×2 (09:01→20:54)
[2021-08-29] MEDS: FAMOTIDINE 20 MG/2 ML VIAL IV SCH (09:01)
--- NOTE | 2021-08-29 09:16 | P.NPCON ---
History of Present Illness - Reason for Consult acute renal failure, chronic renal failure - History of Present Illness Reason for consultation: Acute kidney injury on chronic kidney disease History of present illness: Patient is a 89-year-old male seen in renal consultation for acute kidney injury on chronic kidney disease. Patient's creatinine in June 2021 has been near 3. This admission it was 3.68. Today it is 0.7 to but I believe this is a lab error. Patient presented to the hospital due to generalized weakness. Patient states he also fell a few times because of the weakness. Oral intake has been poor. He does admit to occasional diarrhea. Denies chest pain or shortness of breath. No cough. Blood pressure has been fairly stable. Has been voiding. No hematuria or dysuria. He is receiving antibiotics for cellulitis. He is also on oral diuretics. No history of diabetes. Denies use of nonsteroidals. 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 UA is fairly benign. He tested negative for coronavirus. Vital signs are stable. General: The patient appeared well nourished and normally developed. HEENT: Head exam is unremarkable. LUNGS: Breath sounds decreased. HEART: Rate and Rhythm are regular. ABDOMEN: Soft, no distention. EXTREMITITES: No edema. 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 Last Myocardial Infarction Date:: 2009 History of Any Multi-Drug Resistant Organisms: None Reported Past Surgical History: AICD, Heart Catheterization With Stent, Pacemaker Additional Past Surgical History / Comment(s): aaa repair Past Anesthesia/Blood Transfusion Reactions: No Reported Reaction Date of Last Stent Placement:: AROUND 2009 Type of Cardiac Device: AICD Device Placement Date:: AUG 2019 Past Psychological History: No Psychological Hx Reported Smoking Status: Former smoker Past Alcohol Use History: None Reported Past Drug Use History: None Reported - Past Family History Father Family Medical History: Myocardial Infarction (ID) Medications and Allergies Home Medications Medication Instructions Recorded Confirmed Type Albuterol Sulfate [Proair Hfa] 2 puff INHALATION RT-QID PRN 11/09/19 08/28/21 History Dorzolamide-Timol 2.23%/0.68% 1 drop BOTH EYES BID 11/09/19 08/28/21 History [Cosopt] Levothyroxine Sodium [Synthroid] 150 mcg PO DAILY 11/09/19 08/28/21 History Nitroglycerin Sl Tabs [Nitrostat] 0.4 mg SUBLINGUAL Q5M PRN 11/09/19 08/28/21 History allopurinoL [Zyloprim] 100 mg PO DAILY 11/09/19 08/28/21 History carvediloL [Coreg] 6.25 mg PO BID 11/09/19 08/28/21 History Lidocaine 5% Patch [Lidoderm 5% 1 patch TOPICAL DAILY PRN #20 patch 11/29/19 08/28/21 Rx Patch] Ipratropium-Albuterol Nebulize 3 ml INHALATION RT-TID PRN 07/13/21 08/28/21 History [Duoneb 0.5 mg-3 mg/3 ml Soln] Lactose-Reduced Food [Ensure Plus] 1 can PO BID 07/13/21 08/28/21 History Multivit-Min/FA/Lycopen/Lutein 1 tab PO DAILY 07/13/21 08/28/21 History [Centrum Silver Men Tablet] Escitalopram [Lexapro] 5 mg PO DAILY 30 Days #30 tab 07/16/21 08/28/21 Rx Acetaminophen Tab [Tylenol Tab] 500 mg PO Q6HR PRN 08/28/21 08/28/21 History Aspirin EC [Ecotrin Low Dose] 81 mg PO DAILY 08/28/21 08/28/21 History Ferrous Sulfate [Feosol] 325 mg PO DAILY 08/28/21 08/28/21 History Furosemide [Lasix] 20 mg PO AC-BID 08/28/21 08/28/21 History Allergies Allergy/AdvReac Type Severity Reaction Status Date / Time glipizide AdvReac DROP SUGAR Verified 08/28/21 10:07 TOO LOW Physical Exam Vitals: Vital Signs Temp Pulse Pulse Resp BP BP Pulse Ox 08/29/21 06:21 122/62 08/29/21 04:00 97.5 F L 56 L 16 127/68 99 08/29/21 01:26 104/55 08/29/21 00:00 42 L 18 93/62 99 08/28/21 20:20 97.4 F L 50 L 18 118/50 100 08/28/21 16:00 58 L 19 08/28/21 15:15 97.5 F L 58 L 19 129/52 93 L 08/28/21 15:00 97.5 F L 49 L 18 129/75 96 08/28/21 13:57 97.5 F L 53 L 18 136/57 94 L 08/28/21 11:06 51 L 18 111/58 99 08/28/21 09:05 97.3 F L 53 L 16 157/71 100 Intake and Output 08/28/21 08/29/21 08/29/21 22:59 06:59 14:59 Output Total 250 Balance -250 Output: Urine 250 Other: Voiding Method Urinal Urinal Diaper Diaper # Voids 1 1 # Bowel Movements 1 1 Weight 90.718 kg Results - Lab Results Most recent lab results Calcium 9.2 mg/dL (8.4-10.2) 08/29/21 07:37 Magnesium 2.1 mg/dL (1.6-2.3) 08/29/21 07:37 08/29/21 07:37 08/29/21 07:37 Assessment and Plan Plan: Assessment: 1. Acute kidney injury secondary to ATN secondary to infection. Also component of cardiorenal syndrome. Creatinine 3.68 on admission yesterday and is 0.72 today. I believe this is a lab error. 2. Chronic kidney disease stage IV with creatinine near 3 in June 2021. Etiology is nephrosclerosis. UA fairly benign. Renal ultrasound from last month showed no evidence of hydronephrosis. 3. 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 Status post AICD. 4. Left upper extremity cellulitis on antibiotics. 5. History of AAA status post repair. 6. Metabolic acidosis secondary to acute kidney injury. 7. Anemia of chronic kidney disease. Plan: Maintain oral Lasix. Avoid nephrotoxins. Encouraged oral intake. Check iron studies. Repeat BMP today. Thank you for the consultation. I will continue to follow the patient with you during his hospital stay.
[2021-08-29 09:46] LABS: T4, Free (Free Thyroxine) 0.46 ng/dL (0.78-2.19)
[2021-08-29 13:17] LABS: % Iron Saturation 26.27 (15.00-50.00)
[2021-08-29 15:12] LABS: Calcium 7.3 mg/dL (8.4-10.2); Potassium 4.8 mmol/L (3.5-5.1)
--- NOTE | 2021-08-29 15:29 | P.CRDCN ---
History of Present Illness Consult date: 08/29/21 History of present illness: History of Presenting Illness: Patient is a very pleasant 89-year-old male with a past medical history of CAD status post stenting, ischemic cardiomyopathy status post AICD, paroxysmal atrial fibrillation, hypertension, hyperlipidemia, abdominal aortic aneurysm status post repair, COPD, and hypothyroidism. Patient presented to the emergency department with a chief complaint of weakness and worsening shortness of breath. In the emergency department patient was seen and fully evaluated. EKG completed revealing AV paced rhythm at 57 bpm with occasional PVCs and repeat EKG revealing an AV paced rhythm at 50 bpm with underlying atrial fibrillation. Troponin was elevated at 0.041 proBNP was 13,300. Chest x-ray re vealed moderately enlarged heart with pulmonary vascular congestion. Patient admitted under internal medicine team and we have been consulted for elevation in troponin. Patient seen and fully evaluated at the bedside. Patient reports feeling overall weakness and intermittent dizziness accompanied by significant dyspnea with exertion, patient states he is too weak and no longer able to care for himself. He reports that he does not want to have any surgical procedures and would not like to have pacemaker replaced if this is needed. Patient denies feeling any dizziness/lightheadedness, chest pain, palpitations, shortness of breath, nausea, or experiencing any numbness/tingling/weakness in his extremities at this current time. He does report continued overall feeling of weakness and expressing concerns that he would like to go to rehab or hospice upon discharge. Review of systems: Pertinent positives and negatives as discussed in HPI, a complete review of systems was performed and all other systems are negative. Physical exam: Vital signs reviewed and stable. General: Nontoxic, no distress and appears stated age. Derm: Skin warm and dry, normal coloration for ethnicity. Head: Atraumatic, normocephalic and symmetric. Eyes: EOMs intact, no lid lag, and anicteric sclera Mouth: no lip lesions, mucus membranes moist Cardiovascular: regular rate and rhythm with normal S1S2, distant heart sounds, no noted murmur, positive posterior tibial pulses bilaterally, and cap refill < 2 seconds. Lungs: Respirations even, regular, and unlabored on room air. Lungs CTA bilaterally, no rhonchi, no rales, no wheezing, and no accessory muscle usage. No conversational dyspnea noted. Abdominal: soft, nontender to palpation, no guarding, no appreciable organomegaly Ext: ROM intact. No gross muscle atrophy, bilateral lower extremity edema, no contractures Neuro: Speech clear, face symmetrical and CN II-XII grossly intact with no noted focal neuro deficits Psych: Alert and oriented to person, place, time, and situation. Appropriate and pleasant affect. Assessment and Plan of Care: Elevated troponin Symptomatic Bradycardia with reports of weakness and dizziness Ischemic cardiomyopathy status post AICD History of CAD status post stenting Paroxysmal atrial fibrillation, not on anticoagulation Continuous telemetry monitoring Repeat troponin Echocardiogram After review of chest x-ray, it appears that RV lead of AICD is dislodged. Pacemaker was completed in [facility], information regarding pacemaker being obtained and will attempt to obtain report once this information is available. Continuation of cardiac medications including aspirin and carvedilol TSH and free T4 to be completed Orthostatic vitals We will continue to follow, further recommendations to be given pending results and clinical course. Thank you for allowing us to participate in the care of this pleasant patient. Do not hesitate to contact us with questions. Nurse practitioner note has been reviewed by physician. Signing provider agrees with the documented findings, assessment, and plan of care. 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 Last Myocardial Infarction Date:: 2009 History of Any Multi-Drug Resistant Organisms: None Reported Past Surgical History: AICD, Heart Catheterization With Stent, Pacemaker Additional Past Surgical History / Comment(s): aaa repair Past Anesthesia/Blood Transfusion Reactions: No Reported Reaction Date of Last Stent Placement:: AROUND 2009 Type of Cardiac Device: AICD Device Placement Date:: AUG 2019 Past Psychological History: No Psychological Hx Reported Smoking Status: Former smoker Past Alcohol Use History: None Reported Past Drug Use History: None Reported - Past Family History Father Family Medical History: Myocardial Infarction (SD) Medications and Allergies Home Medications Medication Instructions Recorded Confirmed Type Albuterol Sulfate [Proair Hfa] 2 puff INHALATION RT-QID PRN 11/09/19 08/28/21 H istory Dorzolamide-Timol 2.23%/0.68% 1 drop BOTH EYES BID 11/09/19 08/28/21 History [Cosopt] Levothyroxine Sodium [Synthroid] 150 mcg PO DAILY 11/09/19 08/28/21 History Nitroglycerin Sl Tabs [Nitrostat] 0.4 mg SUBLINGUAL Q5M PRN 11/09/19 08/28/21 History allopurinoL [Zyloprim] 100 mg PO DAILY 11/09/19 08/28/21 History carvediloL [Coreg] 6.25 mg PO BID 11/09/19 08/28/21 History Lidocaine 5% Patch [Lidoderm 5% 1 patch TOPICAL DAILY PRN #20 patch 11/29/19 08/28/21 Rx Patch] Ipratropium-Albuterol Nebulize 3 ml INHALATION RT-TID PRN 07/13/21 08/28/21 History [Duoneb 0.5 mg-3 mg/3 ml Soln] Lactose-Reduced Food [Ensure Plus] 1 can PO BID 07/13/21 08/28/21 History Multivit-Min/FA/Lycopen/Lutein 1 tab PO DAILY 07/13/21 08/28/21 History [Centrum Silver Men Tablet] Escitalopram [Lexapro] 5 mg PO DAILY 30 Days #30 tab 07/16/21 08/28/21 Rx Acetaminophen Tab [Tylenol Tab] 500 mg PO Q6HR PRN 08/28/21 08/28/21 History Aspirin EC [Ecotrin Low Dose] 81 mg PO DAILY 08/28/21 08/28/21 History Ferrous Sulfate [Feosol] 325 mg PO DAILY 08/28/21 08/28/21 History Furosemide [Lasix] 20 mg PO AC-BID 08/28/21 08/28/21 History Allergies Allergy/AdvReac Type Severity Reaction Status Date / Time glipizide AdvReac DROP SUGAR Verified 08/28/21 10:07 TOO LOW Physical Exam Vitals: Vital Signs Temp Pulse Pulse Resp BP BP Pulse Ox 08/29/21 09:08 97.8 F 54 L 16 89/42 100 08/29/21 06:21 122/62 08/29/21 04:00 97.5 F L 56 L 16 127/68 99 08/29/21 01:26 104/55 08/29/21 00:00 42 L 18 93/62 99 08/28/21 20:20 97.4 F L 50 L 18 118/50 100 08/28/21 16:00 58 L 19 08/28/21 15:15 97.5 F L 58 L 19 129/52 93 L 08/28/21 15:00 97.5 F L 49 L 18 129/75 96 08/28/21 13:57 97.5 F L 53 L 18 136/57 94 L 08/28/21 11:06 51 L 18 111/58 99 Intake and Output 08/28/21 08/29/21 08/29/21 22:59 06:59 14:59 Output Total 250 Balance -250 Output: Urine 250 Other: Voiding Method Urinal Urinal Diaper Diaper # Voids 1 1 # Bowel Movements 1 1 Weight 90.718 kg Results 08/29/21 07:37 08/29/21 07:37 Cardiac Enzymes 08/28/21 08/28/21 08/29/21 Range/Units 09:47 09:47 07:37 AST 38 23 (17-59) U/L Troponin I 0.041 H* (0.000-0.034) ng/mL Coagulation 08/28/21 Range/Units 09:47 PT 12.2 H (9.0-12.0) sec APTT 29.3 (22.0-30.0) sec CBC 08/28/21 08/29/21 Range/Units 10:19 07:37 WBC 7.9 7.2 (3.8-10.6) k/uL RBC 2.35 L 2.27 L (4.30-5.90) m/uL Hgb 8.9 L 8.5 L (13.0-17.5) gm/dL Hct 27.9 L 27.1 L (39.0-53.0) % Plt Count 76 L 82 L (150-450) k/uL Comprehensive Metabolic Panel 08/28/21 08/29/21 Range/Units 09:47 07:37 Sodium 133 L 141 (137-145) mmol/L Potassium 5.2 H 4.5 (3.5-5.1) mmol/L Chloride 112 H 113 H (98-107) mmol/L Carbon Dioxide 13 L 24 (22-30) mmol/L BUN 64 H 14 (9-20) mg/dL Creatinine 3.68 H 0.72 (0.66-1.25) mg/dL Glucose 99 101 H (74-99) mg/dL Calcium 7.6 L 9.2 (8.4-10.2) mg/dL Unconjugated Bilirubin 0.7 (0.0-1.1) mg/dL AST 38 23 (17-59) U/L ALT 27 20 (4-49) U/L Alkaline Phosphatase 224 H 70 (38-126) U/L Total Protein 5.9 L 6.2 L (6.3-8.2) g/dL Albumin 2.7 L 3.5 (3.5-5.0) g/dL Current Medications Generic Name Dose Route Start Last Admin Trade Name Freq PRN Reason Stop Dose Admin Acetaminophen 650 mg 08/28/21 12:30 08/28/21 21:17 Acetaminophen Tab 325 Mg Tab PO 650 mg Q6HR PRN Administration Mild Pain or Fever > 100.5 Albuterol Sulfate 2.5 mg 08/28/21 16:14 Albuterol Nebulized 2.5 Mg/3 Ml INHALATION RT-QID PRN Shortness Of Breath Allopurinol 100 mg 08/29/21 09:00 08/29/21 09:00 Allopurinol 100 Mg Tab PO 100 mg DAILY SOLEDAD Administration Aspirin 81 mg 08/29/21 09:00 08/29/21 09:00 Aspirin 81 Mg PO 81 mg DAILY SOLEDAD Administration Escitalopram Oxalate 5 mg 08/29/21 09:00 08/29/21 09:00 Escitalopram 5 Mg Tab PO 5 mg DAILY SOLEDAD Administration Famotidine 20 mg 08/28/21 14:00 08/29/21 09:01 Famotidine 20 Mg/2 Ml Vial IV 20 mg DAILY SOLEDAD Administration Furosemide 20 mg 08/28/21 17:30 08/29/21 06:26 Furosemide 20 Mg Tab PO 20 mg AC-BID SOLEDAD Administration Heparin Sodium (Porcine) 5,000 unit 08/28/21 21:00 08/29/21 09:01 Heparin Sodium,Porcine/Pf 5,000 Unit/0.5 Ml Syringe SQ 5,000 unit Q12HR SOLEDAD Administration Cefazolin Sodium 2 gm/ Sodium 50 mls @ 100 mls/hr 08/28/21 12:30 08/28/21 22:02 Chloride IVPB 100 mls/hr Q12HR SOLEDAD Administration Sodium Chloride 1,000 mls @ 20 mls/hr 08/28/21 12:30 08/28/21 14:05 Saline 0.9% IV 20 mls/hr .Q24H SOLEDAD Administration Levothyroxine Sodium 150 mcg 08/29/21 09:00 08/29/21 09:00 Levothyroxine 50 Mcg Tab PO 150 mcg DAILY SOLEDAD Administration Lidocaine 1 patch 08/28/21 16:14 Lidocaine 5% Patch TOPICAL DAILY PRN Pain Protocol Naloxone HCl 0.2 mg 08/28/21 12:30 Naloxone 0.4 Mg/Ml 1 Ml Vial IV Q2M PRN Opioid Reversal Sodium Bicarbonate 1,300 mg 08/28/21 21:00 08/29/21 09:00 Sodium Bicarbonate Tab 650 Mg Tab PO 1,300 mg BID SOLEDAD Administration Intake and Output 08/28/21 08/29/21 08/29/21 22:59 06:59 14:59 Output Total 250 Balance -250 Output: Urine 250 Other: Voiding Method Urinal Urinal Diaper Diaper # Voids 1 1 # Bowel Movements 1 1 Weight 90.718 kg 08/29/21 07:37 08/29/21 07:37
--- NOTE | 2021-08-29 16:28 | P.PN ---
Subjective This is a pleasant 89 years old male with past medical history hypothyroidism, abdominal aortic aneurysm status post repair, coronary artery disease status post stent placement, ischemic cardiomyopathy status post AICD, hypertension, hyperlipidemia, COPD, gout, anemia, and kidney failure Patient states he came to the hospital because he was feeling very weak lately, he could not lift up from chair and he is inclined her yesterday so he is asked for his son to help him on his going to the restroom he has to lay down on the floor by the help of the son because of his weakness so he decided to come to the emergency room. Also patient has been complaining from worsening dyspnea over the last 3 days. 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 Also there is a small wound on the dorsum of his left hand. He denies chest pain or abdominal pain. No nausea vomiting. No fever. Vitas looks stable, slightly bradycardic at 51. CBC looks stable with slightly WBC above average of 3-5, currently WBC 7.9K, hemoglobin is stable at 8.9 and he has chronic thrombocytopenia and currently at 76. INR is 1.1 BMP showing creatinine slightly worse than baseline of 3.0 currently 3.6 and potassium 5.2, sodium 133. Calcium 7.6. Bilirubin is 1.4, AST and ALT not elevated. Troponin is slightly elevated at 0.04, [place] [address] Chest x-ray showing acute decrease in the airspace opacity in the lower lung zone although focal opacity persistent. EKG showing AV dual paced rhythm with occasional PVC, QTC is 584 08/29/2021 Patient looks less distress lying yesterday but still generally weak, fully awake and oriented. He is been treated for left upper extremity cellulitis, his Doppler and x-ray were negative for acute event. The left upper extremity looks less formed compared to yesterday but still red and patient continued on cefazolin now, culture were obtained from wound and will follow-up the results and they're still pending. Patient currently is covered with cefazolin Also j2ee architect evaluated the patient and recommended echocardiogram, pacemaker interrogation and looks like the patient has this large 8 ICD lead however he refused to be replaced and cardiology team are following him closely regarding this and will defer further management to them. His hemoglobin and platelets are stable but low with hemoglobin 8.5 and platelets 76 and 82. We will do anemia workup and check vitamin B12 and occult blood in the stool. Patient has known chronic kidney disease and his creatinine at baseline 3.0, K is 3.6 and he looks euvolemic with nephrology team on the case and continued on oral Lasix and oral sodium bicarb has been added as well. Patient generally weak and will benefit from physical therapy evaluation Review of systems CONSTITUTIONAL: No fever, no malaise HEENT: No recent visual problems or hearing problems. Denied any sore throat. CARDIOVASCULAR: No orthopnea, PND, no palpitations, no syncope. PULMONARY: No shortness of breath, no cough, no hemoptysis. GASTROINTESTINAL: No diarrhea, no nausea, no vomiting, no abdominal pain. Normoactive bowel sounds. NEUROLOGICAL: No headaches, no weakness, no numbness. HEMATOLOGICAL: Denies any bleeding or petechiae. Active Medications Generic Name Dose Route Start Last Admin Trade Name Freq PRN Reason Stop Dose Admin Acetaminophen 650 mg 08/28/21 12:30 08/28/21 21:17 Acetaminophen Tab 325 Mg Tab PO 650 mg Q6HR PRN Administration Mild Pain or Fever > 100.5 Albuterol Sulfate 2.5 mg 08/28/21 16:14 Albuterol Nebulized 2.5 Mg/3 Ml INHALATION RT-QID PRN Shortness Of Breath Allopurinol 100 mg 08/29/21 09:00 08/29/21 09:00 Allopurinol 100 Mg Tab PO 100 mg DAILY SOLEDAD Administration Aspirin 81 mg 08/29/21 09:00 08/29/21 09:00 Aspirin 81 Mg PO 81 mg DAILY SOLEDAD Administration Escitalopram Oxalate 5 mg 08/29/21 09:00 08/29/21 09:00 Escitalopram 5 Mg Tab PO 5 mg DAILY SOLEDAD Administration Famotidine 20 mg 08/30/21 09:00 Famotidine 20 Mg Tab PO DAILY SOLEDAD Furosemide 20 mg 08/28/21 17:30 08/29/21 06:26 Furosemide 20 Mg Tab PO 20 mg AC-BID SOLEDAD Administration Heparin Sodium (Porcine) 5,000 unit 08/28/21 21:00 08/29/21 09:01 Heparin Sodium,Porcine/Pf 5,000 Unit/0.5 Ml Syringe SQ 5,000 unit Q12HR SOLEDAD Administration Cefazolin Sodium 2 gm/ Sodium 50 mls @ 100 mls/hr 08/28/21 12:30 08/29/21 11:39 Chloride IVPB 100 mls/hr Q12HR SOLEDAD Administration Sodium Chloride 1,000 mls @ 20 mls/hr 08/28/21 12:30 08/28/21 14:05 Saline 0.9% IV 20 mls/hr .Q24H SOLEDAD Administration Levothyroxine Sodium 150 mcg 08/29/21 09:00 08/29/21 09:00 Levothyroxine 50 Mcg Tab PO 150 mcg DAILY SOLEDAD Administration Lidocaine 1 patch 08/28/21 16:14 Lidocaine 5% Patch TOPICAL DAILY PRN Pain Protocol Naloxone HCl 0.2 mg 08/28/21 12:30 Naloxone 0.4 Mg/Ml 1 Ml Vial IV Q2M PRN Opioid Reversal Sodium Bicarbonate 1,300 mg 08/28/21 21:00 08/29/21 09:00 Sodium Bicarbonate Tab 650 Mg Tab PO 1,300 mg BID SOLEDAD Administration Objective - Vital Signs Vital signs: Vital Signs Temp 97.8 F 08/29/21 09:08 Pulse 54 L 08/29/21 09:08 Resp 16 08/29/21 09:08 BP 89/42 08/29/21 09:08 Pulse Ox 100 08/29/21 09:08 Intake & Output 08/28/21 08/29/21 08/29/21 18:59 06:59 18:59 Output Total 250 Balance -250 Weight 90.718 kg Output: Urine 250 Other: Voiding Method Indwelling Catheter Urinal Diaper # Voids 1 1 # Bowel Movements 1 - Exam - GENERAL: The patient is alert and oriented x3, not in any acute distress. Well developed, well nourished. generally weak HEENT: Pupils are round and equally reacting to light. EOMI. No scleral icterus. No conjunctival pallor. Normocephalic, atraumatic. No pharyngeal erythema. No thyromegaly. CARDIOVASCULAR: S1 and S2 present. No murmurs, rubs, or gallops. PULMONARY: Chest is clear to auscultation, no wheezing or crackles. ABDOMEN: Soft, nontender, nondistended, normoactive bowel sounds. No palpable organomegaly. MUSCULOSKELETAL: No joint swelling or deformity. -EXTREMITIES: No cyanosis, clubbing, or pedal edema. Left hand, forearm and distal arm are right with some superficial excoriation and there is 1 inch wound on the dorsum of the left hand looks dry with no purulent discharge NEUROLOGICAL: Gross neurological examination did not reveal any focal deficits. SKIN: No rashes. No petechiae - Labs CBC & Chem 7: 08/29/21 07:37 08/29/21 14:12 Labs: Abnormal Lab Results - Last 24 Hours (Table) 08/28/21 08/28/21 08/29/21 Range/Units 10:19 13:40 07:37 RBC 2.27 L (4.30-5.90) m/uL Hgb 8.5 L (13.0-17.5) gm/dL Hct 27.1 L (39.0-53.0) % MCV 119.4 H (80.0-100.0) fL MCH 37.6 H (25.0-35.0) pg RDW 17.9 H (11.5-15.5) % Plt Count 76 L 82 L (150-450) k/uL Lymphocytes # 0.9 L (1.0-4.8) k/uL Macrocytosis Marked A Chloride (98-107) mmol/L Glucose (74-99) mg/dL Total Protein (6.3-8.2) g/dL TSH (0.465-4.680) mIU/L Free T4 (0.78-2.19) ng/dL Urine Protein Trace H (Negative) 08/29/21 08/29/21 Range/Units 07:37 07:37 RBC (4.30-5.90) m/uL Hgb (13.0-17.5) gm/dL Hct (39.0-53.0) % MCV (80.0-100.0) fL MCH (25.0-35.0) pg RDW (11.5-15.5) % Plt Count (150-450) k/uL Lymphocytes # (1.0-4.8) k/uL Macrocytosis Chloride 113 H (98-107) mmol/L Glucose 101 H (74-99) mg/dL Total Protein 6.2 L (6.3-8.2) g/dL TSH 97.000 H (0.465-4.680) mIU/L Free T4 0.46 L (0.78-2.19) ng/dL Urine Protein (Negative) Microbiology - Last 24 Hours (Table) 08/28/21 13:40 Gram Stain - Preliminary Hand - Left Wound Culture - Preliminary 08/28/21 13:40 Anaerobic Culture - Preliminary Hand - Left Assessment and Plan Assessment: Left upper extremity cellulitis with small wound on the dorsum of the left hand Generalized weakness and recurrent falls [place] AICD late and patient refused to be replaced. Cardiology team on the case Chronic kidney disease, stage IV. With some elements of acute kidney injury but mild Mildly elevated troponin. Acute coronary syndrome has been ruled out Hypothyroidism Status post permanent pacemaker Thrombocytopenia, anemia History of abdominal aortic aneurysm status post repair History of coronary artery disease status post stent Ischemic cardiomyopathy status post AICD Hypertension Hyperlipidemia COPD, no acute exacerbation Gout Anemia Plan: This is a pleasant 89 is old male who presents with falls, weakness and left upper extremity cellulitis Start cefazolin, sent with culture if possible from the left hand wound Cardiology team is considering pacemaker interrogation. Follow-up echocardiogram. Consults nephrology team Labs and medication were reviewed.. Continue same treatment. Continue with symptomatic treatment. Resume home medication. Monitor lytes and vitals. DVT and GI prophylaxis. Further recommendations depends on the clinical course of the patient DVT prophylaxis: Subcutaneous heparin GI Prophylaxis: Pepcid PT/OT: Pending Prognosis is guarded
[2021-08-29] MEDS: SODIUM CHLORIDE 0.9% 1,000 ML IV SCH (16:46)
[2021-08-29] MEDS ORDERED: VANCOMYCIN IV PER PHARMACY 1 EACH MISC MISCELLANE PRN (22:29)
[2021-08-29] MEDS ORDERED: VANCOMYCIN 1,500 MG in SODIUM CHLORIDE 0.9% 250 ML IVPB ONE (22:45)
[2021-08-29] MEDS: ACETAMINOPHEN TAB 325 MG TAB PO PRN (22:45)
[2021-08-30] MEDS: FUROSEMIDE 20 MG TAB PO SCH ×3 (06:34→17:11)
[2021-08-30 07:09] LABS: Glucose,Whole Blood 113 mg/dL (75-99)
[2021-08-30] MEDS: FAMOTIDINE 20 MG TAB PO SCH (08:19)
[2021-08-30] MEDS: SODIUM BICARBONATE TAB 650 MG TAB PO SCH ×2 (08:19→21:52)
[2021-08-30] MEDS: ASPIRIN 81 MG PO SCH (08:19)
[2021-08-30] MEDS: allopurinoL 100 MG TAB PO SCH (08:19)
[2021-08-30] MEDS: LEVOTHYROXINE 50 MCG TAB PO SCH (08:20)
[2021-08-30] MEDS: HEPARIN SODIUM,PORCINE/PF 5,000 UNIT/0.5 ML SYRINGE SQ SCH ×2 (08:20→21:53)
[2021-08-30] MEDS: ESCITALOPRAM 5 MG TAB PO SCH (08:20)
--- NOTE | 2021-08-30 09:16 | P.PN ---
Subjective Patient is seen in follow for acute kidney injury on chronic kidney disease. Creatinine stable at 3.65 yesterday. Blood pressure stable. Has been voiding. No vomiting or diarrhea. On 2 L nasal cannula. Vital signs are stable. General: The patient appeared well nourished and normally developed. HEENT: Head exam is unremarkable. LUNGS: Breath sounds decreased. HEART: Bradycardic. ABDOMEN: Soft, no distention. EXTREMITITES: Trace edema. Objective - Vital Signs Vital signs: Vital Signs Temp 97.6 F 08/30/21 04:00 Pulse 49 L 08/30/21 08:00 Resp 18 08/30/21 08:00 BP 123/58 08/30/21 08:00 Pulse Ox 97 08/30/21 08:00 Intake & Output 08/29/21 08/30/21 08/30/21 18:59 06:59 18:59 Intake Total 420 Output Total 350 1 Balance -350 -1 420 Weight 88.3 kg Intake: Oral 420 Output: Urine 350 Urine/Stool Mix 1 Other: Voiding Method Urinal Urinal Diaper Diaper # Voids 1 - Labs CBC & Chem 7: 08/29/21 07:37 08/29/21 14:12 Labs: Abnormal Lab Results - Last 24 Hours (Table) 08/29/21 08/29/21 08/29/21 Range/Units 07:37 07:37 14:12 Sodium 134 L (137-145) mmol/L Chloride 111 H (98-107) mmol/L Carbon Dioxide 15 L (22-30) mmol/L BUN 65 H (9-20) mg/dL Creatinine 3.65 H (0.66-1.25) mg/dL Glucose 130 H (74-99) mg/dL POC Glucose (mg/dL) (75-99) mg/dL Calcium 7.3 L (8.4-10.2) mg/dL Iron 56 L (65-175) ug/dL TIBC 213 L (228-460) ug/dL Transferrin 152.0 L (204.0-354.0) mg/dL Vitamin B12 (200.0-944.0) pg/mL Procalcitonin (0.02-0.09) ng/mL Free T4 0.46 L (0.78-2.19) ng/dL 08/29/21 08/29/2122 Range/Units 14:12 16:22 07:08 Sodium (137-145) mmol/L Chloride (98-107) mmol/L Carbon Dioxide (22-30) mmol/L BUN (9-20) mg/dL Creatinine (0.66-1.25) mg/dL Glucose (74-99) mg/dL POC Glucose (mg/dL) 113 H (75-99) mg/dL Calcium (8.4-10.2) mg/dL Iron (65-175) ug/dL TIBC (228-460) ug/dL Transferrin (204.0-354.0) mg/dL Vitamin B12 1694.0 H (200.0-944.0) pg/mL Procalcitonin 0.76 H (0.02-0.09) ng/mL Free T4 (0.78-2.19) ng/dL Microbiology - Last 24 Hours (Table) 08/28/21 13:40 Gram Stain - Preliminary Hand - Left Wound Culture - Preliminary Presumptive MRSA Assessment and Plan Plan: Assessment: 1. Acute kidney injury secondary to ATN secondary to infection. Also component of cardiorenal syndrome. Creatinine stable at 3.65 yesterday. 2. Chronic kidney disease stage IV with creatinine near 3 in June 2021. Etiology is nephrosclerosis. UA fairly benign. Renal ultrasound from last month showed no evidence of hydronephrosis. 3. 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 Status post AICD. 4. Left upper extremity cellulitis on antibiotics. 5. History of AAA status post repair. 6. Metabolic acidosis secondary to acute kidney injury. On oral bicarbonate. 7. Anemia of chronic kidney disease. Iron replete. Plan: Maintain oral Lasix. Avoid nephrotoxins. Encouraged oral intake. Follow-up morning labs. Add Aranesp.
[2021-08-30] MEDS ORDERED: DARBEPOETIN ALFA 40 MCG/0.4 ML SYRINGE SQ SCH (10:00)
[2021-08-30 11:12] LABS: Anisocytosis Slight; HCT 27.6 % (39.0-53.0); HGB 8.7 gm/dL (13.0-17.5); Hypochromasia Marked; MCH 37.7 pg (25.0-35.0); MCHC 31.4 g/dL (31.0-37.0); MCV 120.2 fL (80.0-100.0); Macrocytosis Marked; Mean Platelet Volume 11.3; RDW 18.2 % (11.5-15.5); WBC 8.2 k/uL (3.8-10.6)
[2021-08-30 11:18] LABS: Platelet Count 80 k/uL (150-450)
[2021-08-30 11:51] LABS: African American GFR (CKD) 16 (>60 ml/min/1.73 sqM); Anion Gap 8 mmol/L; Blood Urea Nitrogen 65 mg/dL (9-20); Calcium 7.3 mg/dL (8.4-10.2); Carbon Dioxide 17 mmol/L (22-30); Chloride 111 mmol/L (98-107); Glucose 129 mg/dL (74-99); Magnesium 3.1 mg/dL (1.6-2.3); Non-African American GFR(CKD) 14 (>60 ml/min/1.73 sqM); Potassium 4.6 mmol/L (3.5-5.1); Sodium 136 mmol/L (137-145)
[2021-08-30 11:55] LABS: Band Neutrophils % 3 %; Basophils # (M) 0.08 k/uL (0-0.2); Eosinophils # (M) 0.16 k/uL (0-0.7); Lymphocytes # (M) 0.82 k/uL (1.0-4.8); Monocytes # (M) 0.49 k/uL (0-1.0); Neutrophils % (M) 80 %; Nucleated Red Blood Cells 0 /100 WBC (0-0); RBC Fragments Present; Total Cells Counted 200
[2021-08-30 11:56] LABS: Mixed Population RBC Present; Poikilocytosis (M) Present; Target Cells Present
[2021-08-30 12:07] LABS: T4, Free (Free Thyroxine) 0.65 ng/dL (0.78-2.19)
[2021-08-30 12:27] VITALS: BMI 26.4
[2021-08-30] MEDS ORDERED: LEVOTHYROXINE 50 MCG TAB PO ONE (12:35)
--- NOTE | 2021-08-30 12:45 | P.PN ---
Subjective This is a pleasant 89 years old male with past medical history hypothyroidism, abdominal aortic aneurysm status post repair, coronary artery disease status post stent placement, ischemic cardiomyopathy status post AICD, hypertension, hyperlipidemia, COPD, gout, anemia, and kidney failure Patient states he came to the hospital because he was feeling very weak lately, he could not lift up from chair and he is inclined her yesterday so he is asked for his son to help him on his going to the restroom he has to lay down on the floor by the help of the son because of his weakness so he decided to come to the emergency room. Also patient has been complaining from worsening dyspnea over the last 3 days. 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 Also there is a small wound on the dorsum of his left hand. He denies chest pain or abdominal pain. No nausea vomiting. No fever. Vitas looks stable, slightly bradycardic at 51. CBC looks stable with slightly WBC above average of 3-5, currently WBC 7.9K, hemoglobin is stable at 8.9 and he has chronic thrombocytopenia and currently at 76. INR is 1.1 BMP showing creatinine slightly worse than baseline of 3.0 currently 3.6 and potassium 5.2, sodium 133. Calcium 7.6. Bilirubin is 1.4, AST and ALT not elevated. Troponin is slightly elevated at 0.04, [place] [id number] Chest x-ray showing acute decrease in the airspace opacity in the lower lung zone although focal opacity persistent. EKG showing AV dual paced rhythm with occasional PVC, QTC is 584 08/29/2021 Patient looks less distress lying yesterday but still generally weak, fully awake and oriented. He is been treated for left upper extremity cellulitis, his Doppler and x-ray were negative for acute event. The left upper extremity looks less formed compared to yesterday but still red and patient continued on cefazolin now, culture were obtained from wound and will follow-up the results and they're still pending. Patient currently is covered with cefazolin Also resource protection specialist evaluated the patient and recommended echocardiogram, pacemaker interrogation and looks like the patient has this large 8 ICD lead however he refused to be replaced and cardiology team are following him closely regarding this and will defer further management to them. His hemoglobin and platelets are stable but low with hemoglobin 8.5 and platelets 76 and 82. We will do anemia workup and check vitamin B12 and occult blood in the stool. Patient has known chronic kidney disease and his creatinine at baseline 3.0, K is 3.6 and he looks euvolemic with nephrology team on the case and continued on oral Lasix and oral sodium bicarb has been added as well. Patient generally weak and will benefit from physical therapy evaluation 08/30/2021 Patient was a bit confused last night however he is more awake, it looks like the patient was fallen because of his severe hyperthyroidism. After we check TSH twice since more than 100. And T4 is low although he is on levothyroxine 150 g, we preceded to 200 g daily from this afternoon. Also like he injured his left upper extremity and now he has extensive cellulitis extensive. E xtending up to the arm down the forearm and the hand with some dry wound on the dorsum of the hand with culture growing MRSA. Antibiotics were adjusted to daptomycin per ID recommendation given his kidney malfunction. Also nephrology team of the case. Cardiology diagnosed him with dislodged AICD, patient informed and he does not want any heroic or surgical intervention before resource protection specialist recommended conservative management. This morning I discussed the case with our director case who stated that patient was planning on hospice care as an outpatient, he already contacted the hospice team outpatient and they requested a referral from his physician. When I talked to the patient he confirmed to me he wants to be no code and he wants to talk to hospice peoples were consulted. However he still wants to be treated for his left upper extremity cellulitis and other medical problems. Patient looks a a OX3 to time place and person and he has insight into her illness. Patient has capacity to make medical decisions based upon my evaluation. review of systems CONSTITUTIONAL: No fever, no malaise HEENT: No recent visual problems or hearing problems. Denied any sore throat. CARDIOVASCULAR: No orthopnea, PND, no palpitations, no syncope. PULMONARY: No shortness of breath, no cough, no hemoptysis. GASTROINTESTINAL: No diarrhea, no nausea, no vomiting, no abdominal pain. Normoactive bowel sounds. NEUROLOGICAL: No headaches, no weakness, no numbness. HEMATOLOGICAL: Denies any bleeding or petechiae. Active Medications Generic Name Dose Route Start Last Admin Trade Name Freq PRN Reason Stop Dose Admin Acetaminophen 650 mg 08/28/21 12:30 08/29/21 22:45 Acetaminophen Tab 325 Mg Tab PO 650 mg Q6HR PRN Administration Mild Pain or Fever > 100.5 Albuterol Sulfate 2.5 mg 08/28/21 16:14 08/29/21 16:58 Albuterol Nebulized 2.5 Mg/3 Ml INHALATION 2.5 mg RT-QID PRN Administration Shortness Of Breath Allopurinol 100 mg 08/29/21 09:00 08/30/21 08:19 Allopurinol 100 Mg Tab PO 100 mg DAILY SOLEDAD Administration Aspirin 81 mg 08/29/21 09:00 08/30/21 08:19 Aspirin 81 Mg PO 81 mg DAILY SOLEDAD Administration Darbepoetin Carloz 40 mcg 08/30/21 10:00 Darbepoetin Carloz 40 Mcg/0.4 Ml Syringe SQ Q7D SOLEDAD Escitalopram Oxalate 5 mg 08/29/21 09:00 08/30/21 08:20 Escitalopram 5 Mg Tab PO 5 mg DAILY SOLEDAD Administration Famotidine 20 mg 08/30/21 09:00 08/30/21 08:19 Famotidine 20 Mg Tab PO 20 mg DAILY SOLEDAD Administration Folic Acid 1 mg 08/30/21 12:45 Folic Acid 1 Mg Tab PO DAILY [facility] Furosemide 20 mg 08/28/21 17:30 08/30/21 07:01 Furosemide 20 Mg Tab PO 20 mg AC-BID SOLEDAD Administration Heparin Sodium (Porcine) 5,000 unit 08/28/21 21:00 08/30/21 08:20 Heparin Sodium,Porcine/Pf 5,000 Unit/0.5 Ml Syringe SQ 5,000 unit Q12HR SOLEDAD Administration Sodium Chloride 1,000 mls @ 20 mls/hr 08/28/21 12:30 08/29/21 16:46 Saline 0.9% IV Not Given .Q24H [facility] Daptomycin 350 mg/ Sodium 50 mls @ 100 mls/hr 08/30/21 11:00 Chloride IVPB Q48H [facility] Protocol Levothyroxine Sodium 200 mcg 08/31/21 06:30 Levothyroxine 100 Mcg Tab PO DAILY@0630 [facility] Lidocaine 1 patch 08/28/21 16:14 08/29/21 23:43 Lidocaine 5% Patch TOPICAL 1 patch DAILY PRN Administration Pain Protocol Naloxone HCl 0.2 mg 08/28/21 12:30 Naloxone 0.4 Mg/Ml 1 Ml Vial IV Q2M PRN Opioid Reversal Sodium Bicarbonate 1,300 mg 08/28/21 21:00 08/30/21 08:19 Sodium Bicarbonate Tab 650 Mg Tab PO 1,300 mg BID SOLEDAD Administration Objective - Vital Signs Vital signs: Vital Signs Temp 97.6 F 08/30/21 04:00 Pulse 49 L 08/30/21 08:00 Resp 18 08/30/21 08:00 BP 123/58 08/30/21 08:00 Pulse Ox 97 08/30/21 08:00 Intake & Output 08/29/21 08/30/21 08/30/21 18:59 06:59 18:59 Intake Total 420 Output Total 350 1 Balance -350 -1 420 Weight 88.3 kg 88.3 kg Intake: Oral 420 Output: Urine 350 Urine/Stool Mix 1 Other: Voiding Method Urinal Urinal Diaper Diaper # Voids 1 - Exam - GENERAL: The patient is alert and oriented x3, not in any acute distress. Well developed, well nourished. generally weak HEENT: Pupils are round and equally reacting to light. EOMI. No scleral icterus. No conjunctival pallor. Normocephalic, atraumatic. No pharyngeal erythema. No thyromegaly. CARDIOVASCULAR: S1 and S2 present. No murmurs, rubs, or gallops. PULMONARY: Chest is clear to auscultation, no wheezing or crackles. ABDOMEN: Soft, nontender, nondistended, normoactive bowel sounds. No palpable organomegaly. MUSCULOSKELETAL: No joint swelling or deformity. -EXTREMITIES: No cyanosis, clubbing, or pedal edema. Left hand, forearm and distal arm are right with some superficial excoriation and there is 1 inch wound on the dorsum of the left hand looks dry with no purulent discharge NEUROLOGICAL: Gross neurological examination did not reveal any focal deficits. SKIN: No rashes. No petechiae - Labs CBC & Chem 7: 08/30/21 09:44 08/30/21 09:44 Labs: Abnormal Lab Results - Last 24 Hours (Table) 08/29/21 08/29/21 08/29/21 Range/Units 07:37 14:12 14:12 RBC (4.30-5.90) m/uL Hgb (13.0-17.5) gm/dL Hct (39.0-53.0) % MCV (80.0-100.0) fL MCH (25.0-35.0) pg RDW (11.5-15.5) % Plt Count (150-450) k/uL Lymphocytes # (Manual) (1.0-4.8) k/uL Macrocytosis Sodium 134 L (137-145) mmol/L Chloride 111 H (98-107) mmol/L Carbon Dioxide 15 L (22-30) mmol/L BUN 65 H (9-20) mg/dL Creatinine 3.65 H (0.66-1.25) mg/dL Glucose 130 H (74-99) mg/dL POC Glucose (mg/dL) (75-99) mg/dL Calcium 7.3 L (8.4-10.2) mg/dL Magnesium (1.6-2.3) mg/dL Iron 56 L (65-175) ug/dL TIBC 213 L (228-460) ug/dL Transferrin 152.0 L (204.0-354.0) mg/dL Vitamin B12 1694.0 H (200.0-944.0) pg/mL Procalcitonin (0.02-0.09) ng/mL TSH (0.465-4.680) mIU/L Free T4 (0.78-2.19) ng/dL 08/29/21 08/30/21 08/30/21 Range/Units 16:22 07:08 09:44 RBC (4.30-5.90) m/uL Hgb (13.0-17.5) gm/dL Hct (39.0-53.0) % MCV (80.0-100.0) fL MCH (25.0-35.0) pg RDW (11.5-15.5) % Plt Count (150-450) k/uL Lymphocytes # (Manual) (1.0-4.8) k/uL Macrocytosis Sodium 136 L (137-145) mmol/L Chloride 111 H (98-107) mmol/L Carbon Dioxide 17 L (22-30) mmol/L BUN 65 H (9-20) mg/dL Creatinine 3.72 H (0.66-1.25) mg/dL Glucose 129 H (74-99) mg/dL POC Glucose (mg/dL) 113 H (75-99) mg/dL Calcium 7.3 L (8.4-10.2) mg/dL Magnesium 3.1 H (1.6-2.3) mg/dL Iron (65-175) ug/dL TIBC (228-460) ug/dL Transferrin (204.0-354.0) mg/dL Vitamin B12 (200.0-944.0) pg/mL Procalcitonin 0.76 H (0.02-0.09) ng/mL TSH >100.000 H (0.465-4.680) mIU/L Free T4 0.65 L (0.78-2.19) ng/dL 08/30/21 Range/Units 09:44 RBC 2.30 L (4.30-5.90) m/uL Hgb 8.7 L (13.0-17.5) gm/dL Hct 27.6 L (39.0-53.0) % MCV 120.2 H (80.0-100.0) fL MCH 37.7 H (25.0-35.0) pg RDW 18.2 H (11.5-15.5) % Plt Count 80 L (150-450) k/uL Lymphocytes # (Manual) 0.82 L (1.0-4.8) k/uL Macrocytosis Marked A Sodium (137-145) mmol/L Chloride (98-107) mmol/L Carbon Dioxide (22-30) mmol/L BUN (9-20) mg/dL Creatinine (0.66-1.25) mg/dL Glucose (74-99) mg/dL POC Glucose (mg/dL) (75-99) mg/dL Calcium (8.4-10.2) mg/dL Magnesium (1.6-2.3) mg/dL Iron (65-175) ug/dL TIBC (228-460) ug/dL Transferrin (204.0-354.0) mg/dL Vitamin B12 (200.0-944.0) pg/mL Procalcitonin (0.02-0.09) ng/mL TSH (0.465-4.680) mIU/L Free T4 (0.78-2.19) ng/dL Microbiology - Last 24 Hours (Table) 08/28/21 13:40 Gram Stain - Preliminary Hand - Left Wound Culture - Preliminary Presumptive MRSA Assessment and Plan Assessment: Left upper extremity cellulitis with small wound on the dorsum of the left hand. Secondary to MRSA Generalized weakness and recurrent falls. Secondary to cellulitis and hypothyroidism Significant symptomatic Hypothyroidism, uncontrolled. Increased levothyroxine Dislodge AICD late and patient refused to be replaced. Cardiology team on the case Chronic kidney disease, stage IV. With some elements of acute kidney injury but mild Mildly elevated troponin. Acute coronary syndrome has been ruled out Status post permanent pacemaker Thrombocytopenia, anemia End-of-life care per patient request Borderline folate level which is been replaced History of abdominal aortic aneurysm status post repair History of coronary artery disease status post stent Ischemic cardiomyopathy status post AICD Hypertension Hyperlipidemia COPD, no acute exacerbation Gout Anemia Plan: This is a pleasant 89 is old male who presents with falls, weakness and left upper extremity cellulitis Start cefazolin, sent with culture if continue with daptomycin as per ID team on the case. Increased dose of 3 with a recent up to 200 g daily. Cartilage team on the case and the recommended as operative management after patient refused to replace his dislodged AICD placement Continue with nephrology team recommendation. Flow folate is been replaced Consult hospice upon patient request. Labs and medication were reviewed.. Continue same treatment. Continue with symptomatic treatment. Resume home medication. Monitor lytes and vitals. DVT and GI prophylaxis. Further recommendations depends on the clinical course of the patient DVT prophylaxis: Subcutaneous heparin GI Prophylaxis: Pepcid PT/OT: Pending Prognosis is guarded No code
[2021-08-30] MEDS: DAPTOmycin 350 MG in SODIUM CHLORIDE 0.9% 50 ML IVPB SCH (12:53)
[2021-08-30] MEDS: SODIUM CHLORIDE 0.9% 1,000 ML IV SCH (12:54)
[2021-08-30] MEDS: FOLIC ACID 1 MG TAB PO SCH (12:56)
[2021-08-30] MEDS ORDERED: VANCOMYCIN 1,500 MG in SODIUM CHLORIDE 0.9% 250 ML IVPB ONE (21:00)
--- NOTE | 2021-08-30 22:56 | P.CONS ---
History of Present Illness - Reason for Consult Consult date: 08/30/21 left arm cellulitis/mrsa Requesting physician: Thompson E Sheet - Chief Complaint weakness and left arm redness x days - History of Present Illness History of present illness : Patient is 89-year male presenting to the hospital 2 days ago for evaluation of weakness in this patient has been progressively getting worse for the last 3 weeks patient apparently also have a fall with some laceration to the left upper extremity afterwards noticed to having increasing swelling redness especially to the left lower extremity did have some her dull aching pain 3-4 out of 10 and no radiation did not have any open wound or any drainage patient on presentation to the hospital was afebrile and no fever was recorded patient did have a normal white count did have elevated BUN and creatinine urine was negative jones PCR was negative patient did have a cultures obtained from the left upper extremity wound which is showing presumptive MRSA patient was initially treated with cefazolin antibiotic was switched over to vancomycin and infectious disease was consulted for further management of antibiotic therapy Review of system: CONSTITUTIONAL: Positive for weakness denies high-grade fever. EYES: No complaint. ENT: No complaint. RESPIRATORY: Shortness of breath and cough. CARDIOVASCULAR: No complaint. GENITOURINARY: No complaint. GASTROINTESTINAL: No complaint. MUSCULOSKELETAL: No complaint. INTEGUMENTARY: As per history of present illness. PSYCHOLOGIC: No complaint. ENDOCRINE: No complaint. NEUROLOGIC: No complaint. Past medical history : Reviewed, documented below Past surgical history : Reviewed, documented below Social history: Reviewed, documented below Medications: Reviewed, as documented below EXAMINATION: Vital sigans= Reviewed and documented below GENERAL DESCRIPTION: Elderly male lying in bed, no distress. No tachypnea or accessory muscle of respiration use. HEENT: Shows Pallor , no scleral icterus. Oral mucous membrane is dry. NECK: Trachea central, no thyromegaly. LUNGS: Unlabored breathing decreased breath sound at the base. No wheeze or crackle. HEART: S1, S2, regular rate and rhythm. ABDOMEN: Soft, no tenderness , guarding or rigidity EXTREMITIES: Left upper extremity with diffuse swelling and redness some superficial ulceration no foul-smelling drainage. SKIN: No rash, no masses palpable. NEUROLOGICAL: The patient is awake, alert, oriented x3, mood and affect normal. LABS AND RADIOLOGY: Reviewed results see below Assessment : 1patient with a left upper extremity cellulitis in this patient did have some superficial ulceration and culture has been positive for presumptive MRSA likely the infecting pathogen. 2patient with renal insufficiency and high risk of nephrotoxicity from vancomycin Plan: 1-discontinue vancomycin 2-daptomycin 4 mg/kg every 48 hour 3-keep the left lower extremity elevated to keep swelling down We will follow on clinical condition and cultures to further adjust medication if needed Thank you for this consultation we will follow the patient along with you Past Medical History Past Medical History: Coronary Artery Disease (CAD), Chest Pain / Angina, Heart Failure, Hyperlipidemia, Hypertension, Myocardial Infarction (DE) Additional Past Medical History / Comment(s): GOUT, 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 Last Myocardial Infarction Date:: 2009 History of Any Multi-Drug Resistant Organisms: MRSA Year Discovered:: 08/28/21 MDRO Source:: Left Hand Past Surgical History: AICD, Heart Catheterization With Stent, Pacemaker Additional Past Surgical History / Comment(s): aaa repair Past Anesthesia/Blood Transfusion Reactions: No Reported Reaction Date of Last Stent Placement:: AROUND 2009 Type of Cardiac Device: AICD Device Placement Date:: AUG 2019 Past Psychological History: No Psychological Hx Reported Smoking Status: Former smoker Past Alcohol Use History: None Reported Past Drug Use History: None Reported - Past Family History Father Family Medical History: Myocardial Infarction (DE) Medications and Allergies Home Medications Medication Instructions Recorded Confirmed Type Albuterol Sulfate [Proair Hfa] 2 puff INHALATION RT-QID PRN 11/09/19 08/28/21 History Dorzolamide-Timol 2.23%/0.68% 1 drop BOTH EYES BID 11/09/19 08/28/21 History [Cosopt] Levothyroxine Sodium [Synthroid] 150 mcg PO DAILY 11/09/19 08/28/21 History Nitroglycerin Sl Tabs [Nitrostat] 0.4 mg SUBLINGUAL Q5M PRN 11/09/19 08/28/21 History allopurinoL [Zyloprim] 100 mg PO DAILY 11/09/19 08/28/21 History carvediloL [Coreg] 6.25 mg PO BID 11/09/19 08/28/21 History Lidocaine 5% Patch [Lidoderm 5% 1 patch TOPICAL DAILY PRN #20 patch 11/29/19 08/28/21 Rx Patch] Ipratropium-Albuterol Nebulize 3 ml INHALATION RT-TID PRN 07/13/21 08/28/21 History [Duoneb 0.5 mg-3 mg/3 ml Soln] Lactose-Reduced Food [Ensure Plus] 1 can PO BID 07/13/21 08/28/21 History Multivit-Min/FA/Lycopen/Lutein 1 tab PO DAILY 07/13/21 08/28/21 History [Centrum Silver Men Tablet] Escitalopram [Lexapro] 5 mg PO DAILY 30 Days #30 tab 07/16/21 08/28/21 Rx Acetaminophen Tab [Tylenol Tab] 500 mg PO Q6HR PRN 08/28/21 08/28/21 History Aspirin EC [Ecotrin Low Dose] 81 mg PO DAILY 08/28/21 08/28/21 History Ferrous Sulfate [Feosol] 325 mg PO DAILY 08/28/21 08/28/21 History Furosemide [Lasix] 20 mg PO AC-BID 08/28/21 08/28/21 History Allergies Allergy/AdvReac Type Severity Reaction Status Date / Time glipizide AdvReac DROP SUGAR Verified 08/28/21 10:07 TOO LOW Physical Exam Vitals: Vital Signs Temp Pulse Pulse Resp BP Pulse Ox 08/30/21 08:00 49 L 18 123/58 97 08/30/21 06:50 47 L 18 128/75 98 08/30/21 04:00 97.6 F 49 L 18 98/62 99 08/30/21 00:00 50 L 16 105/70 98 08/29/21 20:00 97.6 F 47 L 18 118/88 98 08/29/21 17:07 64 08/29/21 16:59 60 08/29/21 16:00 98.1 F 44 L 16 138/69 99 08/29/21 14:00 52 L 16 08/29/21 12:00 97.6 F 52 L 16 126/73 99 Intake and Output 08/29/21 08/30/21 08/30/21 22:59 06:59 14:59 Intake Total 420 Output Total 350 1 Balance -350 -1 420 Intake: Oral 420 Output: Urine 350 Urine/Stool Mix 1 Other: Voiding Method Urinal Diaper Weight 88.3 kg Results CBC & Chem 7: 08/30/21 09:44 08/30/21 09:44 Labs: Abnormal Lab Results - Last 24 Hours (Table) 08/29/21 08/29/21 08/29/21 Range/Units 07:37 14:12 14:12 Sodium 134 L (137-145) mmol/L Chloride 111 H (98-107) mmol/L Carbon Dioxide 15 L (22-30) mmol/L BUN 65 H (9-20) mg/dL Creatinine 3.65 H (0.66-1.25) mg/dL Glucose 130 H (74-99) mg/dL POC Glucose (mg/dL) (75-99) mg/dL Calcium 7.3 L (8.4-10.2) mg/dL Iron 56 L (65-175) ug/dL TIBC 213 L (228-460) ug/dL Transferrin 152.0 L (204.0-354.0) mg/dL Vitamin B12 1694.0 H (200.0-944.0) pg/mL Procalcitonin (0.02-0.09) ng/mL 08/29/21 08/30/21 Range/Units 16:22 07:08 Sodium (137-145) mmol/L Chloride (98-107) mmol/L Carbon Dioxide (22-30) mmol/L BUN (9-20) mg/dL Creatinine (0.66-1.25) mg/dL Glucose (74-99) mg/dL POC Glucose (mg/dL) 113 H (75-99) mg/dL Calcium (8.4-10.2) mg/dL Iron (65-175) ug/dL TIBC (228-460) ug/dL Transferrin (204.0-354.0) mg/dL Vitamin B12 (200.0-944.0) pg/mL Procalcitonin 0.76 H (0.02-0.09) ng/mL Microbiology - Last 24 Hours (Table) 08/28/21 13:40 Gram Stain - Preliminary Hand - Left Wound Culture - Preliminary Presumptive MRSA
[2021-08-31] MEDS: LEVOTHYROXINE 100 MCG TAB PO SCH (06:32)
[2021-08-31] MEDS: FUROSEMIDE 20 MG TAB PO SCH ×2 (06:32→18:04)
[2021-08-31 08:17] LABS: Calcium 7.4 mg/dL (8.4-10.2); Potassium 4.7 mmol/L (3.5-5.1)
[2021-08-31] MEDS ORDERED: LEVOTHYROXINE IVP 100 MCG/5 ML VIAL IV SCH (09:00)
[2021-08-31] MEDS: HEPARIN SODIUM,PORCINE/PF 5,000 UNIT/0.5 ML SYRINGE SQ SCH ×2 (09:00→21:13)
[2021-08-31] MEDS: ESCITALOPRAM 5 MG TAB PO SCH (09:00)
[2021-08-31] MEDS: allopurinoL 100 MG TAB PO SCH (09:00)
[2021-08-31] MEDS: ASPIRIN 81 MG PO SCH (09:00)
[2021-08-31] MEDS: SODIUM BICARBONATE TAB 650 MG TAB PO SCH ×2 (09:00→21:12)
[2021-08-31] MEDS: FAMOTIDINE 20 MG TAB PO SCH (09:00)
[2021-08-31] MEDS: FOLIC ACID 1 MG TAB PO SCH (09:00)
[2021-08-31] MEDS ORDERED: FUROSEMIDE 10 MG/ML 4 ML VIAL IV STA (10:32)
--- NOTE | 2021-08-31 10:34 | P.PN ---
Subjective Patient is seen in follow for acute kidney injury on chronic kidney disease. Creatinine stable at 3.66 today. Blood pressure stable. Has a Holman catheter for urinary retention. Nonoliguric. No vomiting or diarrhea. On 2 L nasal cannula. Vital signs are stable. General: The patient appeared well nourished and normally developed. HEENT: Head exam is unremarkable. LUNGS: Breath sounds decreased. HEART: Bradycardic. ABDOMEN: Soft, no distention. EXTREMITITES: Trace edema. Objective - Vital Signs Vital signs: Vital Signs Temp 97.3 F L 08/31/21 04:00 Pulse 51 L 08/31/21 04:00 Resp 18 08/31/21 04:00 BP 108/56 08/31/21 04:00 Pulse Ox 100 08/31/21 04:00 Intake & Output 08/30/21 08/31/21 08/31/21 18:59 06:59 18:59 Intake Total 1458 Output Total 400 800 350 Balance 1058 -800 -350 Weight 88.3 kg Intake: Oral 1458 Output: Urine 400 800 350 Straight 400 400 Other: Voiding Method Urinal Indwelling Catheter Incontinent # Bowel Movements 1 - Labs CBC & Chem 7: 08/30/21 09:44 08/31/21 07:28 Labs: Abnormal Lab Results - Last 24 Hours (Table) 08/30/21 08/30/21 08/31/21 Range/Units 09:44 09:44 07:28 RBC 2.30 L (4.30-5.90) m/uL Hgb 8.7 L (13.0-17.5) gm/dL Hct 27.6 L (39.0-53.0) % MCV 120.2 H (80.0-100.0) fL MCH 37.7 H (25.0-35.0) pg RDW 18.2 H (11.5-15.5) % Plt Count 80 L (150-450) k/uL Lymphocytes # (Manual) 0.82 L (1.0-4.8) k/uL Macrocytosis Marked A Sodium 136 L (137-145) mmol/L Chloride 111 H 111 H (98-107) mmol/L Carbon Dioxide 17 L 19 L (22-30) mmol/L BUN 65 H 64 H (9-20) mg/dL Creatinine 3.72 H 3.66 H (0.66-1.25) mg/dL Glucose 129 H 127 H (74-99) mg/dL Calcium 7.3 L 7.4 L (8.4-10.2) mg/dL Magnesium 3.1 H 3.0 H (1.6-2.3) mg/dL TSH >100.000 H (0.465-4.680) mIU/L Free T4 0.65 L (0.78-2.19) ng/dL Microbiology - Last 24 Hours (Table) 08/28/21 13:40 Gram Stain - Preliminary Hand - Left Wound Culture - Preliminary Presumptive MRSA Assessment and Plan Plan: Assessment: 1. Acute kidney injury secondary to ATN secondary to infection. Also component of cardiorenal syndrome. Creatinine stable at 3.66. 2. Chronic kidney disease stage IV with creatinine near 3 in June 2021. Etiology is nephrosclerosis. UA fairly benign. Renal ultrasound from last month showed no evidence of hydronephrosis. 3. 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 Status post AICD. 4. Left upper extremity cellulitis on antibiotics. 5. History of AAA status post repair. 6. Metabolic acidosis secondary to acute kidney injury. On oral bicarbonate. Better. 7. Anemia of chronic kidney disease. Iron replete. On Aranesp. 8. Urinary retention status post Holman catheter placement. Plan: Maintain oral Lasix. I will give him an additional dose of IV Lasix today. Check chest x-ray. Avoid nephrotoxins. Encouraged oral intake. Continue to monitor renal function and urine output. Add Flomax.
--- NOTE | 2021-08-31 12:00 | XR ---
EXAMINATION TYPE: XR chest 1V DATE OF EXAM: 08/31/2021 HISTORY: Shortness of breath. COMPARISON: 08/28/2021 TECHNIQUE: Single view of the chest is submitted. FINDINGS: Demonstrated are scattered senescent parenchymal change. Density right lower lobe is unchanged. The heart is stable. Hilar and mediastinal structures are within normal limits. Degenerative changes are seen of the dorsal spine. IMPRESSION: 1. Density right lower lobe is unchanged.
[2021-08-31] MEDS ORDERED: TAMSULOSIN 0.4 MG CAP.ER.24H PO SCH (18:30)
[2021-08-31 21:06] VITALS: RESP 18
--- NOTE | 2021-08-31 22:21 | P.PN ---
Subjective This is a pleasant 89 years old male with past medical history hypothyroidism, abdominal aortic aneurysm status post repair, coronary artery disease status post stent placement, ischemic cardiomyopathy status post AICD, hypertension, hyperlipidemia, COPD, gout, anemia, and kidney failure Patient states he came to the hospital because he was feeling very weak lately, he could not lift up from chair and he is inclined her yesterday so he is asked for his son to help him on his going to the restroom he has to lay down on the floor by the help of the son because of his weakness so he decided to come to the emergency room. Also patient has been complaining from worsening dyspnea over the last 3 days. Last week he fell on the floor and cut himself on his arm and today his left arm is swollen and red with no limitation of weakness, he has decent left hand jawbone puller. Also there is a small wound on the dorsum of his left hand. He denies chest pain or abdominal pain. No nausea vomiting. No fever. Vitas looks stable, slightly bradycardic at 51. CBC looks stable with slightly WBC above average of 3-5, currently WBC 7.9K, hemoglobin is stable at 8.9 and he has chronic thrombocytopenia and currently at 76. INR is 1.1 BMP showing creatinine slightly worse than baseline of 3.0 currently 3.6 and potassium 5.2, sodium 133. Calcium 7.6. Bilirubin is 1.4, AST and ALT not elevated. Troponin is slightly elevated at 0.04, [place] [address] Chest x-ray showing acute decrease in the airspace opacity in the lower lung zone although focal opacity persistent. EKG showing AV dual paced rhythm with occasional PVC, QTC is 584 08/29/2021 Patient looks less distress lying yesterday but still generally weak, fully awake and oriented. He is been treated for left upper extremity cellulitis, his Doppler and x-ray were negative for acute event. The left upper extremity looks less formed compared to yesterday but still red and patient continued on cefazolin now, culture were obtained from wound and will follow-up the results and they're still pending. Patient currently is covered with cefazolin Also document processor evaluated the patient and recommended echocardiogram, pacemaker interrogation and looks like the patient has this large 8 ICD lead however he refused to be replaced and cardiology team are following him closely regarding this and will defer further management to them. His hemoglobin and platelets are stable but low with hemoglobin 8.5 and platelets 76 and 82. We will do anemia workup and check vitamin B12 and occult blood in the stool. Patient has known chronic kidney disease and his creatinine at baseline 3.0, K is 3.6 and he looks euvolemic with nephrology team on the case and continued on oral Lasix and oral sodium bicarb has been added as well. Patient generally weak and will benefit from physical therapy evaluation 08/30/2021 Patient was a bit confused last night however he is more awake, it looks like the patient was fallen because of his severe hyperthyroidism. After we check TSH twice since more than 100. And T4 is low although he is on levothyroxine 150 g, we preceded to 200 g daily from this afternoon. Also like he injured his left upper extremity and now he has extensive cellulitis extensive. E xtending up to the arm down the forearm and the hand with some dry wound on the dorsum of the hand with culture growing MRSA. Antibiotics were adjusted to daptomycin per ID recommendation given his kidney malfunction. Also nephrology team of the case. Cardiology diagnosed him with dislodged AICD, patient informed and he does not want any heroic or surgical intervention before document processor recommended conservative management. This morning I discussed the case with our director of casework department who stated that patient was planning on hospice care as an outpatient, he already contacted the hospice team outpatient and they requested a referral from his physician. When I talked to the patient he confirmed to me he wants to be no code and he wants to talk to hospice peoples were consulted. However he still wants to be treated for his left upper extremity cellulitis and other medical problems. Patient looks a a [employer] to time place and person and he has insight into her illness. Patient has capacity to make medical decisions based upon my evaluation. 08/31/2021. Patient admitted with a fall secondary to generalized weakness, deconditioning and hypothyroidism and injured his left upper extremity and presents with left side cellulitis with culture was growing MRSA because of his nephrotoxicity and impaired renal function on admission his antibiotics were switched to daptomycin. Culture today and also was chronic gram-negative and anaerobes. Infectious disease on the case. His creatinine is stable at 3.6, secondary to ATN secondary to infection. Chest x-ray showing left lower lobe density, no CHF. Patient states that he feels better although he still significantly weak, he states that his still interested of going into hospice care facility because it overlies the complicated medical conditions he has, patient has capacity to make medical decision, hospice care were consulted. However patient wishes to continue be treated for now for example for his cellulitis. Also he has dislodged AICD but patient does want want to be replaced in a Place. Cardiology evaluated the patient. TSH was significantly elevated, with his symptoms with increased his levothyroxine 150 g up to 200 g and was sent for repeat thyroid function test. review of systems CONSTITUTIONAL: No fever, no malaise HEENT: No recent visual problems or hearing problems. Denied any sore throat. CARDIOVASCULAR: No orthopnea, PND, no palpitations, no syncope. PULMONARY: No shortness of breath, no cough, no hemoptysis. GASTROINTESTINAL: No diarrhea, no nausea, no vomiting, no abdominal pain. Normoactive bowel sounds. NEUROLOGICAL: No headaches, no weakness, no numbness. HEMATOLOGICAL: Denies any bleeding or petechiae. Active Medications Generic Name Dose Route Start Last Admin Trade Name Freq PRN Reason Stop Dose Admin Acetaminophen 650 mg 08/28/21 12:30 08/29/21 22:45 Acetaminophen Tab 325 Mg Tab PO 650 mg Q6HR PRN Administration Mild Pain or Fever > 100.5 Albuterol Sulfate 2.5 mg 08/28/21 16:14 08/29/21 16:58 Albuterol Nebulized 2.5 Mg/3 Ml INHALATION 2.5 mg RT-QID PRN Administration Shortness Of Breath Allopurinol 100 mg 08/29/21 09:00 08/31/21 09:00 Allopurinol 100 Mg Tab PO 100 mg DAILY SOLEDAD Administration Aspirin 81 mg 08/29/21 09:00 08/31/21 09:00 Aspirin 81 Mg PO 81 mg DAILY SOLEDAD Administration Darbepoetin Carloz 40 mcg 08/30/21 10:00 08/30/21 15:02 Darbepoetin Carloz 40 Mcg/0.4 Ml Syringe SQ 40 mcg Q7D SOLEDAD Administration Escitalopram Oxalate 5 mg 08/29/21 09:00 08/31/21 09:00 Escitalopram 5 Mg Tab PO 5 mg DAILY SOLEDAD Administration Famotidine 20 mg 08/30/21 09:00 08/31/21 09:00 Famotidine 20 Mg Tab PO 20 mg DAILY SOLEDAD Administration Folic Acid 1 mg 08/30/21 12:45 08/31/21 09:00 Folic Acid 1 Mg Tab PO 1 mg DAILY SOLEDAD Administration Furosemide 20 mg 08/28/21 17:30 08/31/21 18:04 Furosemide 20 Mg Tab PO 20 mg AC-BID SOLEDAD Administration Heparin Sodium (Porcine) 5,000 unit 08/28/21 21:00 08/31/21 21:13 Heparin Sodium,Porcine/Pf 5,000 Unit/0.5 Ml Syringe SQ 5,000 unit Q12HR SOLEDAD Administration Sodium Chloride 1,000 mls @ 20 mls/hr 08/28/21 12:30 08/30/21 12:54 Saline 0.9% IV 20 mls/hr .Q24H SOLEDAD Administration Daptomycin 350 mg/ Sodium 50 mls @ 100 mls/hr 08/30/21 11:00 08/30/21 12:53 Chloride IVPB 100 mls/hr Q48H SOLEDAD Administration Protocol Levothyroxine Sodium 200 mcg 08/31/21 06:30 08/31/21 06:32 Levothyroxine 100 Mcg Tab PO 200 mcg DAILY@0630 SOLEDAD Administration Lidocaine 1 patch 08/28/21 16:14 08/29/21 23:43 Lidocaine 5% Patch TOPICAL 1 patch DAILY PRN Administration Pain Protocol Naloxone HCl 0.2 mg 08/28/21 12:30 Naloxone 0.4 Mg/Ml 1 Ml Vial IV Q2M PRN Opioid Reversal Sodium Bicarbonate 1,300 mg 08/28/21 21:00 08/31/21 21:12 Sodium Bicarbonate Tab 650 Mg Tab PO 1,300 mg BID SOLEDAD Administration Tamsulosin HCl 0.4 mg 08/31/21 18:30 08/31/21 18:04 Tamsulosin 0.4 Mg Cap.Er.24h PO 0.4 mg PC-SUPPER SOLEDAD Administration Objective - Vital Signs Vital signs: Vital Signs Temp 97.3 F L 08/31/21 04:00 Pulse 51 L 08/31/21 04:00 Resp 18 08/31/21 04:00 BP 108/56 08/31/21 04:00 Pulse Ox 100 08/31/21 04:00 Intake & Output 08/30/21 08/31/21 08/31/21 18:59 06:59 18:59 Intake Total 1458 Output Total 400 800 350 Balance 1058 -800 -350 Weight 88.3 kg Intake: Oral 1458 Output: Urine 400 800 350 Straight 400 400 Other: Voiding Method Urinal Indwelling Catheter Incontinent # Bowel Movements 1 - Exam - GENERAL: The patient is alert and oriented x3, not in any acute distress. Well developed, well nourished. generally weak HEENT: Pupils are round and equally reacting to light. EOMI. No scleral icterus. No conjunctival pallor. Normocephalic, atraumatic. No pharyngeal erythema. No thyromegaly. CARDIOVASCULAR: S1 and S2 present. No murmurs, rubs, or gallops. PULMONARY: Chest is clear to auscultation, no wheezing or crackles. ABDOMEN: Soft, nontender, nondistended, normoactive bowel sounds. No palpable organomegaly. MUSCULOSKELETAL: No joint swelling or deformity. -EXTREMITIES: No cyanosis, clubbing, or pedal edema. Left hand, forearm and distal arm are right with some superficial excoriation and there is 1 inch wound on the dorsum of the left hand looks dry with no purulent discharge NEUROLOGICAL: Gross neurological examination did not reveal any focal deficits. SKIN: No rashes. No petechiae - Labs CBC & Chem 7: 08/30/21 09:44 08/31/21 07:28 Labs: Abnormal Lab Results - Last 24 Hours (Table) 08/30/21 08/30/21 08/31/21 Range/Units 09:44 09:44 07:28 RBC 2.30 L (4.30-5.90) m/uL Hgb 8.7 L (13.0-17.5) gm/dL Hct 27.6 L (39.0-53.0) % MCV 120.2 H (80.0-100.0) fL MCH 37.7 H (25.0-35.0) pg RDW 18.2 H (11.5-15.5) % Plt Count 80 L (150-450) k/uL Lymphocytes # (Manual) 0.82 L (1.0-4.8) k/uL Macrocytosis Marked A Sodium 136 L (137-145) mmol/L Chloride 111 H 111 H (98-107) mmol/L Carbon Dioxide 17 L 19 L (22-30) mmol/L BUN 65 H 64 H (9-20) mg/dL Creatinine 3.72 H 3.66 H (0.66-1.25) mg/dL Glucose 129 H 127 H (74-99) mg/dL Calcium 7.3 L 7.4 L (8.4-10.2) mg/dL Magnesium 3.1 H 3.0 H (1.6-2.3) mg/dL TSH >100.000 H (0.465-4.680) mIU/L Free T4 0.65 L (0.78-2.19) ng/dL Microbiology - Last 24 Hours (Table) 08/28/21 13:40 Gram Stain - Preliminary Hand - Left Wound Culture - Preliminary Presumptive MRSA Assessment and Plan Assessment: Left upper extremity cellulitis with small wound on the dorsum of the left hand. Secondary to MRSA, and aerobes Generalized weakness and recurrent falls. Secondary to cellulitis and hypothyroidism Significant symptomatic Hypothyroidism, uncontrolled. Increased levothyroxine Dislodge AICD late and patient refused to be replaced. Cardiology team on the case Chronic kidney disease, stage IV. With some elements of acute kidney injury but mild Mildly elevated troponin. Acute coronary syndrome has been ruled out Status post permanent pacemaker Thrombocytopenia, anemia End-of-life care per patient request Borderline folate level which is been replaced History of abdominal aortic aneurysm status post repair History of coronary artery disease status post stent Ischemic cardiomyopathy status post AICD Hypertension Hyperlipidemia COPD, no acute exacerbation Gout Anemia Plan: This is a pleasant 89 is old male who presents with falls, weakness and left upper extremity cellulitis continue with daptomycin as per ID team on the case. Increased dose of levothyroxine up to 200 g daily. Cardiology team on the case and the recommended as operative management after patient refused to replace his dislodged AICD placement Continue with nephrology team recommendation. low folate is been replaced Consult hospice upon patient request. Labs and medication were reviewed.. Continue same treatment. Continue with symptomatic treatment. Resume home medication. Monitor lytes and vitals. DVT and GI prophylaxis. Further recommendations depends on the clinical course of the patient DVT prophylaxis: Subcutaneous heparin GI Prophylaxis: Pepcid PT/OT: Pending Prognosis is guarded No code
[2021-09-01] MEDS: ACETAMINOPHEN TAB 325 MG TAB PO PRN (00:28)
[2021-09-01] MEDS: SODIUM CHLORIDE 0.9% 1,000 ML IV SCH ×2 (00:28→08:38)
[2021-09-01] MEDS: FUROSEMIDE 20 MG TAB PO SCH (06:30)
[2021-09-01] MEDS: LEVOTHYROXINE 100 MCG TAB PO SCH (06:30)
[2021-09-01] MEDS: HEPARIN SODIUM,PORCINE/PF 5,000 UNIT/0.5 ML SYRINGE SQ SCH (08:37)
[2021-09-01] MEDS: ESCITALOPRAM 5 MG TAB PO SCH (08:37)
[2021-09-01 08:38] LABS: Calcium 7.2 mg/dL (8.4-10.2); Magnesium 2.8 mg/dL (1.6-2.3); Potassium 4.3 mmol/L (3.5-5.1)
[2021-09-01] MEDS: FAMOTIDINE 20 MG TAB PO SCH (08:38)
[2021-09-01] MEDS: allopurinoL 100 MG TAB PO SCH (08:38)
[2021-09-01] MEDS: SODIUM BICARBONATE TAB 650 MG TAB PO SCH (08:38)
[2021-09-01] MEDS: FOLIC ACID 1 MG TAB PO SCH (08:38)
[2021-09-01] MEDS: ASPIRIN 81 MG PO SCH (08:38)
[2021-09-01 08:45] LABS: Anisocytosis Slight; Basophils % (A) 1 %; Eosinophils # (A) 0.1 k/uL (0-0.7); Eosinophils % (A) 2 %; HCT 25.8 % (39.0-53.0); HGB 8.1 gm/dL (13.0-17.5); Hypochromasia Marked; Lymphocytes # (A) 0.9 k/uL (1.0-4.8); Lymphocytes % (A) 20 %; MCH 38.1 pg (25.0-35.0); MCHC 31.5 g/dL (31.0-37.0); Macrocytosis Marked; Mean Platelet Volume 10.7; Monocytes # (A) 0.2 k/uL (0-1.0); Monocytes % (A) 4 %; Neutrophils # (A) 3.1 k/uL (1.3-7.7); Neutrophils % (A) 71 %; RBC 2.13 m/uL (4.30-5.90); RDW 18.1 % (11.5-15.5); WBC 4.4 k/uL (3.8-10.6)
[2021-09-01 08:46] LABS: Platelet Count 60 k/uL (150-450)
[2021-09-01] MEDS ORDERED: SODIUM BICARB 8.4% 50 ML SYR (1 MEQ/ML) IV STA (11:14)
--- NOTE | 2021-09-01 11:16 | P.PN ---
Subjective Patient is seen in follow for acute kidney injury on chronic kidney disease. Creatinine stable at 3.65 today. Blood pressure on the lower side. Has a Holman catheter for urinary retention. Nonoliguric. No vomiting or diarrhea. On 2 L nasal cannula. Vital signs are stable. General: The patient appeared well nourished and normally developed. HEENT: Head exam is unremarkable. LUNGS: Breath sounds decreased. HEART: Bradycardic. ABDOMEN: Soft, no distention. EXTREMITITES: Trace edema. Objective - Vital Signs Vital signs: Vital Signs Temp 97.6 F 09/01/21 08:00 Pulse 42 L 09/01/21 08:00 Resp 18 09/01/21 08:00 BP 96/36 09/01/21 08:00 Pulse Ox 98 09/01/21 08:00 Intake & Output 08/31/21 09/01/21 09/01/21 18:59 06:59 18:59 Intake Total 500 Output Total 1050 350 Balance -1050 150 Intake: Oral 500 Output: Urine 1050 350 Other: Voiding Method Indwelling Catheter Indwelling Catheter Indwelling Catheter # Bowel Movements 0 - Labs CBC & Chem 7: 09/01/21 06:38 09/01/21 06:38 Labs: Abnormal Lab Results - Last 24 Hours (Table) 09/01/21 09/01/21 Range/Units 06:38 06:38 RBC 2.13 L (4.30-5.90) m/uL Hgb 8.1 L (13.0-17.5) gm/dL Hct 25.8 L (39.0-53.0) % MCV 121.0 H (80.0-100.0) fL MCH 38.1 H (25.0-35.0) pg RDW 18.1 H (11.5-15.5) % Macrocytosis Marked A Sodium 135 L (137-145) mmol/L Chloride 111 H (98-107) mmol/L Carbon Dioxide 16 L (22-30) mmol/L BUN 65 H (9-20) mg/dL Creatinine 3.65 H (0.66-1.25) mg/dL Glucose 132 H (74-99) mg/dL Calcium 7.2 L (8.4-10.2) mg/dL Magnesium 2.8 H (1.6-2.3) mg/dL Microbiology - Last 24 Hours (Table) 08/28/21 13:40 Gram Stain - Final Hand - Left Wound Culture - Final Methicillin resist S. aureus 08/28/21 13:40 Anaerobic Culture - Final Hand - Left Anaerobic Gm Negative Bacilli Assessment and Plan Plan: Assessment: 1. Acute kidney injury secondary to ATN secondary to infection. Also component of cardiorenal syndrome. Creatinine stable at 3.65. 2. Chronic kidney disease stage IV with creatinine near 3 in June 2021. Etiology is nephrosclerosis. UA fairly benign. Renal ultrasound from last month showed no evidence of hydronephrosis. 3. 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 Status post AICD. 4. Left upper extremity cellulitis on antibiotics. 5. History of AAA status post repair. 6. Metabolic acidosis secondary to acute kidney injury. On oral bicarbonate. 7. Anemia of chronic kidney disease. Iron replete. On Aranesp. 8. Urinary retention status post Holman catheter placement. On Flomax. Plan: Hold Lasix as blood pressure is on the lower side. No evidence of fluid overload noted on chest x-ray. Avoid nephrotoxins. Encouraged oral intake. Continue to monitor renal function and urine output. Add midodrine. 2 A of sodium bicarb IV push today. Hospice consulted. Prognosis guarded.
[2021-09-01] MEDS: DAPTOmycin 350 MG in SODIUM CHLORIDE 0.9% 50 ML IVPB SCH (11:24)
[2021-09-01 11:33] VITALS: BP 126/64; PULSE 54; TEMP 98.5
[2021-09-01] MEDS ORDERED: MIDODRINE 5 MG TAB PO SCH (12:30)
[2021-09-01 13:05] LABS: Poikilocytosis (M) Present
--- NOTE | 2021-09-01 15:02 | P.DS ---
Providers Date of admission: 08/28/21 12:31 Attending physician: Thompson Deleon MD Consults: 08/28/21 12:22 Consult Physician Routine Consulting Provider: Ernesto Mcnulty Consult Reason/Comments: ckd stage IV Do you want consulting provider notified?: Yes 08/28/21 12:32 Consult Physician Urgent Consulting Provider: Quoc Raymond Consult Reason/Comments: elevated troponin Do you want consulting provider notified?: Yes 08/29/21 22:26 Consult Physician Urgent Consulting Provider: Malathi Hall Consult Reason/Comments: left arm cellulitis Do you want consulting provider notified?: Yes Primary care physician: [facility] Hospital Course: Final Diagnosis Left upper extremity cellulitis with small wound on the dorsum of the left hand. Secondary to MRSA, and aerobes Generalized weakness and recurrent falls. Secondary to cellulitis and hypothyroidism Significant symptomatic Hypothyroidism, uncontrolled. Increased levothyroxine Dislodge AICD late and patient refused to be replaced. Cardiology team on the case Chronic kidney disease, stage IV. With some elements of acute kidney injury but mild Mildly elevated troponin. Acute coronary syndrome has been ruled out Status post permanent pacemaker Thrombocytopenia, anemia End-of-life care per patient request Borderline folate level which is been replaced History of abdominal aortic aneurysm status post repair History of coronary artery disease status post stent Ischemic cardiomyopathy status post AICD Hypertension Hyperlipidemia COPD, no acute exacerbation Gout Anemia Discharge Disposition Discharge to [facility] This is a pleasant 89-year-old male who presents to the hospital with generalized weakness at home could not lift himself up from the chair and began to decline more yesterday. His son came to his house yesterday to help him and found him laying on the floor due to extreme weakness and brought him to the . Patient is also having progressive worsening dyspnea over the last 3 days prior to admission. Patient is a history of ischemic cardiomyopathy with an EF of 20- 25% status post AICD. There was a lead found to be displaced and his AICD and patient refused to have it replaced. He does have bradycardia, symptomatic at times. Additionally patient with laceration on dorsum left hand that was cultured positive for MRSA he was started on IV daptomycin per ID recommendation s. Patient with multiple comorbidities after discussion with care team and his POA has decided to pursue hospice and wishes for comfort measures only and does not want any further active treatments like to be discharged to hospice house today. Patient is alert and oriented 3 he is very understanding optimistic about his current prognosis. Labs on admission include sodium 133, potassium 5.2, BUN 64, creatinine 3.68, magnesium 3.2, total Bili 1.4, Alk Phos, 224, Troponin 0.041, BNP 13,300. TSH was greater than 100,000 and TSH 0.65, his synthroid was increased. Patients creatinine stable at 3.65. He was followed this admission by Nephrology, Cardiology, and ID. 09/01/2021 Patient evaluated today sitting up in chair. Long discussion was had regarding hospice vs. active care. Patient would like to be discharged to hospice house today. Arrangements are being made. Thank you for allowing us to participate in the care of this patient. Patient Condition at Discharge: Poor Plan - Discharge Summary Discharge Rx Participant: No New Discharge Prescriptions: New Acetaminophen Tab [Tylenol] 650 mg PO Q6HR PRN tab PRN Reason: Mild Pain Or Fever > 100.5 Continue Dorzolamide-Timol 2.23%/0.68% [Cosopt] 1 drop BOTH EYES BID Albuterol Sulfate [Proair Hfa] 2 puff INHALATION RT-QID PRN PRN Reason: Shortness Of Breath Lidocaine 5% Patch [Lidoderm 5% Patch] 1 patch TOPICAL DAILY PRN #20 patch PRN Reason: Pain Lactose-Reduced Food [Ensure Plus] 1 can PO BID Ipratropium-Albuterol Nebulize [Duoneb 0.5 mg-3 mg/3 ml Soln] 3 ml INHALATION RT-TID PRN PRN Reason: Shortness Of Breath No Action Nitroglycerin Sl Tabs [Nitrostat] 0.4 mg SUBLINGUAL Q5M PRN PRN Reason: Chest Pain Levothyroxine Sodium [Synthroid] 150 mcg PO DAILY carvediloL [Coreg] 6.25 mg PO BID allopurinoL [Zyloprim] 100 mg PO DAILY Multivit-Min/FA/Lycopen/Lutein [Centrum Silver Men Tablet] 1 tab PO DAILY Furosemide [Lasix] 20 mg PO AC-BID Ferrous Sulfate [Feosol] 325 mg PO DAILY Escitalopram [Lexapro] 5 mg PO DAILY 30 Days #30 tab Acetaminophen Tab [Tylenol Tab] 500 mg PO Q6HR PRN PRN Reason: Pain Or Fever > 100.5 Aspirin EC [Ecotrin Low Dose] 81 mg PO DAILY Discharge Medication List Albuterol Sulfate [Proair Hfa] 2 puff INHALATION RT-QID PRN 11/09/19 [History] Dorzolamide-Timol 2.23%/0.68% [Cosopt] 1 drop BOTH EYES BID 11/09/19 [History] Levothyroxine Sodium [Synthroid] 150 mcg PO DAILY 11/09/19 [History] Nitroglycerin Sl Tabs [Nitrostat] 0.4 mg SUBLINGUAL Q5M PRN 11/09/19 [History] allopurinoL [Zyloprim] 100 mg PO DAILY 11/09/19 [History] carvediloL [Coreg] 6.25 mg PO BID 11/09/19 [History] Lidocaine 5% Patch [Lidoderm 5% Patch] 1 patch TOPICAL DAILY PRN #20 patch 11/29/19 [Rx] Ipratropium-Albuterol Nebulize [Duoneb 0.5 mg-3 mg/3 ml Soln] 3 ml INHALATION RT-TID PRN 07/13/21 [History] Lactose-Reduced Food [Ensure Plus] 1 can PO BID 07/13/21 [History] Multivit-Min/FA/Lycopen/Lutein [Centrum Silver Men Tablet] 1 tab PO DAILY 07/13/21 [History] Escitalopram [Lexapro] 5 mg PO DAILY 30 Days #30 tab 07/16/21 [Rx] Acetaminophen Tab [Tylenol Tab] 500 mg PO Q6HR PRN 08/28/21 [History] Aspirin EC [Ecotrin Low Dose] 81 mg PO DAILY 08/28/21 [History] Ferrous Sulfate [Feosol] 325 mg PO DAILY 08/28/21 [History] Furosemide [Lasix] 20 mg PO AC-BID 08/28/21 [History] Acetaminophen Tab [Tylenol] 650 mg PO Q6HR PRN tab 09/01/21 [Rx] Follow up Appointment(s)/Referral(s): [facility]ERR[facility] - [facility]Clinic [Primary Care Provider] - 1-2 days Activity/Diet/Wound Care/Special Instructions: Transfer to [facility]
--- NOTE | 2021-09-01 20:31 | P.PN ---
Subjective Progress Note Date: 08/31/21 Principal diagnosis: Left upper extremity cellulitis Patient is 89 year male presented to hospital with generalized weakness in this patient did have evidence of acute and chronic renal failure he did have a history of a laceration and left lower extremity cellulitis culture positive for MRSA. On today's evaluation that is 08/31/2021, the patient denies having any fever or chills, patient left upper extremity swelling redness is slightly decreased, denies having any chest pain shortness of breath or cough no abdominal pain no diarrhea Objective - Vital Signs Vital signs: Vital Signs Temp 97.4 F L 08/31/21 20:00 Pulse 56 L 08/31/21 20:00 Resp 18 08/31/21 20:00 BP 120/51 08/31/21 20:00 Pulse Ox 100 08/31/21 20:00 Intake & Output 08/31/21 08/31/21 09/01/21 06:59 18:59 06:59 Output Total 800 1050 Balance -800 -1050 Output: Urine 800 1050 Straight 400 Other: Voiding Method Indwelling Catheter Indwelling Catheter - Exam General description is an elderly male lying in bed in no distress. Respiratory system:Unlabored breathing, decreased intensity in breath sounds. No wheeze. Heart S1, S2. Regular rate and rhythm. Abdomen soft, no tenderness. Left upper extremity swelling and redness has decreased no drainage - Labs CBC & Chem 7: 09/01/21 06:38 09/01/21 06:38 Labs: Abnormal Lab Results - Last 24 Hours (Table) 08/31/21 Range/Units 07:28 Chloride 111 H (98-107) mmol/L Carbon Dioxide 19 L (22-30) mmol/L BUN 64 H (9-20) mg/dL Creatinine 3.66 H (0.66-1.25) mg/dL Glucose 127 H (74-99) mg/dL Calcium 7.4 L (8.4-10.2) mg/dL Magnesium 3.0 H (1.6-2.3) mg/dL Microbiology - Last 24 Hours (Table) 08/28/21 13:40 Gram Stain - Final Hand - Left Wound Culture - Final Methicillin resist S. aureus 08/28/21 13:40 Anaerobic Culture - Final Hand - Left Anaerobic Gm Negative Bacilli Assessment and Plan (1) Left arm cellulitis Status: Acute Code(s): L03.114 - CELLULITIS OF LEFT UPPER LIMB SNOMED Code(s): 806818476 Plan: 1patient with left upper extremity cellulitis culture positive for MRSA patient did have renal insufficiency and high risk of nephrotoxicity from [place] patient clinically responded to daptomycin to continue and monitor his clinical course closely Time with Patient: Less than 30
--- NOTE | 2021-09-01 20:33 | P.PN ---
Subjective Progress Note Date: 09/01/21 Principal diagnosis: Left upper extremity cellulitis Patient is 89 year male presented to hospital with generalized weakness in this patient did have evidence of acute and chronic renal failure he did have a history of a laceration and left lower extremity cellulitis culture positive for MRSA. On today's evaluation that is 09/01/2021, the patient remains to be afebrile, patient left upper extremity swelling redness has decreased in intensity, the patient denies having any chest pain shortness of breath or cough no abdominal pain no diarrhea Objective - Vital Signs Vital signs: Vital Signs Temp 98.5 F 09/01/21 11:32 Pulse 54 L 09/01/21 11:33 Resp 18 09/01/21 11:32 BP 126/64 09/01/21 11:32 Pulse Ox 99 09/01/21 11:32 Intake & Output 08/31/21 09/01/21 09/01/21 18:59 06:59 18:59 Intake Total 500 Output Total 1050 350 975 Balance -1050 150 -975 Intake: Oral 500 Output: Urine 1050 350 975 Other: Voiding Method Indwelling Catheter Indwelling Catheter Indwelling Catheter # Bowel Movements 0 - Exam General description is an elderly male lying in bed in no distress. Respiratory system:Unlabored breathing, decreased intensity in breath sounds. No wheeze. Heart S1, S2. Regular rate and rhythm. Abdomen soft, no tenderness. Left upper extremity swelling and redness has decreased no drainage - Labs CBC & Chem 7: 09/01/21 06:38 09/01/21 06:38 Labs: Abnormal Lab Results - Last 24 Hours (Table) 09/01/21 09/01/21 Range/Units 06:38 06:38 RBC 2.13 L (4.30-5.90) m/uL Hgb 8.1 L (13.0-17.5) gm/dL Hct 25.8 L (39.0-53.0) % MCV 121.0 H (80.0-100.0) fL MCH 38.1 H (25.0-35.0) pg RDW 18.1 H (11.5-15.5) % Plt Count 60 L (150-450) k/uL Lymphocytes # 0.9 L (1.0-4.8) k/uL Macrocytosis Marked A Sodium 135 L (137-145) mmol/L Chloride 111 H (98-107) mmol/L Carbon Dioxide 16 L (22-30) mmol/L BUN 65 H (9-20) mg/dL Creatinine 3.65 H (0.66-1.25) mg/dL Glucose 132 H (74-99) mg/dL Calcium 7.2 L (8.4-10.2) mg/dL Magnesium 2.8 H (1.6-2.3) mg/dL Microbiology - Last 24 Hours (Table) 08/28/21 13:40 Gram Stain - Final Hand - Left Wound Culture - Final Methicillin resist S. aureus 08/28/21 13:40 Anaerobic Culture - Final Hand - Left Anaerobic Gm Negative Bacilli Assessment and Plan (1) Left arm cellulitis Status: Acute Code(s): L03.114 - CELLULITIS OF LEFT UPPER LIMB SNOMED Code(s): 006340657 Plan: 1patient with left upper extremity cellulitis culture positive for MRSA patient did have renal insufficiency and high risk of nephrotoxicity from [place] patient clinically responded to daptomycin which will be continued while inpatient and transitioned to oral doxycycline on discharge Time with Patient: Less than 30
== END 2021-09-01 15:40 | disposition hospice, inpatient (51) | DRG 602 ==
LOC: EC 08:56 → 3SCARD 12:31
PROVIDERS: ADMIT Internal Medicine; ATTEND Internal Medicine
DX: L03.114 Cellulitis of left upper limb (principal); N17.0 Acute kidney failure with tubular necrosis; I50.23 Acute on chronic systolic (congestive) heart failure; E87.2 Acidosis; I13.0 Hypertensive heart and chronic kidney disease with heart failure and stage 1 through stage 4 chronic kidney disease, or unspecified chronic kidney disease; T82.120A Displacement of cardiac electrode, initial encounter; N18.4 Chronic kidney disease, stage 4 (severe); L03.116 Cellulitis of left lower limb; I27.20 Pulmonary hypertension, unspecified; D69.6 Thrombocytopenia, unspecified; D63.1 Anemia in chronic kidney disease; I48.0 Paroxysmal atrial fibrillation; J44.9 Chronic obstructive pulmonary disease, unspecified; Z66 Do not resuscitate; Z51.5 Encounter for palliative care; Z20.822 Contact with and (suspected) exposure to COVID-19; S41.112A Laceration without foreign body of left upper arm, initial encounter; B95.62 Methicillin resistant Staphylococcus aureus infection as the cause of diseases classified elsewhere; R00.1 Bradycardia, unspecified; E78.5 Hyperlipidemia, unspecified; E05.90 Thyrotoxicosis, unspecified without thyrotoxic crisis or storm; E03.9 Hypothyroidism, unspecified; I25.5 Ischemic cardiomyopathy; I25.10 Atherosclerotic heart disease of native coronary artery without angina pectoris; I07.1 Rheumatic tricuspid insufficiency; M54.9 Dorsalgia, unspecified; I25.2 Old myocardial infarction; R33.9 Retention of urine, unspecified; R29.6 Repeated falls; M10.9 Gout, unspecified; R77.8 Other specified abnormalities of plasma proteins; Z79.82 Long term (current) use of aspirin; Z79.890 Hormone replacement therapy; Z79.899 Other long term (current) drug therapy; Z87.891 Personal history of nicotine dependence; Z60.2 Problems related to living alone; Z91.81 History of falling; Z95.810 Presence of automatic (implantable) cardiac defibrillator; Z95.5 Presence of coronary angioplasty implant and graft; Z86.79 Personal history of other diseases of the circulatory system; Z87.01 Personal history of pneumonia (recurrent); Z95.828 Presence of other vascular implants and grafts; Z71.3 Dietary counseling and surveillance; W19.XXXA Unspecified fall, initial encounter; Z88.8 Allergy status to other drugs, medicaments and biological substances; Z82.49 Family history of ischemic heart disease and other diseases of the circulatory system
CPT/HCPCS: 36415; 71045; 80048; 80053; 80076; 81003; 82607; 82728; 82746; 83540; 83550; 83605; 83735; 83880; 84145; 84439; 84443; 84484; 85025; 85610; 85730; 87070; 87075; 87077; 87186; 87205; 87635; 93005; 94640; 99285